=== PATIENT | female | born 1980 | race Caucasian/White ===

== ENCOUNTER 2024-09-23 18:13 | Inpatient (IN) | payer OTHER, SELFPAY ==
[2024-09-23 18:14] VITALS: BP 181/96; PULSE 90; RESP 15; TEMP 36.4; O2SAT 96; BMI 47.9
--- NOTE | 2024-09-23 18:53 | EDS_ITS ---
HPI History of Present Illness Chief Complaint: Abn Labs [facility] Medical History (Updated 09/23/24 @ 22:26 by Angeles Bhandari) Hypertension Medical History no medical history Home Medications ?Medication ?Instructions ?Recorded ?Last Taken ?Type losartan 25 mg tablet 25 mg PO DAILY 09/23/24 Unkn own History Allergy/AdvReac Type Severity Reaction Status Date / Time No Known Allergies Allergy Verified 09/23/24 18:14 Family History no significant family his Surgical History no surgical history Social History Smoking Status: Never smoker EXAM Physical Exam Const Vital Signs: 09/23/24 18:14 09/23/24 20:14 Temperature 97.5 F L Temperature Source Temporal Pulse Rate 90 79 Respiratory Rate 15 18 Blood Pressure 181/96 H Blood Pressure Mean 124 Pulse Ox 96 98 Oxygen Delivery Method Room Air Room Air [facility] MDM Narrative Medical decision making narrative: HISTORY OF PRESENT ILLNESS: 44-year-old female presents with concern for elevated liver enzymes. Notes history of gallbladder sludge. No severe abdominal pain earlier today. No pain with food. No falls or trauma. No urinary complaints. REVIEW OF SYSTEMS: Pertinent positives: Elevated liver enzymes Pertinent negatives: Vomiting PHYSICAL EXAM: Nursing triage notes reviewed, Vital signs reviewed Constitutional: please see mdm HENT: MMM Eyes: Pupils equal round and reactive to light, Extraocular muscles intact, no scleral icterus Neck: No stridor, no JVD, full neck ROM Lungs: Clear to auscultation, No wheezing or rales. No increased work of breathing, no conversational dyspnea, no accessory muscle use, no nasal flaring. No respiratory distress noted Heart: Regular rate and rhythm, No murmurs, No rubs and No gallops, 2+ distal pulses (radial, femoral, posterior tibial) in all extremities Abdomen: Soft, right a quadrant TTP, positive Isabel sign but no rigidity, rebound or guarding, no obvious peritoneal signs, no palpable pulsatile abdominal masses, no auscultated abdominal bruit : No CVAT Extremities: No edema Neuro: No new focal neurological deficits, cranial nerves II through XII intact, 5/5 strength in all present extremities. Intact sensation to light touch in all present extremities, 2+ reflexes bilateral patella tendons. Skin: No jaundice MEDICAL DECISION MAKING: Chief Complaint: Elevated liver enzymes External records reviewed: Reviewed prior imaging studies Factors affecting care: hypertension Social determinants of health: none History obtained from others: the patient's Consults: Gastroenterology (Dr. Cortez), Internal Medicine (Garcia) MDM Narrative: The patient was initially hemodynamically stable, afebrile and nontoxic- appearing. Exam with RUQ TTP. No jaundice. I considered the following differential diagnosis: Hepatitis ALL IMAGES (IF OBTAINED) HAVE BEEN PERSONALLY REVIEWED AND INTERPRETED BY MYSELF. CBC without leukocytosis, severe anemia, no thrombocytopenia. BMP without evidence of significant electrolyte abnormalities, no anion gap, no acute kidney injury. Liver enzymes elevated with elevated total and direct bilirubin as well as elevated AST ALT and alk phos concerning for obstructive hepatobiliary pathology Right upper quadrant ultrasound is concerning for an abnormally dilated common bile duct consistent with CBD obstruction. Spoke with Dr. Cortez is rigging and controls aircraft mechanic tomorrow and can evaluate the patient. Recom mended starting patient on antibiotics. I gave Zosyn. Discussed with hospitalist agreed to admit the patient to [facility] [place]. The patient and/or family, caregivers express understanding. The patient and/or family, caregivers agrees with the plan. Shared decision making: I will have a discussion with the patient and or visitors regarding risk/benefits of further testing or admission. They will be made aware of of the risk/benefits inherent in this decision they will be given the opportunity to voice understanding. Total critical care time today provided was at least 0 [minutes. This excludes separately billable procedures. Critical care time (if documented) is secondary to the patient having high probability of clinically significant/life threatening deterioration in the patient's condition which required my urgent intervention. Impression: 1. Dilated CBD 2. Elevated liver enzymes Dispo: Admit to [facility] [place] This note was generated with [employer] dictation software. It may contain incorrect words, spelling, and punctuation that were not noted in review of the chart prior to signing. Lab Data Labs: Laboratory Results - last 24 hr 09/23/24 09/23/24 18:47 19:00 WBC 7.1 RBC 4.33 Hgb 12.7 Hct 38.9 MCV 89.8 MCH 29.3 MCHC 32.6 RDW Std Deviation 44.0 H RDW Coeff of David 13.4 Plt Count 380 MPV 10.5 Immature Gran % (Auto) 0.700 Neut % (Auto) 59.4 Lymph % (Auto) 26.2 [place] % (Auto) 7.6 Eos % (Auto) 5.1 H Baso % (Auto) 1.0 Absolute Neuts (auto) 4.2 Absolute Lymphs (auto) 1.86 Nucleated RBC % 0 Sodium 142 Potassium 3.6 Chloride 107 Carbon Dioxide 21.2 Anion Gap 14 BUN 10 Creatinine 0.80 Estim Creat Clear Calc 116.98 Est GFR (MDRD) Non-Af 93 BUN/Creatinine Ratio 12.0 Glucose 93 Hemoglobin A1c 5.7 Calcium 9.2 Magnesium 2.1 Total Bilirubin 2.78 H Direct Bilirubin 2.05 H AST 281 H ALT 361 H Alkaline Phosphatase 355 H Total Protein 7.5 Albumin 4.0 Globulin 3.5 Lipase 34 TSH 2.100 Urine Test Negative Radiography Diagnostic Testing: Clinical Impression(s) from Imaging Studies Gallbladder Ultrasound 09/23/24 19:24 IMPRESSION: Cholelithiasis without CT evidence for acute cholecystitis. Abnormally dilated common bile duct. A stone within the CBD/distal CBD obstruction is likely. Recommend GI consultation and MRCP/ERCP. Reading Location: [id number] Discharge Plan Disposition Disposition: Acute Care Hospital [facility] Discharge Date/Time: 09/23/24 22:00
[2024-09-23 19:03] LABS: Absolute Lymphocyte Count 1.86 X10^3/uL (0.83-4.51); Absolute Neutrophil Count 4.2 X10^3/uL (2.0-7.7); Basophil# 0.07 X10^3/uL; Eosinophil# 0.36 X10^3/uL; Eosinophils% 5.1 % (0-5); Hematocrit 38.9 % (37-47); Hemoglobin 12.7 g/dL (12.0-15.0); Lymphocyte # 1.86 X10^3/ul (0.83-4.51); Lymphocyte % 26.2 % (19-41); Mean Corp Hgb Conc 32.6 g/dL (32-36); Mean Corpuscular Hgb 29.3 pg (27.0-32.0); Mean Corpuscular Volume 89.8 fL (81-99); Mean Platelet Vol. 10.5 fl (6.2-12.0); Monocyte# 0.54 X10^3/uL; Monocyte% 7.6 % (0-10); NRBC Flagged by Analyzer 0 % (0-5); Neutrophil # 4.21 X10^3/uL (2.7-7.7); Neutrophil % 59.4 % (47-70); Platelet Count 380 K/mm3 (150-450); RBC Distribution Width CV 13.4 % (11.6-14.6); Red Blood Count 4.33 M/mm3 (4.2-5.4); White Blood Count 7.1 K/mm3 (4.4-11.0)
[2024-09-23 19:18] LABS: Internal QC Validated? YES +Cl - CLEAR BKGD; Pregnancy, Urine Negative Negative
--- NOTE | 2024-09-23 19:24 | US_ITS ---
PROCEDURE: GALLBLADDER REASON FOR EXAM: RUQ TTP, ELEVATED LIVER ENZYMES COMPARISON: None FINDINGS: Liver: Diffusely echogenic. Gallbladder: 9 mm stone seen within the gallbladder. There is no gallbladder wall thickening or pericholecystic fluid. (Isabel sign was reportedly negative.). Common bile duct: Abnormally dilated measuring up to 1 cm. Pancreas: Echogenic. Visualized portions of the right kidney are unremarkable. No right upper quadrant ascites. US/Gallbladder IMPRESSION: Cholelithiasis without CT evidence for acute cholecystitis. Abnormally dilated common bile duct. A stone within the CBD/distal CBD obstruc tion is likely. Recommend GI consultation and MRCP/ERCP. Reading Location: [id number]
[2024-09-23 19:38] LABS: AST(SGOT) 281 U/L (<=31); Alanine Aminotransfer ALT/SGPT 361 U/L (<=34); Alkaline Phosphatase 355 U/L (35-104); Anion Gap 14 (5-15); BUN 10 mg/dL (4-19); Bilirubin, Direct 2.05 mg/dL (0.00-0.30); Calcium,Total 9.2 mg/dL (7.6-11.0); Carbon Dioxide 21.2 mmol/L (21.0-32.0); Chloride 107 mmol/L (98-108); EST Glomerular Filtration Rate 93 (>60); Estimated Creatinine Clearance 116.98 ml/min (50-250); Globulin 3.5 g/dL (2.2-4.2); Glucose 93 mg/dL (70-99); Potassium 3.6 mmol/L (3.3-5.1); Protein, Total 7.5 g/dL (5.9-8.4); Sodium Level 142 mmol/L (133-145); Total Bilirubin 2.78 mg/dL (0.00-1.30)
[2024-09-23 20:14] VITALS: PULSE 79; RESP 18; O2SAT 98
--- NOTE | 2024-09-23 21:18 | PCM.HP.STD ---
[facility] - General General Date of Admission: 09/23/24 Date of Service: 09/23/24 Chief Complaint: Nausea and Elevated LFT's. HPI Narrative REYNA NULL, is a 44 F with a past medical history of essential hypertension; on losartan, morbid obesity; with BMI of 47.9 this admission and known history of intermittent Gallbladder Colic for years with known microlithiasis/sludge who presents to [facility] ER complaining of nausea and elevated LFT's. Ms. Null reports her symptoms began a few hours prior to admission with the abrupt-onset of severe right upper quadrant abdominal pain earlier today similar to her previous gallbladder attacks but more severe. She admits to associated nausea but she denies vomiting. She denies recent trauma, recent illness or recent medication changes. There is no report of fever, chills, diarrhea, constipation, chest pain, shortness of breath or headache. In the ER she was noted to have gallbladder ultrasound positive for abnormally dilated common bile duct with a stone within the distal common bile duct with obstruction likely in addition to cholelithiasis without evidence of cholecystitis and GI consultation recommended along with MRCP/ERCP with corresponding laboratory evidence of Hyperbilirubinemia; with total bilirubin of 2.78 mg/dL, direct bilirubin of 2.05 mg/dL, AST of 281 units/L, ALT of 361 units/L and alkaline phosphatase of 355 units/L consistent with Transaminitis. She was then admitted to the general medical floor for ongoing care for a stay that is expected to extend beyond 2 midnights. [facility] Medical History (Updated 09/24/24 @ 02:[address] Benedicto Burks, DO) Hypertension Medical History no medical history Home Medications ?Medication ?Instructions ?Recorded ?Last Taken ?Type losartan 25 mg tablet 25 mg PO DAILY 09/23/24 Unknown History Allergy/AdvReac Type Severity Reaction Status Date / Time No Known Allergies Allergy Verified 09/23/24 18:14 Family History no significant family his Surgical History no surgical history Social History Smoking Status: Never smoker ROS ROS Narrative Review of Systems: Constitutional: Patient denies fever or chills. Eyes: Patient denies changes in vision, scleral icterus or discharge from eyes. ENT: Patient denies runny nose, sore throat or ear pain. Resp: Patient denies shortness of breath or cough. CV: Patient denies chest pain, palpitations, heart racing or lower extremity edema. GI: Patient admits to nausea and right upper quadrant abdominal pain with positive Isabel's sign in the setting of known gallbladder colic and microlithiasis/sludge as per HPI. : Patient denies dysuria, hematuria or urinary frequency. MSK: Patient denies arthralgias or myalgias. Skin: Patient denies rash, abscess, wounds or jaundice. Psych: Patient denies symptoms of uncontrolled depression or anxiety. Neuro: Patient denies headache, paresthesias or focal neurologic deficits. Allergy: Patient denies lip swelling, tongue swelling or urticaria. Hematology: Patient denies easy bleeding or easy bruisability. Endocrinology: Patient denies polyuria, polydipsia or polyphagia. 14 point ROS otherwise negative except for positives noted above in HPI. Vital Signs Vital Signs Vital Signs: 09/23/24 18:14 09/23/24 20:14 Temperature 97.5 F L Temperature Source Temporal Pulse Rate 90 79 Respiratory Rate 15 18 Blood Pressure 181/96 H Blood Pressure Mean 124 Pulse Ox 96 98 Oxygen Delivery Method Room Air Room Air Weight Weight: 279 lb Body Mass Index (BMI) 47.9 Physical Exam Const alert, oriented x3 and no apparent distress Constitutional Narrative: Patient is morbidly obese but in good spirits General Appearance: cooperative HEENT normocephalic, head/scalp atraumatic, hearing grossly normal bilaterally and moist oral mucous membranes Eyes PERRL, EOMs intact bilaterally and conjunctivae normal Neck no lymphadenopathy and supple Resp normal respiratory effort, no retractions, no use of accessory muscles and clear to auscultation bilaterally Cardio regular rate and regular rhythm GI normal to inspection, nondistended, normoactive bowel sounds, soft to palpation, non-tender and non-distended GI Narrative: Mild tenderness to palpation in right upper quadrant with positive Isabel sign but no rigidity, guarding or rebound. Extremity normal to inspection, full ROM and no clubbing, cyanosis or edema Skin Skin Narrative: Patient has no evidence of rash, abscess, wounds or jaundice. Neuro oriented x3, CN's II-XII intact bilaterally, moves all extremities and no focal motor deficits Sensorium / Orientation: awake, alert, oriented to person, oriented to place and oriented to time Speech: speech normal Psych affect normal Results Medical Records Data Attestation: I reviewed the patient's medical records Lab / Micro Data Attestation: I reviewed the patient's lab results. 09/23/24 18:47 09/23/24 18:47 Labs: Laboratory Results - last 24 hr 09/23/24 18:47: WBC 7.1, RBC 4.33, Hgb 12.7, Hct 38.9, MCV 89.8, MCH 29.3, MCHC 32.6, RDW Std Deviation 44.0 H, RDW Coeff of David 13.4, Plt Count 380, MPV 10.5, Immature Gran % (Auto) 0.700, Neut % (Auto) 59.4, Lymph % (Auto) 26.2, [place] % (Auto) 7.6, Eos % (Auto) 5.1 H, Baso % (Auto) 1.0, Absolute Neuts (auto) 4.2, Absolute Lymphs (auto) 1.86, Nucleated RBC % 0, Sodium 142, Potassium 3.6, Chloride 107, Carbon Dioxide 21.2, Anion Gap 14, BUN 10, Creatinine 0.80, Estim Creat Clear Calc 116.98, Est GFR (MDRD) Non-Af 93, BUN/Creatinine Ratio 12.0, Glucose 93, Calcium 9.2, Total Bilirubin 2.78 H, Direct Bilirubin 2.05 H, AST 281 H, ALT 361 H, Alkaline Phosphatase 355 H, Total Protein 7.5, Albumin 4.0, Globulin 3.5 09/23/24 19:00: Urine Test Negative Imaging Radiology Impression Gallbladder Ultrasound 09/23/24 19:24 IMPRESSION: Cholelithiasis without CT evidence for acute cholecystitis. Abnormally dilated common bile duct. A stone within the CBD/distal CBD obstruction is likely. Recommend GI consultation and MRCP/ERCP. Reading Location: [id number] Assessment & Plan Assessment/Plan (1) Common bile duct (CBD) obstruction: (2) Hyperbilirubinemia: (3) Transaminitis: (4) Abdominal pain: QUALIFIERS: Abdominal location: right upper quadrant Qualified Code(s): R10.11 - Right upper quadrant pain (5) Nausea: (6) Morbid obesity with BMI of 45.0-49.9, adult: (7) Essential hypertension: PLAN: Plan 1. Choledocholithiasis with gallbladder ultrasound evidence of abnormally dilated common bile duct with a stone within the distal common bile duct with obstruction likely in addition to cholelithiasis without evidence of cholecystitis and GI consultation recommended along with MRCP/ERCP - Admit to general medical floor. Keep strict n.p.o. and start empiric IV piperacillin-tazobactam as per gastroenterology recommendations. Start Protonix 40 mg IV daily for GI prophylaxis. Finally, MRCP has been ordered for the a.m. in addition to formal gastroenterology consultation also pending in a.m. for recommendations regarding ERCP this admission with help appreciated in advance. 2. Hyperbilirubinemia with Transaminitis attributable to #1 - Check CMP daily to follow trend. 3. RUQ abdominal pain with Nausea in the setting of previously known gallbladder colic and microlithiasis/sludge complicating #1 & #2 - Give ondansetron IV as needed nausea and vomiting. Give morphine IV as needed for severe (level 6-10/10) pain. 4. Morbid obesity; with BMI of 47.9 this admission adding to the burden of disease outlined from #1 - #3 - Weight loss will be recommended. Check TSH. This complicates her case and may hamper recovery. 5. Essential hypertension; on losartan - Hold losartan until patient is cleared for oral intake. Give hydralzine IV prn for systolic blood pressure > 160 mmHg. 6. DVT prophylaxis - SCD's only with impending ERCP. Total time: Approximately (but not less than) 55 minutes. Charges/Coding Visit Charges Inpatient E&M: 74221 Init Hosp L2
[2024-09-23 21:34] LABS: Lipase 34 U/L (13-75)
[2024-09-23] MEDS: Piperacil/Tazobactam 4.5 GM in 0.9% Normal Saline (100mL MB+) 100 ML IV (21:45)
[2024-09-23 21:47] VITALS: BP 159/88; PULSE 78; RESP 18; TEMP 36.8; O2SAT 98; O2SAT 99
[2024-09-23 21:48] VITALS: BP 159/88; PULSE 78; RESP 18; TEMP 36.8; O2SAT 98
[2024-09-23 21:59] LABS: Hemoglobin A1c 5.7 % (<=5.6)
[2024-09-23 22:08] LABS: Magnesium 2.1 mg/dL (1.5-2.2)
[2024-09-23 22:10] VITALS: BMI 47.8
[2024-09-23 22:29] VITALS: BP 159/93; PULSE 67; RESP 18; TEMP 36.7; O2SAT 97
[2024-09-23] MEDS: Pantoprazole Sodium 40 MG in 0.9% Normal Saline (100mL MB+) 100 ML 330 MG IV (23:22)
[2024-09-23] MEDS: 0.9% Normal Saline (1000mL) 1,000 ML 150 ML IV (23:22)
[2024-09-24] VITALS (14 sets, daily range): BP systolic 135–165; BP diastolic 62–103; PULSE 73–95; RESP 16–20; TEMP 36.4–37.3; O2SAT 94–99; BMI 47.6; BMI 47.9
[2024-09-24] MEDS: Piperacil/Tazobactam 3.375 GM in 0.9% Normal Saline (50mL MB+) 50 ML IV ×3 (05:11→21:37)
[2024-09-24] MEDS: 0.9% Normal Saline (1000mL) 1,000 ML 150 ML IV (05:11)
[2024-09-24 06:22] LABS: Absolute Lymphocyte Count 1.39 X10^3/uL (0.83-4.51); Absolute Neutrophil Count 2.7 X10^3/uL (2.0-7.7); Basophil# 0.06 X10^3/uL; Basophil% 1.2 % (0-1); Eosinophil# 0.39 X10^3/uL; Eosinophils% 7.9 % (0-5); Hematocrit 37.9 % (37-47); Lymphocyte # 1.39 X10^3/ul (0.83-4.51); Mean Corp Hgb Conc 31.7 g/dL (32-36); Mean Corpuscular Hgb 29.3 pg (27.0-32.0); Mean Corpuscular Volume 92.4 fL (81-99); Mean Platelet Vol. 10.9 fl (6.2-12.0); Monocyte# 0.38 X10^3/uL; Monocyte% 7.7 % (0-10); NRBC Flagged by Analyzer 0 % (0-5); Neutrophil # 2.71 X10^3/uL (2.7-7.7); Neutrophil % 54.6 % (47-70); Platelet Count 334 K/mm3 (150-450); RBC Distribution Width CV 13.3 % (11.6-14.6); RBC Distribution Width SD 45.5 fl (35.1-43.9)
--- NOTE | 2024-09-24 07:05 | PCM.PN.HOSP ---
Reason for Visit Reason for Visit: Diagnoses Morbid (severe) obesity due to excess calories (09/23/24) Other disorders of bilirubin metabolism (09/23/24) Essential (primary) hypertension (09/23/24) Obstruction of bile duct (09/23/24) Right upper quadrant pain (09/23/24) Nausea (09/23/24) Elevation of levels of liver transaminase levels (09/23/24) Body mass index [BMI] 45.0-49.9, adult (09/23/24) Subjective Subjective Patient denies any pain, she is status post MRCP and has yet to go down for ERCP, no nausea or other acute complaints Objective Data Objective Data Vital Signs: Vital Signs Temp Pulse Resp BP Pulse Ox O2 Del Method O2 Flow Rate 97.9 F 84 18 150/85 H 99 Nasal Cannula 2 09/24/24 05:06 09/24/24 05:06 09/24/24 05:06 09/24/24 05:06 09/24/24 05:06 09/24/24 05:06 09/24/24 05:06 Oxygen Flow Rate (L/min) 2 Oxygen Delivery Method Nasal Cannula Weight: 126.6 kg Body Mass Index (BMI) 47.6 Intake & Output: Intake and Output for Last 24 Hours 09/22/24 09/23/24 09/24/24 23:59 23:59 23:59 Intake Total 100 / 100 982.5 / 982.5 Balance 100 / 100 982.5 / 982.5 Lab / Micro Data 09/24/24 05:36 09/24/24 05:36 Labs: Laboratory Results - last 24 hr 09/23/24 18:47: WBC 7.1, RBC 4.33, Hgb 12.7, Hct 38.9, MCV 89.8, MCH 29.3, MCHC 32.6, RDW Std Deviation 44.0 H, RDW Coeff of David 13.4, Plt Count 380, MPV 10.5, Immature Gran % (Auto) 0.700, Neut % (Auto) 59.4, Lymph % (Auto) 26.2, [place] % (Auto) 7.6, Eos % (Auto) 5.1 H, Baso % (Auto) 1.0, Absolute Neuts (auto) 4.2, Absolute Lymphs (auto) 1.86, Nucleated RBC % 0, Sodium 142, Potassium 3.6, Chloride 107, Carbon Dioxide 21.2, Anion Gap 14, BUN 10, Creatinine 0.80, Estim Creat Clear Calc 116.98, Est GFR (MDRD) Non-Af 93, BUN/Creatinine Ratio 12.0, Glucose 93, Hemoglobin A1c 5.7, Calcium 9.2, Magnesium 2.1, Total Bilirubin 2.78 H, Direct Bilirubin 2.05 H, AST 281 H, ALT 361 H, Alkaline Phosphatase 355 H, Total Protein 7.5, Albumin 4.0, Globulin 3.5, Lipase 34, TSH 2.100 09/23/24 19:00: Urine Test Negative 09/24/24 05:36: WBC 5.0, RBC 4.10 L, Hgb 12.0, Hct 37.9, MCV 92.4, MCH 29.3, MCHC 31.7 L, RDW Std Deviation 45.5 H, RDW Coeff of David 13.3, Plt Count 334, MPV 10.9, Immature Gran % (Auto) 0.600, Neut % (Auto) 54.6, Lymph % (Auto) 28.0, [place] % (Auto) 7.7, Eos % (Auto) 7.9 H, Baso % (Auto) 1.2 H, Absolute Neuts (auto) 2.7, Absolute Lymphs (auto) 1.39, Nucleated RBC % 0 Radiography Diagnostic Testing: Radiology Impression Gallbladder Ultrasound 09/23/24 19:24 IMPRESSION: Cholelithiasis without CT evidence for acute cholecystitis. Abnormally dilated common bile duct. A stone within the CBD/distal CBD obstruction is likely. Recommend GI consultation and MRCP/ERCP. Reading Location: [facility] Physical Exam Narrative General: Alert, oriented, no apparent distress HEENT: Atraumatic, normocephalic Eyes: Anicteric, normal conjunctiva, extraocular movements grossly intact Neck: Supple Respiratory:normal respiratory effort Cardiovascular: Regular rate and rhythm GI: Soft, nontender, nondistended Extremities: No edema Musculoskeletal: Moving all extremities Neuro: No overt focal neurological deficits Skin: No rashes appreciated Psych: Cooperative Assessment & Plan Assessment/Plan (1) Hyperbilirubinemia: (2) Transaminitis: (3) Abdominal pain: QUALIFIERS: Abdominal location: right upper quadrant Qualified Code(s): R10.11 - Right upper quadrant pain (4) Morbid obesity with BMI of 45.0-49.9, adult: PLAN: Plan # Right upper quadrant pain with suspicion for choledocholithiasis -Patient with pain and nausea for several hours prior to arrival, pain-free at this time -Found to have elevation of bili and liver function test, still elevated but down trended -Gallbladder ultrasound showed abnormally dilated CBD with a stone in the distal common bile duct with obstruction without evidence of cholecystitis -GI consult -MRCP ordered and demonstrated distended gallbladder with cholelithiasis and small stone in gallbladder neck, patient for ERCP -Pain control and supportive care -On IV fluids -Patient on Zosyn #Hypertension -Chronically on losartan, this is held at this time, add back as tolerated #Morbid obesity -BMI documented as 47.9 kg/m? at time of admission -Complicates treatment, prognosis, outcomes -Recommend weight loss and lifestyle changes #DVT ppx: SCDs Loretta Meyer MD Time spent in the patient's overall evaluation, decision-making process, review of diagnostic data, adjustment of management, discussion with other providers, nursing and ancillary staff involved in patient's care documentation, 35 Minutes Charges/Coding Visit Charges Inpatient E&M: 52828 Subs Hosp L2
[2024-09-24 08:36] LABS: ALB/GLOB Ratio 1.1 RATIO (0.9-2.4); AST(SGOT) 188 U/L (<=31); Alanine Aminotransfer ALT/SGPT 273 U/L (<=34); Albumin, Serum 3.5 g/dL (3.5-5.0); Alkaline Phosphatase 305 U/L (35-104); Anion Gap 13 (5-15); BUN 8 mg/dL (4-19); BUN/Creat Ratio 9.8 RATIO (10-20); Calcium,Total 8.4 mg/dL (7.6-11.0); Carbon Dioxide 18.5 mmol/L (21.0-32.0); Chloride 110 mmol/L (98-108); Creatinine, Serum 0.79 mg/dL (0.70-1.20); EST Glomerular Filtration Rate 94 (>60); Estimated Creatinine Clearance 118.48 ml/min (50-250); Globulin 3.1 g/dL (2.2-4.2); Glucose 105 mg/dL (70-99); Phosphorus 2.7 mg/dL (2.7-4.5); Potassium 3.5 mmol/L (3.3-5.1); Protein, Total 6.6 g/dL (5.9-8.4); Sodium Level 141 mmol/L (133-145)
[2024-09-24 08:47] LABS: Mucous, Urine 0 SEEN /hpf (<or=2+)
[2024-09-24 09:10] LABS: Color, Urine Amber (Yellow); Glucose, Dipstick Normal (Normal); Ketone-Dipstick 5 mg/dl (Negative); Leukocyte Esterase-Dipstick 25 /ul (Negative); Nitrite-Dipstick Negative (Negative); Occult Blood-Urine 10 /ul (Negative); Protein-Dipstick 30 mg/dl (Negative); Specific Gravity, Urine 1.015 (1.002-1.030); Urine Clarity Turbid (Clear); Urine Urobilinogen 8 mg/dl (Normal)
[2024-09-24 09:11] LABS: Urine Bilirubin Dipstick 3 mg/dL (Negative)
[2024-09-24 09:23] LABS: Amorphous Sediment 4+ URATE
[2024-09-24 09:26] LABS: Bacteria 1+ /hpf (None Seen); Red Blood Cells-Urine 0-5 SEEN /hpf (0-5); Squamous Epithelial Cells - UA 5-10 SEEN /hpf (5-10); White Blood Cells 5-10 SEEN /hpf (0-5)
[2024-09-24] MEDS: Pantoprazole Sodium 40 MG in 0.9% Normal Saline (100mL MB+) 100 ML 330 MG IV (09:29)
--- NOTE | 2024-09-24 10:10 | CASEMGMT ---
MARAL LANDRY Assessment: Face to Face with pt for initial transition planning/care coordination assessment. RN GRIS introduced self and role at [facility], pt voices understanding and consents to assessment. Pt is A&O x4 and answers all questions appropriately at this time. Pt sitting up in bed, sitting at bedside. Pt agreeable to discussing DC planning with present. Care providers, pharmacy, and demographics verified/updated. Strata: 1 Admitting Dx: CBD Stones with transaminitis PCP: Gabby Anna: Denies Hx of. Preferred [facility]acy[facility] Insurance: MMO Prescription Benefit: yes LNOK: [place] Living Arrangements: Pt lives with and kids in a 2 story home with 2 steps to enter. ADLs: Pt I with ADLs and IADLs. Transportation: Pt drives self and denies concerns with transportation. DME:CPAP HHC/SNF: Denies Hx of. Pt states no concerns with going home at time of dc. Pt states no further concerns/needs. CM to follow. Advised pt to ask CM if any further question/concerns/needs arise, voices understanding. Pt Goal: Home Plan: Home with family support, follow for safe DC. Alice ALICIA CM
--- NOTE | 2024-09-24 12:00 | MRI_ITS ---
PROCEDURE: MRCP ABDOMEN WITHOUT CONTRAST REASON FOR EXAM: Nausea, Vomiting and LFT's. TECHNIQUE: MRI abdomen was performed without IV contrast. MRCP was performed including generation of 3D reformats. COMPARISON: 09/23/2024 FINDINGS: Note that the exam was optimized for evaluation of the gallbladder and biliary tree rather than the remaining abdominal viscera. Note also that sensitivity is limited in the absence of IV contrast. Liver: Grossly unremarkable within limits of nondedicated technique. Gallbladder: Distended, without convincing wall thickening or inflammation. Cholelithiasis with a small stone near the gallbladder neck. Biliary tree: CBD measures 9 mm proximally and 8 mm distally with abrupt transition at the ampulla. Common hepatic duct measures 7 mm. No definite filling defect identified. No significant intrahepatic biliary dilatation. Pancreas: Minute 3 mm likely T2 bright presumably cystic focus within the head/uncinate process. No ductal dilatation. Other: Mild splenomegaly, 14.0 cm coronal. MRI/MRCP Abdomen without Contrast IMPRESSION: 1. Distended gallbladder with cholelithiasis and a small stone in the gallbladd er neck which could be a source of biliary colic. No convincing MR evidence of acute cholecystitis. 2. Mild biliary dilatation without visualized definite choledocholithiasis or o ther obstructing process evident by noncontrast MRCP. Findings could reflect a previously passed gallstone, ampullary stenosis , or perhaps less likely an occult ampullary lesion. Correlate with serum bilirubin and recommend clinical follow-up as ind icated. 3. Mild splenomegaly with hepatic steatosis better depicted previously given no ndedicated MRCP. Correlate for clinical and laboratory evidence of chronic liver disease. 4. 3 mm presumably cystic focus within the pancreatic head/uncinate process, po ssible tiny cystic neoplasm such as an IPMN. Recommend follow-up MRI abdomen with and without contrast and with MRCP in 2 ye ars per ACR recommendations, to evaluate stability. 5. Additional description as above. Reading Location: [facility]
[2024-09-24] MEDS: 0.9% Saline Lock 10 ML Syringe IV ×2 (13:10→21:35)
--- NOTE | 2024-09-24 15:07 | EKG12_ITS ---
Test Reason : PRE OP Blood Pressure : */* mmHG Vent. Rate : 83 BPM Atrial Rate : 83 BPM P-R Int : 144 ms QRS Dur : 76 ms QT Int : 392 ms P-R-T Axes : 16 41 24 degrees QTcB Int : 460 ms Normal sinus rhythm Normal ECG No previous ECGs available Confirmed by NUBIA PAGE, MATTHEW ([id number]), web editor NAJMA SAAVEDRA ([id number]) on 09/27/2024 1:43:21 PM Referred By: Juan Jose Oseguera Confirmed By: MATTHEW DELACRUZ MD
--- NOTE | 2024-09-24 15:14 | PCM.PRE.AN2 ---
ASA Classification* ASA Classification ASA Classification: 3 Assessment & Plan Anesthesia* Anesthesia Assessment Anesthesia Assessment: Discussed sedation and/or anesthesia options, risks, benefits, and alternatives with patient/parents/legal guardian/POA. Questions invited. The patient/parents/legal guardian/POA seems to understand and agrees to proceed with anesthesia plan. Reviewed the physical assessment, medical history, allergy history and patient home medications list prior to surgery/procedure/anesthetic and documented any changes. Performed airway and anesthesia risk assessments. Anesthesia Type Anesthesia Type: General Anesthesia Focused Assessment* Temperature: 99.1 F Pulse Rate: 73 Blood Pressure: 158/103 Respiratory Rate: 16 Pulse Ox: 99 Oxygen Flow Rate (L/min): 2 Airway Assessment Mouth opens: >3 cm Mallampati Score: II Focused Labs Anesthesia Preop lab: CBC WBC 5.0 K/mm3 (4.4-11.0) 09/24/24 05:36 09/24/24 RBC 4.10 M/mm3 (4.2-5.4) L 09/24/24 05:36 09/24/24 Hgb 12.0 g/dL (12.0-15.0) 09/24/24 05:36 09/24/24 Hct 37.9 % (37-47) 09/24/24 05:36 09/24/24 Plt Count 334 K/mm3 (150-450) 09/24/24 05:36 09/24/24 CHEMISTRY Potassium 3.5 mmol/L (3.3-5.1) 09/24/24 05:36 09/24/24 Sodium 141 mmol/L (133-145) 09/24/24 05:36 09/24/24 Magnesium 2.1 mg/dL (1.5-2.2) 09/23/24 18:47 09/23/24 Phosphorus 2.7 mg/dL (2.7-4.5) 09/24/24 05:36 09/24/24 BUN 8 mg/dL (4-19) 09/24/24 05:36 09/24/24 Creatinine 0.79 mg/dL (0.70-1.20) 09/24/24 05:36 09/24/24 Glucose 105 mg/dL (70-99) H 09/24/24 05:36 09/24/24 TSH 2.100 uIU/mL (0.300-4.200) 09/23/24 18:47 09/23/24 COAG Urine Test Negative Negative 09/23/24 19:00 09/23/24 Pre-Assessment Diagnosis/Proposed Procedure Planned Operative Procedure(s): ERCP Anesthesia History Anesthesia History - home visit field care manager: Anesthesia History - home visit field care manager Hx Hospitalization Any Problems With Anesthesia No: 2- births- never had 09/24/24 09:40 anesthesia Cholinesterase deficiency No 09/24/24 09:40 You/Your Family Experience No 09/24/24 09:40 fever (hyperthermia) with Relationship Recent Exposure to Contagious No 09/24/24 09:40 Disease Does patient have nerve No 09/24/24 09:40 stimulator Patient instructed to have No 09/24/24 09:40 device shut off --Does patient have Pacemaker No 09/24/24 13:00 or ICD? When Was Last Pacemaker Check QUESTION #4 FULL TEXT: You/Your Family Experience fever (hyperthermia) with Anesthesia Last Oral Intake Last Oral intake: Last Oral Intake NPO since 00:00 09/24/24 13:00 Meds taken in AM with sips of water? Meds patient instructed to take am of surgery PONV PONV - home visit field care manager: PONV - home visit field care manager Female HX of Motion Sickness HX of N/V After Surgery Non-Smoker Duration of Surgery greater than 60 minutes Number of Risk Factors PONV Score Height & Weight Height & Weight: Anesthesia: Height & Weight Height 5 ft 4 in 09/24/24 13:18 Weight: 126.6 kg 09/24/24 13:18 Body Mass Index (BMI) 47.9 09/24/24 13:00 Respiratory Assessment Respiratory Assessment - home visit field care manager: Respiratory Tract Infection Hx - home visit field care manager Hx Respiratory Tract Infection Yes: beginning of this week 09/24/24 09:40 - cold STOP Sleep Apnea STOP Sleep Apnea - home visit field care manager: STOP Sleep Apnea - home visit field care manager Hx Hypertension Yes 09/23/24 22:10 Hx Sleep Apnea Yes 09/23/24 22:10 CPAP Yes 09/23/24 22:10 BIPAP No 09/23/24 22:10 Do you snore loudly (louder than talking or can be heard Do you often feel tired/ fatigued/ sleepy during daytime? Has anyone observed you stop breathing during sleep? STOP Results Positive 09/23/24 22:10 QUESTION #5 FULL TEXT : Do you snore loudly (louder than talking or can be heard through closed doors)? Tobacco Use History Tobacco Use History - home visit field care manager: Tobacco Use History - home visit field care manager Tobacco Use Smoking Status Never smoker 09/23/24 22:10 Hx Tobacco Use No 09/23/24 22:10 Years Smoking Packs Smoked per Day Smoking Cessation Date was within the last 15 years Hx Smoking Cessation Date Hx Smoking Cessation Counseling Hematologic Medial History Hematologic Hx - home visit field care manager: Hematologic Medical Hx - senior manager quality assurance Hx of Blood Transfusion No 09/23/24 22:10 Hx of Transfusion in last 3 No 09/23/24 22:10 Months Date of Last Transfusion (if within last 3 months) Ever experience any problems No 09/23/24 22:10 with transfusion(s)? Specify any problems Hx of Preganancy in last 3 No 09/23/24 22:10 Months Nurse Filling Out Transfusion EVIZZO 09/23/24 22:10 & Questions: Date: 09/23/24 09/23/24 22:10 Time: 22:14 09/23/24 22:10 Patient unable to answer at this time (ie. confused, unrespo /Reproduction History /Reproductive History - home visit field care manager: /Reproductive Hx- home visit field care manager Hx Now No 09/24/24 14:39 Gestational Age (in weeks): EDC: Hx Hx Para Hx Section SAB No 09/24/24 14:39 Active Medications Active Medications: Current Medications Generic Name Dose Route Start Last Admin Trade Name Freq PRN Reason Stop Dose Admin Piperacillin Sod/Tazobactam 50 mls @ 12.5 mls/hr 09/24/24 06:00 09/24/24 13:10 Sod 3.375 gm/ Sodium Chloride IV 12.5 mls/hr Q8 REAGAN Administration Pantoprazole Sodium 40 mg/ 110 mls @ 330 mls/hr 09/23/24 22:18 09/24/24 09:49 Sodium Chloride IV Infused DAILY REAGAN Infusion Morphine Sulfate 2 mg 09/23/24 22:18 Morphine 2 Mg/Ml Syringe IV Q4H PRN PRN Pain Score 6-10 Ondansetron HCl 4 mg 09/23/24 22:18 Ondansetron 4 Mg/2 Ml Vial IV Q6H PRN PRN NAUSEA/VOMITING Promethazine HCl 12.5 mg 09/23/24 22:18 Promethazine 25 Mg/Ml Syringe IM Q4H PRN PRN BREAKTHROUGH NAUSEA Sodium Chloride 10 - 40 ml 09/23/24 22:11 09/24/24 13:10 0.9% Saline Lock 10 Ml Syringe IV 10 ml UD PRN Administration SALINE FLUSH PFS Medical History Hypertension Medical History no medical history Home Medications ?Medication ?Instructions ?Recorded ?Last Taken ?Type losartan 25 mg tablet 25 mg PO DAILY 09/23/24 Unknown History Allergy/AdvReac Type Severity Reaction Status Date / Time No Known Allergies Allergy Verified 09/23/24 18:14 Family History no significant family his Surgical History no surgical history Social History Smoking Status: Never smoker Review of Systems (Anesthesia) ROS Narrative System reviewed and no additional complaints, except as documented.
--- NOTE | 2024-09-24 15:26 | PCM.PN.BLA ---
Progress Note Patient has been n.p.o. for ERCP today. She still having some right upper quadrant pain but the nausea is little better. She has been afebrile. She is on antibiotics. Physical Exam Narrative General: Alert, oriented, no apparent distress HEENT: Atraumatic, normocephalic Eyes: Anicteric, normal conjunctiva, extraocular movements grossly intact Neck: Supple Respiratory:normal respiratory effort Cardiovascular: Regular rate and rhythm GI: Soft, nontender, nondistended Extremities: No edema Musculoskeletal: Moving all extremities Neuro: No overt focal neurological deficits Skin: No rashes appreciated Psych: Cooperative Assessment & Plan Assessment/Plan (1) Hyperbilirubinemia: (2) Transaminitis: (3) Abdominal pain: QUALIFIERS: Abdominal location: right upper quadrant Qualified Code(s): R10.11 - Right upper quadrant pain (4) Morbid obesity with BMI of 45.0-49.9, adult: PLAN: Plan Very pleasant 44-year-old with past medical history of obesity and hypertension presents with right upper quadrant pain and discovered to have cholestatic hepatitis with jaundice right upper quadrant pain with suspicion for choledocholithiasis -Patient with pain and nausea for several hours prior to arrival, pain-free at this time -Found to have elevation of bili and liver function test, still elevated but down trended -Gallbladder ultrasound showed abnormally dilated CBD with a stone in the distal common bile duct with obstruction without evidence of cholecystitis -MRCP ordered and demonstrated distended gallbladder with cholelithiasis and small stone in gallbladder neck, patient for ERCP -Patient on Zosyn She was explained alternatives, risk and benefits including withstanding bleeding, infection, sepsis, perforation, need for charge and . She have an ASA of 3. Visit Charges Inpatient E&M: 11646 Subs Hosp L3
--- NOTE | 2024-09-24 16:06 | RAD_ITS ---
PROCEDURE: ERCP BILIARY/PANCREAS REASON FOR EXAM: ERCP TECHNIQUE: ERCP imaging using fluoroscopic technique COMPARISON: None FINDINGS: Eight images performed demonstrating cannulization of the bile duct with balloon sweeping. Eight images performed with 10.8 seconds of fluoroscopy time using 3.88 mGy of dose RAD/ERCP Biliary/Pancreas IMPRESSION: ERCP imaging. Please see procedure note Reading Location: [id number]
--- NOTE | 2024-09-24 16:31 | OP.ERCP_ITS ---
Patient Name: Pilar Null Procedure Date: 09/24/2024 3:28 PM Date of : 1980 Age: 44 Procedure: ERCP Indications: Bile duct stone(s), Common bile duct stone(s), Jaundice Providers: Khadar Cortez DO Referring MD: Juan Jose Oseguera Do Medicines: Monitored Anesthesia Care Patient Profile: This is a 44 year old female. Refer to note in patient chart for documentation of history and physical. Patient has symptoms of acute right upper quadrant abdominal pain, acute jaundice and acute nausea. Complications: No immediate complications. Procedure: Pre-Anesthesia Assessment: - Prior to the procedure, a History and Physical was performed, and patient medications and allergies were reviewed. The patient is competent. The risks and benefits of the procedure and the sedation options and risks were discussed with the patient. All questions were answered and informed consent was obtained. Patient identification and proposed procedure were verified by the physician in the pre-procedure area. Mental Status Examination: alert and oriented. Airway Examination: normal oropharyngeal airway and neck mobility. Respiratory Examination: clear to auscultation. CV Examination: normal. ASA Grade Assessment: II - A patient with mild systemic disease. After reviewing the risks and benefits, the patient was deemed in satisfactory condition to undergo the procedure. The anesthesia plan was to use moderate sedation / analgesia (conscious sedation). Immediately prior to administration of medications, the patient was re-assessed for adequacy to receive sedatives. The heart rate, respiratory rate, oxygen saturations, blood pressure, adequacy of pulmonary ventilation, and response to care were monitored throughout the procedure. The physical status of the patient was re-assessed after the procedure. After obtaining informed consent, the scope was passed under direct vision. Throughout the procedure, the patient's blood pressure, pulse, and oxygen saturations were monitored continuously. The Duodenoscope was introduced through the mouth, and advanced to the duodenum and used to inject contrast into the bile duct. The ERCP was accomplished without difficulty. The patient tolerated the procedure well. Scope In: 4:06:23 PM Scope Out: 4:24:19 PM Total Procedure Duration Time 0 hours 17 minutes 56 seconds Findings: The table games manager film was normal. The esophagus was successfully intubated under direct vision. The scope was advanced to a normal major papilla in the descending duodenum without detailed examination of the pharynx, larynx and associated structures, and upper GI tract. The upper GI tract was grossly normal. The bile duct was deeply cannulated with the short-nosed traction sphincterotome. Contrast was injected. I personally interpreted the bile duct images. There was brisk flow of contrast through the ducts. Image quality was adequate. Contrast extended to the main bile duct. Contrast extended to the cystic duct. Contrast extended to the gallbladder. Contrast extended to the bifurcation. Contrast extended to the hepatic ducts. Contrast extended to the entire biliary tree. Opacification of the entire opacified area, common bile duct, cystic duct, gallbladder, common hepatic duct, hepatic duct bifurcation, left and right hepatic ducts with secondary or tertiary branches of the intrahepatic ducts (Bismuth IV), left and right hepatic ducts and all intrahepatic branches and entire biliary tree was successful. The maximum diameter of the ducts was 9 mm. The lower third of the main bile duct and gallbladder contained two stones, the largest of which was 6 mm in diameter. The entire opacified area, main bile duct, common bile duct, gallbladder, common hepatic duct, hepatic duct bifurcation, left hepatic duct with secondary or tertiary branches of the left intrahepatic ducts (Bismuth III), right main hepatic duct and right intrahepatic branches were moderately dilated and diffusely dilated, with a stone causing an obstruction. The largest diameter was 10 mm. A long 0.025 inch Jagwire was passed into the biliary tree. A 5 mm biliary sphincterotomy was made with a traction (standard) sphincterotome using ERBE electrocautery. There was no post-sphincterotomy bleeding. The biliary tree was swept with a 12 mm balloon starting at the biliary pancreatic junction, middle third of the main bile duct, bifurcation, left intrahepatic duct(s), left main hepatic duct, right intrahepatic duct(s) and right main hepatic duct. Sludge was swept from the duct. All stones were removed. One 10 Fr by 5 cm temporary stent with no internal flaps was placed 5 cm into the common bile duct. Bile flowed through the stent. The stent was in good position. Impression: - The gallbladder, hepatic duct system (Bismuth III), entire main bile duct, right main hepatic duct, right intrahepatic branches, common bile duct and common hepatic duct were moderately dilated, with a stone causing an obstruction. - Choledocholithiasis was found. Complete removal was accomplished by biliary sphincterotomy and balloon extraction. - A biliary sphincterotomy was performed. - The biliary tree was swept. - One temporary stent was placed into the common bile duct. Procedure Code(s): --- Professional --- 62715, Endoscopic retrograde cholangiopancreatography (ERCP); with placement of endoscopic stent into biliary or pancreatic duct, including pre- and post-dilation and guide wire passage, when performed, including sphincterotomy, when performed, each stent [id number], Endoscopic retrograde cholangiopancreatography (ERCP); with removal of calculi/debris from biliary/pancreatic duct(s) 67035, 26, Endoscopic catheterization of the biliary ductal system, radiological supervision and interpretation CPT copyright 2021 [employer]. All rights reserved. The codes documented in this report are preliminary and upon director card review may be revised to meet current compliance requirements. Khadar Cortez DO 09/24/2024 4:31:15 PM This report has been signed electronically. Number of Addenda: 0 Note Initiated On: 09/24/2024 3:28 PM
--- NOTE | 2024-09-24 16:32 | OP.CCLET_ITS ---
09/24/2024 [facility] Re : ERCP procedure for Pilar Pierre This procedure was performed on Tuesday, September 24, 2024. My impressions and recommendations are as follows: Impressions : - The gallbladder, hepatic duct system (Bismuth III), entire main bile duct, right main hepatic duct, right intrahepatic branches, common bile duct and common hepatic duct were moderately dilated, with a stone causing an obstruction. - Choledocholithiasis was found. Complete removal was accomplished by biliary sphincterotomy and balloon extraction. - A biliary sphincterotomy was performed. - The biliary tree was swept. - One temporary stent was placed into the common bile duct. Recommendations : My findings are described in the full procedure note, which is enclosed. If I can be of further assistance, please feel free to contact me at . Sincerely, Khadar Cortez, 09/24/2024 4:31:15 PM This report has been signed electronically.
--- NOTE | 2024-09-24 16:42 | PCM.POST.ANE ---
Anesthesia: Postop Eval I Current Vital Signs Temperature: 97.5 F Pulse Rate: 87 Blood Pressure: 145/91 Respiratory Rate: 20 Pulse Ox: 94 Oxygen Delivery Method: Nasal Cannula Oxygen Flow Rate (L/min): 4 Assessment Airway patent: Yes Spontaneous unlabored respirations: Yes Mental status: Awake nausea: No Vomiting: No Anesthesia Complication: No Fluid Hydration Crystalloid volume administer (ml): 500 Total IV fluid infused: 500 Progress Note Anesthesia document: Postop Eval 1 completed: Yes
--- NOTE | 2024-09-24 17:03 | POSTOPAN2_ITS ---
Anesthesia Postop Eval I Sum Postop Eval Completion status Anesthesia document: Postop Eval 1 completed: Yes Anesthesia Postop Eval I Summary Anesthesia Postop Eval I Summary: Anesthesia Postop Eval I: Assessment Summary Airway patent Yes 09/24/24 16:43 INSULATION EXTRUDER [email or web address].[email or web address] Spontaneous unlabored Yes 09/24/24 16:43 INSULATION EXTRUDER OPERATOR.[email or web address] respirations Mental status Awake 09/24/24 16:43 INSULATION EXTRUDER OPERATOR.[email or web address] nausea No 09/24/24 16:43 INSULATION EXTRUDER OPERATOR.[email or web address] Vomiting No 09/24/24 16:43 INSULATION EXTRUDER OPERATOR.[email or web address] Anesthesia Postop Eval I: Fluid Summary Crystalloid volume administer 500 09/24/24 16:43 INSULATION EXTRUDER OPERATOR.[email or web address] (ml) Colloids volume administered ( ml) Blood Product volume administered (ml) Total IV fluid infused 500 09/24/24 16:43 INSULATION EXTRUDER OPERATOR.[email or web address] Anesthesia Postop Eval I: Summary Notes Anesthesia Complication No 09/24/24 16:43 INSULATION EXTRUDER OPERATOR.[email or web address] Anesthesia Complication Comment: Post-operative progress note Anesthesia: Postop Eval II Evaluation Mental status: Awake Pain Level: 0 nausea: No Vomiting: No
--- NOTE | 2024-09-24 17:03 | PCM.POSTANE2 ---
Anesthesia Postop Eval I Sum Postop Eval Completion status Anesthesia document: Postop Eval 1 completed: Yes Anesthesia Postop Eval I Summary Anesthesia Postop Eval I Summary: Anesthesia Postop Eval I: Assessment Summary Airway patent Yes 09/24/24 16:43 LOSS PREVENTION [email or web address].[email or web address] Spontaneous unlabored Yes 09/24/24 16:43 LOSS PREVENTION [email or web address].[email or web address] respirations Mental status Awake 09/24/24 16:43 LOSS PREVENTION [email or web address].[email or web address] nausea No 09/24/24 16:43 LOSS PREVENTION [email or web address].[email or web address] Vomiting No 09/24/24 16:43 LOSS PREVENTION [email or web address].[email or web address] Anesthesia Postop Eval I: Fluid Summary Crystalloid volume administer 500 09/24/24 16:43 LOSS PREVENTION [email or web address].[email or web address] (ml) Colloids volume administered ( ml) Blood Product volume administered (ml) Total IV fluid infused 500 09/24/24 16:43 LOSS PREVENTION [email or web address].[email or web address] Anesthesia Postop Eval I: Summary Notes Anesthesia Complication No 09/24/24 16:43 LOSS PREVENTION [email or web address].[email or web address] Anesthesia Complication Comment: Post-operative progress note Anesthesia: Postop Eval II Evaluation Mental status: Awake Pain Level: 0 nausea: No Vomiting: No
[2024-09-24] MEDS: Losartan Potassium 25 MG Tablet PO (20:10)
[2024-09-25 02:36] VITALS: BP 152/81; PULSE 93; RESP 16; TEMP 36.6; O2SAT 99
[2024-09-25 05:26] VITALS: BMI 47.9
[2024-09-25] MEDS: Piperacil/Tazobactam 3.375 GM in 0.9% Normal Saline (50mL MB+) 50 ML IV (05:49)
[2024-09-25 05:51] VITALS: BP 147/96; PULSE 93; RESP 18; TEMP 36.6; O2SAT 95
[2024-09-25 07:07] LABS: HEPATITIS B SURFACE AG Negative (Negative); Hep C Antibodies Non Reactive (Non Reactive); Hepatitis A IgM Antibody Negative (Negative); Hepatitis B Core AB IgM Negative (Negative)
[2024-09-25 07:17] LABS: Absolute Lymphocyte Count 1.44 X10^3/uL (0.83-4.51); Absolute Neutrophil Count 4.6 X10^3/uL (2.0-7.7); Basophil# 0.06 X10^3/uL; Basophil% 0.9 % (0-1); Eosinophil# 0.27 X10^3/uL; Eosinophils% 3.9 % (0-5); Hematocrit 39.1 % (37-47); Hemoglobin 12.3 g/dL (12.0-15.0); Lymphocyte # 1.44 X10^3/ul (0.83-4.51); Lymphocyte % 20.9 % (19-41); Mean Corp Hgb Conc 31.5 g/dL (32-36); Mean Corpuscular Hgb 29.1 pg (27.0-32.0); Mean Corpuscular Volume 92.7 fL (81-99); Mean Platelet Vol. 10.8 fl (6.2-12.0); Monocyte# 0.48 X10^3/uL; NRBC Flagged by Analyzer 0 % (0-5); Neutrophil # 4.57 X10^3/uL (2.7-7.7); Neutrophil % 66.3 % (47-70); Platelet Count 358 K/mm3 (150-450); RBC Distribution Width CV 13.5 % (11.6-14.6); RBC Distribution Width SD 45.5 fl (35.1-43.9); Red Blood Count 4.22 M/mm3 (4.2-5.4); White Blood Count 6.9 K/mm3 (4.4-11.0)
[2024-09-25 07:40] VITALS: BP 151/97; PULSE 83; RESP 14; TEMP 36.8; O2SAT 96
[2024-09-25] MEDS: Losartan Potassium 25 MG Tablet PO (07:43)
[2024-09-25 08:47] LABS: ALB/GLOB Ratio 1.2 RATIO (0.9-2.4); AST(SGOT) 91 U/L (<=31); Alanine Aminotransfer ALT/SGPT 195 U/L (<=34); Albumin, Serum 3.6 g/dL (3.5-5.0); Alkaline Phosphatase 274 U/L (35-104); Anion Gap 12 (5-15); BUN 8 mg/dL (4-19); Calcium,Total 8.5 mg/dL (7.6-11.0); Carbon Dioxide 21.4 mmol/L (21.0-32.0); Chloride 107 mmol/L (98-108); Creatinine, Serum 0.76 mg/dL (0.70-1.20); EST Glomerular Filtration Rate 99 (>60); Estimated Creatinine Clearance 123.63 ml/min (50-250); Globulin 3.1 g/dL (2.2-4.2); Glucose 115 mg/dL (70-99); Phosphorus 2.5 mg/dL (2.7-4.5); Potassium 3.5 mmol/L (3.3-5.1); Protein, Total 6.6 g/dL (5.9-8.4); Sodium Level 139 mmol/L (133-145); Total Bilirubin 1.22 mg/dL (0.00-1.30)
--- NOTE | 2024-09-25 10:35 | DCINST_ITS ---
Discharge Instructions Diet Discharge Diet: Light diet - advance as tolerated DC O2, CPAP, BIPAP needs Home O2 Discharge instructions: No Dressing / Incision Discharge Activity: - (Increase activity as tolerated) Follow Up Care Test Results: Test results from this visit will be discussed in further detail at your follow- up appointment, if applicable. Discharge Plan Admission Admit Date/Time: 09/23/24 21:20 Primary Reason for Your Visit: Abdominal pain Attending Provider: Loretta Meyer Primary Care Provider: Cheryl Pierre Consulting Providers: Benedicto Burks Instructions Patient Instructions: Biliary Stent Dc Additional Instructions / Restrictions: DISCHARGE INSTRUCTIONS PLEASE READ *Please take this with you to your next doctors appointment* -Start with a light diet and advance as tolerated -You will need to follow-up with Dr. Cortez with GI in his office upon discharge. Please call his office to schedule an appointment (ph. [phone]) -You will be discharged on additional 10 days of antibiotics, you will take ciprofloxacin 500 mg twice daily and metronidazole 500 mg 3 times a day -Strongly recommend against drinking alcohol while on metronidazole as the combination can cause nausea, vomiting, racing heart, and flushing of the face. Avoid alcohol for at least 3 days after last dose of metronidazole. -Please call your primary care provider's office upon discharge to schedule a hospital follow up within 1 week. -For any concerning signs or symptoms please call 911 or proceed to the nearest emergency department Discharge Orders/Prescriptions Prescriptions: New ciprofloxacin HCl 500 mg tablet 500 mg PO BID 10 Days Qty: 20 0RF metronidazole 500 mg tablet 500 mg PO TID 10 Days Qty: 30 0RF Continued losartan 25 mg tablet 25 mg PO DAILY Referrals / Follow Up: Khadar Cortez DO [Med Staff - Active Staff] - Within 2 Weeks ( -You will need to follow-up with Dr. Cortez with GI in his office upon discharge. Please call his office to schedule an appointment (ph. [phone])) Cheryl Pierre PA-C [Primary Care Provider] - In 1 Week Disposition Disposition (needs filled in before D/C Order can be placed): Home, Self Care
--- NOTE | 2024-09-25 10:38 | PCM.DC.SUM ---
Providers Date of Admission: 09/23/24 Date of Discharge: 09/25/24 Primary Care Physician: Cheryl Pierre PA-C Consultations 09/23/24 22:18 Consult: Gastroenterology Routine Consulting Provider: [facility] Reason for Consult: CBD obstruction with Transaminitis. EMERGENT Consult: No MD Notified: Yes Date Notified: 09/23/24 Time Notified: 21:23 Method of Notification: ED Physician Initiated Reason For Visit: CBD STONES WITH TRANSAMINITIS Diagnosis Discharge Diagnosis (1) Hyperbilirubinemia: Status: Acute Code(s): E80.6 - Other disorders of bilirubin metabolism (2) Transaminitis: Status: Acute Code(s): R74.01 - Elevation of levels of liver transaminase levels (3) Abdominal pain: Status: Acute Code(s): R10.9 - Unspecified abdominal pain Qualifiers: Abdominal location: right upper quadrant Qualified Code(s): R10.11 - Right upper quadrant pain (4) Morbid obesity with BMI of 45.0-49.9, adult: Status: Acute Code(s): E66.01 - Morbid (severe) obesity due to excess calories; Z68.42 - Body mass index [BMI] 45.0-49.9, adult (5) Choledocholithiasis with obstruction: Status: Acute Code(s): K80.51 - Calculus of bile duct without cholangitis or cholecystitis with obstruction Plan # Choledocholithiasis #Hypertension #Morbid obesity Medications at Discharge Home Medications losartan 25 mg tablet 25 mg PO DAILY 09/23/24 ciprofloxacin HCl 500 mg tablet 500 mg PO BID 10 days #20 tabs 09/25/24 metronidazole 500 mg tablet 500 mg PO TID 10 days #30 tabs 09/25/24 Hospital Course Procedures - (mrcp, ercp) Summary of Care Provided Minutes Spent on Discharge: 22 Hospital Course: 44-year-old female with history of hypertension presented [facility] ED 09/23/2024 after an episode of right upper quadrant pain and was found to have elevated liver function tests and elevated bili, gallbladder ultrasound in the ED showed dilated common bile duct with likely stone obstruction. Patient started on antibiotics, admitted, MRCP and GI consult ordered. MRCP with distended gallbladder with cholelithiasis and small stone in gallbladder neck and patient was taken for ERCP. ERCP showed dilated ducts with a stone causing obstruction, choledocholithiasis, with complete removal via biliary sphincterotomy and balloon extraction, biliary tree swept and temporary stent placed in common bile duct. Patient transferred back to floor. Patient tolerated this very well, labs improved, patient with no further symptoms. Discussed with GI, patient can be discharged in stable condition on 10 more days of antibiotics. Discussed with patient she reports she is feeling very well and would like to be discharged, discussed advancing diet as tolerated at home as she did not want to stay to advance diet prior to discharge, given her total clinical stability and that she never had symptoms or complaints after she was admitted feel this is reasonable. Patient completely asymptomatic and all questions answered. Discharge instructions as follows: -Start with a light diet and advance as tolerated -You will need to follow-up with Dr. Cortez with GI in his office upon discharge. Please call his office to schedule an appointment (ph. [phone]) -You will be discharged on additional 10 days of antibiotics, you will take ciprofloxacin 500 mg twice daily and metronidazole 500 mg 3 times a day -Strongly recommend against drinking alcohol while on metronidazole as the combination can cause nausea, vomiting, racing heart, and flushing of the face. Avoid alcohol for at least 3 days after last dose of metronidazole. -Please call your primary care provider's office upon discharge to schedule a hospital follow up within 1 week. -For any concerning signs or symptoms please call 911 or proceed to the nearest emergency department Physical Exam Narrative General: Alert, oriented, no apparent distress HEENT: Atraumatic, normocephalic Eyes: Anicteric, normal conjunctiva, extraocular movements grossly intact Neck: Supple Respiratory:normal respiratory effort Cardiovascular: Regular rate and rhythm GI: Soft, nontender, nondistended Extremities: No edema Musculoskeletal: Moving all extremities Neuro: No overt focal neurological deficits Skin: No rashes appreciated Psych: Cooperative Weight / BMI Weight Weight: 127.4 kg Body Mass Index (BMI) 47.9 ABG / Lab / Microbiology Data 09/25/24 06:33 09/25/24 06:33 Laboratory: Laboratory Results - last 24 hr 09/24/24 05:36: Hepatitis A IgM Ab Negative, Hep Bs Antigen Negative, Hep B Core IgM Ab Negative, Hepatitis C Ab (EIA) Non Reactive, Hep C Ab Comment Comment 09/25/24 06:33: WBC 6.9, RBC 4.22, Hgb 12.3, Hct 39.1, MCV 92.7, MCH 29.1, MCHC 31.5 L, RDW Std Deviation 45.5 H, RDW Coeff of David 13.5, Plt Count 358, MPV 10.8, Immature Gran % (Auto) 1.000 H, Neut % (Auto) 66.3, Lymph % (Auto) 20.9, [place] % (Auto) 7.0, Eos % (Auto) 3.9, Baso % (Auto) 0.9, Absolute Neuts (auto) 4.6, Absolute Lymphs (auto) 1.44, Nucleated RBC % 0, Sodium 139, Potassium 3.5, Chloride 107, Carbon Dioxide 21.4, Anion Gap 12, BUN 8, Creatinine 0.76, Estim Creat Clear Calc 123.63, Est GFR (MDRD) Non-Af 99, BUN/Creatinine Ratio 10.0, Glucose 115 H, Calcium 8.5, Phosphorus 2.5 L, Total Bilirubin 1.22, AST 91 H, ALT 195 H, Alkaline Phosphatase 274 H, Total Protein 6.6, Albumin 3.6, Globulin 3.1, Albumin/Globulin Ratio 1.2 Radiography Diagnostic Testing: Radiology Impression Endo Retro Cholangiopancreatogram 09/24/24 16:06 IMPRESSION: ERCP imaging. Please see procedure note Reading Location: [facility] D/C Instructions Discharge Diet: Light diet - advance as tolerated DC O2, CPAP, BIPAP Needs Home O2 Discharge instructions: No Meaningful Use Info Meaningful Use Meaningful Use Diagnoses (Choose all that apply): None applicable Ischemic Stroke Statin Dosing Therapy Reference: STATIN DOSE THERAPY REFERENCE: * Patients > 75 years receive moderate or high dose statin therapy. * Patients 75 years or YOUNGER should receive HIGH intensity statin dose unless contraindicated. You will be required to document reason for non-treatment if statin daily dose does not meet guidelines. HIGH DOSE STATIN THERAPY DAILY Atorvastatin > than or = to 40 mg Rosuvastatin > than or = to 20 mg Amlodipine + Atorvastatin > than or = to 2.5/40 mg Ezetimibe + Simvastatin 10/80 mg Simvastatin 80mg Discharge Plan Admission Admit Date/Time: 09/23/24 21:20 Primary Reason for Your Visit: Abdominal pain Attending Provider: Loretta Meyer Primary Care Provider: Cheryl Pierre Consulting Providers: Benedicto Burks Instructions Patient Instructions: Biliary Stent Dc Additional Instructions / Restrictions: DISCHARGE INSTRUCTIONS PLEASE READ *Please take this with you to your next doctors appointment* -Start with a light diet and advance as tolerated -You will need to follow-up with Dr. Cortez with GI in his office upon discharge. Please call his office to schedule an appointment (ph. [phone]) -You will be discharged on additional 10 days of antibiotics, you will take ciprofloxacin 500 mg twice daily and metronidazole 500 mg 3 times a day -Strongly recommend against drinking alcohol while on metronidazole as the combination can cause nausea, vomiting, racing heart, and flushing of the face. Avoid alcohol for at least 3 days after last dose of metronidazole. -Please call your primary care provider's office upon discharge to schedule a hospital follow up within 1 week. -For any concerning signs or symptoms please call 911 or proceed to the nearest emergency department Discharge Orders/Prescriptions Prescriptions: New ciprofloxacin HCl 500 mg tablet 500 mg PO BID 10 Days Qty: 20 0RF metronidazole 500 mg tablet 500 mg PO TID 10 Days Qty: 30 0RF Continued losartan 25 mg tablet 25 mg PO DAILY Referrals / Follow Up: Khaadr Cortez DO [Med Staff - Active Staff] - Within 2 Weeks ( -You will need to follow-up with Dr. Cortez with GI in his office upon discharge. Please call his office to schedule an appointment (ph. [phone])) Cheryl Pierre PA-C [Primary Care Provider] - In 1 Week Disposition Disposition (needs filled in before D/C Order can be placed): Home, Self Care Charges/Coding Visit Charges Inpatient E&M: 30365 Disch Hosp
[2024-09-27 14:08] LABS: Carbohydrate Ag 19-9 2261 < 2 U/mL (0-35)
== END 2024-09-25 11:22 | disposition home or self-care (01) | DRG 445 ==
LOC: ED 19:25 → MS3 21:46
PROVIDERS: Internal Medicine Gastroenterology; Admitting Provider Internal Medicine; Emergency Provider Emergency Medicine; PCP Family Medicine; Referring Provider Emergency Medicine; Visit Provider Internal Medicine
PROC: 0FC98ZZ Extirpation of Matter from Common Bile Duct, Via Natural or Artificial Opening Endoscopic (ICD-10-PCS; CPT 43260; principal; 2024-09-24 17:25)
DX: K80.51 Calculus of bile duct without cholangitis or cholecystitis with obstruction (principal); Z68.42 Body mass index [BMI] 45.0-49.9, adult; E66.01 Morbid (severe) obesity due to excess calories; I10 Essential (primary) hypertension; K83.8 Other specified diseases of biliary tract; E80.6 Other disorders of bilirubin metabolism; R74.01 Elevation of levels of liver transaminase levels
CPT/HCPCS: 36415; 74181; 74330; 76000; 76705; 80048; 80053; 80074; 80076; 81001; 81025; 83036; 83690; 83735; 84100; 84443; 85025; 86301; 93005; 94668; 99283; A4216; J2405

== ENCOUNTER → 2024-10-07 | Outpatient (CLI) | payer OTHER, SELFPAY ==
[2024-10-07 19:50] LABS: AST(SGOT) 58 U/L (<=31); Alanine Aminotransfer ALT/SGPT 50 U/L (<=34); Albumin, Serum 3.8 g/dL (3.5-5.0); Alkaline Phosphatase 128 U/L (35-104); Bilirubin, Direct 0.21 mg/dL (0.00-0.30); Globulin 3.2 g/dL (2.2-4.2); Protein, Total 6.9 g/dL (5.9-8.4); Total Bilirubin 0.51 mg/dL (0.00-1.30)
== END | disposition home or self-care (01) ==
LOC: LAB 14:41
PROVIDERS: PCP Family Medicine; Referring Provider Nurse Practitioner Acute Care; Visit Provider Nurse Practitioner Acute Care
DX: K80.51 Calculus of bile duct without cholangitis or cholecystitis with obstruction (principal); R74.01 Elevation of levels of liver transaminase levels
CPT/HCPCS: 36415; 80076

== ENCOUNTER 2024-10-21 09:59 | Day surgery (SDC) | payer OTHER, SELFPAY ==
[2024-10-21] VITALS (8 sets, daily range): BP systolic 123–150; BP diastolic 60–94; PULSE 77–88; RESP 16–18; TEMP 36.6–36.7; O2SAT 92–99; BMI 49.4
[2024-10-21 10:47] LABS: Internal QC Validated? YES +Cl - CLEAR BKGD; Pregnancy, Urine Negative Negative
--- NOTE | 2024-10-21 11:04 | PRE.ANES_ITS ---
ASA Classification* ASA Classification ASA Classification: 3 Assessment & Plan Anesthesia* Anesthesia Assessment Anesthesia Assessment: Discussed sedation and/or anesthesia options, risks, benefits, and alternatives with patient/parents/legal guardian/POA. Questions invited. The patient/parents/legal guardian/POA seems to understand and agrees to proceed with anesthesia plan. Reviewed the physical assessment, medical history, allergy history and patient home medications list prior to surgery/procedure/anesthetic and documented any changes. Performed airway and anesthesia risk assessments. Anesthesia Type Anesthesia Type: MAC History Source History Obtained from:: Patient and Chart Anesthesia Focused Assessment* Temperature: 98 F Pulse Rate: 88 Blood Pressure: 150/94 Respiratory Rate: 16 Pulse Ox: 99 Oxygen Delivery Method: Room Air Airway Assessment Mouth opens: 2 cm Mallampati Score: IV Teeth Condition: Intact Neck Range of motion (ROM): Limited ROM (Somewhat decreased extension) Focused Labs Anesthesia Preop lab: CBC WBC 6.9 K/mm3 (4.4-11.0) 09/25/24 06:09/25/24 RBC 4.22 M/mm3 (4.2-5.4) 09/25/24 06:09/25/24 Hgb 12.3 g/dL (12.0-15.0) 09/25/24 06:09/25/24 Hct 39.1 % (37-47) 09/25/24 06:09/25/24 Plt Count 358 K/mm3 (150-450) 09/25/24 06:33 09/25/24 CHEMISTRY Potassium 3.5 mmol/L (3.3-5.1) 09/25/24 06:33 09/25/24 Sodium 139 mmol/L (133-145) 09/25/24 06:09/25/24 Magnesium 2.1 mg/dL (1.5-2.2) 09/23/24 18:47 09/23/24 Phosphorus 2.5 mg/dL (2.7-4.5) L 09/25/24 06:33 09/25/24 BUN 8 mg/dL (4-19) 09/25/24 06:09/25/24 Creatinine 0.76 mg/dL (0.70-1.20) 09/25/24 06:09/25/24 Glucose 115 mg/dL (70-99) H 09/25/24 06:33 09/25/24 TSH 2.100 uIU/mL (0.300-4.200) 09/23/24 18:47 09/11 10/05 COAG Urine Test Negative Negative 10/21/24 10:25 10/21/24 Pre-Assessment Diagnosis/Proposed Procedure Planned Operative Procedure(s): ERCP Anesthesia History 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 When Was Last Pacemaker Check QUESTION #4 FULL TEXT: You/Your Family Experience fever (hyperthermia) with Anesthesia Last Oral Intake Last Oral intake: Last Oral Intake NPO since 00:00 10/21/24 10:36 Meds taken in AM with sips of No 10/21/24 10:36 water? Meds patient instructed to take am of surgery PONV PONV - assistant construction superintendent: PONV - assistant construction superintendent Female Yes 10/15/24 11:38 HX of Motion Sickness Yes 10/15/24 11:38 HX of N/V After Surgery No 10/15/24 11:38 Non-Smoker Yes 10/15/24 11:38 Duration of Surgery greater No 10/15/24 11:38 than 60 minutes Number of Risk Factors 3 10/15/24 11:38 PONV Score Moderate Risk 10/15/24 11:38 Height & Weight Height & Weight: Anesthesia: Height & Weight Height 5 ft 3 in 10/21/24 10:36 Weight: 126.5 kg 10/21/24 10:36 Body Mass Index (BMI) 49.4 10/21/24 10:36 Respiratory Assessment Respiratory Assessment - assistant construction superintendent: Respiratory Tract Infection Hx - assistant construction superintendent Hx Respiratory Tract Infection No 10/15/24 11:38 STOP Sleep Apnea STOP Sleep Apnea - assistant construction superintendent: STOP Sleep Apnea - assistant construction superintendent Hx Hypertension Yes: CONTROLLED ON MED 10/15/24 11:38 Hx Sleep Apnea Yes 10/15/24 11:38 CPAP Yes 10/15/24 11:38 BIPAP No 10/15/24 11:38 Do you snore loudly (louder than talking or can be heard Do you often feel tired/ fatigued/ sleepy during daytime? Has anyone observed you stop breathing during sleep? STOP Results Positive 10/15/24 11:38 QUESTION #5 FULL TEXT : Do you snore loudly (louder than talking or can be heard through closed doors)? Tobacco Use History Tobacco Use History - assistant construction superintendent: Tobacco Use History - assistant construction superintendent Tobacco Use Smoking Status Never smoker 10/15/24 11:38 Hx Tobacco Use No 10/15/24 11:38 Years Smoking Packs Smoked per Day Smoking Cessation Date was within the last 15 years Hx Smoking Cessation Date Hx Smoking Cessation Counseling Hematologic Medial History Hematologic Hx - assistant construction superintendent: Hematologic Medical Hx - manager respiratory care Hx of Blood Transfusion No 10/15/24 11:38 Hx of Transfusion in last 3 No 10/15/24 11:38 Months Date of Last Transfusion (if within last 3 months) Ever experience any problems No 10/15/24 11:38 with transfusion(s)? Specify any problems Hx of Preganancy in last 3 No 10/15/24 11:38 Months Nurse Filling Out Transfusion VCHRISTIN 10/15/24 11:38 & Questions: Date: 10/15/24 10/15/24 11:38 Time: 11:39 10/15/24 11:38 Patient unable to answer at this time (ie. confused, unrespo /Reproduction History /Reproductive History - assistant construction superintendent: /Reproductive Hx- assistant construction superintendent Hx Now No 10/15/24 11:38 Gestational Age (in weeks): EDC: Hx Hx Para Hx Section SAB No 10/15/24 11:38 [facility] Medical History Wears glasses Gastric reflux Non-smoker CPAP (continuous positive airway pressure) dependence Sleep apnea Hypertension Home Medications ?Medication ?Instructions ?Recorded ?Last Taken ?Type losartan 25 mg tablet 25 mg PO DAILY 09/23/24 Unkn own History pantoprazole 40 mg tablet,delayed 40 mg PO QDAY #90 ta bs 10/07/24 Unknown Rx release sodium sul 1.479 gram-potas ch See Rx Instructions PO PER PKG DIR 10/07/24 Unknown Rx 0.188 gram-magnes sul 0.225 gram #24 tabs tablet (Sutab) Allergy/AdvReac Type Severity Reaction Status Date / Time No Known Allergies Allergy Verified 10/21/24 10:36 Surgical History History of ERCP Social History Smoking Status: Never smoker Review of Systems (Anesthesia) ROS Narrative System reviewed and no additional complaints, except as documented.
--- NOTE | 2024-10-21 11:09 | EKG12_ITS ---
Test Reason : PREOP Blood Pressure : */* mmHG Vent. Rate : 85 BPM Atrial Rate : 85 BPM P-R Int : 140 ms QRS Dur : 74 ms QT Int : 378 ms P-R-T Axes : 30 48 32 degrees QTcB Int : 449 ms Normal sinus rhythm with sinus arrhythmia Normal ECG When compared with ECG of 24-Sep-2024 15:27, No significant change was found Confirmed by NUBIA PAGE, MATTHEW ([id number]), film or videotape editor NAJMA SAAVEDRA ([id number]) on 10/22/2024 2:00:07 PM Referred By: Cheryl Pierre Confirmed By: MATTHEW DELACRUZ MD
--- NOTE | 2024-10-21 11:24 | HP.PCM_ITS ---
HPI - General General Date of Admission: 10/21/24 Date of Service: 10/21/24 Chief Complaint: stent removal HPI Narrative REYNA LAW, is a 44 F who presents for spent removal Labs 09/25/2024 total bilirubin 1.22, AST 91, ALT 195, alkaline phosphatase 274 09/24/2024 total bili 2.10, AST 188, ALT 273, alkaline phosphatase 305 09/23/2024 total bilirubin 2.78, AST 281, ALT 361, alkaline phosphatase 355 ERCP 09/24/2024 One 10 Fr by 5 cm temporary stent with no internal flaps was placed 5 cm into the common bile duct. Bile flowed through the stent. The stent was in good position. MRCP 1. Distended gallbladder with cholelithiasis and a small stone in the gallbladder neck which could be a source of biliary colic. No convincing MR evidence of acute cholecystitis. 2. Mild biliary dilatation without visualized definite choledocholithiasis or other obstructing process evident by noncontrast MRCP. Findings could reflect a previously passed gallstone, ampullary stenosis, or perhaps less likely an occult ampullary lesion. Correlate with serum bilirubin and recommend clinical follow-up as indicated. 3. Mild splenomegaly with hepatic steatosis better depicted previously given nondedicated MRCP. Correlate for clinical and laboratory evidence of chronic liver disease. 4. 3 mm presumably cystic focus within the pancreatic head/uncinate process, possible tiny cystic neoplasm such as an IPMN. Recommend follow-up MRI abdomen with and without contrast and with MRCP in 2 years per ACR recommendations, to evaluate stability. 5. Additional description as above. - she does still get nauseated with PO intake at times - she reports a history of intermittent episodes of abdominal pain - mild nausea, denies any emesis -Occasional heartburn, takes OTC Pepcid - denies any ongoing pain -Denies any weight loss - was having diarrhea but stool are getting back to normal -Nausea in the morning but resolves [facility] Medical History Wears glasses Gastric reflux Non-smoker CPAP (continuous positive airway pressure) dependence Sleep apnea Hypertension Home Medications ?Medication ?Instructions ?Recorded ?Last Taken ?Type losartan 25 mg tablet 25 mg PO DAILY 09/23/24 Unkn own History pantoprazole 40 mg tablet,delayed 40 mg PO QDAY #90 ta bs 10/07/24 Unknown Rx release sodium sul 1.479 gram-potas ch See Rx Instructions PO PER PKG DIR 10/07/24 Unknown Rx 0.188 gram-magnes sul 0.225 gram #24 tabs tablet (Sutab) Allergy/AdvReac Type Severity Reaction Status Date / Time No Known Allergies Allergy Verified 10/21/24 10:36 Surgical History History of ERCP Social History Smoking Status: Never smoker ROS Constitutional Constitutional: Denies fatigue, fever(s), poor appetite, weight gain or weight loss Gastrointestinal Gastrointestinal: Denies belching, bloating, change in bowel habits, change in stool character, chewing difficulty, coffee ground emesis, constipation, cramping, diarrhea, dyspepsia, dysphagia, early satiety, excessive flatus, fecal incontinence, heartburn, hematemesis, hematochezia, hemorrhoids, loose stools, melena, nausea, odynophagia, rectal bleeding, tenesmus, vomiting or weight changes Vital Signs Vital Signs Vital Signs: 10/21/24 10:36 10/21/24 10:36 10/21/24 11:11 Temperature 98 F 98 F Temperature Source Temporal Pulse Rate 88 88 Respiratory Rate 16 16 Respiratory Pattern Normal Blood Pressure 150/94 H 150/94 H Blood Pressure Mean 112 Blood Pressure Source Monitor Blood Pressure Position Semi-Fowlers Blood Pressure Location Left Forearm Pulse Ox 99 99 Oxygen Delivery Method Room Air Room Air Weight Weight: 278 lb 14.156 oz Body Mass Index (BMI) 49.4 Physical Exam Const alert, oriented x3, no apparent distress and healthy appearing General Appearance: cooperative GI normal to inspection, nondistended, normoactive bowel sounds, soft to palpation, non-tender and non-distended Percussion: normal to percussion Rectal Exam: deferred Results Lab / Micro Data Labs: Laboratory Results - last 24 hr 10/21/24 10:25: Urine Test Negative Assessment & Plan Assessment/Plan (1) Elevated transaminase measurement: (2) Choledocholithiasis with obstruction: PLAN: Assessment and Plan Assessment and Plan (1) Choledocholithiasis with obstruction: Status: Acute (2) Elevated transaminase measurement: Status: Acute Orders: Orders Liver Profile Today K80.51 - Calculus of bile duct without cholangitis or cholecystitis with obstruction, R74.01 - Elevation of levels of liver t ransaminase levels Medications: New pantoprazole 40 mg PO QDAY 90 tabs 1RF sod sulf-pot chloride-mag sulf 1.479-0.188- 0.225 gram (Sutab) as directed for split dose bowel prep 24 tabs 0RF ondansetron HCl 4 mg orally; take two tablets PO two hours prior to start of bowel prep and one every 4 hours as needed for N/V 5 tabs 0RF Discontinued ciprofloxacin HCl Discontinued Reason: Pt no longer taking 500 mg PO BID 10 days 20 tabs 0RF metronidazole Discontinued Reason: Pt no longer taking 500 mg PO TID 10 days 30 tabs 0RF Plan 44-year-old female presents for consultation with complaints of abdominal pain. She was admitted 09/23/2024 to 09/25/2024 for hyperbilirubinemia, abdominal pain and transaminitis secondary to choledocholithiasis. ERCP confirmed choledocholithiasis. Sphincterotomy with balloon extraction was performed, temporary stent was placed. She presents today for follow-up post admission with resolution of abdominal pain. She will complete labs today and schedule ERCP with stent removal in 4 weeks. We have discussed cholecystectomy and she declines at this time. She is due for an age-related screening colonoscopy and we will schedule this in the near future. Patient Instructions: ERCP with stent removal in 4 weeks Colonoscopy-Sutab bowel prep
--- NOTE | 2024-10-21 11:30 | FLU_PTH ---
PATIENT: REYNA LAW LOC: EN U#:[id number] AGE/SX: 44/F ROOM: RE10/21/[address]: Dr. Khadar Cortez DO : 1980 BED: DIS: 10/21/2024 SPEC #: [id number] RECD: 10/21/24 13:23 STATUS: CHIQUITA LUIS #: [id number] MARIA LUZ: 10/21/24 11:[address]: Khadar Cortez DEPT: CYTOLOGY RECD BY: Norman Stanton ENTERED: 10/21/24 13:23 SP TYPE: Fluid OTHR DR: Cheryl Pierre PA-C Tissues: A - Biliary tract, NOS Procedures: Special Stain Group II Surgery Specimen Level IV Cytospin Fluid HEADER OPERATION: ERCP, stent removal, balloon choliangogram PRE-OP DIAGNOSIS: Elevated transaminase measurement, choledocholithiasis with obstruction TISSUE SUBMITTED: A- Biliary stent for cytology DIAGNOSIS CYTOLOGY A. Biliary stent fluid: * No malignant cells are identified CYTOLOGY STUDY Slides are reviewed. CYTOLOGY GROSS A. Received is 10 blue stent with 0.2 ml of yellow material labeled with the patient's name and and designated per the requisition as Biliary stent. Submitted for cytology and cell block preparation. Mr 10/21/2024 CPT: 84056
--- NOTE | 2024-10-21 12:15 | RAD_ITS ---
EXAM: ERCP imaging. CLINICAL HISTORY: ERCP imaging. COMPARISON: MRCP performed on 09/24/2024. TECHNIQUE: Limited intraoperative imaging from ERCP procedure were provided. FINDINGS: This demonstrates prompt filling of the intra and extrahepatic biliary ducts. The gallbladder is also filling. Please see dictated note by the GI service. Limited RAD/ERCP Biliary/Pancreas IMPRESSION: Limited examination. please see dictated note by the GI service. Reading Location: [id number]
--- NOTE | 2024-10-21 12:38 | OP.ERCP_ITS ---
Patient Name: Pilar Null Procedure Date: 10/21/2024 11:20 AM Date of : 1980 Age: 44 Procedure: ERCP Indications: Bile duct stone(s), Stent removal Providers: DO Kai Ag MD: Cheryl Pierre Medicines: Monitored Anesthesia Care Patient Profile: This is a 44 year old female. Refer to note in patient chart for documentation of history and physical. Patient has symptoms of acute right upper quadrant abdominal pain and acute jaundice. Complications: No immediate complications. Procedure: Pre-Anesthesia Assessment: - Prior to the procedure, a History and Physical was performed, and patient medications and allergies were reviewed. The patient is competent. The risks and benefits of the procedure and the sedation options and risks were discussed with the patient. All questions were answered and informed consent was obtained. Patient identification and proposed procedure were verified by the physician in the pre-procedure area. Mental Status Examination: alert and oriented. Airway Examination: normal oropharyngeal airway and neck mobility. Respiratory Examination: clear to auscultation. CV Examination: normal. Prophylactic Antibiotics: The patient does not require prophylactic antibiotics. Prior Anticoagulants: The patient has taken no anticoagulant or antiplatelet agents except for NSAID medication. ASA Grade Assessment: II - A patient with mild systemic disease. After reviewing the risks and benefits, the patient was deemed in satisfactory condition to undergo the procedure. The anesthesia plan was to use monitored anesthesia care (MAC). Immediately prior to administration of medications, the patient was re-assessed for adequacy to receive sedatives. The heart rate, respiratory rate, oxygen saturations, blood pressure, adequacy of pulmonary ventilation, and response to care were monitored throughout the procedure. The physical status of the patient was re-assessed after the procedure. After obtaining informed consent, the scope was passed under direct vision. Throughout the procedure, the patient's blood pressure, pulse, and oxygen saturations were monitored continuously. The Duodenoscope was introduced through the mouth, and advanced to the duodenum and used to inject contrast into the bile duct. The ERCP was accomplished without difficulty. The patient tolerated the procedure well. Scope In: 12:18:25 PM Scope Out: 12:27:47 PM Total Procedure Duration Time 0 hours 9 minutes 22 seconds Findings: The oil scout film was normal. The esophagus was successfully intubated under direct vision. The scope was advanced to a normal major papilla in the descending duodenum without detailed examination of the pharynx, larynx and associated structures, and upper GI tract. The upper GI tract was grossly normal. A long 0.025 inch Jagwire was passed into the biliary tree. The short-nosed traction sphincterotome was passed over the guidewire and the bile duct was then deeply cannulated. Contrast was injected. I personally interpreted the bile duct images. There was brisk flow of contrast through the ducts. Image quality was adequate. Contrast extended to the entire biliary tree. Opacification of the entire opacified area and entire biliary tree was successful. The maximum diameter of the ducts was 12 mm. The lower third of the main bile duct contained one stone, which was 6 mm in diameter. The entire opacified area and entire biliary tree were diffusely dilated, with a stone causing an obstruction. The largest diameter was 13 mm. A 5 mm biliary sphincterotomy was made with a traction (standard) sphincterotome using ERBE electrocautery. There was no post-sphincterotomy bleeding. The biliary tree was swept with an 11.5 mm balloon starting at the upper third of the main bile duct, middle third of the main bile duct, lower third of the main duct, bifurcation, left intrahepatic duct(s), left main hepatic duct, right intrahepatic duct(s) and right main hepatic duct. Sludge was swept from the duct. All stones were removed. One stent was removed from the biliary tree using a snare and sent for cytology. The stent was found to be partially occluded via the water column test. Impression: - The entire biliary tree was dilated, with a stone causing an obstruction. - Choledocholithiasis was found. Complete removal was accomplished by biliary sphincterotomy and balloon extraction. - A biliary sphincterotomy was performed. - The biliary tree was swept. - One stent was removed from the biliary tree. Procedure Code(s): --- Professional --- 96191, Endoscopic retrograde cholangiopancreatography (ERCP); with removal of foreign body(s) or stent(s) from biliary/pancreatic duct(s) 02985, Endoscopic retrograde cholangiopancreatography (ERCP); with removal of calculi/debris from biliary/pancreatic duct(s) 21526, Endoscopic retrograde cholangiopancreatography (ERCP); with sphincterotomy/papillotomy 68908, 26, Endoscopic catheterization of the biliary ductal system, radiological supervision and interpretation CPT copyright 2021 [employer]. All rights reserved. The codes documented in this report are preliminary and upon plaque maker review may be revised to meet current compliance requirements. Khadar Cortez DO 10/21/2024 12:38:39 PM This report has been signed electronically. Number of Addenda: 0 Note Initiated On: 10/21/2024 11:20 AM
--- NOTE | 2024-10-21 12:39 | OP.CCLET_ITS ---
10/21/2024 Cheryl [place] Re : ERCP procedure for Pilar Pierre This procedure was performed on October. My impressions and recommendations are as follows: Impressions : - The entire biliary tree was dilated, with a stone causing an obstruction. - Choledocholithiasis was found. Complete removal was accomplished by biliary sphincterotomy and balloon extraction. - A biliary sphincterotomy was performed. - The biliary tree was swept. - One stent was removed from the biliary tree. Recommendations : My findings are described in the full procedure note, which is enclosed. If I can be of further assistance, please feel free to contact me at . Sincerely, Khadar Cortez DO 10/21/2024 12:38:39 PM This report has been signed electronically.
--- NOTE | 2024-10-21 12:40 | PCM.POST.ANE ---
Anesthesia: Postop Eval I Current Vital Signs Temperature: 98 F Pulse Rate: 86 Blood Pressure: 134/75 Respiratory Rate: 18 Pulse Ox: 94 Oxygen Delivery Method: Room Air Assessment Airway patent: Yes Spontaneous unlabored respirations: Yes Mental status: Asleep nausea: No Vomiting: No Anesthesia Complication: No Fluid Hydration Crystalloid volume administer (ml): 60 Total IV fluid infused: 60 Progress Note Anesthesia document: Postop Eval 1 completed: Yes
--- NOTE | 2024-10-21 13:00 | PCM.POSTANE2 ---
Anesthesia Postop Eval I Sum Postop Eval Completion status Anesthesia document: Postop Eval 1 completed: Yes Anesthesia Postop Eval I Summary Anesthesia Postop Eval I Summary: Anesthesia Postop Eval I: Assessment Summary Airway patent Yes 10/21/24 12:41 [email or web address] Spontaneous unlabored Yes 10/21/24 12:41 [email or web address] respirations Mental status Asleep 10/21/24 12:41 [email or web address] nausea No 10/21/24 12:41 [email or web address] Vomiting No 10/21/24 12:41 [email or web address] Anesthesia Postop Eval I: Fluid Summary Crystalloid volume administer 60 10/21/24 12:41 [email or web address] (ml) Colloids volume administered ( ml) Blood Product volume administered (ml) Total IV fluid infused 60 10/21/24 12:41 [email or web address] Anesthesia Postop Eval I: Summary Notes Anesthesia Complication No 10/21/24 12:41 [email or web address] Anesthesia Complication Comment: Post-operative progress note Anesthesia: Postop Eval II Evaluation Mental status: Awake and Calm Pain Level: 0 nausea: No Vomiting: No Complications Anesthesia Complication: No
== END 2024-10-21 13:20 | disposition home or self-care (01) ==
LOC: EN 10:00 → AC 10:02
PROVIDERS: Anesthesiology; PCP Family Medicine; Referring Provider Family Medicine; Visit Provider Internal Medicine Gastroenterology
PROC: (CPT 43260; principal; 2024-10-21 11:10)
DX: K80.51 Calculus of bile duct without cholangitis or cholecystitis with obstruction (principal); I10 Essential (primary) hypertension; R74.01 Elevation of levels of liver transaminase levels; K21.9 Gastro-esophageal reflux disease without esophagitis; Z99.89 Dependence on other enabling machines and devices; G47.30 Sleep apnea, unspecified
CPT/HCPCS: 43264; 43275; 43262; 74330; 76000; 81025; 88108; 88305; 88313; 93005; A4216; J2405

== ENCOUNTER → 2024-10-27 | Outpatient (CLI) | payer OTHER, SELFPAY ==
[2024-10-27 17:52] LABS: AST(SGOT) 32 U/L (<=31); Alanine Aminotransfer ALT/SGPT 37 U/L (<=34); Albumin, Serum 4.1 g/dL (3.5-5.0); Alkaline Phosphatase 128 U/L (35-104); Bilirubin, Direct 0.22 mg/dL (0.00-0.30); Globulin 3.3 g/dL (2.2-4.2); Protein, Total 7.4 g/dL (5.9-8.4); Total Bilirubin 0.59 mg/dL (0.00-1.30)
== END | disposition home or self-care (01) ==
LOC: LAB 16:49
PROVIDERS: PCP Family Medicine; Referring Provider Nurse Practitioner Acute Care; Visit Provider Nurse Practitioner Acute Care
DX: R74.01 Elevation of levels of liver transaminase levels (principal); K80.51 Calculus of bile duct without cholangitis or cholecystitis with obstruction
CPT/HCPCS: 36415; 80076

== ENCOUNTER 2024-12-16 05:23 | Day surgery (SDC) | payer OTHER, SELFPAY ==
[2024-12-16] VITALS (7 sets, daily range): BP systolic 112–155; BP diastolic 52–87; PULSE 80–94; RESP 16–18; TEMP 36.6–36.7; O2SAT 98–100; BMI 48.2
--- OUTSIDE RECORDS SUMMARY | 2024-12-16 05:26 | XMS RPT_ITS | CCD ---
Author Organization [facility] Care Team Providers Care Senior Property Manager Name Role Phone Dr. Juan Jose Oseguera DO Referring Provider Dr. Juan Jose Oseguera DO Emergency Provider Gabby THOMAS-C, Cheryl Primary Care Provider Dr. Benedicto Burks DO Admit Provider Unavail able Dr. Benedicto Burks DO Attending Provider Unav ailable Dr. Benedicto Burks DO Other Provider Unavail able Mitch PAGE, Dr. Burgos Attending Provider [phone] Loretta Meyer MD Other Provider [phone] Khadar GRIJALVA Attending Provider Maria Esther PAGE, Dr. Mesa Attending Provider Dr. Loretta Meyer MD Referring Provider [phone] [place] MARTHA-C, Cheryl Referring Provider Owen HOLLYCHui Attending Provider Hui Youssef Referring Provider [place], CHERYL Attending Unavailable [place], CHERYL Admitting Unavailable [place], CHERYL Primary Care Unavailable [place], CHERYL Consulting Unavailable PROVIDER, UNKNOWN Consulting Unavailable HILLS, CHERYL Attending Unavailable HILLS, CHERYL Admitting Unavailable [place], CHERYL Primary Care Unavailable [place], CHERYL Consulting Unavailable PROVIDER, UNKNOWN Consulting Unavailable [place], CHERYL Attending Unavailable HILLS, CHERYL Admitting Unavailable [place]ILLS, CHERYL Primary Care Unavailable [place], CHERYL Consulting Unavailable PROVIDER, UNKNOWN Consulting Unavailable Friend Dr. Khadar GRIJALVA Other Provider [facility], [place] Primary Care Unavailable [facility], Cheryl Referring Unavailable Khadar Cortez Attending Unavailable Khadar Cortez Consulting Unavailable FriendKhadar Attending Unavailable [facility], [place] Primary Care Unavailable [facility], Cheryl Referring Unavailable Hui Weaver Referring Unavailable Hui Weaver Attending Unavailable [facility], [place] Primary Care Unavailable FriendKhadar Attending Unavailable [facility], [place] Primary Care Unavailable [facility], Cheryl Referring Unavailable Hui Weaver Referring Unavailable Hui Weaver Attending Unavailable [facility], [place] Primary Care Unavailable Loretta Meyer Attending Unavailable Benedicto Burks Consulting Unavailable Benedicto Burks Admitting Unavailable [facility] Primary Care Unavailable Juan Jose Oseguera Referring Unavailable Juan Jose Oseguera Referring Unavailable Benedicto Burks Admitting Unavailable Benedicto Burks Attending Unavailable Benedicto Bruks Consulting Unavailable [facility], [place] Primary Care Unavailable Loretta Meyer Consulting Unavailable Loretta Meyer Attending Unavailable FriendKhadar Attending Unavailable Hui Weaver Attending Unavailable [facility], [place] Primary Care Unavailable [facility], [place] Referring Unavailable Kancherhumberto Phillip Referring Unavailable [facility] Primary Care Unavailable Moshe Mayo Attending Unavailable Loretta Meyer Referring Unavailable Moshe Mayo Attending Unavailable [facility], [place] Primary Care Unavailable Medications Current Medications Medication Drug Class(es) Dates Sig (Normalized) Sig (Original) losartan potassium 25 mg oral tablet (4 sources) Angiotensin 2 Receptor Mervin Start: 09-23-2024 take 1 tablet by mouth once daily Losartan 25 mg tablet Active 25 mg PO DAILY September 23, 2024 12:00am pantoprazole 40 mg delayed release oral tablet (2 sources) Proton Pump Inhibitor Start: 10-07-2024 take 1 tablet by mouth once daily Pantoprazole 40 mg tablet,delayed release (/EC) Active 40 mg PO daily October 07, 2024 12:00am Sod Sulf-Pot Chloride-Mag Sulf (2 sources) Start: 10-07-2024 Sod Sulf-Pot Chloride-Mag Sulf (Sutab) 1.479-0.188- 0.225 gram tablet Active 0 PO per package directions October 07, 2024 12:00am as directed for split dose bowel prep Completed/Discontinued Medications Medication Drug Class(es) Dates Sig (Normalized) Sig (Original) ciprofloxacin 500 mg oral tablet (3 sources) Quinolone Antimicrobial Start: 09-25-2024 End: 10-07-2024 take 1 tablet by mouth twice daily Ciprofloxacin Hcl 500 mg tablet Discontinued 500 mg PO TWICE A DAY 20 September 25, 2024 12:00am October 07, 2024 1:54pm metroNIDAZOLE 500 mg oral tablet (3 sources) Nitroimidazole Antimicrobial Start: 09-25-2024 End: 10-07-2024 take 1 tablet by mouth three times daily Metronidazole 500 mg tablet Discontinued 500 mg PO THREE TIMES A DAY 30 September 25, 2024 12:00am October 07, 2024 1:54pm ondansetron 4 mg oral tablet (2 sources) Serotonin-3 Receptor Antagonist Start: 10-07-2024 End: 10-15-2024 take 2 tablets by mouth every two hours as needed, then take 1 tablet by mouth every four hours as needed Ondansetron Hcl 4 mg tablet Discontinued 4 mg PO .COMPLEX October 07, 2024 12:00am October 15, 2024 11:33am 4 mg orally; take two tablets PO two hours prior to start of bowel prep and one every 4 hours as needed for N/V Problems Problem Classification Problem Date Documented Date Episodic/Chronic Abdominal pain (11 sources) Abdominal pain; Translations: [Unspecified abdominal pain] Onset: 09-23-2024 09-24-2024 Episodic Biliary tract disease (9 sources) Obstruction of common bile duct; Translations: [Obstruction of bile duct] Onset: 09-29-2024 09-23-2024 Chronic Biliary tract disease (9 sources) Calculus of bile duct with obstruction; Translations: [Calculus of bile duct without cholangitis or cholecystitis with obstruction] Onset: 10-29-2024 09-25-2024 Episodic Essential hypertension (8 sources) Essential hypertension; Translations: [Essential (primary) hypertension] Onset: 11-19-2023 09-24-2024 Chronic Nausea and vomiting (12 sources) Nausea and vomiting; Translations: [Nausea with vomiting, unspecified] Onset: 09-29-2024 09-23-2024 Episodic Other aftercare (1 source) 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; Translations: [Other half-way (current) drug therapy] Onset: 10-12-2024 Episodic Other liver diseases (11 sources) Enzyme level - finding; Translations: [Elevated transaminase measurement] 09-24-2024 Episodic Other nutritional; endocrine; and metabolic disorders (8 sources) Body mass index 40+ - severely obese; Translations: [Morbid (severe) obesity due to excess calories] 09-23-2024 Chronic Other nutritional; endocrine; and metabolic disorders (6 sources) Hyperbilirubinemia; Translations: [Other disorders of bilirubin metabolism] 09-24-2024 Chronic Other nutritional; endocrine; and metabolic disorders (1 source) Other disorders of bilirubin metabolism; Translations: [Other disorders of bilirubin metabolism] Onset: 09-29-2024 Chronic Other nutritional; endocrine; and metabolic disorders (1 source) Morbid (severe) obesity due to excess calories; Translations: [Morbid (severe) obesity due to excess calories] Onset: 09-29-2024 Chronic Other nutritional; endocrine; and metabolic disorders (1 source) Body mass index (BMI) 45.0-49.9, adult; Translations: [Body mass index [BMI] 45.0-49.9, adult] Onset: 09-29-2024 Chronic Other screening for suspected conditions (not mental disorders or infectious disease) (1 source) Encounter for screening for cardiovascular disorders; Translations: [Encounter for screening for cardiovascular disorders] Onset: 10-12-2024 Episodic Unclassified (2 sources) Elevation of levels of liver transaminase levels; Translations: [Elevation of levels of liver transaminase levels] Onset: 10-29-2024 Results Test Name Value Interpretation Reference Range Facility Liver Profileon 10-27-2024 Albumin [Mass/Vol] 4.1 g/dL Normal 3.5-5.0 [facility] Comment on above: Performed By: #### L 500.3400 #### [facility] [address] [place], [place], [id number] ALK PHOS 128 U/L High 35-104 [facility] Comment on above: Performed By: #### L 500.3400 #### [facility] [address] [place], [address] ALT [Catalytic activity/Vol] 37 U/L High <=34 [facility] Comment on above: Performed By: #### L 500.3400 #### [facility] [address] [place], [address] AST [Catalytic activity/Vol] 32 U/L Normal <=31 [facility] Comment on above: Performed By: #### L 500.3400 #### [facility] [address] [place], [address] Bilirubin [Mass/Vol] 0.59 mg/dL Normal 0.00-1.30 [facility] Comment on above: Performed By: #### L 500.3400 #### [facility] [address] [place], [address] Bilirubin.direct [Mass/Vol] 0.22 mg/dL Normal 0.00-0.30 [facility] Comment on above: Performed By: #### L 500.3400 #### [facility] [address] [place], [address] Globulin (S) [Mass/Vol] 3.3 g/dL Normal 2.2-4.2 [facility] Comment on above: Performed By: #### L 500.3400 #### [facility] [address] [place], [address] T PROT 7.4 g/dL Normal 5.9-8.4 [facility] Comment on above: Performed By: #### L 500.3400 #### [facility] [address] [place], [address] 12 Lead EKGon 10-21-2024 12 Lead EKG [facility] Cardiovascular Services [address] [place] [address] 12 Lead EKG 10/21/24 1034 MR#: [id number] Acct: [id number] Name: REYNA NULL Rep #: [id number] : 1980 44 From: Moshe Mayo MD Attending Dr: Khadar Cortez DO Status: [facility] Ordering Dr: Phillip Gandara MD Date: 10/21/24 Location: EN Sex: F C Admitted: Test Reason : PREOP Blood Pressure : */* mmHG Vent. Rate : 85 BPM Atrial Rate : 85 BPM P-R Int : 140 ms QRS Dur : 74 ms QT Int : 378 ms P-R-T Axes : 30 48 32 degrees QTcB Int : 449 ms Normal sinus rhythm with sinus arrhythmia Normal ECG When compared with ECG of 24-Sep-2024 15:27, No significant change was found Confirmed by MOSHE MAYO MD ([id number]), sound editor NAJMA SAAVEDRA ([id number]) on 10/22/2024 2:00:07 PM Referred By: Cheryl Pierre Confirmed By: MOSHE MAYO MD 10/22/24 1400 Date Moshe Mayo MD CC: DONNIE Pierre; Dr. Phillip Gandara MD; Khadar Cortez DO Signed Normal [facility] ERCP Biliary/Pancreason 10-12 ERCP Biliary/Pancreas [facility] Imaging Services [address] [place] [id number] ERCP Biliary/Pancreas MR#: [id number] Acct: [id number] Name: REYNA NULL Rep #: [id number] : 1980 F 44 From: Quentin Olvera i, MD PCP: Cheryl Pierre PA-C Status: [facility] Study: ERCP Biliary/Pancreas Date of Exam: 10/21/24 Exam# [id number] Ordering Dr: Khadar Cortez DO EXAM: ERCP imaging. CLINICAL HISTORY: ERCP imaging. COMPARISON: MRCP performed on 09/24/2024. TECHNIQUE: Limited intraoperative imaging from ERCP procedure were provided. FINDINGS: This demonstrates prompt filling of the intra and extrahepatic biliary ducts. The gallbladder is also filling. Please see dictated note by the GI service. Limited RAD/ERCP Biliary/Pancreas IMPRESSION: Limited examination. please see dictated note by the GI service. Reading Location: [place] CC: DONNIE Pierre; Khadar Cortez DO Reporter Anchor: Signed Normal [facility] ERCP Reporton 10-21-2024 ERCP Report [facility] Medical Records Department [address] [place] [address] ERCP Report MR#: [id number] Acct: [id number] Name: REYNA NULL Rep #: [id number] : 1980 44 From: Khadar Cortez DO PCP: Cheryl Pierre PA-C Status:[facility] Patient Name: Reyna Null Procedure Date: 10/21/2024 11:20 AM Date of : 1980 Age: 44 Procedure: ERCP Indications: Bile duct stone(s), Stent removal Providers: Khadar Cortez DO Referring MD: Cheryl Pierre Medicines: Monitored Anesthesia Care Patient Profile: This is a 44 year old female. Refer to note in patient chart for documentation of history and physical. Patient has symptoms of acute right upper quadrant abdominal pain and acute jaundice. Complications: No immediate complications. Procedure: Pre-Anesthesia Assessment: - Prior to the procedure, a History and Physical was performed, and patient medications and allergies were reviewed. The patient is competent. The risks and benefits of the procedure and the sedation options and risks were discussed with the patient. All questions were answered and informed consent was obtained. Patient identification and proposed procedure were verified by the physician in the pre-procedure area. Mental Status Examination: alert and oriented. Airway Examination: normal oropharyngeal airway and neck mobility. Respiratory Examination: clear to auscultation. CV Examination: normal. Prophylactic Antibiotics: The patient does not require prophylactic antibiotics. Prior Anticoagulants: The patient has taken no anticoagulant or antiplatelet agents except for NSAID medication. ASA Grade Assessment: II - A patient with mild systemic disease. After reviewing the risks and benefits, the patient was deemed in satisfactory condition to undergo the procedure. The anesthesia plan was to use monitored anesthesia care (MAC). Immediately prior to administration of medications, the patient was re-assessed for adequacy to receive sedatives. The heart rate, respiratory rate, oxygen saturations, blood pressure, adequacy of pulmonary ventilation, and response to care were monitored throughout the procedure. The physical status of the patient was re-assessed after the procedure. After obtaining informed consent, the scope was passed under direct vision. Throughout the procedure, the patient's blood pressure, pulse, and oxygen saturations were monitored continuously. The Duodenoscope was introduced through the mouth, and advanced to the duodenum and used to inject contrast into the bile duct. The ERCP was accomplished without difficulty. The patient tolerated the procedure well. Scope In: 12:18:25 PM Scope Out: 12:27:47 PM Total Procedure Duration Time 0 hours 9 minutes 22 seconds Findings: The scout executive film was normal. The esophagus was successfully intubated under direct vision. The scope was advanced to a normal major papilla in the descending duodenum without detailed examination of the pharynx, larynx and associated structures, and upper GI tract. The upper GI tract was grossly normal. A long 0.025 inch Jagwire was passed into the biliary tree. The short-nosed traction sphincterotome was passed over the guidewire and the bile duct was then deeply cannulated. Contrast was injected. I personally interpreted the bile duct images. There was brisk flow of contrast through the ducts. Image quality was adequate. Contrast extended to the entire biliary tree. Opacification of the entire opacified area and entire biliary tree was successful. The maximum diameter of the ducts was 12 mm. The lower third of the main bile duct contained one stone, which was 6 mm in diameter. The entire opacified area and entire biliary tree were diffusely dilated, with a stone causing an obstruction. The largest diameter was 13 mm. A 5 mm biliary sphincterotomy was made with a traction (standard) sphincterotome using ERBE electrocautery. There was no post-sphincterotomy bleeding. The biliary tree was swept with an 11.5 mm balloon starting at the upper third of the main bile duct, middle third of the main bile duct, lower third of the main duct, bifurcation, left intrahepatic duct(s), left main hepatic duct, right intrahepatic duct(s) and right main hepatic duct. Sludge was swept from the duct. All stones were removed. One stent was removed from the biliary tree using a snare and sent for cytology. The stent was found to be partially occluded via the water column test. Impression: - The entire biliary tree was dilated, with a stone causing an obstruction. - Choledocholithiasis was found. Complete removal was accomplished by biliary sphincterotomy and balloon extraction. - A biliary sphincterotomy was performed. - The biliary tree was swept. - One stent was removed from the biliary tree. Procedure Code(s) (more content not included)... [facility] MR/POSTOP.ANEon 10-21-2024 MR/POSTOP.[facility] Medical Records Department [address] [place] [address] Anesthesia Postop Eval I 10/21/24 1240 MR#: [id number] Acct: [id number] Name: REYNA NULL Rep #: [id number] : 1980 44 From: Chandrakant Kasper PCP: Cheryl Pierre PA-C Status:REG [facility] Y Race: C Location: [place] [address] Anesthesia: Postop Eval I Current Vital Signs Temperature: 98 F Pulse Rate: 86 Blood Pressure: 134/75 Respiratory Rate: 18 Pulse Ox: 94 Oxygen Delivery Method: Room Air Assessment Airway patent: Yes Spontaneous unlabored respirations: Yes Mental status: Asleep nausea: No Vomiting: No Anesthesia Complication: No Fluid Hydration Crystalloid volume administer (ml): 60 Total IV fluid infused: 60 Progress Note Anesthesia document: Postop Eval 1 completed: Yes 10/21/24 124 Date Chandrakant Prabhakarignreny Signature: Date CC: Signed [facility] MR/NPRQVMLH1gm 10-21-2024 MR/POSTOPAN2 [facility] Medical Records Department [address] [place] [address] Anesthesia Postop Eval II 10/21/24 1300 MR#: [id number] Acct: [id number] Name: REYNA NULL Rep #: [id number] : 1980 44 From: Phillip Gandara MD PCP: Cheryl Pierre PA-C Status:REG [facility] Y Race: C Location: [address] Anesthesia Postop Eval I Sum Postop Eval Completion status Anesthesia document: Postop Eval 1 completed: Yes Anesthesia Postop Eval I Summary Anesthesia Postop Eval I Summary: Anesthesia Postop Eval I: Assessment Summary Airway patent Yes 10/21/24 12:41 [email or web address] Spontaneous unlabored Yes 10/21/24 12:41 [email or web address] respirations Mental status Asleep 10/21/24 12:41 [email or web address] nausea No 10/21/24 12:41 [email or web address] Vomiting No 10/21/24 12:41 [email or web address] Anesthesia Postop Eval I: Fluid Summary Crystalloid volume administer 60 10/21/24 12:41 [email or web address] (ml) Colloids volume administered ( ml) Blood Product volume administered (ml) Total IV fluid infused 60 10/21/24 12:41 [email or web address] Anesthesia Postop Eval I: Summary Notes Anesthesia Complication No 10/21/24 12:41 [email or web address] Anesthesia Complication Comment: Post-operative progress note Anesthesia: Postop Eval II Evaluation Mental status: Awake and Calm Pain Level: 0 nausea: No Vomiting: No Complications Anesthesia Complication: No 10/21/24 1302 Date Phillip Gandara MD Cosigner Signature: Date CC: Signed Normal [facility] ,Urineon 10-21-2024 Beta HCG ( test) Ql (U) Negative [facility] Comment on above: Result Comment: Very dilute urine specimens, as indicated by a low specific gravity, may not contain parts representative levels of hCG. If is still suspected, a first morning urine specimen should be collected 48 hours later and tested. Performed By: #### L 400.7600 #### [facility] [place], [address] Special Stain Group IIon Special Stain Group II --------- Patient Age/Sex Location Account Attending Physician REYNA NULL 44/F EN [id number] Khadar Cortez DO Specimen: [id number] Received: 10/21/24 Status: CHIQUITA Hernandez Num: [id number] Spec Type: Fluid Subm Dr: Khadar Cortez, HEADER OPERATION: ERCP, stent removal, balloon choliangogram PRE-OP DIAGNOSIS: Elevated transaminase measurement, choledocholithiasis with obstruction TISSUE SUBMITTED: A- Biliary stent for cytology DIAGNOSIS CYTOLOGY A. Biliary stent fluid: * No malignant cells are identified CYTOLOGY STUDY Slides are reviewed. CYTOLOGY GROSS A. Received is 10 blue stent with 0.2 ml of yellow material labeled with the patient's name and and designated per the requisition as Biliary stent. Submitted for cytology and cell block preparation. Mr 10/21/2024 CPT: 94569 Signed (signature on file) Dr. Joseline Varma, DO 10/22/24 1352 Normal [facility] Comment on above: Performed By: #### P SSII ####[facility] [id number] [place], [address] Urine testOrdered By: Phillip Gandara on 10-21-2024 HCG ( test) Ql (U) Negative [facility] Comment on above: Very dilute urine sp ecimens, as indicated by a low specificgravity, may not contain parts representative levels of hCG. If is still suspected, a first morning urinespecimen should be collected 48 hours later and tested. Bilirubin directOrdered By: Hui Weaver on 10-07-2024 Bilirubin.direct [Mass/Vol] 0.21 mg/dL 0.00-0.30 [facility] Comment on above: Hemolysis present, R esults could be affected. Bilirubin, totalOrdered By: Hui Weaver on 10-07-2024 Bilirubin [Mass/Vol] 0.51 mg/dL 0.00-1.30 [facility] Gastroenterology Visit Repor ton 10-07-2024 Gastroenterology Visit Report [facility] Gastroenterology [address] [place] [address] OFFICE VISIT Date of Service: 10/07/24 MR#: [id number] Acct: [id number] Name: REYNA NULL Rep #: [id number] : 1980 Provider: NEL gonzalez Age/Sex: 44/F Location: [facility] Status: Signed Intake Vital Signs 09/24/24 13:18 10/07/24 14:04 Height 5 ft 4 in 5 ft 4 in Weight: 281 lb 8 oz BMI 48.3 BP 137/90 H Respiration 18 Pulse 114 H Pulse Oximetry (%) 94 Oxygen Delivery Method room air Intake Visit Reasons: ED follow up Chief Complaint: follow-u ppost admission Jalousie Installer Required: No Accompanied by: Daughter Is patient in pain?: No Allergies No Known Allergies Allergy (Verified 10/07/24 13:53) Medications ???Medication ???Instructions ???Recorded ???Confirmed ???Type losartan 25 mg tablet 25 mg PO DAILY 09/23/24 10/07/24 H istory ondansetron HCl 4 mg tablet 4 mg PO .COMPLEX #5 tabs 10/07/24 10/07/24 Rx pantoprazole 40 mg tablet,delayed 40 mg PO QDAY #90 tabs 10/07/24 0 10/07/24 Rx release sodium sul 1.479 gram-potas ch See Rx Instructions PO PER PKG DIR 10/07/24 10/07/24 Rx 0.188 gram-magnes sul 0.225 gram #24 tabs tablet (Sutab) Nurse's Note: The diarrhea is starting to get better after the surgery. Nausea after eating. PFSH Medical History Hypertension Social History Smoking Status: Never smoker HPI HPI Chief Complaint: follow-u ppost admission Details: REYNA NULL, is a 44 F who presents to the office today for Labs 09/25/2024 total bilirubin 1.22, AST 91, ALT 195, alkaline phosphatase 274 09/24/2024 total bili 2.10, AST 188, ALT 273, alkaline phosphatase 305 09/23/2024 total bilirubin 2.78, AST 281, ALT 361, alkaline phosphatase 355 ERCP 09/24/2024 One 10 Fr by 5 cm temporary stent with no internal flaps was placed 5 cm into the common bile duct. Bile flowed through the stent. The stent was in good position. MRCP 1. Distended gallbladder with cholelithiasis and a small stone in the gallbladder neck which could be a source of biliary colic. No convincing MR evidence of acute cholecystitis. 2. Mild biliary dilatation without visualized definite choledocholithiasis or other obstructing process evident by noncontrast MRCP. Findings could reflect a previously passed gallstone, ampullary stenosis, or perhaps less likely an occult ampullary lesion. Correlate with serum bilirubin and recommend clinical follow-up as indicated. 3. Mild splenomegaly with hepatic steatosis better depicted previously given nondedicated MRCP. Correlate for clinical and laboratory evidence of chronic liver disease. 4. 3 mm presumably cystic focus within the pancreatic head/uncinate process, possible tiny cystic neoplasm such as an IPMN. Recommend follow-up MRI abdomen with and without contrast and with MRCP in 2 years per ACR recommendations, to evaluate stability. 5. Additional description as above. - she does still get nauseated with PO intake at times - she reports a history of intermittent episodes of abdominal pain - mild nausea, denies any emesis -Occasional heartburn, takes OTC Pepcid - denies any ongoing pain -Denies any weight loss - was having diarrhea but stool are getting back to normal -Nausea in the morning but resolves ROS Const Constitutional: No fatigue, fever(s) or weight change ENT ENT: No difficulty swallowing Gastro GI: Positive for bloating, diarrhea, heartburn and nausea/dyspepsia; No abdominal pain, belching, change in bowel habits, change in stool character, coffee ground emesis, constipation, cramping, difficulty swallowing, feeling full early, excessive flatus, incontinent of stools, Vomiting blood/hematemesis, Blood in stool, loose stools, Black,tarry stools, pain with swallowing, vomiting or other Musc Musculoskeletal: No joint pain Skin Skin: No yellowing of the eye or itchy eyes Psych Psychiatric: No anxiety and No depression Endo Endocrine: No fatigue or weight change Aller/Imm Allergy/Immunologic: No itchy eyes Jean-Claude/Lymp Hematologic/Lymphatic: No easy bleeding or easy bruising Exam Const General: cooperative, healthy appearing, no acute distress and well developed Nutritional Appearance: well nourished and overweight Orientation: alert and oriented x3 HENMT Head: normocephalic Ears: hearing grossly normal bilaterally Mouth: moist mucous membranes Teeth and gingiva: dentition normal Eyes Conjunctivae: conjunctivae normal Sclera: sclerae normal Neck Neck: normal visual inspection, full ROM and trachea midline Resp Effort Inspection: normal respiratory effort, able to speak in complete sentences and symmetric chest movement GI (more content not included)... Normal [facility] - Chemistry and C hemistry - challengeOrdered By: Hui Weaver on 10-07-2024 AST [Catalytic activity/Vol] 58 U/L High <32 [facility] Comment on above: Hemolysis present, R esults could be affected. Liver Profileon 10-07-2024 Albumin [Mass/Vol] 3.8 g/dL Normal 3.5-5.0 [facility] Comment on above: Performed By: #### L 500.4050, L100.0100 #### [facility] [address] [place], [address] ALK PHOS 128 U/L High 35-104 [facility] Comment on above: Performed By: #### L 500.4050, L100.0100 #### [facility] [address] [place], [address] ALT [Catalytic activity/Vol] 50 U/L High <=34 [facility] Comment on above: Performed By: #### L 500.4050, L100.0100 #### [facility] [address] [place], [address] AST [Catalytic activity/Vol] 58 U/L High <=31 [facility] Comment on above: Result Comment: Hemo lysis present, Results??could be affected. ?? Performed By: #### L 500.4050, L100.0100 #### [facility] [address] [place], [address] Bilirubin [Mass/Vol] 0.51 mg/dL Normal 0.00-1.30 [facility] Comment on above: Performed By: #### L 500.4050, L100.0100 #### [facility] [address] [place], [address] Bilirubin.direct [Mass/Vol] 0.21 mg/dL Normal 0.00-0.30 [facility] Comment on above: Result Comment: Hemo lysis present, Results??could be affected. ?? Performed By: #### L 500.4050, L100.0100 #### [facility] [address] [place], [address] Globulin (S) [Mass/Vol] 3.2 g/dL Normal 2.2-4.2 [facility] Comment on above: Performed By: #### L 500.4050, L100.0100 #### [facility] [address] [place], [address] T PROT 6.9 g/dL Normal 5.9-8.4 [facility] Comment on above: Performed By: #### L 500.4050, L100.0100 #### [facility] [address] [place], [address] Serum globulin measurementOr dered By: Hui Weaver on 10-07-2024 Globulin (S) [Mass/Vol] 3.2 g/dL 2.2-4.2 [facility] Serum or plasma alanine basurto otransferase (ALT) measurementOrdered By: Hui Weaver on 10-07-2024 ALT [Catalytic activity/Vol] 50 U/L High <35 [facility] Serum or plasma albumin edinson urement (mass/volume)Ordered By: Hui Weaver on 10-07-2024 Albumin [Mass/Vol] 3.8 g/dL 3.5-5.0 [facility] Serum or plasma alkaline tracy sphatase measurementOrdered By: Hui Weaver on 10-07-2024 ALP [Catalytic activity/Vol] 128 U/L High 35-104 [facility] Total proteinOrdered By: Joie Weaver on 10-07-2024 Protein [Mass/Vol] 6.9 g/dL 5.9-8.4 [facility] CBC W/Diff, Automatedon - Absolute Neut Normal 2.0-7.7 [facility] Comment on above: Result Comment: Canc elled via OM: Order cancelled - Patient discharged Performed By: #### L 500.4050, L100.0100 #### [facility] [address] [place], [address] HCT Normal 37-47 [facility] Comment on above: Result Comment: Canc elled via OM: Order cancelled - Patient discharged Performed By: #### L 500.4050, L100.0100 #### [facility] [address] [place], [address] HGB Normal 12.0-15.0 [facility] Comment on above: Result Comment: Canc elled via OM: Order cancelled - Patient discharged Performed By: #### L 500.4050, L100.0100 #### [facility] [address] [place], [address] MCH Normal 27.0-32.0 [facility] Comment on above: Result Comment: Canc elled via OM: Order cancelled - Patient discharged Performed By: #### L 500.4050, L100.0100 #### [facility] [address] [place], [address] MCHC Normal 32-36 [facility] Comment on above: Result Comment: Canc elled via OM: Order cancelled - Patient discharged Performed By: #### L 500.4050, L100.0100 #### [facility] [address] [place], [address] MCV Normal 81-99 [facility] Comment on above: Result Comment: Canc elled via OM: Order cancelled - Patient discharged Performed By: #### L 500.4050, L100.0100 #### [facility] [address] [place], [address] NEUT% Normal 47-70 [facility] Comment on above: Result Comment: Canc elled via OM: Order cancelled - Patient discharged Performed By: #### L 500.4050, L100.0100 #### [facility] [address] [place], [address] PLT Normal 150-450 [facility] Comment on above: Result Comment: Canc elled via OM: Order cancelled - Patient discharged Performed By: #### L 500.4050, L100.0100 #### [facility] [address] [place], [address] RBC Normal 4.2-5.4 [facility] Comment on above: Result Comment: Canc elled via OM: Order cancelled - Patient discharged Performed By: #### L 500.4050, L100.0100 #### [facility] [address] [place], [address] RDW CV Normal 11.6-14.6 [facility] Comment on above: Result Comment: Canc elled via OM: Order cancelled - Patient discharged Performed By: #### L 500.4050, L100.0100 #### [facility] [address] [place], [address] RDW SD Normal 35.1-43.9 [facility] Comment on above: Result Comment: Canc elled via OM: Order cancelled - Patient discharged Performed By: #### L 500.4050, L100.0100 #### [facility] [address] [place], [address] WBC Normal 4.4-11.0 [facility] Comment on above: Result Comment: Canc elled via OM: Order cancelled - Patient discharged Performed By: #### L 500.4050, L100.0100 #### [facility] [address] [place], [address] Comprehensive Metabolic Prof ilon 10-01-2024 ALB Normal 3.5-5.0 [facility] Comment on above: Result Comment: Canc elled via OM: Order cancelled - Patient discharged Performed By: #### L 500.4050, L100.0100 #### [facility] [address] [place], [address] ALK PHOS Normal 35-104 [facility] Comment on above: Result Comment: Canc elled via OM: Order cancelled - Patient discharged Performed By: #### L 500.4050, L100.0100 #### [facility] [address] [place], [address] ALT Normal <=34 [facility] Comment on above: Result Comment: Canc elled via OM: Order cancelled - Patient discharged Performed By: #### L 500.4050, L100.0100 #### [facility] [address] [place], [address] AST Normal <=31 [facility] Comment on above: Result Comment: Canc elled via OM: Order cancelled - Patient discharged Performed By: #### L 500.4050, L100.0100 #### [facility] [address] [place], [address] BUN Normal 4-19 [facility] Comment on above: Result Comment: Canc elled via OM: Order cancelled - Patient discharged Performed By: #### L 500.4050, L100.0100 #### [facility] [address] [place], [address] BUN/CRE Normal 10-20 [facility] Comment on above: Result Comment: Canc elled via OM: Order cancelled - Patient discharged Performed By: #### L 500.4050, L100.0100 #### [facility] [address] [place], [address] Calcium Normal 7.6-11.0 [facility] Comment on above: Result Comment: Canc elled via OM: Order cancelled - Patient discharged Performed By: #### L 500.4050, L100.0100 #### [facility] [address] [place], [address] CL Normal 98-108 [facility] Comment on above: Result Comment: Canc elled via OM: Order cancelled - Patient discharged Performed By: #### L 500.4050, L100.0100 #### [facility] [address] [place], [address] CO2 Normal 21.0-32.0 [facility] Comment on above: Result Comment: Canc elled via OM: Order cancelled - Patient discharged Performed By: #### L 500.4050, L100.0100 #### [facility] [address] [place], [address] CREAT,SERUM Normal 0.70-1.20 [facility] Comment on above: Result Comment: Canc elled via OM: Order cancelled - Patient discharged Performed By: #### L 500.4050, L100.0100 #### [facility] [address] [place], [address] eGFR Normal >60 [facility] Comment on above: Result Comment: Canc elled via OM: Order cancelled - Patient discharged Performed By: #### L 500.4050, L100.0100 #### [facility] [address] [place], [address] GAP Normal 5-15 [facility] Comment on above: Result Comment: Canc elled via OM: Order cancelled - Patient discharged Performed By: #### L 500.4050, L100.0100 #### [facility] [address] [place], [address] GLU Normal 70-99 [facility] Comment on above: Result Comment: Canc elled via OM: Order cancelled - Patient discharged Performed By: #### L 500.4050, L100.0100 #### [facility] [address] [place], [address] Potassium Normal 3.3-5.1 [facility] Comment on above: Result Comment: Canc elled via OM: Order cancelled - Patient discharged Performed By: #### L 500.4050, L100.0100 #### [facility] [address] [place], [address] T BILI Normal 0.00-1.30 [facility] Comment on above: Result Comment: Canc elled via OM: Order cancelled - Patient discharged Performed By: #### L 500.4050, L100.0100 #### [facility] [address] [place], [address] T PROT Normal 5.9-8.4 [facility] Comment on above: Result Comment: Canc elled via OM: Order cancelled - Patient discharged Performed By: #### L 500.4050, L100.0100 #### [facility] [address] [place], [address] Comprehensive Metabolic Profil Normal 133-145 [facility] Comment on above: Result Comment: Canc elled via OM: Order cancelled - Patient discharged Performed By: #### L 500.4050, L100.0100 #### [facility] [address] [place], [address] CBC W/Diff, Automatedon 03-2 0-2024 Absolute Neut Normal 2.0-7.7 [facility] Comment on above: Result Comment: Canc elled via OM: Order cancelled - Patient discharged Performed By: #### L 500.4050, L501.2300 #### [facility] [address] [place], [address] HCT Normal 37-47 [facility] Comment on above: Result Comment: Canc elled via OM: Order cancelled - Patient discharged Performed By: #### L 500.4050, L501.2300 #### [facility] [address] [place], [address] HGB Normal 12.0-15.0 [facility] Comment on above: Result Comment: Canc elled via OM: Order cancelled - Patient discharged Performed By: #### L 500.4050, L501.2300 #### [facility] [address] [place], [address] MCH Normal 27.0-32.0 [facility] Comment on above: Result Comment: Canc elled via OM: Order cancelled - Patient discharged Performed By: #### L 500.4050, L501.2300 #### [facility] [address] [place], [address] MCHC Normal 32-36 [facility] Comment on above: Result Comment: Canc elled via OM: Order cancelled - Patient discharged Performed By: #### L 500.4050, L501.2300 #### [facility] [address] [place], [address] MCV Normal 81-99 [facility] Comment on above: Result Comment: Canc elled via OM: Order cancelled - Patient discharged Performed By: #### L 500.4050, L501.2300 #### [facility] [address] [place], [address] NEUT% Normal 47-70 [facility] Comment on above: Result Comment: Canc elled via OM: Order cancelled - Patient discharged Performed By: #### L 500.4050, L501.2300 #### [facility] [address] [place], [address] PLT Normal 150-450 [facility] Comment on above: Result Comment: Canc elled via OM: Order cancelled - Patient discharged Performed By: #### L 500.4050, L501.2300 #### [facility] [address] [place], [address] RBC Normal 4.2-5.4 [facility] Comment on above: Result Comment: Canc elled via OM: Order cancelled - Patient discharged Performed By: #### L 500.4050, L501.2300 #### [facility] [address] [place], [address] RDW CV Normal 11.6-14.6 [facility] Comment on above: Result Comment: Canc elled via OM: Order cancelled - Patient discharged Performed By: #### L 500.4050, L501.2300 #### [facility] [address] [place], [address] RDW SD Normal 35.1-43.9 [facility] Comment on above: Result Comment: Canc elled via OM: Order cancelled - Patient discharged Performed By: #### L 500.4050, L501.2300 #### [facility] [address] [place], [address] WBC Normal 4.4-11.0 [facility] Comment on above: Result Comment: Canc elled via OM: Order cancelled - Patient discharged Performed By: #### L 500.4050, L501.2300 #### [facility] [address] [place], [address] Comprehensive Metabolic Prof ilon 09-30-2024 ALB Normal 3.5-5.0 [facility] Comment on above: Result Comment: Canc elled via OM: Order cancelled - Patient discharged Performed By: #### L 500.4050, L100.0100 #### [facility] [address] [place], [address] ALK PHOS Normal 35-104 [facility] Comment on above: Result Comment: Canc elled via OM: Order cancelled - Patient discharged Performed By: #### L 500.4050, L100.0100 #### [facility] [address] [place], [address] ALT Normal <=34 [facility] Comment on above: Result Comment: Canc elled via OM: Order cancelled - Patient discharged Performed By: #### L 500.4050, L100.0100 #### [facility] [address] [place], [address] AST Normal <=31 [facility] Comment on above: Result Comment: Canc elled via OM: Order cancelled - Patient discharged Performed By: #### L 500.4050, L100.0100 #### [facility] [address] [place], [address] BUN Normal 4-19 [facility] Comment on above: Result Comment: Canc elled via OM: Order cancelled - Patient discharged Performed By: #### L 500.4050, L100.0100 #### [facility] [address] [place], [address] BUN/CRE Normal 10-20 [facility] Comment on above: Result Comment: Canc elled via OM: Order cancelled - Patient discharged Performed By: #### L 500.4050, L100.0100 #### [facility] [address] [place], [address] Calcium Normal 7.6-11.0 [facility] Comment on above: Result Comment: Canc elled via OM: Order cancelled - Patient discharged Performed By: #### L 500.4050, L100.0100 #### [facility] [address] [place], [address] CL Normal 98-108 [facility] Comment on above: Result Comment: Canc elled via OM: Order cancelled - Patient discharged Performed By: #### L 500.4050, L100.0100 #### [facility] [address] [place], [address] CO2 Normal 21.0-32.0 [facility] Comment on above: Result Comment: Canc elled via OM: Order cancelled - Patient discharged Performed By: #### L 500.4050, L100.0100 #### [facility] [address] [place], [address] CREAT,SERUM Normal 0.70-1.20 [facility] Comment on above: Result Comment: Canc elled via OM: Order cancelled - Patient discharged Performed By: #### L 500.4050, L100.0100 #### [facility] [address] [place], [address] eGFR Normal >60 [facility] Comment on above: Result Comment: Canc elled via OM: Order cancelled - Patient discharged Performed By: #### L 500.4050, L100.0100 #### [facility] [address] [place], [address] GAP Normal 5-15 [facility] Comment on above: Result Comment: Canc elled via OM: Order cancelled - Patient discharged Performed By: #### L 500.4050, L100.0100 #### [facility] [address] [place], [address] GLU Normal 70-99 [facility] Comment on above: Result Comment: Canc elled via OM: Order cancelled - Patient discharged Performed By: #### L 500.4050, L100.0100 #### [facility] [address] [place], [address] Potassium Normal 3.3-5.1 [facility] Comment on above: Result Comment: Canc elled via OM: Order cancelled - Patient discharged Performed By: #### L 500.4050, L100.0100 #### [facility] [address] [place], [address] T BILI Normal 0.00-1.30 [facility] Comment on above: Result Comment: Canc elled via OM: Order cancelled - Patient discharged Performed By: #### L 500.4050, L100.0100 #### [facility] [address] [place], [address] T PROT Normal 5.9-8.4 [facility] Comment on above: Result Comment: Canc elled via OM: Order cancelled - Patient discharged Performed By: #### L 500.4050, L100.0100 #### [facility] [address] [place], [address] Comprehensive Metabolic Profil Normal 133-145 [facility] Comment on above: Result Comment: Canc elled via OM: Order cancelled - Patient discharged Performed By: #### L 500.4050, L100.0100 #### [facility] [address] [place], [address] CBC W/Diff, Automatedon 03- Absolute Neut Normal 2.0-7.7 [facility] Comment on above: Result Comment: Canc elled via OM: Order cancelled - Patient discharged Performed By: #### L 500.4050, L100.0100 #### [facility] [address] [place], [address] HCT Normal 37-47 [facility] Comment on above: Result Comment: Canc elled via OM: Order cancelled - Patient discharged Performed By: #### L 500.4050, L100.0100 #### [facility] [address] [place], [address] HGB Normal 12.0-15.0 [facility] Comment on above: Result Comment: Canc elled via OM: Order cancelled - Patient discharged Performed By: #### L 500.4050, L100.0100 #### [facility] [address] [place], [address] MCH Normal 27.0-32.0 [facility] Comment on above: Result Comment: Canc elled via OM: Order cancelled - Patient discharged Performed By: #### L 500.4050, L100.0100 #### [facility] [address] [place], [address] MCHC Normal 32-36 [facility] Comment on above: Result Comment: Canc elled via OM: Order cancelled - Patient discharged Performed By: #### L 500.4050, L100.0100 #### [facility] [address] [place], [address] MCV Normal 81-99 [facility] Comment on above: Result Comment: Canc elled via OM: Order cancelled - Patient discharged Performed By: #### L 500.4050, L100.0100 #### [facility] [address] [place], [address] NEUT% Normal 47-70 [facility] Comment on above: Result Comment: Canc elled via OM: Order cancelled - Patient discharged Performed By: #### L 500.4050, L100.0100 #### [facility] [address] [place], [address] PLT Normal 150-450 [facility] Comment on above: Result Comment: Canc elled via OM: Order cancelled - Patient discharged Performed By: #### L 500.4050, L100.0100 #### [facility] [address] [place], [address] RBC Normal 4.2-5.4 [facility] Comment on above: Result Comment: Canc elled via OM: Order cancelled - Patient discharged Performed By: #### L 500.4050, L100.0100 #### [facility] [address] [place], [address] RDW CV Normal 11.6-14.6 [facility] Comment on above: Result Comment: Canc elled via OM: Order cancelled - Patient discharged Performed By: #### L 500.4050, L100.0100 #### [facility] [address] [place], [address] RDW SD Normal 35.1-43.9 [facility] Comment on above: Result Comment: Canc elled via OM: Order cancelled - Patient discharged Performed By: #### L 500.4050, L100.0100 #### [facility] [address] [place], [address] WBC Normal 4.4-11.0 [facility] Comment on above: Result Comment: Canc elled via OM: Order cancelled - Patient discharged Performed By: #### L 500.4050, L100.0100 #### [facility] [address] [place], [address] Comprehensive Metabolic Prof ilon 09-29-2024 ALB Normal 3.5-5.0 [facility] Comment on above: Result Comment: Canc elled via OM: Order cancelled - Patient discharged Performed By: #### L 500.4050, L100.0100 #### [facility] [address] [place], [address] ALK PHOS Normal 35-104 [facility] Comment on above: Result Comment: Canc elled via OM: Order cancelled - Patient discharged Performed By: #### L 500.4050, L100.0100 #### [facility] [address] [place], [address] ALT Normal <=34 [facility] Comment on above: Result Comment: Canc elled via OM: Order cancelled - Patient discharged Performed By: #### L 500.4050, L100.0100 #### [facility] [address] [place], [address] AST Normal <=31 [facility] Comment on above: Result Comment: Canc elled via OM: Order cancelled - Patient discharged Performed By: #### L 500.4050, L100.0100 #### [facility] [address] [place], [address] BUN Normal 4-19 [facility] Comment on above: Result Comment: Canc elled via OM: Order cancelled - Patient discharged Performed By: #### L 500.4050, L100.0100 #### [facility] [address] [place], [address] BUN/CRE Normal 10-20 [facility] Comment on above: Result Comment: Canc elled via OM: Order cancelled - Patient discharged Performed By: #### L 500.4050, L100.0100 #### [facility] [address] [place], [address] Calcium Normal 7.6-11.0 [facility] Comment on above: Result Comment: Canc elled via OM: Order cancelled - Patient discharged Performed By: #### L 500.4050, L100.0100 #### [facility] [address] [place], [address] CL Normal 98-108 [facility] Comment on above: Result Comment: Canc elled via OM: Order cancelled - Patient discharged Performed By: #### L 500.4050, L100.0100 #### [facility] [address] [place], [address] CO2 Normal 21.0-32.0 [facility] Comment on above: Result Comment: Canc elled via OM: Order cancelled - Patient discharged Performed By: #### L 500.4050, L100.0100 #### [facility] [address] [place], [address] CREAT,SERUM Normal 0.70-1.20 [facility] Comment on above: Result Comment: Canc elled via OM: Order cancelled - Patient discharged Performed By: #### L 500.4050, L100.0100 #### [facility] [address] [place], [address] eGFR Normal >60 [facility] Comment on above: Result Comment: Canc elled via OM: Order cancelled - Patient discharged Performed By: #### L 500.4050, L100.0100 #### [facility] [address] [place], [address] GAP Normal 5-15 [facility] Comment on above: Result Comment: Canc elled via OM: Order cancelled - Patient discharged Performed By: #### L 500.4050, L100.0100 #### [facility] [address] [place], [address] GLU Normal 70-99 [facility] Comment on above: Result Comment: Canc elled via OM: Order cancelled - Patient discharged Performed By: #### L 500.4050, L100.0100 #### [facility] [address] [place], [address] Potassium Normal 3.3-5.1 [facility] Comment on above: Result Comment: Canc elled via OM: Order cancelled - Patient discharged Performed By: #### L 500.4050, L100.0100 #### [facility] [address] [place], [address] T BILI Normal 0.00-1.30 [facility] Comment on above: Result Comment: Canc elled via OM: Order cancelled - Patient discharged Performed By: #### L 500.4050, L100.0100 #### [facility] [address] [place], [address] T PROT Normal 5.9-8.4 [facility] Comment on above: Result Comment: Canc elled via OM: Order cancelled - Patient discharged Performed By: #### L 500.4050, L100.0100 #### [facility] [address] [place], [address] Comprehensive Metabolic Profil Normal 133-145 [facility] Comment on above: Result Comment: Canc elled via OM: Order cancelled - Patient discharged Performed By: #### L 500.4050, L100.0100 #### [facility] [address] [place], [address] CBC W/Diff, Automatedon 03- Absolute Neut Normal 2.0-7.7 [facility] Comment on above: Result Comment: Canc elled via OM: Order cancelled - Patient discharged Performed By: #### L 500.4050, L100.0100 #### [facility] [address] [place], [address] HCT Normal 37-47 [facility] Comment on above: Result Comment: Canc elled via OM: Order cancelled - Patient discharged Performed By: #### L 500.4050, L100.0100 #### [facility] [address] [place], [address] HGB Normal 12.0-15.0 [facility] Comment on above: Result Comment: Canc elled via OM: Order cancelled - Patient discharged Performed By: #### L 500.4050, L100.0100 #### [facility] [address] [place], [address] MCH Normal 27.0-32.0 [facility] Comment on above: Result Comment: Canc elled via OM: Order cancelled - Patient discharged Performed By: #### L 500.4050, L100.0100 #### [facility] [address] [place], [address] MCHC Normal 32-36 [facility] Comment on above: Result Comment: Canc elled via OM: Order cancelled - Patient discharged Performed By: #### L 500.4050, L100.0100 #### [facility] [address] [place], [address] MCV Normal 81-99 [facility] Comment on above: Result Comment: Canc elled via OM: Order cancelled - Patient discharged Performed By: #### L 500.4050, L100.0100 #### [facility] [address] [place], [address] NEUT% Normal 47-70 [facility] Comment on above: Result Comment: Canc elled via OM: Order cancelled - Patient discharged Performed By: #### L 500.4050, L100.0100 #### [facility] [address] [place], [address] PLT Normal 150-450 [facility] Comment on above: Result Comment: Canc elled via OM: Order cancelled - Patient discharged Performed By: #### L 500.4050, L100.0100 #### [facility] [address] [place], [address] RBC Normal 4.2-5.4 [facility] Comment on above: Result Comment: Canc elled via OM: Order cancelled - Patient discharged Performed By: #### L 500.4050, L100.0100 #### [facility] [address] [place], [address] RDW CV Normal 11.6-14.6 [facility] Comment on above: Result Comment: Canc elled via OM: Order cancelled - Patient discharged Performed By: #### L 500.4050, L100.0100 #### [facility] [address] [place], [address] RDW SD Normal 35.1-43.9 [facility] Comment on above: Result Comment: Canc elled via OM: Order cancelled - Patient discharged Performed By: #### L 500.4050, L100.0100 #### [facility] [address] [place], [address] WBC Normal 4.4-11.0 [facility] Comment on above: Result Comment: Canc elled via OM: Order cancelled - Patient discharged Performed By: #### L 500.4050, L100.0100 #### [facility] [address] [place], [address] Comprehensive Metabolic Prof ilon 09-28-2024 ALB Normal 3.5-5.0 [facility] Comment on above: Result Comment: Canc elled via OM: Order cancelled - Patient discharged Performed By: #### L 500.4050, L100.0100 #### [facility] [address] [place], [address] ALK PHOS Normal 35-104 [facility] Comment on above: Result Comment: Canc elled via OM: Order cancelled - Patient discharged Performed By: #### L 500.4050, L100.0100 #### [facility] [address] [place], [address] ALT Normal <=34 [facility] Comment on above: Result Comment: Canc elled via OM: Order cancelled - Patient discharged Performed By: #### L 500.4050, L100.0100 #### [facility] [address] [place], [address] AST Normal <=31 [facility] Comment on above: Result Comment: Canc elled via OM: Order cancelled - Patient discharged Performed By: #### L 500.4050, L100.0100 #### [facility] [address] [place], [address] BUN Normal 4-19 [facility] Comment on above: Result Comment: Canc elled via OM: Order cancelled - Patient discharged Performed By: #### L 500.4050, L100.0100 #### [facility] [address] [place], [address] BUN/CRE Normal 10-20 [facility] Comment on above: Result Comment: Canc elled via OM: Order cancelled - Patient discharged Performed By: #### L 500.4050, L100.0100 #### [facility] [address] [place], [address] Calcium Normal 7.6-11.0 [facility] Comment on above: Result Comment: Canc elled via OM: Order cancelled - Patient discharged Performed By: #### L 500.4050, L100.0100 #### [facility] [address] [place], [address] CL Normal 98-108 [facility] Comment on above: Result Comment: Canc elled via OM: Order cancelled - Patient discharged Performed By: #### L 500.4050, L100.0100 #### [facility] [address] [place], [address] CO2 Normal 21.0-32.0 [facility] Comment on above: Result Comment: Canc elled via OM: Order cancelled - Patient discharged Performed By: #### L 500.4050, L100.0100 #### [facility] [address] [place], [address] CREAT,SERUM Normal 0.70-1.20 [facility] Comment on above: Result Comment: Canc elled via OM: Order cancelled - Patient discharged Performed By: #### L 500.4050, L100.0100 #### [facility] [address] [place], [address] eGFR Normal >60 [facility] Comment on above: Result Comment: Canc elled via OM: Order cancelled - Patient discharged Performed By: #### L 500.4050, L100.0100 #### [facility] [address] [place], [address] GAP Normal 5-15 [facility] Comment on above: Result Comment: Canc elled via OM: Order cancelled - Patient discharged Performed By: #### L 500.4050, L100.0100 #### [facility] [address] [place], [address] GLU Normal 70-99 [facility] Comment on above: Result Comment: Canc elled via OM: Order cancelled - Patient discharged Performed By: #### L 500.4050, L100.0100 #### [facility] [address] [place], [address] Potassium Normal 3.3-5.1 [facility] Comment on above: Result Comment: Canc elled via OM: Order cancelled - Patient discharged Performed By: #### L 500.4050, L100.0100 #### [facility] [address] [place], [address] T BILI Normal 0.00-1.30 [facility] Comment on above: Result Comment: Canc elled via OM: Order cancelled - Patient discharged Performed By: #### L 500.4050, L100.0100 #### [facility] [address] [place], [address] T PROT Normal 5.9-8.4 [facility] Comment on above: Result Comment: Canc elled via OM: Order cancelled - Patient discharged Performed By: #### L 500.4050, L100.0100 #### [facility] [address] [place], [address] Comprehensive Metabolic Profil Normal 133-145 [facility] Comment on above: Result Comment: Canc elled via OM: Order cancelled - Patient discharged Performed By: #### L 500.4050, L100.0100 #### [facility] [address] [place], [address] CA 19-9 Serial Monitoron CA 19-9 < 2 Normal 0-35 [facility] Comment on above: Result Comment: Ve rified by repeat analysis [facility] Electrochemiluminescence Immunoassay (ECLIA) Values obtained with different assay methods or kits cannot be used interchangeably. Results cannot be interpreted as absolute evidence of the presence or absence of malignant disease. Performed at: [address] [id number] [employer]: Ashvin Dumont PhD, Phone: [phone] Performed By: #### L 500.4050, L100.0100 #### [facility] [address] [place], [address] CBC W/Diff, Automatedon 09-11 Absolute Neut Normal 2.0-7.7 [facility] Comment on above: Result Comment: Canc elled via OM: Order cancelled - Patient discharged Performed By: #### L 100.0100, L500.4050 ####[facility] [address] [place], [address] HCT Normal 37-47 [facility] Comment on above: Result Comment: Canc elled via OM: Order cancelled - Patient discharged Performed By: #### L 100.0100, L500.4050 ####[facility] [address] [place], [address] HGB Normal 12.0-15.0 [facility] Comment on above: Result Comment: Canc elled via OM: Order cancelled - Patient discharged Performed By: #### L 100.0100, L500.4050 ####[facility] [address] [place], [address] MCH Normal 27.0-32.0 [facility] Comment on above: Result Comment: Canc elled via OM: Order cancelled - Patient discharged Performed By: #### L 100.0100, L500.4050 ####[facility] [address] [place], [address] MCHC Normal 32-36 [facility] Comment on above: Result Comment: Canc elled via OM: Order cancelled - Patient discharged Performed By: #### L 100.0100, L500.4050 ####[facility] [address] [place], [address] MCV Normal 81-99 [facility] Comment on above: Result Comment: Canc elled via OM: Order cancelled - Patient discharged Performed By: #### L 100.0100, L500.4050 ####[facility] [address] [place], [address] NEUT% Normal 47-70 [facility] Comment on above: Result Comment: Canc elled via OM: Order cancelled - Patient discharged Performed By: #### L 100.0100, L500.4050 ####[facility] [address] [place], [address] PLT Normal 150-450 [facility] Comment on above: Result Comment: Canc elled via OM: Order cancelled - Patient discharged Performed By: #### L 100.0100, L500.4050 ####[facility] [address] [place], [address] RBC Normal 4.2-5.4 [facility] Comment on above: Result Comment: Canc elled via OM: Order cancelled - Patient discharged Performed By: #### L 100.0100, L500.4050 ####[facility] [address] [place], [address] RDW CV Normal 11.6-14.6 [facility] Comment on above: Result Comment: Canc elled via OM: Order cancelled - Patient discharged Performed By: #### L 100.0100, L500.4050 ####[facility] [address] [place], [address] RDW SD Normal 35.1-43.9 [facility] Comment on above: Result Comment: Canc elled via OM: Order cancelled - Patient discharged Performed By: #### L 100.0100, L500.4050 ####[facility] [address] [place], [address] WBC Normal 4.4-11.0 [facility] Comment on above: Result Comment: Canc elled via OM: Order cancelled - Patient discharged Performed By: #### L 100.0100, L500.4050 ####[facility] [address] [place], [address] Comprehensive Metabolic Prof ilon 09-27-2024 ALB Normal 3.5-5.0 [facility] Comment on above: Result Comment: Canc elled via OM: Order cancelled - Patient discharged Performed By: #### L 100.0100, L500.4050 ####[facility] [address] [place], [address] ALK PHOS Normal 35-104 [facility] Comment on above: Result Comment: Canc elled via OM: Order cancelled - Patient discharged Performed By: #### L 100.0100, L500.4050 ####[facility] [address] [place], [address] ALT Normal <=34 [facility] Comment on above: Result Comment: Canc elled via OM: Order cancelled - Patient discharged Performed By: #### L 100.0100, L500.4050 ####[facility] [address] [place], [address] AST Normal <=31 [facility] Comment on above: Result Comment: Canc elled via OM: Order cancelled - Patient discharged Performed By: #### L 100.0100, L500.4050 ####[facility] [address] [place], [address] BUN Normal 4-19 [facility] Comment on above: Result Comment: Canc elled via OM: Order cancelled - Patient discharged Performed By: #### L 100.0100, L500.4050 ####[facility] [address] [place], [address] BUN/CRE Normal 10-20 [facility] Comment on above: Result Comment: Canc elled via OM: Order cancelled - Patient discharged Performed By: #### L 100.0100, L500.4050 ####[facility] [address] [place], [address] Calcium Normal 7.6-11.0 [facility] Comment on above: Result Comment: Canc elled via OM: Order cancelled - Patient discharged Performed By: #### L 100.0100, L500.4050 ####[facility] [address] [place], [address] CL Normal 98-108 [facility] Comment on above: Result Comment: Canc elled via OM: Order cancelled - Patient discharged Performed By: #### L 100.0100, L500.4050 ####[facility] [address] [place], [address] CO2 Normal 21.0-32.0 [facility] Comment on above: Result Comment: Canc elled via OM: Order cancelled - Patient discharged Performed By: #### L 100.0100, L500.4050 ####[facility] [address] [place], [address] CREAT,SERUM Normal 0.70-1.20 [facility] Comment on above: Result Comment: Canc elled via OM: Order cancelled - Patient discharged Performed By: #### L 100.0100, L500.4050 ####[facility] [address] [place], [address] eGFR Normal >60 [facility] Comment on above: Result Comment: Canc elled via OM: Order cancelled - Patient discharged Performed By: #### L 100.0100, L500.4050 ####[facility] [address] [place], [address] GAP Normal 5-15 [facility] Comment on above: Result Comment: Canc elled via OM: Order cancelled - Patient discharged Performed By: #### L 100.0100, L500.4050 ####[facility] [address] [place], [address] GLU Normal 70-99 [facility] Comment on above: Result Comment: Canc elled via OM: Order cancelled - Patient discharged Performed By: #### L 100.0100, L500.4050 ####[facility] [address] [place], [address] Potassium Normal 3.3-5.1 [facility] Comment on above: Result Comment: Canc elled via OM: Order cancelled - Patient discharged Performed By: #### L 100.0100, L500.4050 ####[facility] [address] [place], [address] T BILI Normal 0.00-1.30 [facility] Comment on above: Result Comment: Canc elled via OM: Order cancelled - Patient discharged Performed By: #### L 100.0100, L500.4050 ####[facility] [address] [place], [address] T PROT Normal 5.9-8.4 [facility] Comment on above: Result Comment: Canc elled via OM: Order cancelled - Patient discharged Performed By: #### L 100.0100, L500.4050 ####[facility] [address] [place], [address] Comprehensive Metabolic Profil Normal 133-145 [facility] Comment on above: Result Comment: Canc elled via OM: Order cancelled - Patient discharged Performed By: #### L 100.0100, L500.4050 ####[facility] [address] [place], [address] CBC W/Diff, Automatedon 03-1 Absolute Neut Normal 2.0-7.7 [facility] Comment on above: Result Comment: Canc elled via OM: Order cancelled - Patient discharged Performed By: #### L 500.4050, L100.0100 ####[facility] [address] [place], [address] HCT Normal 37-47 [facility] Comment on above: Result Comment: Canc elled via OM: Order cancelled - Patient discharged Performed By: #### L 500.4050, L100.0100 ####[facility] [address] [place], [address] HGB Normal 12.0-15.0 [facility] Comment on above: Result Comment: Canc elled via OM: Order cancelled - Patient discharged Performed By: #### L 500.4050, L100.0100 ####[facility] [address] [place], [address] MCH Normal 27.0-32.0 [facility] Comment on above: Result Comment: Canc elled via OM: Order cancelled - Patient discharged Performed By: #### L 500.4050, L100.0100 ####[facility] [address] [place], [address] MCHC Normal 32-36 [facility] Comment on above: Result Comment: Canc elled via OM: Order cancelled - Patient discharged Performed By: #### L 500.4050, L100.0100 ####[facility] [address] [place], [address] MCV Normal 81-99 [facility] Comment on above: Result Comment: Canc elled via OM: Order cancelled - Patient discharged Performed By: #### L 500.4050, L100.0100 ####[facility] [address] [place], [address] NEUT% Normal 47-70 [facility] Comment on above: Result Comment: Canc elled via OM: Order cancelled - Patient discharged Performed By: #### L 500.4050, L100.0100 ####[facility] [address] [place], [address] PLT Normal 150-450 [facility] Comment on above: Result Comment: Canc elled via OM: Order cancelled - Patient discharged Performed By: #### L 500.4050, L100.0100 ####[facility] [address] [place], [address] RBC Normal 4.2-5.4 [facility] Comment on above: Result Comment: Canc elled via OM: Order cancelled - Patient discharged Performed By: #### L 500.4050, L100.0100 ####[facility] [address] [place], [address] RDW CV Normal 11.6-14.6 [facility] Comment on above: Result Comment: Canc elled via OM: Order cancelled - Patient discharged Performed By: #### L 500.4050, L100.0100 ####[facility] [address] [place], [address] RDW SD Normal 35.1-43.9 [facility] Comment on above: Result Comment: Canc elled via OM: Order cancelled - Patient discharged Performed By: #### L 500.4050, L100.0100 ####[facility] [address] [place], [address] WBC Normal 4.4-11.0 [facility] Comment on above: Result Comment: Canc elled via OM: Order cancelled - Patient discharged Performed By: #### L 500.4050, L100.0100 ####[facility] [address] [place], [address] Comprehensive Metabolic Prof ilon 09-26-2024 ALB Normal 3.5-5.0 [facility] Comment on above: Result Comment: Canc elled via OM: Order cancelled - Patient discharged Performed By: #### L 500.4050, L100.0100 ####[facility] [address] [place], [address] ALK PHOS Normal 35-104 [facility] Comment on above: Result Comment: Canc elled via OM: Order cancelled - Patient discharged Performed By: #### L 500.4050, L100.0100 ####[facility] [address] [place], [address] ALT Normal <=34 [facility] Comment on above: Result Comment: Canc elled via OM: Order cancelled - Patient discharged Performed By: #### L 500.4050, L100.0100 ####[facility] [address] [place], [address] AST Normal <=31 [facility] Comment on above: Result Comment: Canc elled via OM: Order cancelled - Patient discharged Performed By: #### L 500.4050, L100.0100 ####[facility] [address] [place], [address] BUN Normal 4-19 [facility] Comment on above: Result Comment: Canc elled via OM: Order cancelled - Patient discharged Performed By: #### L 500.4050, L100.0100 ####[facility] [address] [place], [address] BUN/CRE Normal 10-20 [facility] Comment on above: Result Comment: Canc elled via OM: Order cancelled - Patient discharged Performed By: #### L 500.4050, L100.0100 ####[facility] [address] [place], [address] Calcium Normal 7.6-11.0 [facility] Comment on above: Result Comment: Canc elled via OM: Order cancelled - Patient discharged Performed By: #### L 500.4050, L100.0100 ####[facility] [address] [place], [address] CL Normal 98-108 [facility] Comment on above: Result Comment: Canc elled via OM: Order cancelled - Patient discharged Performed By: #### L 500.4050, L100.0100 ####[facility] [address] [place], [address] CO2 Normal 21.0-32.0 [facility] Comment on above: Result Comment: Canc elled via OM: Order cancelled - Patient discharged Performed By: #### L 500.4050, L100.0100 ####[facility] [address] [place], [address] CREAT,SERUM Normal 0.70-1.20 [facility] Comment on above: Result Comment: Canc elled via OM: Order cancelled - Patient discharged Performed By: #### L 500.4050, L100.0100 ####[facility] [address] [place], [address] eGFR Normal >60 [facility] Comment on above: Result Comment: Canc elled via OM: Order cancelled - Patient discharged Performed By: #### L 500.4050, L100.0100 ####[facility] [address] [place], [address] GAP Normal 5-15 [facility] Comment on above: Result Comment: Canc elled via OM: Order cancelled - Patient discharged Performed By: #### L 500.4050, L100.0100 ####[facility] [address] [place], [address] GLU Normal 70-99 [facility] Comment on above: Result Comment: Canc elled via OM: Order cancelled - Patient discharged Performed By: #### L 500.4050, L100.0100 ####[facility] [address] [place], [address] Potassium Normal 3.3-5.1 [facility] [facility] Comment on above: Result Comment: Canc elled via OM: Order cancelled - Patient discharged Performed By: #### L 500.4050, L100.0100 ####[facility] [address] [place], [address] T BILI Normal 0.00-1.30 [facility] Comment on above: Result Comment: Canc elled via OM: Order cancelled - Patient discharged Performed By: #### L 500.4050, L100.0100 ####[facility] [address] [place], [address] T PROT Normal 5.9-8.4 [facility] Comment on above: Result Comment: Canc elled via OM: Order cancelled - Patient discharged Performed By: #### L 500.4050, L100.0100 ####[facility] [address] [place], [address] Comprehensive Metabolic Profil Normal 133-145 [facility] Comment on above: Result Comment: Canc elled via OM: Order cancelled - Patient discharged Performed By: #### L 500.4050, L100.0100 ####[facility] [address] [place], [address] Absolute neutrophil countOrd ered By: Loretta Meyer on 09-25-2024 Neutrophils (Bld) [#/Vol] 4.6 10*3/uL 2.0-7.7 [facility] Anion gap in Serum or Plasma Ordered By: Loretta Meyer on 09-25-2024 Anion gap [Moles/Vol] 12 mmol/L - [facility] BUN/creatinine ratioOrdered By: Loretta Meyer on 09-25-2024 Urea nitrogen/Creatinine [Mass ratio] 10.0 mg/mg 10-20 [facility] Basophil percentageOrdered B y: Loretta Meyer on 09-25-2024 Basophils/100 WBC (Bld) 0.9 % 0-1 [facility] Bilirubin, totalOrdered By: Loretta Meyer on 09-25-2024 Bilirubin [Mass/Vol] 1.22 mg/dL 0.00-1.30 [facility] CBC W/Diff, Automatedon 09-11 Absolute Lymph 1.44 X10 3/uL Normal 0.83-4.51 [facility] Comment on above: Performed By: #### L 100.0100 ####[facility] [address] [place], [address] Absolute Neut 4.6 X10 3/uL Normal 2.0-7.7 [facility] Comment on above: Performed By: #### L 100.0100 ####[facility] [address] [place], [address] Basophils/100 WBC (Bld) 0.9 % Normal 0-1 [facility] Comment on above: Performed By: #### L 100.0100 ####[facility] [address] [place], [address] Eosinophils/100 WBC (Bld) 3.9 % Normal 0-5 [facility] Comment on above: Performed By: #### L 100.0100 ####[facility] [address] [place], [address] Erythrocyte distribution width (RBC) [Ratio] 13.5 % Normal 11.6-14.6 [facility] Comment on above: Performed By: #### L 100.0100 ####[facility] [address] [place], [address] Hematocrit (Bld) [Volume fraction] 39.1 % Normal 37-47 [facility] Comment on above: Performed By: #### L 100.0100 ####[facility] [address] [place], [address] Hemoglobin (Bld) [Mass/Vol] 12.3 g/dL Normal 12.0-15.0 [facility] Comment on above: Performed By: #### L 100.0100 ####[facility] [address] [place], [address] IG% 1.000 High 0.0-0.9 [facility] Comment on above: Result Comment: IG% - Immature Granulocytes (promyelocytes, myelocytes and metamyelocytes) > 1% indicates that a LEFT SHIFT is Present. Performed By: #### L 100.0100 ####[facility] [address] [place], [address] Lymphocytes/100 WBC (Bld) 20.9 % Normal 19-41 [facility] Comment on above: Performed By: #### L 100.0100 ####[facility] [address] [place], [address] MCH (RBC) [Entitic mass] 29.1 pg Normal 27.0-32.0 [facility] Comment on above: Performed By: #### L 100.0100 ####[facility] [address] [place], [address] MCHC (RBC) [Mass/Vol] 31.5 g/dL Low 32-36 [facility] Comment on above: Performed By: #### L 100.0100 ####[facility] [address] [place], [address] MCV (RBC) [Entitic vol] 92.7 fL Normal 81-99 [facility] Comment on above: Performed By: #### L 100.0100 ####[facility] [address] [place], [address] Monocytes/100 WBC (Bld) 7.0 % Normal 0-10 [facility] Comment on above: Performed By: #### L 100.0100 ####[facility] [address] [place], [address] Neutrophils/100 WBC (Bld) 66.3 % Normal 47-70 [facility] Comment on above: Performed By: #### L 100.0100 ####[facility] [address] [place], [address] Nucleated RBC (Bld) [#/Vol] 0 10*3/uL Normal 0-5 [facility] Comment on above: Performed By: #### L 100.0100 ####[facility] [address] [place], [address] Platelet mean volume (Bld) [Entitic vol] 10.8 fL Normal 6.2-12.0 [facility] Comment on above: Performed By: #### L 100.0100 ####[facility] [address] [place], [address] Platelets (Bld) [#/Vol] 358 10*3/uL Normal 150-450 [facility] Comment on above: Performed By: #### L 100.0100 ####[facility] [address] [place], [address] RBC (Bld) [#/Vol] 4.22 10*6/uL Normal 4.2-5.4 [facility] Comment on above: Performed By: #### L 100.0100 ####[facility] [address] [place], [address] RDW SD 45.5 fl High 35.1-43.9 [facility] Comment on above: Performed By: #### L 100.0100 ####[facility] [address] [place], [address] WBC (Bld) [#/Vol] 6.9 10*3/uL Normal 4.4-11.0 [facility] Comment on above: Performed By: #### L 100.0100 ####[facility] [address] [place], [address] Carbon dioxide, total [Moles /volume] in Central venous bloodOrdered By: Loretta Meyer on 09-25-2024 CO2 [Moles/Vol] 21.4 mmol/L 21.0-32.0 [facility] Chloride assayOrdered By: Martha Meyer on 09-25-2024 Chloride [Moles/Vol] 107 mmol/L 98-108 [facility] Comprehensive Metabolic Prof ilon 09-25-2024 Albumin [Mass/Vol] 3.6 g/dL Normal 3.5-5.0 [facility] Comment on above: Performed By: #### L 500.4050, L501.2300 #### [facility] [address] [place], [address] Albumin/Globulin [Mass ratio] 1.2 {ratio} Normal 0.9-2.4 [facility] Comment on above: Performed By: #### L 500.4050, L501.2300 #### [facility] [address] [place], [address] ALK PHOS 274 U/L High 35-104 [facility] Comment on above: Performed By: #### L 500.4050, L501.2300 #### [facility] [address] [place], [address] ALT [Catalytic activity/Vol] 195 U/L High <=34 [facility] Comment on above: Performed By: #### L 500.4050, L501.2300 #### [facility] [address] [place], [address] AST [Catalytic activity/Vol] 91 U/L High <=31 [facility] Comment on above: Performed By: #### L 500.4050, L501.2300 #### [facility] [address] [place], [address] Bilirubin [Mass/Vol] 1.22 mg/dL Normal 0.00-1.30 [facility] Comment on above: Performed By: #### L 500.4050, L501.2300 #### [facility] [address] [place], [address] BUN/CRE 10.0 RATIO Normal 10-20 [facility] Comment on above: Performed By: #### L 500.4050, L501.2300 #### [facility] [address] [place], [address] Calcium [Mass/Vol] 8.5 mg/dL Normal 7.6-11.0 [facility] Comment on above: Performed By: #### L 500.4050, L501.2300 #### [facility] [address] [place], [address] Chloride [Moles/Vol] 107 mmol/L Normal 98-108 [facility] Comment on above: Performed By: #### L 500.4050, L501.2300 #### [facility] [address] [place], [address] CO2 [Moles/Vol] 21.4 mmol/L Normal 21.0-32.0 [facility] Comment on above: Performed By: #### L 500.4050, L501.2300 #### [facility] [address] [place], [address] Creatinine [Mass/Vol] 0.76 mg/dL Normal 0.70-1.20 [facility] Comment on above: Performed By: #### L 500.4050, L501.2300 #### [facility] [address] [place], [address] ECRCL 123.63 ml/min Normal 50-250 [facility] Comment on above: Performed By: #### L 500.4050, L501.2300 #### [facility] [address] [place], [address] GAP 12 Normal 5-15 [facility] Comment on above: Performed By: #### L 500.4050, L501.2300 #### [facility] [address] [place], [address] GFR/1.73 sq M.predicted among non-blacks MDRD (S/P/Bld) [Vol rate/Area] 99 mL/min/{1.73_m2} Normal >60 [facility] Comment on above: Result Comment: mL/m in/1.73m2 CKD-EPI Creatinine Equation (2020) Performed By: #### L 500.4050, L501.2300 #### [facility] [address] [place], [address] Globulin (S) [Mass/Vol] 3.1 g/dL Normal 2.2-4.2 [facility] Comment on above: Performed By: #### L 500.4050, L501.2300 #### [facility] [address] [place], [address] Glucose [Mass/Vol] 115 mg/dL High 70-99 [facility] Comment on above: Performed By: #### L 500.4050, L501.2300 #### [facility] [address] [place], [address] Potassium [Moles/Vol] 3.5 mmol/L Normal 3.3-5.1 [facility] Comment on above: Performed By: #### L 500.4050, L501.2300 #### [facility] [address] [place], [address] Sodium [Moles/Vol] 139 mmol/L Normal 133-145 [facility] Comment on above: Performed By: #### L 500.4050, L501.2300 #### [facility] [address] [place], [address] T PROT 6.6 g/dL Normal 5.9-8.4 [facility] Comment on above: Performed By: #### L 500.4050, L501.2300 #### [facility] [address] [place], [address] Urea nitrogen [Mass/Vol] 8 mg/dL Normal 4-19 [facility] Comment on above: Performed By: #### L 500.4050, L501.2300 #### [facility] [address] [place], [address] Discharge Instructionon 09-11 Discharge Instruction [facility] Medical Records Department [address] [place] [address] Instructions for Home/Discharge Instructions 09/25/24 1035 MR#: [id number] Acct: [id number] Name: REYNA NULL Bernie Rep #: [id number] : 1980 44 From: Loretta Meyer MD PCP: Cheryl Pierre PA-C Status:ADM IN Discharge Instructions Diet Discharge Diet: Light diet - advance as tolerated DC O2, CPAP, BIPAP needs Home O2 Discharge instructions: No Dressing / Incision Discharge Activity: - (Increase activity as tolerated) Follow Up Care Test Results: Test results from this visit will be discussed in further detail at your follow-up appointment, if applicable. Discharge Plan Admission Admit Date/Time: 09/23/24 21:20 Primary Reason for Your Visit: Abdominal pain Attending Provider: Loretta Meyer Primary Care Provider: Cheryl Pierre Consulting Providers: Benedicto Burks Instructions Patient Instructions: Biliary Stent Dc Additional Instructions / Restrictions: DISCHARGE INSTRUCTIONS PLEASE READ *Please take this with you to your next doctors appointment* -Start with a light diet and advance as tolerated -You will need to follow-up with Dr. Cortez with GI in his office upon discharge. Please call his office to schedule an appointment (ph. [phone]) -You will be discharged on additional 10 days of antibiotics, you will take ciprofloxacin 500 mg twice daily and metronidazole 500 mg 3 times a day -Strongly recommend against drinking alcohol while on metronidazole as the combination can cause nausea, vomiting, racing heart, and flushing of the face. Avoid alcohol for at least 3 days after last dose of metronidazole. -Please call your primary care provider's office upon discharge to schedule a hospital follow up within 1 week. -For any concerning signs or symptoms please call 911 or proceed to the nearest emergency department Discharge Orders/Prescriptions Prescriptions: New ciprofloxacin HCl 500 mg tablet 500 mg PO BID 10 Days Qty: 20 0RF metronidazole 500 mg tablet 500 mg PO TID 10 Days Qty: 30 0RF Continued losartan 25 mg tablet 25 mg PO DAILY Referrals / Follow Up: Khadar Cortez DO [Med Staff - Active Staff] - Within 2 Weeks ( -You will need to follow-up with Dr. Cortez with GI in his office upon discharge. Please call his office to schedule an appointment (ph. [phone])) Cheryl Pierre PA-C [Primary Care Provider] - In 1 Week Disposition Disposition (needs filled in before D/C Order can be placed): Home, Self Care 09/25/24 1038 Loretta Meyer MD CC: DONNIE Pierre; Dr. Benedicto Burks DO Signed Normal [facility] Eosinophil percentageOrdered By: Loretta Meyer on 09-25-2024 Eosinophils/100 WBC (Bld) 3.9 % 0-5 [facility] Erythrocyte distribution wid th ratioOrdered By: Loretta Meyer on 09-25-2024 Erythrocyte distribution width (RBC) [Ratio] 13.5 % 11.6-14.6 [facility] Erythrocyte distribution wid th standard deviationOrdered By: Loretta Meyer on 09-25-2024 Erythrocyte distribution width (RBC) [Entitic vol] 45.5 fL High 35.1-43.9 [facility] Estimation of creatinine fransisco aranceOrdered By: Loretta Meyer on 09-25-2024 Estimated Creatinine Clearance Calc 123.63 ml/min 50-250 [facility] GFR/1.73 sq M.predicted donnie g non-blacks MDRD (S/P/Bld) [Vol rate/Area]Ordered By: Loretta Meyer on 09-25-2024 Estimated GFR (MDRD) Non-Af Amer 99 >60 [facility] Comment on above: mL/min/1.73m2 CKD-EP I Creatinine Equation (2020) Hematocrit Auto (Bld) [Volum e fraction]Ordered By: Loretta Meyer on 09-25-2024 Hematocrit (Bld) [Volume fraction] 39.1 % 37-47 [facility] Hemoglobin measurementOrdere d By: Loretta Meyer on 09-25-2024 Hemoglobin (Bld) [Mass/Vol] 12.3 g/dL 12.0-15.0 [facility] Hepatitis Panel Acuteon 09-11 COMMENT Comment Normal . [facility] Comment on above: Result Comment: Not infected with HCV unless early or acute infection is suspected (which may be delayed in an immunocompromised individual), or other evidence exists to indicate HCV infection. Performed at: [address] [id number] [employer]: Ashvin Dumont PhD, Phone: [phone] Performed By: #### L 500.4050, L100.0100 #### [facility] [address] [place], [place], [address] HEP B CORE,IgM Negative Normal Negative [facility] Comment on above: Performed By: #### L 500.4050, L100.0100 #### [facility] [address] [facility] [place], [place], [address] HEP B SURF AG Negative Normal Negative [facility] Comment on above: Performed By: #### L 500.4050, L100.0100 #### [facility] [address] [facility] [place], [place], [address] HEP C VIRUS AB Non-Reactive Normal Non Reactive [facility] Comment on above: Performed By: #### L 500.4050, L100.0100 #### [facility] [address] [facility] [place], [place], [address] HEPATITIS A-IgM Negative Normal Negative [facility] Comment on above: Result Comment: A ne gative anti-HAV IgM result suggests no recent or current HAV infection. Performed By: #### L 500.4050, L100.0100 #### [facility] [address] [place], [address] Immature granulocytes/100 WB C Auto (Bld)Ordered By: Loretta Meyer on 09-25-2024 Immature granulocytes/100 WBC (Bld) 1.000 % High 0.0-0.9 [facility] Comment on above: IG% - Immature Granu locytes (promyelocytes, myelocytes and metamyelocytes) > 1% indicates that a LEFT SHIFT is Present. Laboratory - Chemistry and C hemistry - challengeOrdered By: Loretta Meyer on 09-25-2024 AST [Catalytic activity/Vol] 91 U/L High <32 [facility] Lymphocytes Auto (Unsp spec) [#/Vol]Ordered By: Loretta Meyer on 09-25-2024 Lymphocytes (Bld) [#/Vol] 1.44 10*3/uL 0.83-4.51 [facility] Lymphocytes/100 WBC Auto (Un sp spec)Ordered By: Loretta Meyer on 09-25-2024 Lymphocytes/100 WBC (Bld) 20.9 % 19-41 [facility] MCV (mean corpuscular volume ) determinationOrdered By: Loretta Meyer on 09-25-2024 MCV (RBC) [Entitic vol] 92.7 fL 81-99 [facility] Mean corpuscular hemoglobin (MCH) determinationOrdered By: Loretta Meyer on 09-25-2024 MCH (RBC) [Entitic mass] 29.1 pg 27.0-32.0 [facility] Mean corpuscular hemoglobin concentration (MCHC) determinationOrdered By: Loretta Meyer on 09-25-2024 MCHC (RBC) [Mass/Vol] 31.5 g/dL Low 32-36 [facility] Mean platelet volume determi nationOrdered By: Loretta Meyer on 09-25-2024 Platelet mean volume (Bld) [Entitic vol] 10.8 fL 6.2-12.0 [facility] Monocyte percentageOrdered B y: Loretta Meyer on 09-25-2024 Monocytes/100 WBC (Bld) 7.0 % 0-10 [facility] Neutrophil percentageOrdered By: Loretta Meyer on 09-25-2024 Neutrophils/100 WBC (Bld) 66.3 % 47-70 [facility] Nucleated red blood cell per centageOrdered By: Loretta Meyer on 09-25-2024 Nucleated RBC/100 WBC (Bld) [Ratio] 0 % 0-5 [facility] Phosphoruson 09-25-2024 Phosphate [Mass/Vol] 2.5 mg/dL Low 2.7-4.5 [facility] Comment on above: Performed By: #### L 500.4050, L501.2300 #### [facility] [address] [place], [address] Platelet countOrdered By: Martha Meyer on 09-25-2024 Platelets (Bld) [#/Vol] 358 10*3/uL 150-450 [facility] Potassium (Unsp spec) [Mass/ Vol]Ordered By: Loretta Meyer on 09-25-2024 Potassium [Moles/Vol] 3.5 mmol/L 3.3-5.1 [facility] RBC Auto (Bld) [#/Vol]Ordere d By: Loretta Meyer on 09-25-2024 RBC (Bld) [#/Vol] 4.22 10*6/uL 4.2-5.4 [facility] Serum creatinine measurement (mass/volume)Ordered By: Loretta Meyer on 09-25-2024 Creatinine [Mass/Vol] 0.76 mg/dL 0.70-1.20 [facility] Serum globulin measurementOr dered By: Loretta Meyer on 09-25-2024 Globulin (S) [Mass/Vol] 3.1 g/dL 2.2-4.2 [facility] Serum glucose measurement (m ass/volume)Ordered By: Loretta Meyer on 09-25-2024 Glucose [Mass/Vol] 115 mg/dL High 70-99 [facility] Serum or plasma alanine basurto otransferase (ALT) measurementOrdered By: Loretta Meyer on 09-25-2024 ALT [Catalytic activity/Vol] 195 U/L High <35 [facility] Serum or plasma albumin edinson urement (mass/volume)Ordered By: Loretta Meyer on 09-25-2024 Albumin [Mass/Vol] 3.6 g/dL 3.5-5.0 [facility] Serum or plasma albumin/glob ulin mass ratioOrdered By: Loretta eMyer on 09-25-2024 Albumin/Globulin [Mass ratio] 1.2 {ratio} 0.9-2.4 [facility] Serum or plasma alkaline tracy sphatase measurementOrdered By: Loretta Meyer on 09-25-2024 ALP [Catalytic activity/Vol] 274 U/L High 35-104 [facility] Serum or plasma calcium edinson urement (mass/volume)Ordered By: Loretta Myeer on 09-25-2024 Calcium [Mass/Vol] 8.5 mg/dL 7.6-11.0 [facility] Serum or plasma urea nitroge n measurement (mass/volume)Ordered By: Loretta Meyer on 09-25-2024 Urea nitrogen [Mass/Vol] 8 mg/dL 4-19 [facility] Serum phosphorus measurement Ordered By: Benedicto Vasquez on 09-25-2024 Phosphorus Level 2.5 mg/dL Low 2.7-4.5 [facility] Sodium levelOrdered By: Estela Meyer on 09-25-2024 Sodium [Moles/Vol] 139 mmol/L 133-145 [facility] Total proteinOrdered By: Chris Meyer on 09-25-2024 Protein [Mass/Vol] 6.6 g/dL 5.9-8.4 [facility] White blood cell (WBC) count Ordered By: Loretta Meyer on 09-25-2024 WBC (Bld) [#/Vol] 6.9 10*3/uL 4.4-11.0 [facility] 12 Lead EKGon 09-24-2024 12 Lead EKG [facility] [address] [place] [address] 12 Lead EKG 09/24/24 1527 MR#: [id number] Acct: [id number] Name: REYNA NULL Rep #: [id number] : 1980 44 From: Moshe Mayo MD Attending Dr: Dr. Loretta Meyer MD Status: DIS IN Ordering Dr: Dallin Rizzo MD Date: 09/24/24 Location: [facility] Sex: F C Admitted: 09/23/24 Test Reason : PRE OP Blood Pressure : */* mmHG Vent. Rate : 83 BPM Atrial Rate : 83 BPM P-R Int : 144 ms QRS Dur : 76 ms QT Int : 392 ms P-R-T Axes : 16 41 24 degrees QTcB Int : 460 ms Normal sinus rhythm Normal ECG No previous ECGs available Confirmed by MARIA ESTHER PAGE, MOSHE ([id number]), sound editor NAJMA SAAVEDRA ([id number]) on 09/27/2024 1:43:21 PM Referred By: Juan Jose Oseguera Confirmed By: MOSHE MAYO MD 09/27/24 1343 Date Moshe Mayo MD CC: DONNIE Pierre; Dr. Dallin Rizzo MD; Dr. Loretta Meyer MD; Dr. Juan Jose Oseguera, DO Signed Normal [facility] CBC W/Diff, Automatedon 09-11 Absolute Lymph 1.39 X10 3/uL Normal 0.83-4.51 [facility] Comment on above: Performed By: #### L 500.4050, L100.0100 #### [facility] [address] [facility] [place], [address] Absolute Neut 2.7 X10 3/uL Normal 2.0-7.7 [facility] Comment on above: Performed By: #### L 500.4050, L100.0100 #### [facility] [address] [place], [address] Basophils/100 WBC (Bld) 1.2 % High 0-1 [facility] Comment on above: Performed By: #### L 500.4050, L100.0100 #### [facility] [address] [facility] [place], [address] Eosinophils/100 WBC (Bld) 7.9 % High 0-5 [facility] Comment on above: Performed By: #### L 500.4050, L100.0100 #### [facility] [address] [place], [address] Erythrocyte distribution width (RBC) [Ratio] 13.3 % Normal 11.6-14.6 [facility] Comment on above: Performed By: #### L 500.4050, L100.0100 #### [facility] [address] [place], [address] Hematocrit (Bld) [Volume fraction] 37.9 % Normal 37-47 [facility] Comment on above: Performed By: #### L 500.4050, L100.0100 #### [facility] [address] [place], [address] Hemoglobin (Bld) [Mass/Vol] 12.0 g/dL Normal 12.0-15.0 [facility] Comment on above: Performed By: #### L 500.4050, L100.0100 #### [facility] [address] [place], [address] IG% 0.600 Normal 0.0-0.9 [facility] Comment on above: Result Comment: IG% - Immature Granulocytes (promyelocytes, myelocytes and metamyelocytes) > 1% indicates that a LEFT SHIFT is Present. Performed By: #### L 500.4050, L100.0100 #### [facility] [address] [place], [address] Lymphocytes/100 WBC (Bld) 28.0 % Normal 19-41 [facility] Comment on above: Performed By: #### L 500.4050, L100.0100 #### [facility] [address] [place], [address] MCH (RBC) [Entitic mass] 29.3 pg Normal 27.0-32.0 [facility] Comment on above: Performed By: #### L 500.4050, L100.0100 #### [facility] [address] [place], [address] MCHC (RBC) [Mass/Vol] 31.7 g/dL Low 32-36 [facility] Comment on above: Performed By: #### L 500.4050, L100.0100 #### [facility] [address] [place], [address] MCV (RBC) [Entitic vol] 92.4 fL Normal 81-99 [facility] Comment on above: Performed By: #### L 500.4050, L100.0100 #### [facility] [address] [place], [address] Monocytes/100 WBC (Bld) 7.7 % Normal 0-10 [facility] Comment on above: Performed By: #### L 500.4050, L100.0100 #### [facility] [address] [place], [address] Neutrophils/100 WBC (Bld) 54.6 % Normal 47-70 [facility] Comment on above: Performed By: #### L 500.4050, L100.0100 #### [facility] [address] [place], [address] Nucleated RBC (Bld) [#/Vol] 0 10*3/uL Normal 0-5 [facility] Comment on above: Performed By: #### L 500.4050, L100.0100 #### [facility] [address] [place], [address] Platelet mean volume (Bld) [Entitic vol] 10.9 fL Normal 6.2-12.0 [facility] Comment on above: Performed By: #### L 500.4050, L100.0100 #### [facility] [address] [place], [address] Platelets (Bld) [#/Vol] 334 10*3/uL Normal 150-450 [facility] Comment on above: Performed By: #### L 500.4050, L100.0100 #### [facility] [address] [place], [address] RBC (Bld) [#/Vol] 4.10 10*6/uL Low 4.2-5.4 [facility] Comment on above: Performed By: #### L 500.4050, L100.0100 #### [facility] [address] [place], [address] RDW SD 45.5 fl High 35.1-43.9 [facility] Comment on above: Performed By: #### L 500.4050, L100.0100 #### [facility] [address] [place], [address] WBC (Bld) [#/Vol] 5.0 10*3/uL Normal 4.4-11.0 [facility] Comment on above: Performed By: #### L 500.4050, L100.0100 #### [facility] [address] [place], [address] Comprehensive Metabolic Prof [facility] 09-24-2024 Albumin [Mass/Vol] 3.5 g/dL Normal 3.5-5.0 [facility] Comment on above: Performed By: #### L 500.4050, L100.0100 #### [facility] [address] [place], [address] Albumin/Globulin [Mass ratio] 1.1 {ratio} Normal 0.9-2.4 [facility] Comment on above: Performed By: #### L 500.4050, L100.0100 #### [facility] [address] [place], [address] ALK PHOS 305 U/L High 35-104 [facility] Comment on above: Performed By: #### L 500.4050, L100.0100 #### [facility] [address] [place], [address] ALT [Catalytic activity/Vol] 273 U/L High <=34 [facility] Comment on above: Performed By: #### L 500.4050, L100.0100 #### [facility] [address] [place], [address] AST [Catalytic activity/Vol] 188 U/L High <=31 [facility] Comment on above: Performed By: #### L 500.4050, L100.0100 #### [facility] [address] [place], [address] Bilirubin [Mass/Vol] 2.10 mg/dL High 0.00-1.30 [facility] Comment on above: Performed By: #### L 500.4050, L100.0100 #### [facility] [address] [place], [address] BUN/CRE 9.8 RATIO Low 10-20 [facility] Comment on above: Performed By: #### L 500.4050, L100.0100 #### [facility] [address] [place], [address] Calcium [Mass/Vol] 8.4 mg/dL Normal 7.6-11.0 [facility] Comment on above: Performed By: #### L 500.4050, L100.0100 #### [facility] [address] [place], [address] Chloride [Moles/Vol] 110 mmol/L High 98-108 [facility] Comment on above: Performed By: #### L 500.4050, L100.0100 #### [facility] [address] [place], [address] CO2 [Moles/Vol] 18.5 mmol/L Low 21.0-32.0 [facility] Comment on above: Performed By: #### L 500.4050, L100.0100 #### [facility] [address] [place], [address] Creatinine [Mass/Vol] 0.79 mg/dL Normal 0.70-1.20 [facility] Comment on above: Performed By: #### L 500.4050, L100.0100 #### [facility] [address] [place], [address] ECRCL 118.48 ml/min Normal 50-250 [facility] Comment on above: Performed By: #### L 500.4050, L100.0100 #### [facility] [address] [place], [address] GAP 13 Normal 5-15 [facility] Comment on above: Performed By: #### L 500.4050, L100.0100 #### [facility] [address] [place], [address] GFR/1.73 sq M.predicted among non-blacks MDRD (S/P/Bld) [Vol rate/Area] 94 mL/min/{1.73_m2} Normal >60 [facility] Comment on above: Result Comment: mL/m in/1.73m2 CKD-EPI Creatinine Equation (2020) Performed By: #### L 500.4050, L100.0100 #### [facility] [address] [place], [address] Globulin (S) [Mass/Vol] 3.1 g/dL Normal 2.2-4.2 [facility] Comment on above: Performed By: #### L 500.4050, L100.0100 #### [facility] [address] [place], [address] Glucose [Mass/Vol] 105 mg/dL High 70-99 [facility] Comment on above: Performed By: #### L 500.4050, L100.0100 #### [facility] [address] [place], [address] Potassium [Moles/Vol] 3.5 mmol/L Normal 3.3-5.1 [facility] Comment on above: Performed By: #### L 500.4050, L100.0100 #### [facility] [address] [place], [address] Sodium [Moles/Vol] 141 mmol/L Normal 133-145 [facility] Comment on above: Performed By: #### L 500.4050, L100.0100 #### [facility] [address] [place], [address] T PROT 6.6 g/dL Normal 5.9-8.4 [facility] Comment on above: Performed By: #### L 500.4050, L100.0100 #### [facility] [address] [place], [address] Urea nitrogen [Mass/Vol] 8 mg/dL Normal 4-19 [facility] Comment on above: Performed By: #### L 500.4050, L100.0100 #### [facility] [address] [place], [address] ERCP Biliary/Pancreason - ERCP Biliary/Pancreas [facility] [address] [place] [address] ERCP Biliary/Pancreas MR#: [id number] Acct: [id number] Name: REYNA NULL Rep #: [id number] : 1980 F 44 From: Norris Fernandez PCP: Cheryl Pierre PA-C Status: ADM IN Study: ERCP Biliary/Pancreas Date of Exam: 09/24/24 Exam# [id number] Ordering Dr: Khadar Cortez DO PROCEDURE: ERCP BILIARY/PANCREAS REASON FOR EXAM: ERCP TECHNIQUE: ERCP imaging using fluoroscopic technique COMPARISON: None FINDINGS: Eight images performed demonstrating cannulization of the bile duct with balloon sweeping. Eight images performed with 10.8 seconds of fluoroscopy time using 3.88 mGy of dose RAD/ERCP Biliary/Pancreas IMPRESSION: ERCP imaging. Please see procedure note Reading Location: [id number] CC: DONNIE Pierre; Khadar Cortez DO Reporter Anchor: Signed Normal [facility] ERCP Reporton 09-24-2024 ERCP Report [facility] Medical Records Department [address] [place] [address] ERCP Report MR#: [id number] Acct: [id number] Name: REYNA NULL Rep #: [id number] : 1980 44 From: Khadar Cortez DO PCP: Cheryl Pierre PA-C Status:ADM IN Patient Name: Reyna Null Procedure Date: 09/24/2024 3:28 PM Date of : 1980 Age: 44 Procedure: ERCP Indications: Bile duct stone(s), Common bile duct stone(s), Jaundice Providers: Khadar Cortez DO Referring MD: Juan Jose Oseguera Do Medicines: Monitored Anesthesia Care Patient Profile: This is a 44 year old female. Refer to note in patient chart for documentation of history and physical. Patient has symptoms of acute right upper quadrant abdominal pain, acute jaundice and acute nausea. Complications: No immediate complications. Procedure: Pre-Anesthesia Assessment: - Prior to the procedure, a History and Physical was performed, and patient medications and allergies were reviewed. The patient is competent. The risks and benefits of the procedure and the sedation options and risks were discussed with the patient. All questions were answered and informed consent was obtained. Patient identification and proposed procedure were verified by the physician in the pre-procedure area. Mental Status Examination: alert and oriented. Airway Examination: normal oropharyngeal airway and neck mobility. Respiratory Examination: clear to auscultation. CV Examination: normal. ASA Grade Assessment: II - A patient with mild systemic disease. After reviewing the risks and benefits, the patient was deemed in satisfactory condition to undergo the procedure. The anesthesia plan was to use moderate sedation / analgesia (conscious sedation). Immediately prior to administration of medications, the patient was re-assessed for adequacy to receive sedatives. The heart rate, respiratory rate, oxygen saturations, blood pressure, adequacy of pulmonary ventilation, and response to care were monitored throughout the procedure. The physical status of the patient was re-assessed after the procedure. After obtaining informed consent, the scope was passed under direct vision. Throughout the procedure, the patient's blood pressure, pulse, and oxygen saturations were monitored continuously. The Duodenoscope was introduced through the mouth, and advanced to the duodenum and used to inject contrast into the bile duct. The ERCP was accomplished without difficulty. The patient tolerated the procedure well. Scope In: 4:06:23 PM Scope Out: 4:24:19 PM Total Procedure Duration Time 0 hours 17 minutes 56 seconds Findings: The scout executive film was normal. The esophagus was successfully intubated under direct vision. The scope was advanced to a normal major papilla in the descending duodenum without detailed examination of the pharynx, larynx and associated structures, and upper GI tract. The upper GI tract was grossly normal. The bile duct was deeply cannulated with the short-nosed traction sphincterotome. Contrast was injected. I personally interpreted the bile duct images. There was brisk flow of contrast through the ducts. Image quality was adequate. Contrast extended to the main bile duct. Contrast extended to the cystic duct. Contrast extended to the gallbladder. Contrast extended to the bifurcation. Contrast extended to the hepatic ducts. Contrast extended to the entire biliary tree. Opacification of the entire opacified area, common bile duct, cystic duct, gallbladder, common hepatic duct, hepatic duct bifurcation, left and right hepatic ducts with secondary or tertiary branches of the intrahepatic ducts (Bismuth IV), left and right hepatic ducts and all intrahepatic branches and entire biliary tree was successful. The maximum diameter of the ducts was 9 mm. The lower third of the main bile duct and gallbladder contained two stones, the largest of which was 6 mm in diameter. The entire opacified area, main bile duct, common bile duct, gallbladder, common hepatic duct, hepatic duct bifurcation, left hepatic duct with secondary or tertiary branches of the left intrahepatic ducts (Bismuth III), right main hepatic duct and right intrahepatic branches were moderately dilated and diffusely dilated, with a stone causing an obstruction. The largest diameter was 10 mm. A long 0.025 inch Jagwire was passed into the biliary tree. A 5 mm biliary sphincterotomy was made with a traction (standard) sphincterotome using ERBE electrocautery. There was no post-sphincterotomy bleeding. The biliary tree was swept with a 12 mm balloon starting at the biliary pancreatic junction, middle third of the main bile duct, bifurcation, left intrahepatic duct(s), left main hepatic duct, right intrahepatic duct(s) and right main hepatic duct. Sludge was swept from the duct. All stone (more content not included)... Normal [facility] HBV surface Ag IA QlOrdered By: Benedicto Vasquez on 09-24-2024 Hepatitis B Surface Antigen Negative Negative [facility] Hepatitis A virus IgM antibo dy assayOrdered By: Benedicto Vasquez on 09-24-2024 Hepatitis A IgM Antibody Negative Negative [facility] Comment on above: A negative anti-HAV IgM result suggests no recent orcurrent HAV infection. Hepatitis B virus core IgM a ntibody assayOrdered By: Benedicto Vasquez on 09-24-2024 Hepatitis B Core IgM Antibody Negative Negative [facility] Hepatitis C virus antibody a ssayOrdered By: Benedicto Vasquez on 09-24-2024 Hepatitis C Antibody (EIA) Non-Reactive Non Reactive [facility] MR/POSTOP.ANEon 09-24-2024 MR/POSTOP.ANE [facility] Medical Records Department [address] [place] [address] Anesthesia Postop Eval I 09/24/241641 MR#: [id number] Acct: [id number] Name: REYNA NULL Rep #: [id number] : 1980 44 From: Eliseo Patino CRNA PCP: Cheryl Pierre PA-C Status:ADM IN Y Race: C Location: [place] [address]1 Anesthesia: Postop Eval I Current Vital Signs Temperature: 97.5 F Pulse Rate: 87 Blood Pressure: 145/91 Respiratory Rate: 20 Pulse Ox: 94 Oxygen Delivery Method: Nasal Cannula Oxygen Flow Rate (L/min): 4 Assessment Airway patent: Yes Spontaneous unlabored respirations: Yes Mental status: Awake nausea: No Vomiting: No Anesthesia Complication: No Fluid Hydration Crystalloid volume administer (ml): 500 Total IV fluid infused: 500 Progress Note Anesthesia document: Postop Eval 1 completed: Yes 09/24/241642 Date Eliseo Reid Signature: Date CC: Signed Normal [facility] MR/[id number] 09-24-2024 MR/POSTOPAN2 [facility] Medical Records Department [address] [place] [address] Anesthesia Postop Eval II 09/24/24 170 MR#: [id number] Acct: [id number] Name: REYNA NULL Rep #: [id number] : 1980 44 From: Dallin Rizzo MD PCP: Cheryl Pierre PA-C Status:ADM IN Y Race: C [place] [id number] Anesthesia Postop Eval I Sum Postop Eval Completion status Anesthesia document: Postop Eval 1 completed: Yes Anesthesia Postop Eval I Summary Anesthesia Postop Eval I Summary: Anesthesia Postop Eval I: Assessment Summary Airway patent Yes 09/24/24 16:43 [email or web address] Spontaneous unlabored Yes 09/24/24 16:43 [email or web address] respirations Mental status Awake 09/24/24 16:43 [email or web address] nausea No 09/24/24 16:43 [email or web address] Vomiting No 09/24/24 16:43 [email or web address] Anesthesia Postop Eval I: Fluid Summary Crystalloid volume administer 500 09/24/24 16:43 [email or web address] (ml) Colloids volume administered ( ml) Blood Product volume administered (ml) Total IV fluid infused 500 09/24/24 16:43 [email or web address] Anesthesia Postop Eval I: Summary Notes Anesthesia Complication No 09/24/24 16:43 [email or web address] Anesthesia Complication Comment: Post-operative progress note Anesthesia: Postop Eval II Evaluation Mental status: Awake Pain Level: 0 nausea: No Vomiting: No 09/24/241702 Date Dallin Reid Signature: Date CC: Signed Normal [facility] MRCP Abdomen without Contras ton 09-24-2024 MRCP Abdomen without Contrast [facility] Services [address] [place] [address] MRCP Abdomen without Contrast MR#: [id number] Acct: [id number] Name: REYNA NULL Rep #: [id number] : 1980 F 44 From: Sandeep Champion MD PCP: Cheryl Pierre PA-C Status: ADM IN Study: MRCP Abdomen without Contrast Date of Exam: Exam# [id number] Ordering Dr: Benedicto Burks DO PROCEDURE: MRCP ABDOMEN WITHOUT CONTRAST REASON FOR EXAM: Nausea, Vomiting and LFT's. TECHNIQUE: MRI abdomen was performed without IV contrast. MRCP was performed including generation of 3D reformats. COMPARISON: 09/23/2024 FINDINGS: Note that the exam was optimized for evaluation of the gallbladder and biliary tree rather than the remaining abdominal viscera. Note also that sensitivity is limited in the absence of IV contrast. Liver: Grossly unremarkable within limits of nondedicated technique. Gallbladder: Distended, without convincing wall thickening or inflammation. Cholelithiasis with a small stone near the gallbladder neck. Biliary tree: CBD measures 9 mm proximally and 8 mm distally with abrupt transition at the ampulla. Common hepatic duct measures 7 mm. No definite filling defect identified. No significant intrahepatic biliary dilatation. Pancreas: Minute 3 mm likely T2 bright presumably cystic focus within the head/uncinate process. No ductal dilatation. Other: Mild splenomegaly, 14.0 cm coronal. MRI/MRCP Abdomen without Contrast IMPRESSION: 1. Distended gallbladder with cholelithiasis and a small stone in the gallbladder neck which could be a source of biliary colic. No convincing MR evidence of acute cholecystitis. 2. Mild biliary dilatation without visualized definite choledocholithiasis or other obstructing process evident by noncontrast MRCP. Findings could reflect a previously passed gallstone, ampullary stenosis, or perhaps less likely an occult ampullary lesion. Correlate with serum bilirubin and recommend clinical follow-up as indicated. 3. Mild splenomegaly with hepatic steatosis better depicted previously given nondedicated MRCP. Correlate for clinical and laboratory evidence of chronic liver disease. 4. 3 mm presumably cystic focus within the pancreatic head/uncinate process, possible tiny cystic neoplasm such as an IPMN. Recommend follow-up MRI abdomen with and without contrast and with MRCP in 2 years per ACR recommendations, to evaluate stability. 5. Additional description as above. Reading Location: [id number] CC: DONNIE Pierre; Dr. Benedicto Burks DO Reporter Anchor: Signed Normal [facility] Magnetic resonance imaging r eportOrdered By: Sandeep Champion on 09-24-2024 Study report [facility] Services [address] [place], [place] [address] MRCP Abdomen without Contrast MR#: [id number] Acct: [id number] Name: REYNA NULL Rep #: [id number] : 1980 F 44 From: Mandy Champion MD PCP: Cheryl Pierre PA-C Status: ADM I N Study:MRCP Abdomen without Contrast Date of E xam: 09/24/24 Exam# [id number] Ordering Dr: Benedicto Ron DO PROCEDURE: MRCP ABDOMEN WITHOUT CONTRAST REASON FOR EXAM: Nausea, Vomiting and LFT's. TECHNIQUE: MRI abdomen was performed without IV contrast. MRCP was performed including generation of 3D reformats. COMPARISON: 09/23/2024 FINDINGS: Note that the exam was optimized for evaluation of the gallbladder and biliary tree rather than the remaining abdominal viscera. Note also that sensitivity is limited in the absence of IV contrast. Liver: Grossly unremarkable within limits of nondedicated technique. Gallbladder: Distended, without convincing wall thickening or inflammation. Cholelithiasis with a small stone near the gallbladder neck. Biliary tree: CBD measures 9 mm proximally and 8 mm distally with abrupt transition at the ampulla. Common hepatic duct measures 7 mm. No definite filling defect identified. No significant intrahepatic biliary dilatation. Pancreas: Minute 3 mm likely T2 bright presumably cystic focus within the head/uncinate process. No ductal dilatation. Other: Mild splenomegaly, 14.0 cm coronal. MRI/MRCP Abdomen without Contrast IMPRESSION: 1. Distended gallbladder with cholelithiasis and a small stone in the gallbladder neck which could be a source of biliary colic. No convincing MR evidence of acute cholecystitis. 2. Mild biliary dilatation without visualized definite choledocholithiasis or other obstructing process evident by noncontrast MRCP. Findings could reflect a previously passed gallstone, ampullary stenosis,or perhaps less likely an occult ampullary lesion. Correlate with serum bilirubin and recommend clinical follow-up as indicated. 3. Mild splenomegaly with hepatic steatosis better depicted previously given nondedicated MRCP. Correlate for clinical and laboratory evidence of chronic liver disease. 4. 3 mm presumably cystic focus within the pancreatic head/uncinate process, possible tiny cystic neoplasm such as an IPMN. Recommend follow-up MRI abdomen with and without contrast and with MRCP in 2 years per ACR recommendations, to evaluate stability. 5. Additional description as above. Reading Location: [id number] CC: DONNIE Pierre; Dr. Benedicto Burks, DO ~ Reporter Anchor: Signed [facility] No Panel InformationOrdered By: Benedicto Vasquez on 09-24-2024 Hepatitis C Antibody Comment Comment . [facility] Comment on above: Not infected with HC V unless early or acute infection issuspected (which may be delayed in an immunocompromisedindividual), or other evidence exists to indicate HCVinfection.Performed at: [employer] [facility] [id number] [place], [place] [id number] Director: Ashvin Dumont PhD, Phone: [phone] Phosphoruson 09-24-2024 Phosphate [Mass/Vol] 2.7 mg/dL Normal 2.7-4.5 [facility] Comment on above: Performed By: #### L 500.4050, L100.0100 #### [facility] [place], [address] Urinalysis, Completeon 09-24 BACTERIA 1+ /hpf Normal None Seen [facility] Comment on above: Order Comment: COLOR OF URINE MAY AFFECT DIPSTICK RESULTS.PLANER HAND TO SPECIFY Performed By: #### L 500.4050, L100.0100 #### [facility] [address] [place], [address] EPI,SQUAMOUS 5-10 SEEN Normal 5-10 [facility] Comment on above: Order Comment: COLOR OF URINE MAY AFFECT DIPSTICK RESULTS.PLANER HAND TO SPECIFY Performed By: #### L 500.4050, L100.0100 #### [facility] [address] [place], [address] RBC 0-5 SEEN Normal 0-5 [facility] Comment on above: Order Comment: COLOR OF URINE MAY AFFECT DIPSTICK RESULTS.PLANER HAND TO SPECIFY Performed By: #### L 500.4050, L100.0100 #### [facility] [address] [place], [address] WBC 5-10 SEEN Normal 0-5 [facility] Comment on above: Order Comment: COLOR OF URINE MAY AFFECT DIPSTICK RESULTS.PLANER HAND TO SPECIFY Performed By: #### L 500.4050, L100.0100 #### [facility] [address] [place], [address] AMORPHOUS 4+ URATE Normal [facility] Comment on above: Order Comment: COLOR OF URINE MAY AFFECT DIPSTICK RESULTS.PLANER HAND TO SPECIFY Performed By: #### L 500.4050, L100.0100 #### [facility] [address] [place], [address] Mucus Ql (Urine sed) 0 SEEN Normal [facility] Comment on above: Order Comment: COLOR OF URINE MAY AFFECT DIPSTICK RESULTS.PLANER HAND TO SPECIFY Performed By: #### L 500.4050, L100.0100 #### [facility] [address] [place], [address] AMYLASEon 09-23-2024 Amylase [Catalytic activity/Vol] 59 U/L Normal 25 - 115 [facility] Comment on above: Performed By: #### 2 [id number] #### [facility],[address] [facility] [address] Absolute neutrophil countOrd ered By: Juan Jose Oseguera on 09-23-2024 Neutrophils (Bld) [#/Vol] 4.2 10*3/uL 2.0-7.7 [facility] Amorphous sediment detection in urine sediment by light microscopyOrdered By: Benedicto Vasquez on 09-23-2024 Amorphous sediment LM Ql (Urine sed) 4+ URATE [facility] Anion gap in Serum or Plasma Ordered By: Juan Jose Oseguera on 09-23-2024 Anion gap [Moles/Vol] 14 mmol/L 5-15 [facility] BUN/creatinine ratioOrdered By: Juan Jose Oseguera on 09-23-2024 Urea nitrogen/Creatinine [Mass ratio] 12.0 mg/mg 10-20 [facility] Basic Metabolic Profile (BMP )on 09-23-2024 BUN/CRE 12.0 RATIO Normal -20 [facility] Comment on above: Performed By: #### L 500.4050, L100.0100 #### [facility] [address] [place], [address] Calcium [Mass/Vol] 9.2 mg/dL Normal 7.6-11.0 [facility] Comment on above: Performed By: #### L 500.4050, L100.0100 #### [facility] [address] [place], [address] Chloride [Moles/Vol] 107 mmol/L Normal 98-108 [facility] Comment on above: Performed By: #### L 500.4050, L100.0100 #### [facility] [address] [place], [address] CO2 [Moles/Vol] 21.2 mmol/L Normal 21.0-32.0 [facility] Comment on above: Performed By: #### L 500.4050, L100.0100 #### [facility] [address] [place], [address] Creatinine [Mass/Vol] 0.80 mg/dL Normal 0.70-1.20 [facility] Comment on above: Performed By: #### L 500.4050, L100.0100 #### [facility] [address] [place], [address] ECRCL 116.98 ml/min Normal 50-250 [facility] Comment on above: Performed By: #### L 500.4050, L100.0100 #### [facility] [address] [place], [address] GAP 14 Normal 5-15 [facility] [place] Comment on above: Performed By: #### L 500.4050, L100.0100 #### [facility] [place] [facility] [address] [place], [address] GFR/1.73 sq M.predicted among non-blacks MDRD (S/P/Bld) [Vol rate/Area] 93 mL/min/{1.73_m2} Normal >60 [facility] [place] Comment on above: Result Comment: mL/m in/1.73m2 CKD-EPI Creatinine Equation (2020) Performed By: #### L 500.4050, L100.0100 #### [facility] [place] [facility] [address] [place], [address] Glucose [Mass/Vol] 93 mg/dL Normal 70-99 [facility] Comment on above: Performed By: #### L 500.4050, L100.0100 #### [facility] [place] [facility] [address] [place], [address] Potassium [Moles/Vol] 3.6 mmol/L Normal 3.3-5.1 [facility] Comment on above: Performed By: #### L 500.4050, L100.0100 #### [facility] [place] [facility] [address] [place], [address] Sodium [Moles/Vol] 142 mmol/L Normal 133-145 [facility] Comment on above: Performed By: #### L 500.4050, L100.0100 #### [facility] [place] [facility] [address] [place], [address] Urea nitrogen [Mass/Vol] 10 mg/dL Normal 4-19 [facility] [place] Comment on above: Performed By: #### L 500.4050, L100.0100 #### [facility] [place] [facility] [address] [place], [address] Basophil percentageOrdered B y: Juan Jose Oseguera on 09-23-2024 Basophils/100 WBC (Bld) 1.0 % 0-1 [facility] [place] Bilirubin Test strip Ql (U)O rdered By: Benedicto Vasquez on 09-23-2024 Bilirubin Ql (U) 3 mg/dL High Negative [facility] [place] Comment on above: COLOR OF URINE MAY A FFECT DIPSTICK RESULTS. Bilirubin directOrdered By: Juan Jose Oseguera on 09-23-2024 Bilirubin.direct [Mass/Vol] 2.05 mg/dL High 0.00-0.30 [facility] [place] Bilirubin, totalOrdered By: Juan Jose Oseguera on 09-23-2024 Bilirubin [Mass/Vol] 2.78 mg/dL High 0.00-1.30 [facility] CBC + DIFFon 09-23-2024 Baso # 0.01 x10EE3/UL Normal 0.00 - 0.10 [facility] Comment on above: Performed By: #### 2 21381 #### [facility],[address] [place] [address] Basophils/100 WBC (Bld) 0.2 % Normal 0.0 - 2.0 [facility] Comment on above: Performed By: #### 2 41389 #### [facility],[address] [place] [address]85 CBC + DIFF Normal [facility] Comment on above: Result Comment: CBC- COMPLETE BLOOD COUNT Performed By: #### 2 68540 #### [facility],[address] [place] [address]1086 EO # 0.40 x10EE3/UL Normal 0.00 - 0.50 [facility] Comment on above: Performed By: #### 2 04735 #### [facility],[address] [place] [address]761 Eosinophils/100 WBC (Bld) 6.3 % Normal 0.0 - 7.0 [facility] Comment on above: Performed By: #### 2 74515 #### [facility],[address] [place] [address] Erythrocyte distribution width (RBC) [Ratio] 13.5 % Normal 12.0 - 15.6 [facility] Comment on above: Performed By: #### 2 78628 #### [facility],[address] [place] [address]85 Hematocrit (Bld) [Volume fraction] 38.4 % Normal 34.0 - 46.0 [facility] Comment on above: Performed By: #### 2 78676 #### [facility],[address] [place] [address] Hemoglobin (Bld) [Mass/Vol] 13.3 g/dL Normal 12.0 - 16.0 [facility] Comment on above: Performed By: #### 2 43825 #### [facility],[address] [place] [address]4892 Lymph # 1.64 x10EE3/UL Normal 0.80 - 2.80 [facility] Comment on above: Performed By: #### 2 37856 #### [facility],[address] [place] [address]13 Lymphocytes/100 WBC (Bld) 25.9 % Normal 20.0 - 45.0 [facility] Comment on above: Performed By: #### 2 49993 #### [facility],[address] [place] [address] MANUAL DIFF N/A Normal [facility] Comment on above: Performed By: #### 2 73117 #### [facility],[address] [place] [address] MCH (RBC) [Entitic mass] 31 pg Normal 27 - 33 [facility] Comment on above: Performed By: #### 2 32295 #### [facility],[address] [place] [address] MCHC 35 X10 3 Normal 32 - 36 [facility] Comment on above: Performed By: #### 2 01894 #### [facility],[address] [place] [address] MCV (RBC) [Entitic vol] 89 fL Normal 80 - 99 [facility] Comment on above: Performed By: #### 2 02303 #### [facility],[address] [place] [address] Angelina # 0.54 x10EE3/UL Normal 0.20 - 1.00 [facility] Comment on above: Performed By: #### 2 61354 #### [facility],[address] [place] [address] MONOS % 8.5 % Normal 0.0 - 10.0 [facility] Comment on above: Performed By: #### 2 92634 #### [facility],[address] [place] [address] Morphology Riley (Bld) [Interp] N/A Normal [facility] Comment on above: Performed By: #### 2 40198 #### [facility],[address] [place] [address] Neut # 3.75 x10EE3/UL Normal 1.50 - 7.10 [facility] Comment on above: Performed By: #### 2 44105 #### [facility],[address] [place] [address]249 Neutrophils/100 WBC (Bld) 59.1 % Normal 46.0 - 76.0 [facility] Comment on above: Performed By: #### 2 47625 #### [facility],[address] [place] [address]2533 PLATELET 398 x10EE3/UL Normal 150 - 450 [facility] Comment on above: Performed By: #### 2 53293 #### [facility],[address] [place] [address] 99852 Platelet mean volume (Bld) [Entitic vol] 8.5 fL Normal 6.6 - 10.5 [facility] Comment on above: Result Comment: AUTO MATED DIFFERENTIAL Performed By: #### 2 06931 #### [facility],[address] [place] [address] 98803 RBC 4.30 x 10EE6/UL Normal 4.10 - 5.30 [facility] Comment on above: Performed By: #### 2 18669 #### [facility],[address] [place] [address] 12196 WBC 6.3 x 10EE3/UL Normal 4.5 - 10.8 [facility] Comment on above: Performed By: #### 2 86534 #### [facility],[address] [place] [address] 18298 CBC W/Diff, Automatedon 09-11 Absolute Lymph 1.86 X10 3/uL Normal 0.83-4.51 [facility] [place] Comment on above: Performed By: #### L 500.4050, L100.0100 #### [facility] [place] [facility] [address] [place], [address] Absolute Neut 4.2 X10 3/uL Normal 2.0-7.7 [facility] [place] Comment on above: Performed By: #### L 500.4050, L100.0100 #### [facility] [place] [facility] [address] [place], [address] Basophils/100 WBC (Bld) 1.0 % Normal 0-1 [facility] [place] Comment on above: Performed By: #### L 500.4050, L100.0100 #### [facility] [place] [facility] [address] [place], [address] Eosinophils/100 WBC (Bld) 5.1 % High 0-5 [facility] [place] Comment on above: Performed By: #### L 500.4050, L100.0100 #### [facility] [place] [facility] [address] [place], [address] Erythrocyte distribution width (RBC) [Ratio] 13.4 % Normal 11.6-14.6 [facility] [place] Comment on above: Performed By: #### L 500.4050, L100.0100 #### [facility] [place] [facility] [address] [place], [address] Hematocrit (Bld) [Volume fraction] 38.9 % Normal 37-47 [facility] [place] Comment on above: Performed By: #### L 500.4050, L100.0100 #### [facility] [place] [facility] [address] [place], [address] Hemoglobin (Bld) [Mass/Vol] 12.7 g/dL Normal 12.0-15.0 [facility] [place] Comment on above: Performed By: #### L 500.4050, L100.0100 #### [facility] [place] [facility] [address] [place], [address] IG% 0.700 Normal 0.0-0.9 [facility] [place] Comment on above: Result Comment: IG% - Immature Granulocytes (promyelocytes, myelocytes and metamyelocytes) > 1% indicates that a LEFT SHIFT is Present. Performed By: #### L 500.4050, L100.0100 #### [facility] [place] [facility] [address] [place], [address] Lymphocytes/100 WBC (Bld) 26.2 % Normal 19-41 [facility] [place] Comment on above: Performed By: #### L 500.4050, L100.0100 #### [facility] [place] [facility] [address] [place], [address] MCH (RBC) [Entitic mass] 29.3 pg Normal 27.0-32.0 [facility] [place] Comment on above: Performed By: #### L 500.4050, L100.0100 #### [facility] [place] [facility] [address] [place], [address] MCHC (RBC) [Mass/Vol] 32.6 g/dL Normal 32-36 [facility] Comment on above: Performed By: #### L 500.4050, L100.0100 #### [facility] [place] [facility] [address] [place], [address] MCV (RBC) [Entitic vol] 89.8 fL Normal 81-99 [facility] [place] Comment on above: Performed By: #### L 500.4050, L100.0100 #### [facility] [place] [facility] [address] [place], [address] Monocytes/100 WBC (Bld) 7.6 % Normal 0-10 [facility] [place] Comment on above: Performed By: #### L 500.4050, L100.0100 #### [facility] [place] [facility] [address] [place], [address] Neutrophils/100 WBC (Bld) 59.4 % Normal 47-70 [facility] [place] Comment on above: Performed By: #### L 500.4050, L100.0100 #### [facility] [place] [facility] [address] [place], [address] Nucleated RBC (Bld) [#/Vol] 0 10*3/uL Normal 0-5 [facility] [place] Comment on above: Performed By: #### L 500.4050, L100.0100 #### [facility] [place] [facility] [address] [place], [address] Platelet mean volume (Bld) [Entitic vol] 10.5 fL Normal 6.2-12.0 [facility] [place] Comment on above: Performed By: #### L 500.4050, L100.0100 #### [facility] [place] [facility] [address] [place], [address] Platelets (Bld) [#/Vol] 380 10*3/uL Normal 150-450 [facility] [place] Comment on above: Performed By: #### L 500.4050, L100.0100 #### [facility] [place] [facility] [address] [place], [address] RBC (Bld) [#/Vol] 4.33 10*6/uL Normal 4.2-5.4 [facility] Comment on above: Performed By: #### L 500.4050, L100.0100 #### [facility] [place] [facility] [address] [place], [address] RDW SD 44.0 fl High 35.1-43.9 [facility] [place] Comment on above: Performed By: #### L 500.4050, L100.0100 #### [facility] [place] [facility] [address] [place], [address] WBC (Bld) [#/Vol] 7.1 10*3/uL Normal 4.4-11.0 [facility] Comment on above: Performed By: #### L 500.4050, L100.0100 #### [facility] [place] [facility] [address] [place], [address] CMP with eGFRon 09-23-2024 AGE 44 years Normal [facility] Comment on above: Performed By: #### 2 67638 #### [facility],[address] [facility] [address] Albumin [Mass/Vol] 3.4 g/dL Normal 3.4 - 5.0 [facility] Comment on above: Performed By: #### 2 58151 #### [facility],[address] [place] [address]366 Albumin/Globulin [Mass ratio] 0.8 {ratio} Low 0.9 - 1.6 [facility] Comment on above: Performed By: #### 2 63645 #### [facility],[address] [place] [address]59[address] ALK PHOS 359 U/L High 46 - 116 [facility] Comment on above: Performed By: #### 2 82936 #### [facility],[address] [place] [address] 91060 ALT [Catalytic activity/Vol] 392 U/L High 16 - 63 [facility] Comment on above: Performed By: #### 2 00214 #### [facility],[address] [place] [address] 80804 Anion gap [Moles/Vol] 7 mmol/L Low 10 - 20 [facility] Comment on above: Performed By: #### 2 10156 #### [facility],[address] [place] [address] 56028 AST [Catalytic activity/Vol] 310 U/L High 13 - 39 [facility] Comment on above: Performed By: #### 2 10246 #### [facility],[address] [place] [address] 12502 B/C RATIO 7 ratio Normal 0 - 30 [facility] Comment on above: Performed By: #### 2 58675 #### [facility],[address] [place] [address] 61010 Bilirubin [Mass/Vol] 2.3 mg/dL High 0.2 - 1.0 [facility] Comment on above: Performed By: #### 2 68662 #### [facility],[address] [place] [address] 90640 Calcium [Mass/Vol] 8.8 mg/dL Normal 8.5 - 10.1 [facility] Comment on above: Performed By: #### 2 47850 #### [facility],[address] [place] [address] 38408 Chloride [Moles/Vol] 107 mmol/L Normal 98 - 107 [facility] Comment on above: Performed By: #### 2 12909 #### [facility],[address] [place] [address] 41394 CMP with eGFR Normal [facility] Comment on above: Result Comment: COMP REHENSIVE METABOLIC PANEL Performed By: #### 2 87192 #### [facility],[address] [place] [address] 34044 CO2 [Moles/Vol] 28.2 mmol/L Normal 21.0 - 32.0 [facility] Comment on above: Performed By: #### 2 64539 #### [facility],[address] [place], [place] [address] Creatinine [Mass/Vol] 0.83 mg/dL Normal 0.55 - 1.02 [facility] Comment on above: Performed By: #### 2 20438 #### [facility],[address] [place] [address] 65101 GFR/1.73 sq M.predicted among non-blacks MDRD (S/P/Bld) [Vol rate/Area] mL/min/{1.73_m2} Normal 60 - 999 [facility] Comment on above: Performed By: #### 2 76813 #### [facility],[address] [place], [place] [address] Result Comment: ACCO RDING TO THE NATIONAL KIDNEY DISEASE EDUCATION PROGRAM(NKDE), A NORMAL eGFR IS A VALUE GREATER THAN OR EQUAL TO 60 ML/MIN/1.73 SQ METERS. CHRONIC KIDNEY DISEASE: <60mL/MIN/1.73 SQ METERS KIDNEY FAILURE: <15mL/MIN/1.73 SQ METERS THIS TEST SHOULD ONLY BE USED FOR PATIENTS 18 YEARS OF AGE AND OLDER. Globulin (S) [Mass/Vol] 4.2 g/dL High 1.5 - 3.8 [facility] Comment on above: Performed By: #### 2 87278 #### [facility],[address] [place] [address] 33280 Glucose [Mass/Vol] 108 mg/dL High 74 - 106 [facility] Comment on above: Performed By: #### 2 31527 #### [facility],[address] [place] [address]37 Potassium [Moles/Vol] 3.8 mmol/L Normal 3.5 - 5.1 [facility] Comment on above: Performed By: #### 2 73640 #### [address] [address] Protein [Mass/Vol] 7.6 g/dL Normal 6.4 - 8.2 [facility] Comment on above: Performed By: #### 2 30316 #### [facility],[address] [place] [address] 53784 Sodium [Moles/Vol] 138 mmol/L Normal 136 - 145 [facility] Comment on above: Performed By: #### 2 44586 #### [facility],[address] [place] [address] 62568 Urea nitrogen [Mass/Vol] 6 mg/dL Low 7 - 18 [facility] Comment on above: Performed By: #### 2 66795 #### [address] [address] Cancer antigen 19-9 measurem entOrdered By: Benedicto Vasquez on 09-23-2024 CA 19-9 Antigen < 2 U/mL 0-35 [facility] Comment on above: Verified by repeat analysisBrendon Diagnostics Electrochemiluminescence Immunoassay(ECLIA)Values obtained with different assay methods or kits cannotbe used interchangeably. Results cannot be interpreted asabsolute evidence of the presence or absence of malignantdisease.Performed at: [address] [id number] Director: Ashvin Dumont PhD, Phone: [phone] Carbon dioxide, total [Moles /volume] in Central venous bloodOrdered By: Juan Jose Oseguera on 09-23-2024 CO2 [Moles/Vol] 21.2 mmol/L 21.0-32.0 [facility] [place] Chloride assayOrdered By: Janki Oseguera on 09-23-2024 Chloride [Moles/Vol] 107 mmol/L 98-108 [facility] Emergency Department Summary on 09-23-2024 Emergency Department Summary [facility] Medical Records Department [address] [place] [address] Emergency Department Summary 09/23/24 MR#: [id number] Acct: [id number] Name: REYNA NULL Rep #: [id number] : 1980 44 From: Juan Jose Oseguera DO PCP: Cheryl Pierre PA-C Status:ADM IN Location: [place] [address] HPI History of Present Illness Chief Complaint: Abn Labs PFSH [facility] Medical History (Updated 09/23/24 @ 22:26 by Angeles Bhandari) Hypertension Medical History no medical history Home Medications ???Medication ???Instructions ???Recorded ???Last Taken ???Type losartan 25 mg tablet 25 mg PO DAILY 09/23/24 Unknown Hi story Allergy/AdvReac Type Severity Reaction Status Date / Time No Known Allergies Allergy Verified 09/23/24 18:14 Family History no significant family his Surgical History no surgical history Social History Smoking Status: Never smoker EXAM Physical Exam Const Vital Signs: 09/23/24 18:14 09/23/24 20:14 Temperature 97.5 F L Temperature Source Temporal Pulse Rate 90 79 Respiratory Rate 15 18 Blood Pressure 181/96 H Blood Pressure Mean 124 Pulse Ox 96 98 Oxygen Delivery Method Room Air Room Air MDM MDM MDM Narrative Medical decision making narrative: HISTORY OF PRESENT ILLNESS: 44-year-old female presents with concern for elevated liver enzymes. Notes history of gallbladder sludge. No severe abdominal pain earlier today. No pain with food. No falls or trauma. No urinary complaints. REVIEW OF SYSTEMS: Pertinent positives: Elevated liver enzymes Pertinent negatives: Vomiting PHYSICAL EXAM: Nursing triage notes reviewed, Vital signs reviewed Constitutional: please see mdm HENT: MMM Eyes: Pupils equal round and reactive to light, Extraocular muscles intact, no scleral icterus Neck: No stridor, no JVD, full neck ROM Lungs: Clear to auscultation, No wheezing or rales. No increased work of breathing, no conversational dyspnea, no accessory muscle use, no nasal flaring. No respiratory distress noted Heart: Regular rate and rhythm, No murmurs, No rubs and No gallops, 2+ distal pulses (radial, femoral, posterior tibial) in all extremities Abdomen: Soft, right a quadrant TTP, positive Isabel sign but no rigidity, rebound or guarding, no obvious peritoneal signs, no palpable pulsatile abdominal masses, no auscultated abdominal bruit : No CVAT Extremities: No edema Neuro: No new focal neurological deficits, cranial nerves II through XII intact, 5/5 strength in all present extremities. Intact sensation to light touch in all present extremities, 2+ reflexes bilateral patella tendons. Skin: No jaundice MEDICAL DECISION MAKING: Chief Complaint: Elevated liver enzymes External records reviewed: Reviewed prior imaging studies Factors affecting care: hypertension Social determinants of health: none History obtained from others: the patient's Consults: Gastroenterology (Dr. Cortez), Internal Medicine (Burks) [facility] Narrative: The patient was initially hemodynamically stable, afebrile and nontoxic-appearing. Exam with RUQ TTP. No jaundice. I considered the following differential diagnosis: Hepatitis ALL IMAGES (IF OBTAINED) HAVE BEEN PERSONALLY REVIEWED AND INTERPRETED BY MYSELF. CBC without leukocytosis, severe anemia, no thrombocytopenia. BMP without evidence of significant electrolyte abnormalities, no anion gap, no acute kidney injury. Liver enzymes elevated with elevated total and direct bilirubin as well as elevated AST ALT and alk phos concerning for obstructive hepatobiliary pathology Right upper quadrant ultrasound is concerning for an abnormally dilated common bile duct consistent with CBD obstruction. Spoke with Dr. Cortez is correction officer tomorrow and can evaluate the patient. Recommended starting patient on antibiotics. I gave Zosyn. Discussed with hospitalist agreed to admit the patient to [facility]. The patient and/or family, caregivers express understanding. The patient and/or family, caregivers agrees with the plan. Shared decision making: I will have a discussion with the patient and or visitors regarding risk/benefits of further testing or admission. They will be made aware of of the risk/benefits inherent in this decision they will be given the opportunity to voice understanding. Total critical care time today provided was at least 0 [minutes. This excludes separately billable procedures. Critical care time (if documented) is secondary to the patient having high probability of clinically significant/life threatening deterioration in the patient's condition which required my urgent intervention. Impression: 1. Dilated CBD 2. Elevated liver enzymes Dispo: Admit to [facility] (more content not included)... Normal [facility] Eosinophil percentageOrdered By: Juan Jose Oseguera on 09-23-2024 Eosinophils/100 WBC (Bld) 5.1 % High 0-5 [facility] Epithelial cells.squamous LM Ql (Urine sed)Ordered By: Benedicto Vasquez on 09-23-2024 Epithelial cells.squamous LM.HPF (Urine sed) [#/Area] 5 /[HPF] 5-10 [facility] Erythrocyte distribution wid th ratioOrdered By: Juan Jose Oseguera on 09-23-2024 Erythrocyte distribution width (RBC) [Ratio] 13.4 % 11.6-14.6 [facility] Erythrocyte distribution wid th standard deviationOrdered By: Juan Jose Oseguera on 09-23-2024 Erythrocyte distribution width (RBC) [Entitic vol] 44.0 fL High 35.1-43.9 [facility] [place] Estimation of creatinine fransisco aranceOrdered By: Juan Jose Oseguera on 09-23-2024 Estimated Creatinine Clearance Calc 116.98 ml/min 50-250 [facility] GFR/1.73 sq M.predicted donnie g non-blacks MDRD (S/P/Bld) [Vol rate/Area]Ordered By: Juan Jose Oseguera on 09-23-2024 Estimated GFR (MDRD) Non-Af Amer 93 >60 [facility] Comment on above: mL/min/1.73m2 CKD-EP I Creatinine Equation (2020) Gallbladderon 09-23-2024 Gallbladder [facility] [address] [place] [address] Gallbladder MR#: [id number] Acct: [id number] Name: REYNA NULL Rep #: [id number] : 1980 F 44 From: Quentin Olvera i, MD PCP: Cheryl Pierre PA-C Status: REG ER Study: Gallbladder Date of Exam: 09/23/24 Exam# [id number] Ordering Dr: Juan Jose Oseguera DO PROCEDURE: GALLBLADDER REASON FOR EXAM: RUQ TTP, ELEVATED LIVER ENZYMES COMPARISON: None FINDINGS: Liver: Diffusely echogenic. Gallbladder: 9 mm stone seen within the gallbladder. There is no gallbladder wall thickening or pericholecystic fluid. (Isabel sign was reportedly negative.). Common bile duct: Abnormally dilated measuring up to 1 cm. Pancreas: Echogenic. Visualized portions of the right kidney are unremarkable. No right upper quadrant ascites. US/Gallbladder IMPRESSION: Cholelithiasis without CT evidence for acute cholecystitis. Abnormally dilated common bile duct. A stone within the CBD/distal CBD obstruction is likely. Recommend GI consultation and MRCP/ERCP. Reading Location: [id number] CC: DONNIE Pierre; Dr. Juan Jose Oseguera DO Reporter Anchor: Signed Normal [facility] Glucose Ql (U)Ordered By: Tanner Vasquez on 09-23-2024 Urine Glucose (UA) Normal mg/dl Normal [facility] H AND P Exam - [facility] 09-23-2024 H&P Exam - Hospitalist [facility] Medical Records Department [address] [place] [address] H P Exam - Hospitalist 09/23/248 MR#: [id number] Acct: [id number] Name: REYNA NULL Rep #: [id number] : 1980 44 From: Benedicto Burks DO PCP: Cheryl Pierre PA-C Status:ADM IN Location: [id number] HPI - General General Date of Admission: 09/23/24 Date of Service: 09/23/24 Chief Complaint: Nausea and Elevated LFT's. HPI Narrative REYNA NULL, is a 44 F with a past medical history of essential hypertension; on losartan, morbid obesity; with BMI of 47.9 this admission and known history of intermittent Gallbladder Colic for years with known microlithiasis/sludge who presents to [facility] ER complaining of nausea and elevated LFT's. Ms. Null reports her symptoms began a few hours prior to admission with the abrupt-onset of severe right upper quadrant abdominal pain earlier today similar to her previous gallbladder attacks but more severe. She admits to associated nausea but she denies vomiting. She denies recent trauma, recent illness or recent medication changes. There is no report of fever, chills, diarrhea, constipation, chest pain, shortness of breath or headache. In the ER she was noted to have gallbladder ultrasound positive for abnormally dilated common bile duct with a stone within the distal common bile duct with obstruction likely in addition to cholelithiasis without evidence of cholecystitis and GI consultation recommended along with MRCP/ERCP with corresponding laboratory evidence of Hyperbilirubinemia; with total bilirubin of 2.78 mg/dL, direct bilirubin of 2.05 mg/dL, AST of 281 units/L, ALT of 361 units/L and alkaline phosphatase of 355 units/L consistent with Transaminitis. She was then admitted to the general medical floor for ongoing care for a stay that is expected to extend beyond 2 midnights. [facility] Medical History (Updated 09/24/24 @ 02:[address] Benedicto Burks, DO) Hypertension Medical History no medical history Home Medications ???Medication ???Instructions ???Recorded ???Last Taken ???Type losartan 25 mg tablet 25 mg PO DAILY 09/23/24 Unknown Hi story Allergy/AdvReac Type Severity Reaction Status Date / Time No Known Allergies Allergy Verified 09/23/24 18:14 Family History no significant family his Surgical History no surgical history Social History Smoking Status: Never smoker ROS ROS Narrative Review of Systems: Constitutional: Patient denies fever or chills. Eyes: Patient denies changes in vision, scleral icterus or discharge from eyes. ENT: Patient denies runny nose, sore throat or ear pain. Resp: Patient denies shortness of breath or cough. CV: Patient denies chest pain, palpitations, heart racing or lower extremity edema. GI: Patient admits to nausea and right upper quadrant abdominal pain with positive Isabel's sign in the setting of known gallbladder colic and microlithiasis/sludge as per HPI. : Patient denies dysuria, hematuria or urinary frequency. MSK: Patient denies arthralgias or myalgias. Skin: Patient denies rash, abscess, wounds or jaundice. Psych: Patient denies symptoms of uncontrolled depression or anxiety. Neuro: Patient denies headache, paresthesias or focal neurologic deficits. Allergy: Patient denies lip swelling, tongue swelling or urticaria. Hematology: Patient denies easy bleeding or easy bruisability. Endocrinology: Patient denies polyuria, polydipsia or polyphagia. 14 point ROS otherwise negative except for positives noted above in HPI. Vital Signs Vital Signs Vital Signs: 09/23/24 18:14 09/23/24 20:14 Temperature 97.5 F L Temperature Source Temporal Pulse Rate 90 79 Respiratory Rate 15 18 Blood Pressure 181/96 H Blood Pressure Mean 124 Pulse Ox 96 98 Oxygen Delivery Method Room Air Room Air Weight Weight: 279 lb Body Mass Index (BMI) 47.9 Physical Exam Const alert, oriented x3 and no apparent distress Constitutional Narrative: Patient is morbidly obese but in good spirits General Appearance: cooperative HEENT normocephalic, head/scalp atraumatic, hearing grossly normal bilaterally and moist oral mucous membranes Eyes PERRL, EOMs intact bilaterally and conjunctivae normal Neck no lymphadenopathy and supple Resp normal respiratory effort, no retractions, no use of accessory muscles and clear to auscultation bilaterally Cardio regular rate and regular rhythm GI normal to inspection, nondistended, normoactive bowel sounds, soft to palpation, non-tender and non- distended GI Narrative: Mild tenderness to palpation in right upper quadrant with positive Isabel sign but no rigidity, guarding or rebound. Extremity normal to inspection, full ROM an (more content not included)... Normal [facility] Hematocrit Auto (Bld) [Volum e fraction]Ordered By: Juan Jose Oseguera on 09-23-2024 Hematocrit (Bld) [Volume fraction] 38.9 % 37-47 [facility] Hemoglobin A1con 09-23-2024 HbA1c (Bld) [Mass fraction] 5.7 % Normal <=5.6 [facility] Comment on above: Performed By: #### L 500.4050, L100.0100 #### [facility] [address] [place], [address] Hemoglobin A1c percentageOrd ered By: Benedicto Vasquez on 09-23-2024 HbA1c (Bld) [Mass fraction] 5.7 % >5.7 [facility] Hemoglobin measurementOrdere d By: Juan Jose Oseguera on 09-23-2024 Hemoglobin (Bld) [Mass/Vol] 12.7 g/dL 12.0-15.0 [facility] Immature granulocytes/100 WB C Auto (Bld)Ordered By: Juan Jose Oseguera on 09-23-2024 Immature granulocytes/100 WBC (Bld) 0.700 % 0.0-0.9 [facility] Comment on above: IG% - Immature Granu locytes (promyelocytes, myelocytes and metamyelocytes) > 1% indicates that a LEFT SHIFT is Present. Ketones Test strip Ql (U)Ord ered By: Benedicto Vasquez on 09-23-2024 Ketones Ql (U) 5 mg/dl High Negative [facility] LIPASEon 09-23-2024 Lipase [Catalytic activity/Vol] 30.0 U/L Normal 15.0 - 78.0 [facility] Comment on above: Result Comment: *PLE ASE NOTE THAT RANGES FOR LIPASE HAVE CHANGED OF 07/11/23 DUE TO AN ASSAY UPDATE BY THE [employer]PERATOR.THE NEW ASSAY RANGE IS 6-250 U/L, WITH A REFERENCE RANGE OF 16-77 U/L. Performed By: #### 2 [id number] #### [facility],[address] [place] [address] Laboratory - Chemistry and C hemistry - challengeOrdered By: Juan Jose Oseguera on 09-23-2024 AST [Catalytic activity/Vol] 281 U/L High <32 [facility] Lipaseon 09-23-2024 Lipase [Catalytic activity/Vol] 34 U/L Normal 13-75 [facility] Comment on above: Result Comment: Plea se note: LIPASE revised reference range effective 22. New Lipase methodology. Expected to produce lower values than the previous assay method. NEW Reference Range: 13 - 75 U/L Performed By: #### L 501.2450 #### [facility] [address] [place] [address], [address] Lipase measurementOrdered By : Juan Jose Oseguera on 09-23-2024 Lipase [Catalytic activity/Vol] 34 U/L 13-75 [facility] Comment on above: Please note:LIPASE r evised reference range effective 22. New Lipase methodology. Expected to produce lower values than the previous assay method. NEW Reference Range: 13 - 75 U/L Liver Profileon 09-23-2024 Albumin [Mass/Vol] 4.0 g/dL Normal 3.5-5.0 [facility] Comment on above: Performed By: #### L 500.4050, L100.0100 #### [facility] [address] [place], [address] ALK PHOS 355 U/L High 35-104 [facility] Comment on above: Performed By: #### L 500.4050, L100.0100 #### [facility] [address] [place], [address] ALT [Catalytic activity/Vol] 361 U/L High <=34 [facility] Comment on above: Performed By: #### L 500.4050, L100.0100 #### [facility] [address] [place], [address] AST [Catalytic activity/Vol] 281 U/L High <=31 [facility] Comment on above: Performed By: #### L 500.4050, L100.0100 #### [facility] [address] [place], [address] Bilirubin [Mass/Vol] 2.78 mg/dL High 0.00-1.30 [facility] Comment on above: Performed By: #### L [id number], L100.0100 #### [facility] [address] [place], [address] Bilirubin.direct [Mass/Vol] 2.05 mg/dL High 0.00-0.30 [facility] Comment on above: Performed By: #### L 500.4050, L100.0100 #### [facility] [address] [place], [address] Globulin (S) [Mass/Vol] 3.5 g/dL Normal 2.2-4.2 [facility] Comment on above: Performed By: #### L [id number], L100.0100 #### [facility] [address] [place], [address] T PROT 7.5 g/dL Normal 5.9-8.4 [facility] Comment on above: Performed By: #### L [id number], L100.0100 #### [facility] [address] [place], [address] Lymphocytes Auto (Unsp spec) [#/Vol]Ordered By: Juan Jose Oseguera on 09-23-2024 Lymphocytes (Bld) [#/Vol] 1.86 10*3/uL 0.83-4.51 [facility] Lymphocytes/100 WBC Auto (Un sp spec)Ordered By: Juan Jose Oseguera on 09-23-2024 Lymphocytes/100 WBC (Bld) 26.2 % 19-41 [facility] MCV (mean corpuscular volume ) determinationOrdered By: Juan Jose Oseguera on 09-23-2024 MCV (RBC) [Entitic vol] 89.8 fL 81-99 [facility] Magnesiumon 09-23-2024 Magnesium [Mass/Vol] 2.1 mg/dL Normal 1.5-2.2 [facility] Comment on above: Order Comment: *ADD ON, THG6/5/O THY2/4/G* Performed By: #### L 500.4050, L100.0100 #### [facility] [address] [place], [address] Magnesium (Unsp spec) [Mass/ Vol]Ordered By: Benedicto Vasquez on 09-23-2024 Magnesium [Mass/Vol] 2.1 mg/dL 1.5-2.2 [facility] Mean corpuscular hemoglobin (MCH) determinationOrdered By: Juan Jose Oseguera on 09-23-2024 MCH (RBC) [Entitic mass] 29.3 pg 27.0-32.0 [facility] Mean corpuscular hemoglobin concentration (MCHC) determinationOrdered By: Juan Jose Oseguera on 09-23-2024 MCHC (RBC) [Mass/Vol] 32.6 g/dL 32-36 [facility] Mean platelet volume determi nationOrdered By: Juan Jose Oseguera on 09-23-2024 Platelet mean volume (Bld) [Entitic vol] 10.5 fL 6.2-12.0 [facility] Microscopic analysis of urin e for red blood cells (RBC)Ordered By: Benedicto Vasquez on 09-23-2024 Urine RBC 0-5 SEEN /hpf 0-5 [facility] Monocyte percentageOrdered B y: Juan Jose Oseguera on 09-23-2024 Monocytes/100 WBC (Bld) 7.6 % 0-10 [facility] Mucus LM Ql (Urine sed)Order ed By: Benedicto Vasquez on 09-23-2024 Mucus Ql (Urine sed) 0 SEEN /hpf [facility] Neutrophil percentageOrdered By: Juan Jose Oseguera on 09-23-2024 Neutrophils/100 WBC (Bld) 59.4 % 47-70 [facility] Nitrite Test strip Ql (U)Ord ered By: Benedicto Vasquez on 09-23-2024 Nitrite Ql (U) Negative Negative [facility] No Panel InformationOrdered By: Benedicto Vasquez on 09-23-2024 CA 19-9 Antigen Serial Monitoring Not Reportable [facility] Nucleated red blood cell per centageOrdered By: Juan Jose Oseguera on 09-23-2024 Nucleated RBC/100 WBC (Bld) [Ratio] 0 % 0-5 [facility] Platelet countOrdered By: Janki Oseguera on 09-23-2024 Platelets (Bld) [#/Vol] 380 10*3/uL 150-450 [facility] Potassium (Unsp spec) [Mass/ Vol]Ordered By: Juan Jose Oseguera on 09-23-2024 Potassium [Moles/Vol] 3.6 mmol/L 3.3-5.1 [facility] ,Urineon 09-23-2024 Beta HCG ( test) Ql (U) Negative Normal [facility] Comment on above: Order Comment: Result Comment: Very dilute urine specimens, as indicated by a low specific gravity, may not contain parts representative levels of hCG. If is still suspected, a first morning urine specimen should be collected 48 hours later and tested. Performed By: #### L 400.7600 #### [facility] [place], [address] Protein Test strip Ql (U)Ord ered By: Benedicto Vasquez on 09-23-2024 Protein Ql (U) 30 mg/dl High Negative [facility] RBC Auto (Bld) [#/Vol]Ordere d By: Juan Jose Oseguera on 09-23-2024 RBC (Bld) [#/Vol] 4.33 10*6/uL 4.2-5.4 [facility] Serum creatinine measurement (mass/volume)Ordered By: Juan Jose Oseguera on 09-23-2024 Creatinine [Mass/Vol] 0.80 mg/dL 0.70-1.20 [facility] Serum globulin measurementOr dered By: Juan Jose Oseguera on 09-23-2024 Globulin (S) [Mass/Vol] 3.5 g/dL 2.2-4.2 [facility] Serum glucose measurement (m ass/volume)Ordered By: Juan Jose Oseguera on 09-23-2024 Glucose [Mass/Vol] 93 mg/dL 70-99 [facility] Serum or plasma alanine basurto otransferase (ALT) measurementOrdered By: Juan Jose Oseguera on 09-23-2024 ALT [Catalytic activity/Vol] 361 U/L High <35 [facility] Serum or plasma albumin edinson urement (mass/volume)Ordered By: Juan Jose Oseguera on 09-23-2024 Albumin [Mass/Vol] 4.0 g/dL 3.5-5.0 [facility] Serum or plasma alkaline tracy sphatase measurementOrdered By: Juan Jose Oseguera on 09-23-2024 ALP [Catalytic activity/Vol] 355 U/L High 35-104 [facility] Serum or plasma calcium edinson urement (mass/volume)Ordered By: Juan Jose Oseguera on 09-23-2024 Calcium [Mass/Vol] 9.2 mg/dL 7.6-11.0 [facility] Serum or plasma urea nitroge n measurement (mass/volume)Ordered By: Juan Jose Oseguera on 09-23-2024 Urea nitrogen [Mass/Vol] 10 mg/dL 4-19 [facility] Sodium levelOrdered By: Marko Oseguera on 09-23-2024 Sodium [Moles/Vol] 142 mmol/L 133-145 [facility] TSH DL <= 0.005 mIU/L QnOrde red By: Benedicto Vasquez on 09-23-2024 Thyroid Stimulating Hormone (TSH) 2.100 uIU/mL 0.300-4.20 0 [facility] Thyroid Stim Hormone (TSH)on 09-23-2024 TSH 2.100 uIU/mL Normal 0.300-4.20 0 [facility] Comment on above: Order Comment: *ADD ON, THG6/5/O THY2/4/G* Performed By: #### L 500.4050, L100.0100 #### [facility] [place], [address] Total proteinOrdered By: Cameron Oseguera on 09-23-2024 Protein [Mass/Vol] 7.5 g/dL 5.9-8.4 [facility] Urine blood detectionOrdered By: Benedicto Vasquez on 09-23-2024 Urine Occult Blood 10 /ul High Negative [facility] Urine clarityOrdered By: Omega Vasquez on 09-23-2024 Clarity (U) Turbid Clear [facility] Urine color determinationOrd ered By: Benedicto Vasquez on 09-23-2024 Color (U) Rica Yellow [facility] Urine leukocyte esterase det ection by dipstickOrdered By: Benedicto Vasquez on 09-23-2024 Leukocyte esterase Test strip Ql (U) 25 /ul High Negative [facility] Urine pHOrdered By: Benedicto su on 09-23-2024 pH (U) 6.0 [pH] 5.0 - 8.0 [facility] Urine testOrdered By: Juan Jose Oseguera on 09-23-2024 HCG ( test) Ql (U) Negative [facility] Comment on above: Very dilute urine sp ecimens, as indicated by a low specificgravity, may not contain parts representative levels of hCG. If is still suspected, a first morning urinespecimen should be collected 48 hours later and tested. Urine sediment bacteria coun t by microscopy (number/high power field)Ordered By: Benedicto Vasquez on 09-23-2024 Bacteria LM.HPF (Urine sed) [#/Area] 1 /[HPF] None Seen [facility] Urine specific gravity measu rementOrdered By: Benedicto Vasquez on 09-23-2024 Specific gravity (U) [Rel density] 1.015 1.002-1.03 0 [facility] Urobilinogen Ql (U)Ordered B y: Benedicto Vasquez on 09-23-2024 Urobilinogen (U) [Mass/Vol] 8 mg/dL High Normal [facility] White blood cell (WBC) count Ordered By: Juan Jose Oseguera on 09-23-2024 WBC (Bld) [#/Vol] 7.1 10*3/uL 4.4-11.0 [facility] White blood cell countOrdere d By: Benedicto Vasquez on 09-23-2024 Urine WBC 5-10 SEEN /hpf 0-5 [facility] CMP with eGFRon 11-19-2023 AGE 43 years Normal [facility] Comment on above: Performed By: #### 2 94578 #### [facility],[address] [place] [address] Albumin [Mass/Vol] 3.2 g/dL Low 3.4 - 5.0 [facility] Comment on above: Performed By: #### 2 31759 #### [facility],[address] [place] [address] Albumin/Globulin [Mass ratio] 0.8 {ratio} Low 0.9 - 1.6 [facility] Comment on above: Performed By: #### 2 59210 #### [facility],[address] [place] [address] ALK PHOS 104 U/L Normal 46 - 116 [facility] Comment on above: Performed By: #### 2 65204 #### [facility],[address] [place] [address]3050 ALT [Catalytic activity/Vol] 39 U/L Normal 16 - 63 [facility] Comment on above: Performed By: #### 2 52354 #### [facility],[address] [place] [address]48 Anion gap [Moles/Vol] 15 mmol/L Normal 10 - 20 [facility] Comment on above: Performed By: #### 2 26399 #### [facility],[address] [place] [address] AST [Catalytic activity/Vol] 30 U/L Normal 13 - 39 [facility] Comment on above: Performed By: #### 2 00684 #### [facility],[address] [place] [address]3333 B/C RATIO 17 ratio Normal 0 - 30 [facility] Comment on above: Performed By: #### 2 85365 #### [facility],[address] [place] [address]70 Bilirubin [Mass/Vol] 0.6 mg/dL Normal 0.2 - 1.0 [facility] Comment on above: Performed By: #### 2 08892 #### [facility],[address] [place] [address] Calcium [Mass/Vol] 8.7 mg/dL Normal 8.5 - 10.1 [facility] Comment on above: Performed By: #### 2 17054 #### [facility],[address] [place] [address]803 Chloride [Moles/Vol] 105 mmol/L Normal 98 - 107 [facility] Comment on above: Performed By: #### 2 09304 #### [facility],[address] [place] [address]39 CMP with eGFR Normal [facility] Comment on above: Result Comment: COMP REHENSIVE METABOLIC PANEL Performed By: #### 2 86720 #### [facility],[address] [place] [address]250 CO2 [Moles/Vol] 22.6 mmol/L Normal 21.0 - 32.0 [facility] Comment on above: Performed By: #### 2 03088 #### [facility],[address] [place] [address]46 Creatinine [Mass/Vol] 0.76 mg/dL Normal 0.55 - 1.02 [facility] Comment on above: Performed By: #### 2 34827 #### [facility],[address] [place], [place] [address] GFR/1.73 sq M.predicted among non-blacks MDRD (S/P/Bld) [Vol rate/Area] mL/min/{1.73_m2} Normal 60 - 999 [facility] Comment on above: Performed By: #### 2 16621 #### [facility],[address] [place] [address] Result Comment: ACCO RDING TO THE NATIONAL KIDNEY DISEASE EDUCATION PROGRAM(NKDE), A NORMAL eGFR IS A VALUE GREATER THAN OR EQUAL TO 60 ML/MIN/1.73 SQ METERS. CHRONIC KIDNEY DISEASE: <60mL/MIN/1.73 SQ METERS KIDNEY FAILURE: <15mL/MIN/1.73 SQ METERS THIS TEST SHOULD ONLY BE USED FOR PATIENTS 18 YEARS OF AGE AND OLDER. Globulin (S) [Mass/Vol] 4.1 g/dL High 1.5 - 3.8 [facility] Comment on above: Performed By: #### 2 36827 #### [facility],[address] [place] [address] 38357 Glucose [Mass/Vol] 94 mg/dL Normal 74 - 106 [facility] Comment on above: Performed By: #### 2 21981 #### [facility],[address] [place] [address]6766 Potassium [Moles/Vol] 4.0 mmol/L Normal 3.5 - 5.1 [facility] Comment on above: Performed By: #### 2 75841 #### [facility],[address] [place] [address] 31186 Protein [Mass/Vol] 7.3 g/dL Normal 6.4 - 8.2 [facility] Comment on above: Performed By: #### 2 26527 #### [facility],[address] [place] [address] 03417 Sodium [Moles/Vol] 139 mmol/L Normal 136 - 145 [facility] Comment on above: Performed By: #### 2 20411 #### [facility],[address] [place] [address] 71642 Urea nitrogen [Mass/Vol] 13 mg/dL Normal 7 - 18 [facility] Comment on above: Performed By: #### 2 44100 #### [facility],[address] [place] [address] 93533 LIPID PROFILEon 11-19-2023 Cholesterol [Mass/Vol] 178 mg/dL Normal 0 - 240 [facility] Comment on above: Performed By: #### 2 04657 #### [facility],[address] [place] [address] 72383 Cholesterol in HDL [Mass/Vol] 49 mg/dL Normal 40 - 60 [facility] Comment on above: Performed By: #### 2 02203 #### [facility],[address] [place] [address] 72690 Cholesterol in LDL [Mass/Vol] 117 mg/dL Normal 0 - 129 [facility] Comment on above: Performed By: #### 2 64477 #### [facility],[address] [place] [address] 18231 Cholesterol.total/Chol esterol in HDL [Mass ratio] 3.6 {ratio} Normal 0.0 - 5.0 [facility] Comment on above: Performed By: #### 2 68981 #### [facility],[address] [place] [address] 11376 Lipid 1996 panel Normal [facility] Comment on above: Result Comment: LIPI D PROFILE Performed By: #### 2 20267 #### [facility],[address] [place] [address] 53980 Triglyceride [Mass/Vol] 61 mg/dL Normal 0 - 150 [facility] Comment on above: Performed By: #### 2 32698 #### [facility],[address] [place] [address] [facility] Cytology Reporton 2022 [facility] Cytology Report . Pathology Reports Accession: Collected Date/Time: Received Date/Time: Pathologist: [id number] 07/25/2022 08:50 EST 07/25/2022 18:00 EST [facility] Cytology Report SPECIMEN: Specimen Description: Liquid Prep w/ HPV Specimen: Cervical Screening or Diagnostic: Screening RELEVANT HISTORY: LMP: 07/10/22 [id number] SPECIMEN ADEQUACY: SATISFACTORY FOR EVALUATION Endocervical/Transformatio nal zone component present INTERPRETATION/RESULTS: NEGATIVE FOR INTRAEPITHELIAL LESION OR MALIGNANCY HIGH RISK HPV TESTING: Event Code Result HPV Interp See Interp HPVN HPV Interp Text: High Risk HPV Typing: NEGATIVE HPV types 16, 18, 31, 33, 35, 39, 45, 51, 52, 56, 58, 59, 66 and 68 DNA were undetectable or below the pre-set threshold. The sheryl High-Risk HPV DNA Test is not intended for use as a screening device for Pap normal women under age 30 and is not intended to substitute for regular Pap screening. The sheryl High-Risk HPV DNA Test is designed to augment existing methods for the detection of cervical disease and should be used in conjunction with clinical information derived from other diagnostic and screening tests, physical examinations and full medical history in accordance with appropriate patient management procedures. NOTE: A negative result does not preclude the presence of HPV infection because results depend on adequate specimen collection, absence of inhibitors and sufficient DNA to be detected. As of: 08/07/22 15:53 EST COMMENT: This Pap Test was successfully processed and evaluated with the assistance of the [employer] Test Imaging System. Pathology Reports Accession: Collected Date/Time: Received Date/Time: Pathologist: [id number] 07/25/2022 08:50 EST 07/25/2022 18:00 EST Electronically Signed by Pathology report verified by [facility] Screened by: KK Electronically signed by Stefania PEGUERO (ASC) Sign-Out Date: 08/07/2022 15:53 Performing Lab: [facility], [address] [place] [address] Pathology Dept Disclaimer The Pap test is a screening test for cervical cancer. As evidenced by published data, it is subject to both inherent false negative and false positive results. Your patient's results should be interpreted in context with pertinent clinical history including gynecological examination. Normal [facility] [place] HPVon 08-07-2022 HPV Interp Normal See Interp HPVN [facility] [place] Comment on above: Order Comment: Order placed by AP_HPV_ORDER rule from [id number] Result Comment: High Risk HPV Typing: NEGATIVE HPV types 16, 18, 31, 33, 35, 39, 45, 51, 52, 56, 58, 59, 66 and 68 DNA were undetectable or below the pre-set threshold. The sheryl High-Risk HPV DNA Test is not intended for use as a screening device for Pap normal women under age 30 and is not intended to substitute for regular Pap screening. The sheryl High-Risk HPV DNA Test is designed to augment existing methods for the detection of cervical disease and should be used in conjunction with clinical information derived from other diagnostic and screening tests, physical examinations and full medical history in accordance with appropriate patient management procedures. NOTE: A negative result does not preclude the presence of HPV infection because results depend on adequate specimen collection, absence of inhibitors and sufficient DNA to be detected. See Interp HPVN Performed By: #### H PV #### [place] [address] HPV Source Cervix Normal [facility] [place] Comment on above: Order Comment: Order placed by AP_HPV_ORDER rule from [id number] Performed By: #### H PV #### [place] [address] Free T3on 03-10-2021 Free T3 [Mass/Vol] 3.7 pg/mL Normal 2.3-4.1 [facility] Comment on above: Performed By: #### F REET3 #### [facility] Routine Lab [address] [place], [place] [address] [facility] Natanael 03-02-2020 Albumin [Mass/Vol] 4.2 g/dL Normal 3.6-5.1 [facility] Comment on above: Performed By: #### 7 600, 38263 #### [facility], [address] [place] [address] [employer] Attendant: Tamir Lane MD Albumin/Globulin [Mass ratio] 1.4 (calc) Normal 1.0-2.5 [facility] Comment on above: Performed By: #### 7 600, 16335 #### [facility], [address] [place] [address] [employer] Attendant: Tamir Lane MD ALP [Catalytic activity/Vol] 106 U/L Normal 31-125 [facility] Comment on above: Performed By: #### 7 600, 49869 #### [facility], [address] [place] [address] [employer] Attendant: Tamir Lane MD ALT [Catalytic activity/Vol] 17 U/L Normal 6-29 [facility] Comment on above: Performed By: #### 7 600, 58101 #### [facility], [address] [place] [address] [employer] Attendant: Tamir Lane MD AST [Catalytic activity/Vol] 17 U/L Normal 10-30 [facility] Comment on above: Performed By: #### 7 600, 91738 #### [facility], [address] [place] [address] [employer] Attendant: Tamir Lane MD Bilirubin [Mass/Vol] 0.4 mg/dL Normal 0.2-1.2 [facility] Comment on above: Performed By: #### 7 600, 13184 #### [facility], [address] [place] [address] [employer] Attendant: Tamir Lane MD Calcium [Mass/Vol] 9.7 mg/dL Normal 8.6-10.2 [facility] Comment on above: Performed By: #### 7 600, 19683 #### [facility], [address] [place] [address] [employer] Attendant: Tamir Lane MD Chloride [Moles/Vol] 105 mmol/L Normal 98-110 [facility] Comment on above: Performed By: #### 7 600, 09982 #### [facility], [address] [place] [address] [employer] Attendant: Tamir Lane MD CO2 [Moles/Vol] 28 mmol/L Normal 20-32 [facility] Comment on above: Performed By: #### 7 600, 63767 #### [facility], [address] [place] [address] [employer] Attendant: Tamir Lane MD Creatinine [Mass/Vol] 0.81 mg/dL Normal 0.50-1.[address] [facility] [address] [facility] Comment on above: Performed By: #### 7 600, 37424 #### [facility], [address] [place] [address] [employer] Attendant: Tamir Lane MD eGFR NON-AFR. WALLISIAN 90 mL/min/1.73m2 Normal > OR = 60 [facility] Comment on above: Performed By: #### 7 600, 43751 #### [facility], [address] [place] [address] [employer] Attendant: Tamir Lane MD GFR/1.73 sq M predicted among blacks MDRD (S/P/Bld) [Vol rate/Area] 105 mL/min/{1.73_m2} Normal > OR = 60 [facility] Comment on above: Performed By: #### 7 600, 33569 #### [facility], [address] [place] [address] [employer] Attendant: Tamir Lane MD Globulin (S) [Mass/Vol] 3.1 g/dL (calc) Normal 1.9-3.7 [facility] Comment on above: Performed By: #### 7 600, 12735 #### [facility], [address] [place] [address] [employer] Attendant: Tamir Lane MD Glucose [Mass/Vol] 93 mg/dL Normal 65-99 [facility] Comment on above: Result Comment: Fasting reference interval Performed By: #### 7 600, 35523 #### [facility], [address] [place] [address] [employer] Attendant: Tamir Lane MD Potassium [Moles/Vol] 4.5 mmol/L Normal 3.5-5.[address] [facility] [address] [facility] Comment on above: Performed By: #### 7 600, 28623 #### [facility], [address] [place] [address] [employer] Attendant: Tamir Lane MD Protein [Mass/Vol] 7.3 g/dL Normal 6.1-8.1 [facility] Comment on above: Performed By: #### 7 600, 10413 #### [facility], [address] [place] [address] [employer] Attendant: Tamir Lane MD Sodium [Moles/Vol] 139 mmol/L Normal 135-146 [facility] Comment on above: Performed By: #### 7 600, 76481 #### [facility], [address] [place] [address] [employer] Attendant: Tamir Lane MD Urea nitrogen [Mass/Vol] 20 mg/dL Normal 7-25 [facility] Comment on above: Performed By: #### 7 600, 34990 #### [facility], [address] [place] [address] [employer] Attendant: Tamir Lane MD Urea nitrogen/Creatinine [Mass ratio] NOT APPLICABLE Normal 6-22 [facility] Comment on above: Performed By: #### 7 600, 49639 #### [facility], [address] [place] [address] [employer] Attendant: Tamir Lane MD LIPID PANEL, [facility] [place] 02-12 Cholesterol [Mass/Vol] 195 mg/dL Normal <200 [facility] Comment on above: Performed By: #### 7 600, 13825 #### [facility], [address] [place] [address] [employer] Attendant: Tamir Lane MD Cholesterol in HDL [Mass/Vol] 58 mg/dL Normal > OR = 50 [facility] Comment on above: Performed By: #### 7 600, 04071 #### [facility], [address] [place] [address] [employer] Attendant: Tamir Lane MD Cholesterol in LDL [Mass/Vol] 120 mg/dL (calc) High [facility] Comment on above: Result Comment: Refe rence range: <100 Desirable range <100 mg/dL for primary prevention; <70 mg/dL for patients with CHD or diabetic patients with > or = 2 CHD risk factors. LDL-C is now calculated using the Brad calculation, which is a validated novel method providing better accuracy than the Friedewald equation in the estimation of LDL-C. Aly HUIZAR et al. JACKIE. 2013;310(19): 4537-5636 (http://education.[employer]/faq/QXU243) Performed By: #### 7 600, 31699 #### [facility] [address] [facility] [employer] Attendant: Tamir Lane MD Cholesterol.total/Chol esterol in HDL [Mass ratio] 3.4 (calc) Normal <5.0 [facility] Comment on above: Performed By: #### 7 600, 29897 #### [facility], [address] [place] [address] [employer] Attendant: Tamir Lane MD NON HDL CHOLESTEROL 137 mg/dL (calc) High <130 [facility] Comment on above: Result Comment: For patients with diabetes plus 1 major ASCVD risk factor, treating to a non-HDL-C goal of <100 mg/dL (LDL-C of <70 mg/dL) is considered a therapeutic option. Performed By: #### 7 600, 99101 #### [facility], [address] [place] [address] [employer] Attendant: Tamir Lane MD Triglyceride [Mass/Vol] 76 mg/dL Normal <150 [facility] Comment on above: Performed By: #### 6 691, 40957 #### [facility], [address] [place] [phone] [employer] Attendant: Tamir Lane MD Vital Signs Date Time Vital Sign Value Performing Clinician Jamee che 10-21-2024 12:50-0400 Body temperature 98.1 [degF] Dr. Juan Jose Oseguera DO Work Phone: 7(558)525-577154 [place] [address] 10-21-2024 12:50-0400 Diastolic blood pressure 81 mm[Hg] Dr. Juan Jose Oseguera DO Work Phone: 8(623)648-933237 [place] [address] 10-21-2024 12:50-0400 Heart rate 77 /min Dr. Juan Jose Oseguera DO Work Phone: 0(022)805-588954 [place] [address] 10-21-2024 12:50-0400 Respiratory rate 16 /min Dr. Juan Jose Oseguera DO Work Phone: 8(779)916-128137 [place] [address] 10-21-2024 12:50-0400 SaO2% (BldA) [Mass fraction] 94 % Dr. Juan Jose Oseguera DO Work Phone: 0(512)276-061037 [place] [address] 10-21-2024 12:50-0400 Systolic blood pressure 128 mm[Hg] Dr. Juan Jose Oseguera DO Work Phone: 7(563)529-295537 [place] [address] 10-21-2024 10:36-0400 Body height 160.[address] Juan Jose Oseguera DO Work Phone: 2(327)101-396637 [place] [address] 10-21-2024 10:36-0400 Body mass index (BMI) [Ratio] 49.4 kg/m2 Dr. Juan Jose Oseguera DO Work Phone: 1(619)653-002637 [place] [address] 10-21-2024 10:36-0400 Body weight 126.[address] Juan Jose Oseguera DO Work Phone: 7(359)143-641454 [place] [address] 10-07-2024 14:04-0400 Body height 162.[address] Juan Jose Oseguera DO Work Phone: 0(722)209-713937 [place] [address] 10-07-2024 14:04-0400 Body mass index (BMI) [Ratio] 48.3 kg/m2 Dr. Juan Jose Oseguera DO Work Phone: 6(812)072-451137 [place] [address] 10-07-2024 14:04-0400 Body weight 127.[address] Juan Jose Oseguera DO Work Phone: 5(965)543-583437 [place] [address] 10-07-2024 14:04-0400 Diastolic blood pressure 90 mm[Hg] Dr. Juan Jose Oseguera DO Work Phone: 7(763)521-583737 [place] [address] 10-07-2024 14:04-0400 Heart rate 114 /min Dr. Juan Jose Oseguera DO Work Phone: 9(512)225-468337 [place] [address] 10-07-2024 14:04-0400 Respiratory rate 18 /min Dr. Juan Jose Oseguera DO Work Phone: 3(490)708-357237 [place] [address] 10-07-2024 14:04-0400 SaO2% (BldA) [Mass fraction] 94 % Dr. Juan Jose Oseguera DO Work Phone: 6(943)045-082937 [place] [address] 10-07-2024 14:04-0400 Systolic blood pressure 137 mm[Hg] Dr. Juan Jose Oseguera DO Work Phone: 1(810)303-364437 [place] [address] 09-25-2024 07:40-0400 Body temperature 98.3 [degF] Dr. Juan Jose Oseguera DO Work Phone: 6(105)881-357637 [place] [address] 09-25-2024 07:40-0400 Diastolic blood pressure 97 mm[Hg] Dr. Juan Jose Oseguera DO Work Phone: 8(469)136-380637 [place] [address] 09-25-2024 07:40-0400 Heart rate 83 /min Dr. Juan Jose Oseguera DO Work Phone: 6(257)030-334837 [place] [address] 09-25-2024 07:40-0400 Respiratory rate 14 /min Dr. Juan Jose Oseguera DO Work Phone: 2(926)527-765837 [place] [address] 09-25-2024 07:40-0400 SaO2% (BldA) [Mass fraction] 96 % Dr. Juan Jose Oseguera DO Work Phone: 0(628)613-491154 [place] [address] 09-25-2024 07:40-0400 Systolic blood pressure 151 mm[Hg] Dr. Juan Jose Oseguera DO Work Phone: 7(566)440-267654 [place] [address] 09-25-2024 05:26-0400 Body mass index (BMI) [Ratio] 47.9 kg/m2 Dr. Juan Jose Oseguera DO Work Phone: 8(466)562-606437 [place] [address] 09-25-2024 05:26-0400 Body weight 127.[address] Juan Jose Oseguera DO Work Phone: 1(154)284-742554 [place] [address] 09-25-2024 02:36-0400 Inhaled oxygen flow rate 2 L/min Dr. Juan Jose Oseguera DO Work Phone: 1(837)116-396254 [place] [address] 09-24-2024 13:18-0400 Body height 162.[address] Juan Jose Oseguera DO Work Phone: 5(816)613-597754 [place] [address] 09-23-2024 21:48-0400 Body temperature 98.2 [degF] Dr. Juan Jose Oseguera DO Work Phone: 6(114)771-830537 [place] [address] 09-23-2024 21:48-0400 Diastolic blood pressure 88 mm[Hg] Dr. Juan Jose Oseguera DO Work Phone: 7(534)178-770937 [place] [address] 09-23-2024 21:48-0400 Heart rate 78 /min Dr. Juan Jose Oseguera DO Work Phone: 7(660)534-272537 [place] [address] 09-23-2024 21:48-0400 Respiratory rate 18 /min Dr. Juan Jose Oseguera DO Work Phone: 3(742)159-780937 [place] [address] 09-23-2024 21:48-0400 SaO2% (BldA) [Mass fraction] 98 % Dr. Juan Jose Oseguera DO Work Phone: 2(628)206-320137 [place] [address] 09-23-2024 21:48-0400 Systolic blood pressure 159 mm[Hg] Dr. Juan Jose Oseguera DO Work Phone: [facility] 09-23-2024 18:14-0400 Body height 162.[address] Juan Jose Oseguera DO Work Phone: [facility] 09-23-2024 18:14-0400 Body mass index (BMI) [Ratio] 47.9 kg/m2 Dr. Juan Jose Oseguera DO Work Phone: [facility] 09-23-2024 18:14-0400 Body weight 126.[address] Juan Jose Oseguera DO Work Phone: [facility] Encounters Encounter Date Encounter Type Care Provider Facility Start: 12-16-2024 ambulatory Khadar [place] Facility :[facility] Start: 12-15-2024 Encounter for other preprocedural examination [facility] Start: 10-27-2024 End: 10-27-2024 ambulatory Hui Weaver Facility:[facility] Start: 10-21-2024 ambulatory [facility]il [facility] Start: 10-21-2024 Non-patient / Non-visit Khadar Samuel nd DO -[facility] Start: 10-21-2024 End: 10-21-2024 Admission to same day surgery center Khadar Cortez DO -Endoscopy Work Phone: Start: 10-21-2024 End: 10-21-[address] Juan Jose Oseguera DO Work Phone: [facility] Work Phone: Start: 10-12-2024 ambulatory [facility] Start: 10-07-2024 End: 10-07-[address] 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 Martha Meyer MD -[facility] Work Phone: Start: 09-24-2024 End: 09-24-2024 ambulatory Loretta Meyer Facility:[facility] Start: 09-24-2024 End: 09-24-2024 Non-patient / Non-visit Khadar Cortez DO [facility] Start: 09-24-2024 Non-patient / Non-visit Dr. Martha Meyer MD -[facility] Work Phone: Start: 09-23-2024 ambulatory Juan Jose Oseguera Facility: [facility] Start: 09-23-2024 End: 09-25-2024 Evaluation and management of inpatient Dr. Benedicto Burks DO -[facility] 3 Work Phone: Start: 09-23-2024 End: 09-23-2024 ambulatory [facility] Start: 11-19-2023 End: 11-19-2023 ambulatory [facility] Procedures Date Procedure Procedure Detail Performing Clinician Start: 10-21-[address] Juan Jose Oseguera DO Work Phone: Start: 10-21-[address] Juan Jose Oseguera DO Work Phone: Start: 09-24-[address] Juan Jose Oseguera DO Work Phone: Start: 09-24-[address] Juan Jose Oseguera DO Work Phone: Start: 09-24-[address] Juan Jose Oseguera DO Work Phone: Start: 09-24-[address] Juan Jose Oseguera DO Work Phone: Start: 09-23-2024 US scan of gallbladder Dr. Juan Jose Oseguera DO Work Phone: Plan of Treatment Date Care Activity Detail Author Start: 10-21-2024 Endoscopic retrograde cholangiopancreatography ERCP Biliary/Pancreas [facility] Start: 10-21-2024 RF Guidance for endoscopy of Biliary ducts and Pancreatic duct-- W contrast retrograde [facility] Start: 10-21-2024 Patient discharge [facility] Start: 09-25-2024 Patient discharge [facility] Start: 09-23-2024 Aspiration precautions [facility] Start: 09-23-2024 Assessment of risk of venous thromboembolism [facility] Start: 09-23-2024 Documentation procedure [facility] Start: 09-23-2024 Incentive spirometry [facility] Start: 09-23-2024 Insertion of catheter into peripheral vein [facility] Start: 09-23-2024 Measuring intake and output [facility] Start: 09-23-2024 Oxygen therapy [facility] Start: 09-23-2024 Providing care according to standard [facility] Start: 09-23-2024 Provision of activity privileges [facility] Start: 09-23-2024 Referral to gastroenterology service [facility] Start: 09-23-2024 Referral to service [facility] Start: 09-23-2024 [facility] Start: 09-23-2024 Following clinical pathway protocol [facility] Start: 09-23-2024 Hospital admission, emergency, from emergency room, medical nature [facility] Start: 09-23-2024 Magnetic resonance cholangiopancreatography MRCP Abdomen without Contrast [facility] Start: 09-23-2024 Verification routine [facility] Start: 09-23-2024 Admission procedure [facility] Start: 09-23-2024 Cancer antigen 19-9 measurement [facility] Start: 09-23-2024 Thyroid stimulating hormone measurement [facility] Bilirubin measurement, urine [facility] Hemoglobin [Presence] in Urine [facility] Hepatitis A virus Ig M Ab [Presence] in Serum [facility] Hepatitis B core ant ibody measurement, IgM type [facility] Hepatitis B surface antigen measurement [facility] Hepatitis C antibody measurement [facility] Magnesium measurement [facility] Measurement of keton es in urine using dipstick [facility] Microscopic urinalysis [facility] Patient Education Biliary Stent Dc [facility] Work Phone: Patient referral [facility] Work Phone: pH of Urine [facility] Specific gravity of Urine [facility] Urine blood test [facility] Urine dipstick for glucose [facility] Urine dipstick for l eukocyte esterase [facility] Urine dipstick for nitrite [facility] Urine dipstick for protein [facility] Urine examination [facility] Urine microscopy: epithelial cells [facility] Urine Microscopy: white cells [facility] Urobilinogen [Presence] in Urine [facility] Payers Date Payer Category Payer Self-pay 2022 Unknown [id number] 1980 Unknown [id number] 2.16.8 [id number] 1980 Unknown [id number] 2.16.8 [id number] 1979 Unknown [id number] 2.16.8 40.1.779897.3.579.2.651 Unknown [id number] 2.16.8 [id number] Unknown [id number] 2.16.8 40.1.201680.3.579.2.462 Unknown [id number] 2.16.8 40.1.976536.3.579.2.462 Unknown [id number] 2.16.8 40.1.184487.3.579.2.462 Unknown [id number] 2.16.8 40.1.667565.3.579.2.462 Unknown [id number] 2.16.8 40.1.701956.3.579.2.462 Unknown [id number] 2.16.8 40.1.363014.3.579.2.462 Unknown [id number] 2.16.8 40.1.433515.3.579.2.462 Unknown [id number] 2.16.8 40.1.913247.3.579.2.462 Unknown [id number] 2.16.8 40.1.891647.3.579.2.462 Unknown [id number] 2.16.8 40.1.252222.3.579.2.462 Unknown [id number] 2.16.8 [id number] Unknown [id number] 2.16.8 [id number] Social History Date Type Detail Facility Start: 09-23-2024 End: 10-15-2024 Tobacco smoking status NHIS Never smoked tobacco (finding) [facility] Start: 09-23-2024 End: 10-21-2024 Sex Female (finding) [facility] Start: 1980 Sex Assigned At Female [facility] NEGATED: Highlighted row Not [facility] Medical Equipment Procedure Code Equipment Code Equipment Origin al Text Equipment Identifier Dates ERCP (endoscopic retrograde cholangiopancreatog phan) ([id number]) Polymeric biliary stent, non-bioabsorbable ([id number] FDA Start: 09-24-2024 Goals Date Patient Goal Desired Activity /State Functional Status Date Assessment Result Facility 09-25-2024 Functional status Ambulates [facility] Work Phone: Mental Status Date Assessment Result Facility 10-21-2024 Cognitive function Voice/Name [facility] Work Phone: 09-25-2024 Cognitive function Level Of Cons ciousness Awake;Alert;Appropriate;Follow s Commands [facility] Work Phone: 09-24-2024 Cognitive function Touch/Shaking [facility] Work Phone: 09-23-2024 Cognitive function Level Of Cons ciousness Awake;Alert;Appropriate;Follow s Commands [facility] Work Phone: Clinical Notes 09-23-2024 to 10-21-2024 Note Date & Type Note Facility 10-21-2024 Consult note Note Date/Time October 21, 2024 11:11am [facility] Medical Records Department [address] [place] [address] Pre-Anesthesia Evaluation 10/21/24 1104 MR#: [id number] Acct: [id number] Name: REYNA NULL Rep #:[id number] : 1980 44 From: Phillip Gandara MD PCP: Cheryl Pierre PA-C Status:REG S DC Y Race: C Location: [place] [address] ASA Classification* ASA Classification ASA Classification: 3 Assessment & Plan Anesthesia* Anesthesia Assessment Anesthesia Assessment: Discussed sedation and/or anesthesia options, risks, benefits, and alternatives with patient/parents/legal guardian/POA. Questions invited. The patient/parents/legal guardian/POA seems to understand and agrees to proceedwith anesthesia plan. Reviewed the physical assessment, medical history, allergy history and patient home medications list prior to surgery/procedure/anesthetic and documented any changes. Performed airway and anesthesia risk assessments. Anesthesia Type Anesthesia Type: MAC History Source History Obtained from:: Patient and Chart Anesthesia Focused Assessment* Temperature: 98 F Pulse Rate: 88 Blood Pressure: 150/94 Respiratory Rate: 16 Pulse Ox: 99 Oxygen Delivery Method: Room Air Airway Assessment Mouth opens: 2 cm Mallampati Score: IV Teeth Condition: Intact Neck Range of motion (ROM): Limited ROM (Somewhat decreased extension) Focused Labs Anesthesia Preop lab: CBC WBC 6.9 K/mm3 (4.4-11.0) 09/25/24 06:33 09/25/24 RBC 4.22 M/mm3 (4.2-5.4) 09/25/24 06:33 09/25/24 Hgb 12.3 g/dL (12.0-15.0) 09/25/24 06:33 09/25/24 Hct 39.1 % (37-47) 09/25/24 06:09/25/24 Plt Count 358 K/mm3 (150-450) 09/25/24 06:09/25/24 CHEMISTRY Potassium 3.5 mmol/L (3.3-5.1) 09/25/24 06:33 09/25/24 Sodium 139 mmol/L (133-145) 09/25/24 06:09/25/24 Magnesium 2.1 mg/dL (1.5-2.2) 09/23/24 18:47 09/23/24 Phosphorus 2.5 mg/dL (2.7-4.5) L 09/25/24 06:09/25/24 BUN 8 mg/dL (4-19) 09/25/24 06:09/25/24 Creatinine 0.76 mg/dL (0.70-1.20) 09/25/24 06:09/25/24 Glucose 115 mg/dL (70-99) H 09/25/24 06:09/25/24 TSH 2.100 uIU/mL (0.300-4.200) 09/23/24 18:47 09/11 10/05 COAG Urine Test Negative Negative 10/21/24 10:25 10/21/24 Pre-Assessment Diagnosis/Proposed Procedure Planned Operative Procedure(s): ERCP Anesthesia History 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 When Was Last Pacemaker Check QUESTION #4 FULL TEXT: You/Your Family Experience fever (hyperthermia) with Anesthesia Last Oral Intake Last Oral intake: Last Oral Intake NPO since 00:00 10/21/24 10:36 Meds taken in AM with sips of No 10/21/24 10:36 water? Meds patient instructed to take am of surgery PONV PONV - senior commercial loan officer: PONV - senior commercial loan officer Female Yes 10/15/24 11:38 HX of Motion Sickness Yes 10/15/24 11:38 HX of N/V After Surgery No 10/15/24 11:38 Non-Smoker Yes 10/15/24 11:38 Duration of Surgery greater No 10/15/24 11:38 than 60 minutes Number of Risk Factors 3 10/15/24 11:38 PONV Score Moderate Risk 10/15/24 11:38 Height & Weight Height & Weight: Anesthesia: Height & Weight Height 5 ft 3 in 10/21/24 10:36 Weight: 126.5 kg 10/21/24 10:36 Body Mass Index (BMI) 49.4 10/21/24 10:36 Respiratory Assessment 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 Has anyone observed you stop breathing during sleep? STOP Results Positive 10/15/24 11:38 QUESTION #5 FULL TEXT : Do you snore loudly (louder than talking or can be heard through closed doors)? 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 Specify any problems Hx of Preganancy in last 3 No 10/15/24 11:38 Months Nurse Filling Out Transfusion VCHRISTIN 10/15/24 11:38 & Questions: Date: 10/15/24 10/15/24 11:38 Time: 11:39 10/15/24 11:38 Patient unable to answer at this time (ie. confused, unrespo /Reproduction History /Reproductive History - senior commercial loan officer: /Reproductive Hx- senior commercial loan officer Hx Now No 10/15/24 11:38 Gestational Age (in weeks): EDC: Hx Hx Para Hx Section SAB No 10/15/24 11:38 [facility] Medical History Wears glasses Gastric reflux Non-smoker CPAP (continuous positive airway pressure) dependence Sleep apnea Hypertension Home Medications ?Medication ?Instructions ?Recorded ?Last Taken ?Type losartan 25 mg tablet 25 mg PO DAILY 09/23/24 Unkn own History pantoprazole 40 mg tablet,delayed 40 mg PO QDAY #90 ta bs 10/07/24 Unknown Rx release sodium sul 1.479 gram-potas ch See Rx Instructions PO PER PKG DIR 10/07/24 Unknown Rx 0.188 gram-magnes sul 0.225 gram #24 tabs tablet (Sutab) Allergy/AdvReac Type Severity Reaction Status Date / Time No Known Allergies Allergy Verified 10/21/24 10:36 Surgical History History of ERCP Social History Smoking Status: Never smoker Review of Systems (Anesthesia) ROS Narrative System reviewed and no additional complaints, except as documented. 10/21/24 1111 <Electronically signed by Phillip paul MD> Date _ Phillip Gandara MD Cosigner Signature: Date CC: ~ Signed [facility] Work Phone: [phone]) 923-950704-10-2025 Consult note [facility] Medical Records Department [address] [place] [address] Anesthesia Postop Eval II 10/21/24 1300 MR#: [id number] Acct: [id number] Name: REYNA NULL Rep #:[id number] : 1980 44 From: Phillip Gandara MD PCP: Cheryl Pierre PA-C Status:REG S DC Y Race: C Location: [place] [address] Anesthesia Postop Eval I Sum Postop Eval Completion status Anesthesia document: Postop Eval 1 completed: Yes Anesthesia Postop Eval I Summary Anesthesia Postop Eval I Summary: Anesthesia Postop Eval I: Assessment Summary Airway patent Yes 10/21/24 12:41 [email or web address] Spontaneous unlabored Yes 10/21/24 12:41 [email or web address] respirations Mental status Asleep 10/21/24 12:41 [email or web address] nausea No 10/21/24 12:41 [email or web address] Vomiting No 10/21/24 12:41 [email or web address] Anesthesia Postop Eval I: Fluid Summary Crystalloid volume administer 60 10/21/24 12:41 [email or web address] (ml) Colloids volume administered ( ml) Blood Product volume administered (ml) Total IV fluid infused 60 10/21/24 12:41 [email or web address] Anesthesia Postop Eval I: Summary Notes Anesthesia Complication No 10/21/24 12:41 [email or web address] Anesthesia Complication Comment: Post-operative progress note Anesthesia: Postop Eval II Evaluation Mental status: Awake and Calm Pain Level: 0 nausea: No Vomiting: No Complications Anesthesia Complication: No 10/21/24 1302 humberto PAGE> Date _ Phillip Gandara MD Cosigner Signature: Date CC: ~ Signed [facility]04-10-2025 Consult note [facility] Medical Records Department [address] [place] [address] Anesthesia Postop Eval I 10/21/24 1240 MR#: [id number] Acct: [id number] Name: REYNA NULL Rep #:[id number] : 1980 44 From: Chandrakant Kasper PCP: Cheryl Pierre PA-C Status:REG S DC Y Race: C Location: [place] [address] Anesthesia: Postop Eval I Current Vital Signs Temperature: 98 F Pulse Rate: 86 Blood Pressure: 134/75 Respiratory Rate: 18 Pulse Ox: 94 Oxygen Delivery Method: Room Air Assessment Airway patent: Yes Spontaneous unlabored respirations: Yes Mental status: Asleep nausea: No Vomiting: No Anesthesia Complication: No Fluid Hydration Crystalloid volume administer (ml): 60 Total IV fluid infused: 60 Progress Note Anesthesia document: Postop Eval 1 completed: Yes 10/21/24 1241 > Date _ Chandrakant Reid Signature: Date CC: ~ Signed [facility]04-10-2025 Procedure note [facility] Medical Records Department [address] [place] [address] Operative Report - CC Letter MR#: [id number] Acct: [id number] Name: REYNA NULL Rep #:[id number] : 1980 44 From: Khadar Cortez DO PCP: Cheryl Pierre PA-C Status:REG S DC 10/21/2024 Cheryl Pierre Re : ERCP procedure for Reyna Pierre This procedure was performed on October. My impressions and recommendations are as follows: Impressions : - The entire biliary tree was dilated, with a stone causing an obstruction. - Choledocholithiasis was found. Complete removal was accomplished by biliary sphincterotomy and balloon extraction. - A biliary sphincterotomy was performed. - The biliary tree was swept. - One stent was removed from the biliary tree. Recommendations : My findings are described in the full procedure note, which is enclosed. If I can be of further assistance, please feel free to contact me at . Sincerely, Khadar Cortez DO 10/21/2024 12:38:39 PM This report has been signed electronically. 10/21/24 1238 Date _ Khadar Cortez DO Cosigner Signature: Date (if indicated) CC: DONNIE Pierre; Khadar Cortez DO ~ Date Dictated: 10/21/24 1120 Date Transcribed: Reporter Anchor: RF Signed [facility]04-10-2025 Procedure note [facility] Medical Records Department [address] [place] [id number] ERCP Report MR#: [id number] Acct: [id number] Name: REYNA NULL Rep #:[id number] : 1980 44 From: Khadar Cortez DO PCP: Cheryl Pierre PA-C Status:REG S DC Patient Name: Reyna Null Procedure Date: 10/21/2024 11:20 AM Date of : 1980 Age: 44 Procedure: ERCP Indications: Bile duct stone(s), Stent removal Providers: Khadar Cortez DO Referring MD: Cheryl Pierre Medicines: Monitored Anesthesia Care Patient Profile: This is a 44 year old female. Refer to note in patient chart for documentation of history and physical. Patient has symptoms of acute right upper quadrant abdominal pain and acute jaundice. Complications: No immediate complications. Procedure: Pre-Anesthesia Assessment: - Prior to the procedure, a History and Physical was performed, and patient medications and allergies were reviewed. The patient is competent. The risks and benefits of the procedure and the sedation options and risks were discussed with the patient. All questions were answered and informed consent was obtained. Patient identification and proposed procedure were verified by the physician in the pre-procedure area. Mental Status Examination: alert and oriented. Airway Examination: normal oropharyngeal airway and neck mobility. Respiratory Examination: clear to auscultation. CV Examination: normal. Prophylactic Antibiotics: The patient does not require prophylactic antibiotics. Prior Anticoagulants: The patient has taken no anticoagulant or antiplatelet agents except for NSAID medication. ASA Grade Assessment: II - A patient with mild systemic disease. After reviewing the risks and benefits, the patient was deemed in satisfactory condition to undergo the procedure. The anesthesia plan was to use monitored anesthesia care (MAC). Immediately prior to administration of medications, the patient was re-assessed for adequacy to receive sedatives. The heart rate, respiratory rate, oxygen saturations, blood pressure, adequacy of pulmonary ventilation, and response to care were monitored throughout the procedure. The physical status of the patient was re-assessed after the procedure. After obtaining informed consent, the scope was passed under direct vision. Throughout the procedure, the patient's blood pressure, pulse, and oxygen saturations were monitored continuously. The Duodenoscope was introduced through the mouth, and advanced to the duodenum and used to inject contrast into the bile duct. The ERCP was accomplished without difficulty. The patient tolerated the procedure well. Scope In: 12:18:25 PM Scope Out: 12:27:47 PM Total Procedure Duration Time 0 hours 9 minutes 22 seconds Findings: The scout executive film was normal. The esophagus was successfully intubated under direct vision. The scope was advanced to a normal major papilla in the descending duodenum without detailed examination of the pharynx, larynx and associated structures, and upper GI tract. The upper GI tract was grossly normal. A long 0.025 inch Jagwire was passed into the biliary tree. The short-nosed traction sphincterotome was passed over the guidewire and the bile duct was then deeply cannulated. Contrast was injected. I personally interpreted the bile duct images. There was brisk flow of contrast through the ducts. Image quality was adequate. Contrast extended to the entire biliary tree. Opacification of the entire opacified area and entire biliary tree was successful. The maximum diameter of the ducts was 12 mm. The lower third of the main bile duct contained one stone, which was 6 mm in diameter. The entire opacified area and entire biliary tree were diffusely dilated, with a stone causing an obstruction. The largest diameter was 13 mm. A 5 mm biliary sphincterotomy was made with a traction (standard) sphincterotome using ERBE electrocautery. There was no post-sphincterotomy bleeding. The biliary tree was swept with an 11.5 mm balloon starting at the upper third of the main bile duct, middle third of the main bile duct, lower third of the main duct, bifurcation, left intrahepatic duct(s), left main hepatic duct, right intrahepatic duct(s) and right main hepatic duct. Sludge was swept from the duct. All stones were removed. One stent was removed from the biliary tree using a snare and sent for cytology. The stent was found to be partially occluded via the water column test. Impression: - The entire biliary tree was dilated, with a stone causing an obstruction. - Choledocholithiasis was found. Complete removal was accomplished by biliary sphincterotomy and balloon extraction. - A biliary sphincterotomy was performed. - The biliary tree was swept. - One stent was removed from the biliary tree. Procedure Code(s): --- Professional --- 55140, Endoscopic retrograde cholangiopancreatography (ERCP); with removal of foreign body(s) or stent(s) from biliary/pancreatic duct(s) 37916, Endoscopic retrograde cholangiopancreatography (ERCP); with removal of calculi/debris from biliary/pancreatic duct(s) 25092, Endoscopic retrograde cholangiopancreatography (ERCP); with sphincterotomy/papillotomy 33377, 26, Endoscopic catheterization of the biliary ductal system, radiological supervision and interpretation CPT copyright 2021 [employer]. All rights reserved. The codes documented in this report are preliminary and upon assessment consultant review may be revised to meet current compliance requirements. Khadar Cortez DO 10/21/2024 12:38:39 PM This report has been signed electronically. Number of Addenda: 0 Note Initiated On: 10/21/2024 11:20 AM 10/21/24 1238 Date _ Khadar Cortez DO Cosigner Signature: Date (if indicated) CC: DONNIE Pierre; Khadar Cortez DO ~ Date Dictated: 10/21/24 1120 Date Transcribed: Reporter Anchor: RF Signed [facility]04-10-2025 History and physical note [facility] Medical Records Department [address] [place] [address] History & Physical Exam 10/21/24 1124 MR#: [id number] Acct: [id number] Name: REYNA NULL Rep #:[id number] : 1980 44 From: Khadar Cortez DO PCP: Cheryl Pierre PA-C Status:REG S DC Location: [place] [address] HPI - General General Date of Admission: 10/21/24 Date of Service: 10/21/24 Chief Complaint: stent removal HPI Narrative REYNA NULL, is a 44 F who presents for spent removal Labs 09/25/2024 total bilirubin 1.22, AST 91, ALT 195, alkaline phosphatase 274 09/24/2024 total bili 2.10, AST 188, ALT 273, alkaline phosphatase 305 09/23/2024 total bilirubin 2.78, AST 281, ALT 361, alkaline phosphatase 355 ERCP 09/24/2024 One 10 Fr by 5 cm temporary stent with no internal flaps was placed 5 cm into the common bile duct. Bile flowed through the stent. The stent was in good position. MRCP 1. Distended gallbladder with cholelithiasis and a small stone in the gallbladder neck which could be a source of biliary colic. No convincing MR evidence of acute cholecystitis. 2. Mild biliary dilatation without visualized definite choledocholithiasis or other obstructing process evident by noncontrast MRCP. Findings could reflect a previously passed gallstone, ampullary stenosis,or perhaps less likely an occult ampullary lesion. Correlate with serum bilirubin and recommend clinical follow-up as indicated. 3. Mild splenomegaly with hepatic steatosis better depicted previously given nondedicated MRCP. Correlate for clinical and laboratory evidence of chronic liver disease. 4. 3 mm presumably cystic focus within the pancreatic head/uncinate process, possible tiny cystic neoplasm such as an IPMN. Recommend follow-up MRI abdomen with and without contrast and with MRCP in 2 years per ACR recommendations, to evaluate stability. 5. Additional description as above. - she does still get nauseated with PO intake at times - she reports a history of intermittent episodes of abdominal pain - mild nausea, denies any emesis -Occasional heartburn, takes OTC Pepcid - denies any ongoing pain -Denies any weight loss - was having diarrhea but stool are getting back to normal -Nausea in the morning but resolves PFSH Medical History Wears glasses Gastric reflux Non-smoker CPAP (continuous positive airway pressure) dependence Sleep apnea Hypertension Home Medications ?Medication ?Instructions ?Recorded ?Last Taken ?Type losartan 25 mg tablet 25 mg PO DAILY 09/23/24 Unkn own History pantoprazole 40 mg tablet,delayed 40 mg PO QDAY #90 ta bs 10/07/24 Unknown Rx release sodium sul 1.479 gram-potas ch See Rx Instructions PO PER PKG DIR 10/07/24 Unknown Rx 0.188 gram-magnes sul 0.225 gram #24 tabs tablet (Sutab) Allergy/AdvReac Type Severity Reaction Status Date / Time No Known Allergies Allergy Verified 10/21/24 10:36 Surgical History History of ERCP Social History Smoking Status: Never smoker ROS Constitutional Constitutional: Denies fatigue, fever(s), poor appetite, weight gain or weight loss Gastrointestinal Gastrointestinal: Denies belching, bloating, change in bowel habits, change in stool character, chewing difficulty, coffee ground emesis, constipation, cramping, diarrhea, dyspepsia, dysphagia, earlysatiety, excessive flatus, fecalincontinence, heartburn, hematemesis, hematochezia, hemorrhoids, loose stools, melena, nausea, odynophagia, rectal bleeding, tenesmus, vomiting or weight changes Vital Signs Vital Signs Vital Signs: 10/21/24 10:36 10/21/24 10:36 10/21/24 11:11 Temperature 98 F 98 F Temperature Source Temporal Pulse Rate 88 88 Respiratory Rate 16 16 Respiratory Pattern Normal Blood Pressure 150/94 H 150/94 H Blood Pressure Mean 112 Blood Pressure Source Monitor Blood Pressure Position Semi-Fowlers Blood Pressure Location Left Forearm Pulse Ox 99 99 Oxygen Delivery Method Room Air Room Air Weight Weight: 278 lb 14.156 oz Body Mass Index (BMI) 49.4 Physical Exam Const alert, oriented x3, no apparent distress and healthy appearing General Appearance: cooperative GI normal to inspection, nondistended, normoactive bowel sounds, soft to palpation,non-tender and non-distended Percussion: normal to percussion Rectal Exam: deferred Results Lab / Micro Data Labs: Laboratory Results - last 24 hr 10/21/24 10:25: Urine Test Negative Assessment & Plan Assessment/Plan (1) Elevated transaminase measurement: (2) Choledocholithiasis with obstruction: PLAN: Assessment and Plan Assessment and Plan (1) Choledocholithiasis with obstruction: Status: Acute (2) Elevated transaminase measurement: Status: Acute Orders: Orders Liver Profile Today K80.51 - Calculus of bile duct without cholangitis or cholecystitis with obstruction, R74.01 - Elevation of levels of liver transaminase levels Medications: New pantoprazole 40 mg PO QDAY 90 tabs 1RF sod sulf-pot chloride-mag sulf 1.479-0.188- 0.225 gram (Sutab) as directed for split dose bowel prep 24 tabs 0RF ondansetron HCl 4 mg orally; take two tablets PO two hours prior to start ofbowel prep and one every 4 hours as needed for N/V 5 tabs 0RF Discontinued ciprofloxacin HCl Discontinued Reason: Pt no longer taking 500 mg PO BID 10 days 20 tabs 0RF metronidazole Discontinued Reason: Pt no longer taking 500 mg PO TID 10 days 30 tabs 0RF Plan 44-year-old female presents for consultation with complaints of abdominal pain. She was admitted 09/23/2024 to 09/25/2024 for hyperbilirubinemia, abdominal pain and transaminitis secondary to choledocholithiasis. ERCP confirmed choledocholithiasis. Sphincterotomy with balloon extraction was performed, temporary stent was placed. She presents today for follow-up post admission with resolution of abdominal pain. She will complete labs today and schedule ERCP with stent removal in 4 weeks. We have discussed cholecystectomy and she declines at this time. She is due for an age-related screening colonoscopy and we will schedule this in the near future. Patient Instructions: ERCP with stent removal in 4 weeks Colonoscopy-Sutab bowel prep 10/21/24 1126 Cosigner Signature (if applicable): CC: DONNIE Pierre; Khadar Cortez DO~ Signed [facility]04-10-2025 [facility] Medical Records Department [address] [place] [address] History Physical Exam 10/21/24 1124 MR#: [id number] Acct: [id number] Name: REYNA NULL Rep #: [id number] : 1980 44 From: Khadar Cortez DO PCP: Cheryl Pierre PA-C Status:REG [facility] Location: [place] [address] HPI - General General Date of Admission: 10/21/24 Date of Service: 10/21/24 Chief Complaint: stent removal HPI Narrative REYNA NULL, is a 44 F who presents for spent removal Labs 09/25/2024 total bilirubin 1.22, AST 91, ALT 195, alkaline phosphatase 274 09/24/2024 total bili 2.10, AST 188, ALT 273, alkaline phosphatase 305 09/23/2024 total bilirubin 2.78, AST 281, ALT 361, alkaline phosphatase 355 ERCP 09/24/2024 One 10 Fr by 5 cm temporary stent with no internal flaps was placed 5 cm into the common bile duct. Bile flowed through the stent. The stent was in good position. MRCP 1. Distended gallbladder with cholelithiasis and a small stone in the gallbladder neck which could be a source of biliary colic. No convincing MR evidence of acute cholecystitis. 2. Mild biliary dilatation without visualized definite choledocholithiasis or other obstructing process evident by noncontrast MRCP. Findings could reflect a previously passed gallstone, ampullary stenosis, or perhaps less likely an occult ampullary lesion. Correlate with serum bilirubin and recommend clinical follow-up as indicated. 3. Mild splenomegaly with hepatic steatosis better depicted previously given nondedicated MRCP. Correlate for clinical and laboratory evidence of chronic liver disease. 4. 3 mm presumably cystic focus within the pancreatic head/uncinate process, possible tiny cystic neoplasm such as an IPMN. Recommend follow-up MRI abdomen with and without contrast and with MRCP in 2 years per ACR recommendations, to evaluate stability. 5. Additional description as above. - she does still get nauseated with PO intake at times - she reports a history of intermittent episodes of abdominal pain - mild nausea, denies any emesis -Occasional heartburn, takes OTC Pepcid - denies any ongoing pain -Denies any weight loss - was having diarrhea but stool are getting back to normal -Nausea in the morning but resolves PFSH Medical History Wears glasses Gastric reflux Non-smoker CPAP (continuous positive airway pressure) dependence Sleep apnea Hypertension Home Medications ???Medication ???Instructions ???Recorded ???Last Taken ???Type losartan 25 mg tablet 25 mg PO DAILY 09/23/24 Unknown Hi story pantoprazole 40 mg tablet,delayed 40 mg PO QDAY #90 tabs 10/07/24 U nknown Rx release sodium sul 1.479 gram-potas ch See Rx Instructions PO PER PKG DIR 10/07/24 Unknown Rx 0.188 gram-magnes sul 0.225 gram #24 tabs tablet (Sutab) Allergy/AdvReac Type Severity Reaction Status Date / Time No Known Allergies Allergy Verified 10/21/24 10:36 Surgical History History of ERCP Social History Smoking Status: Never smoker ROS Constitutional Constitutional: Denies fatigue, fever(s), poor appetite, weight gain or weight loss Gastrointestinal Gastrointestinal: Denies belching, bloating, change in bowel habits, change in stool character, chewing difficulty, coffee ground emesis, constipation, cramping, diarrhea, dyspepsia, dysphagia, early satiety, excessive flatus, fecal incontinence, heartburn, hematemesis, hematochezia, hemorrhoids, loose stools, melena, nausea, odynophagia, rectal bleeding, tenesmus, vomiting or weight changes Vital Signs Vital Signs Vital Signs: 10/21/24 10:36 10/21/24 10:36 10/21/24 11:11 Temperature 98 F 98 F Temperature Source Temporal Pulse Rate 88 88 Respiratory Rate 16 16 Respiratory Pattern Normal Blood Pressure 150/94 H 150/94 H Blood Pressure Mean 112 Blood Pressure Source Monitor Blood Pressure Position Semi-Fowlers Blood Pressure Location Left Forearm Pulse Ox 99 99 Oxygen Delivery Method Room Air Room Air Weight Weight: 278 lb 14.156 oz Body Mass Index (BMI) 49.4 Physical Exam Const alert, oriented x3, no apparent distress and healthy appearing General Appearance: cooperative GI normal to inspection, nondistended, normoactive bowel sounds, soft to palpation, non-tender and non- distended Percussion: normal to percussion Rectal Exam: deferred Results Lab / Micro Data Labs: Laboratory Results - last 24 hr 10/21/24 10:25: Urine Test Negative Assessment Plan Assessment/Plan (1) Elevated transaminase measurement: (2) Choledocholithiasis with obstruction: PLAN: Assessment and Plan As (more content not included)...[facility]04-10-2025 Consult note [facility] Medical Records Department [address] [place] [address] Pre-Anesthesia Evaluation 10/21/24 1104 MR#: [id number] Acct: [id number] Name: REYNA NULL Rep #:[id number] : 1980 44 From: Phillip Gandara MD PCP: Cheryl Pierre PA-C Status:REG S DC Y Race: C Location: [place] [address] ASA Classification* ASA Classification ASA Classification: 3 Assessment & Plan Anesthesia* Anesthesia Assessment Anesthesia Assessment: Discussed sedation and/or anesthesia options, risks, benefits, and alternatives with patient/parents/legal guardian/POA. Questions invited. The patient/parents/legal guardian/POA seems to understand and agrees to proceedwith anesthesia plan. Reviewed the physical assessment, medical history, allergy history and patient home medications list prior to surgery/procedure/anesthetic and documented any changes. Performed airway and anesthesia risk assessments. Anesthesia Type Anesthesia Type: MAC History Source History Obtained from:: Patient and Chart Anesthesia Focused Assessment* Temperature: 98 F Pulse Rate: 88 Blood Pressure: 150/94 Respiratory Rate: 16 Pulse Ox: 99 Oxygen Delivery Method: Room Air Airway Assessment Mouth opens: 2 cm Mallampati Score: IV Teeth Condition: Intact Neck Range of motion (ROM): Limited ROM (Somewhat decreased extension) Focused Labs Anesthesia Preop lab: CBC WBC 6.9 K/mm3 (4.4-11.0) 09/25/24 06:09/25/24 RBC 4.22 M/mm3 (4.2-5.4) 09/25/24 06:33 09/25/24 Hgb 12.3 g/dL (12.0-15.0) 09/25/24 06:09/25/24 Hct 39.1 % (37-47) 09/25/24 06:09/25/24 Plt Count 358 K/mm3 (150-450) 09/25/24 06:09/25/24 CHEMISTRY Potassium 3.5 mmol/L (3.3-5.1) 09/25/24 06:09/25/24 Sodium 139 mmol/L (133-145) 09/25/24 06:09/25/24 Magnesium 2.1 mg/dL (1.5-2.2) 09/23/24 18:47 09/23/24 Phosphorus 2.5 mg/dL (2.7-4.5) L 09/25/24 06:09/25/24 BUN 8 mg/dL (4-19) 09/25/24 06:09/25/24 Creatinine 0.76 mg/dL (0.70-1.20) 09/25/24 06:33 09/25/24 Glucose 115 mg/dL (70-99) H 09/25/24 06:33 09/25/24 TSH 2.100 uIU/mL (0.300-4.200) 09/23/24 18:47 09/11 10/05 COAG Urine Test Negative Negative 10/21/24 10:25 10/21/24 Pre-Assessment Diagnosis/Proposed Procedure Planned Operative Procedure(s): ERCP Anesthesia History 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 When Was Last Pacemaker Check QUESTION #4 FULL TEXT: You/Your Family Experience fever (hyperthermia) with Anesthesia Last Oral Intake Last Oral intake: Last Oral Intake NPO since 00:00 10/21/24 10:36 Meds taken in AM with sips of No 10/21/24 10:36 water? Meds patient instructed to take am of surgery PONV PONV - senior commercial loan officer: PONV - senior commercial loan officer Female Yes 10/15/24 11:38 HX of Motion Sickness Yes 10/15/24 11:38 HX of N/V After Surgery No 10/15/24 11:38 Non-Smoker Yes 10/15/24 11:38 Duration of Surgery greater No 10/15/24 11:38 than 60 minutes Number of Risk Factors 3 10/15/24 11:38 PONV Score Moderate Risk 10/15/24 11:38 Height & Weight Height & Weight: Anesthesia: Height & Weight Height 5 ft 3 in 10/21/24 10:36 Weight: 126.5 kg 10/21/24 10:36 Body Mass Index (BMI) 49.4 10/21/24 10:36 Respiratory Assessment 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 Has anyone observed you stop breathing during sleep? STOP Results Positive 10/15/24 11:38 QUESTION #5 FULL TEXT : Do you snore loudly (louder than talking or can be heard through closeddoors)? 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 Specify any problems Hx of Preganancy in last 3 No 10/15/24 11:38 Months Nurse Filling Out Transfusion VCHRISTIN 10/15/24 11:38 & Questions: Date: 10/15/24 10/15/24 11:38 Time: 11:39 10/15/24 11:38 Patient unable to answer at this time (ie. confused, unrespo /Reproduction History /Reproductive History - senior commercial loan officer: /Reproductive Hx- senior commercial loan officer Hx Now No 10/15/24 11:38 Gestational Age (in weeks): EDC: Hx Hx Para Hx Section SAB No 10/15/24 11:38 [facility] Medical History Wears glasses Gastric reflux Non-smoker CPAP (continuous positive airway pressure) dependence Sleep apnea Hypertension Home Medications ?Medication ?Instructions ?Recorded ?Last Taken ?Type losartan 25 mg tablet 25 mg PO DAILY 09/23/24 Unkn own History pantoprazole 40 mg tablet,delayed 40 mg PO QDAY #90 ta bs 10/07/24 Unknown Rx release sodium sul 1.479 gram-potas ch See Rx Instructions PO PER PKG DIR 10/07/24 Unknown Rx 0.188 gram-magnes sul 0.225 gram #24 tabs tablet (Sutab) Allergy/AdvReac Type Severity Reaction Status Date / Time No Known Allergies Allergy Verified 10/21/24 10:36 Surgical History History of ERCP Social History Smoking Status: Never smoker Review of Systems (Anesthesia) ROS Narrative System reviewed and no additional complaints, except as documented. 10/21/24 1111 la MD> Date _ Phillip Reid Signature: Date CC: ~ Signed [facility]03-15-2025 Discharge summary [facility] Medical Records Department [address] [place] [address] Instructions for Home/Discharge Instructions 09/25/24 1035 MR#: [id number] Acct: [id number] Name: REYNA NULL Rep #:[id number] : 1980 44 From: Loretta Meyer MD PCP: Cheryl Pierre PA-C Status:ADM I N Discharge Instructions Diet Discharge Diet: Light diet - advance as tolerated DC O2, CPAP, BIPAP needs Home O2 Discharge instructions: No Dressing / Incision Discharge Activity: - (Increase activity as tolerated) Follow Up Care Test Results: Test results from this visit will be discussed in further detail at your follow- up appointment, if applicable. Discharge Plan Admission Admit Date/Time: 09/23/24 21:20 Primary Reason for Your Visit: Abdominal pain Attending Provider: Loretta Meyer Primary Care Provider: Cheryl Pierre Consulting Providers: Benedicto Burks Instructions Patient Instructions: Biliary Stent Dc Additional Instructions / Restrictions: DISCHARGE INSTRUCTIONS PLEASE READ *Please take this with you to your next doctors appointment* -Start with a light diet and advance as tolerated -You will need to follow-up with Dr. Cortez with GI in his office upon discharge. Please call his office to schedule an appointment (ph. [phone]) -You will be discharged on additional 10 days of antibiotics, you will take ciprofloxacin 500 mg twice daily and metronidazole 500 mg 3 times a day -Strongly recommend against drinking alcohol while on metronidazole as the combination can cause nausea, vomiting, racing heart, and flushing of the face. Avoid alcohol for at least 3 days after lastdose of metronidazole. -Please call your primary care provider's office upon discharge to schedule a hospital follow up within 1 week. -For any concerning signs or symptoms please call 911 or proceed to the nearest emergency department Discharge Orders/Prescriptions Prescriptions: New ciprofloxacin HCl 500 mg tablet 500 mg PO BID 10 Days Qty: 20 0RF metronidazole 500 mg tablet 500 mg PO TID 10 Days Qty: 30 0RF Continued losartan 25 mg tablet 25 mg PO DAILY Referrals / Follow Up: Khadar Cortez DO [Med Staff - Active Staff] - Within 2 Weeks ( -You will need to follow-up with Dr. Cortez with GI in his office upon discharge. Please call his office to schedule an appointment (ph. [phone])) Cheryl Pierre PA-C [Primary Care Provider] - In 1 Week Disposition Disposition (needs filled in before D/C Order can be placed): Home, Self Care 09/25/24 1038Loretta Meyer MD CC: DONNIE Pierre; Dr. Benedicto Burks DO ~ Signed [facility]03-15-2025 [facility] Medical Records Department [address] [place] [address] Discharge Summary 09/25/24 1038 MR#: [id number] Acct: [id number] Name: REYNA NULL Rep #: [id number] : 1980 44 From: Loretta Meyer MD PCP: Cheryl Pierre PA-C Status:DIS IN Location: [place] [address] Providers Date of Admission: 09/23/24 Date of Discharge: 09/25/24 Primary Care Physician: Cheryl Pierre PA-C Consultations 09/23/24 22:18 Consult: Gastroenterology Routine Consulting Provider: [facility] Reason for Consult: CBD obstruction with Transaminitis. EMERGENT Consult: No MD Notified: Yes Date Notified: 09/23/24 Time Notified: 21:23 Method of Notification: ED Physician Initiated Reason For Visit: CBD STONES WITH TRANSAMINITIS Diagnosis Discharge Diagnosis (1) Hyperbilirubinemia: Status: Acute Code(s): E80.6 - Other disorders of bilirubin metabolism (2) Transaminitis: Status: Acute Code(s): R74.01 - Elevation of levels of liver transaminase levels (3) Abdominal pain: Status: Acute Code(s): R10.9 - Unspecified abdominal pain Qualifiers: Abdominal location: right upper quadrant Qualified Code(s): R10.11 - Right upper quadrant pain (4) Morbid obesity with BMI of 45.0-49.9, adult: Status: Acute Code(s): E66.01 - Morbid (severe) obesity due to excess calories; Z68.42 - Body mass index [BMI] 45.0-49.9, adult (5) Choledocholithiasis with obstruction: Status: Acute Code(s): K80.51 - Calculus of bile duct without cholangitis or cholecystitis with obstruction Plan # Choledocholithiasis #Hypertension #Morbid obesity Medications at Discharge Home Medications losartan 25 mg tablet 25 mg PO DAILY 09/23/24 ciprofloxacin HCl 500 mg tablet 500 mg PO BID 10 days #20 tabs 09/25/24 metronidazole 500 mg tablet 500 mg PO TID 10 days #30 tabs 09/25/24 Hospital Course Procedures - (mrcp, ercp) Summary of Care Provided Minutes Spent on Discharge: 22 Hospital Course: 44-year-old female with history of hypertension presented [facility] ED 09/23/2024 after an episode of right upper quadrant pain and was found to have elevated liver function tests and elevated bili, gallbladder ultrasound in the ED showed dilated common bile duct with likely stone obstruction. Patient started on antibiotics, admitted, MRCP and GI consult ordered. MRCP with distended gallbladder with cholelithiasis and small stone in gallbladder neck and patient was taken for ERCP. ERCP showed dilated ducts with a stone causing obstruction, choledocholithiasis, with complete removal via biliary sphincterotomy and balloon extraction, biliary tree swept and temporary stent placed in common bile duct. Patient transferred back to floor. Patient tolerated this very well, labs improved, patient with no further symptoms. Discussed with GI, patient can be discharged in stable condition on 10 more days of antibiotics. Discussed with patient she reports she is feeling very well and would like to be discharged, discussed advancing diet as tolerated at home as she did not want to stay to advance diet prior to discharge, given her total clinical stability and that she never had symptoms or complaints after she was admitted feel this is reasonable. Patient completely asymptomatic and all questions answered. Discharge instructions as follows: -Start with a light diet and advance as tolerated -You will need to follow-up with Dr. Cortez with GI in his office upon discharge. Please call his office to schedule an appointment (ph. [phone]) -You will be discharged on additional 10 days of antibiotics, you will take ciprofloxacin 500 mg twice daily and metronidazole 500 mg 3 times a day -Strongly recommend against drinking alcohol while on metronidazole as the combination can cause nausea, vomiting, racing heart, and flushing of the face. Avoid alcohol for at least 3 days after last dose of metronidazole. -Please call your primary care provider's office upon discharge to schedule a hospital follow up within 1 week. -For any concerning signs or symptoms please call 911 or proceed to the nearest emergency department Physical Exam Narrative General: Alert, oriented, no apparent distress HEENT: Atraumatic, normocephalic Eyes: Anicteric, normal conjunctiva, extraocular movements grossly intact Neck: Supple Respiratory:normal respiratory effort Cardiovascular: Regular rate and rhythm GI: Soft, nontender, nondistended Extremities: No edema Musculoskeletal: Moving all extremities Neuro: No overt focal neurological deficits Skin: No rashes appreciated Psych: Cooperative Weight / BMI Weight Weight: 127.4 kg Body Mass Index (BMI) 47.9 ABG / Lab / Microbiology Data 09/25/24 06:33 09/25/24 06:33 Laboratory: Laboratory Results - last 24 hr (more content not included)...[facility]03-14-2025 Consult note Author Dallin hernan [facility] Note Date/Time September 24, 2024 5:0 3pm [facility] Medical Records Department [address] [place] [address] Anesthesia Postop Eval II 09/24/24 1703 MR#: [id number] Acct: [id number] Name: REYNA NULL Rep #:[id number] : 1980 44 From: Dallin Rizzo MD PCP: Cheryl Pierre PA-C Status:ADM I N Y Race: C Location: MS3 MS304 -1 Anesthesia Postop Eval I Sum Postop Eval Completion status Anesthesia document: Postop Eval 1 completed: Yes Anesthesia Postop Eval I Summary Anesthesia Postop Eval I Summary: Anesthesia Postop Eval I: Assessment Summary Airway patent Yes 09/24/24 16:43 [email or web address] Spontaneous unlabored Yes 09/24/24 16:43 [email or web address] [email or web address] respirations Mental status Awake 09/24/24 16:43 [email or web address] nausea No 09/24/24 16:43 [email or web address] Vomiting No 09/24/24 16:43 [email or web address] Anesthesia Postop Eval I: Fluid Summary Crystalloid volume administer 500 09/24/24 16:43 [email or web address] (ml) Colloids volume administered ( ml) Blood Product volume administered (ml) Total IV fluid infused 500 09/24/24 16:43 [email or web address] Anesthesia Postop Eval I: Summary Notes Anesthesia Complication No 09/24/24 16:43 [email or web address] Anesthesia Complication Comment: Post-operative progress note Anesthesia: Postop Eval II Evaluation Mental status: Awake Pain Level: 0 nausea: No Vomiting: No 09/24/24 1703 <Electronically signed by Dallin Rizzo MD > Date _ Dallin Rizzo MD Cosigner Signature: Date CC: ~ Signed [facility] Work Phone: 1(149) 100-986403-14-2025 Consult note Author Eliseo Patino [facility] Note Date/Time September 24, 2024 4:4 3pm [facility] Medical Records Department [address] [place] [address] Anesthesia Postop Eval I 09/24/24 1642 MR#: [id number] Acct: [id number] Name: REYNA NULL Rep #:[id number] : 1980 44 From: Eliseo Patino CRNA PCP: Cheryl Pierre PA-C Status:ADM I N Y Race: C Location: [place]3 MS304 -1 Anesthesia: Postop Eval I Current Vital Signs Temperature: 97.5 F Pulse Rate: 87 Blood Pressure: 145/91 Respiratory Rate: 20 Pulse Ox: 94 Oxygen Delivery Method: Nasal Cannula Oxygen Flow Rate (L/min): 4 Assessment Airway patent: Yes Spontaneous unlabored respirations: Yes Mental status: Awake nausea: No Vomiting: No Anesthesia Complication: No Fluid Hydration Crystalloid volume administer (ml): 500 Total IV fluid infused: 500 Progress Note Anesthesia document: Postop Eval 1 completed: Yes 09/24/24 1643 <Electronically signed by Eliseo talavera CRNA> Date _ Eliseo Patino NAVIGATION TEACHER Cosigner Signature: Date CC: ~ Signed [facility] Work Phone: 1(868) 129-984303-14-2025 Progress note Author Khadar Cortez [facility] Note Date/Time September 24, 2024 3:2 8pm [facility] Medical Records Department [address] [place] [address] Progress Note 09/24/24 1526 MR#: [id number] Acct: [id number] Name: REYNA NULL Rep #:[id number] : 1980 44 From: Khadar Cortez DO PCP: Cheryl Pierre PA-C Status:ADM I N Location: [place] [address] Progress Note Patient has been n.p.o. for ERCP today. She still having some right upper quadrant pain but the nausea is little better. She has been afebrile. She is on antibiotics. Physical Exam Narrative General: Alert, oriented, no apparent distress HEENT: Atraumatic, normocephalic Eyes: Anicteric, normal conjunctiva, extraocular movements grossly intact Neck: Supple Respiratory:normal respiratory effort Cardiovascular: Regular rate and rhythm GI: Soft, nontender, nondistended Extremities: No edema Musculoskeletal: Moving all extremities Neuro: No overt focal neurological deficits Skin: No rashes appreciated Psych: Cooperative Assessment & Plan Assessment/Plan (1) Hyperbilirubinemia: (2) Transaminitis: (3) Abdominal pain: QUALIFIERS: Abdominal location: right upper quadrant Qualified Code(s): R10.11 - Right upper quadrant pain (4) Morbid obesity with BMI of 45.0-49.9, adult: PLAN: Plan Very pleasant 44-year-old with past medical history of obesity and hypertension presents with right upper quadrant pain and discovered to have cholestatic hepatitis with jaundice right upper quadrant pain with suspicion for choledocholithiasis -Patient with pain and nausea for several hours prior to arrival, pain-free at this time -Found to have elevation of bili and liver function test, still elevated but down trended -Gallbladder ultrasound showed abnormally dilated CBD with a stone in the distalcommon bile duct with obstruction without evidence of cholecystitis -MRCP ordered and demonstrated distended gallbladder with cholelithiasis and small stone in gallbladder neck, patient for ERCP -Patient on Zosyn She was explained alternatives, risk and benefits including withstanding bleeding, infection, sepsis, perforation, need for charge and . She have an ASA of 3. Visit Charges Inpatient E&M: 49555 Subs Hosp L3 09/24/24 7198 <Electronically signed by Khadar Cortez DO> Khadar Cortez DO Cosigner Signature (if applicable): CC: ~ Signed [facility] Work Phone: 1(769) 721-732103-14-2025 Consult note Author Dallin Rizzo [facility] Note Date/Time September 24, 2024 3:1 5pm [facility] Medical Records Department [address] [place] [address] Pre-Anesthesia Evaluation 09/24/24 1514 MR#: [id number] Acct: [id number] Name: REYNA NULL Rep #:[id number] : 1980 44 From: Dallin Rizzo MD PCP: Cheryl Pierre PA-C Status:ADM I N Y Race: C Location: [place] [address] ASA Classification* ASA Classification ASA Classification: 3 Assessment & Plan Anesthesia* Anesthesia Assessment Anesthesia Assessment: Discussed sedation and/or anesthesia options, risks, benefits, and alternatives with patient/parents/legal guardian/POA. Questions invited. The patient/parents/legal guardian/POA seems to understand and agrees to proceedwith anesthesia plan. Reviewed the physical assessment, medical history, allergy history and patient home medications list prior to surgery/procedure/anesthetic and documented any changes. Performed airway and anesthesia risk assessments. Anesthesia Type Anesthesia Type: General Anesthesia Focused Assessment* Temperature: 99.1 F Pulse Rate: 73 Blood Pressure: 158/103 Respiratory Rate: 16 Pulse Ox: 99 Oxygen Flow Rate (L/min): 2 Airway Assessment Mouth opens: >3 cm Mallampati Score: II Focused Labs Anesthesia Preop lab: CBC WBC 5.0 K/mm3 (4.4-11.0) 09/24/24 05:36 09/24/24 RBC 4.10 M/mm3 (4.2-5.4) L 09/24/24 05:36 09/24/24 Hgb 12.0 g/dL (12.0-15.0) 09/24/24 05:36 09/24/24 Hct 37.9 % (37-47) 09/24/24 05:36 09/24/24 Plt Count 334 K/mm3 (150-450) 09/24/24 05:36 09/24/24 CHEMISTRY Potassium 3.5 mmol/L (3.3-5.1) 09/24/24 05:36 09/24/24 Sodium 141 mmol/L (133-145) 09/24/24 05:36 09/24/24 Magnesium 2.1 mg/dL (1.5-2.2) 09/23/24 18:47 09/23/24 Phosphorus 2.7 mg/dL (2.7-4.5) 09/24/24 05:36 09/24/24 BUN 8 mg/dL (4-19) 09/24/24 05:36 09/24/24 Creatinine 0.79 mg/dL (0.70-1.20) 09/24/24 05:36 09/24/24 Glucose 105 mg/dL (70-99) H 09/24/24 05:36 09/24/24 TSH 2.100 uIU/mL (0.300-4.200) 09/23/24 18:47 09/11 10/05 COAG Urine Test Negative Negative 09/23/24 19:00 09/23/24 Pre-Assessment Diagnosis/Proposed Procedure Planned Operative Procedure(s): ERCP Anesthesia History Anesthesia History - senior commercial loan officer: Anesthesia History - senior commercial loan officer Hx Hospitalization Any Problems With Anesthesia No: 2- births- never had 09/24/24 09:40 anesthesia Cholinesterase deficiency No 09/24/24 09:40 You/Your Family Experience No 09/24/24 09:40 fever (hyperthermia) with Relationship Recent Exposure to Contagious No 09/24/24 09:40 Disease Does patient have nerve No 09/24/24 09:40 stimulator Patient instructed to have No 09/24/24 09:40 device shut off --Does patient have Pacemaker No 09/24/24 13:00 or ICD? When Was Last Pacemaker Check QUESTION #4 FULL TEXT: You/Your Family Experience fever (hyperthermia) with Anesthesia Last Oral Intake Last Oral intake: Last Oral Intake NPO since 00:00 09/24/24 13:00 Meds taken in AM with sips of water? Meds patient instructed to take am of surgery PONV PONV - senior commercial loan officer: PONV - senior commercial loan officer Female HX of Motion Sickness HX of N/V After Surgery Non-Smoker Duration of Surgery greater than 60 minutes Number of Risk Factors PONV Score Height & Weight Height & Weight: Anesthesia: Height & Weight Height 5 ft 4 in 09/24/24 13:18 Weight: 126.6 kg 09/24/24 13:18 Body Mass Index (BMI) 47.9 09/24/24 13:00 Respiratory Assessment Respiratory Assessment - senior commercial loan officer: Respiratory Tract Infection Hx - senior commercial loan officer Hx Respiratory Tract Infection Yes: beginning of this week 09/24/24 09:40 - cold STOP Sleep Apnea STOP Sleep Apnea - senior commercial loan officer: STOP Sleep Apnea - senior commercial loan officer Hx Hypertension Yes 09/23/24 22:10 Hx Sleep Apnea Yes 09/23/24 22:10 CPAP Yes 09/23/24 22:10 BIPAP No 09/23/24 22:10 Do you snore loudly (louder than talking or can be heard Do you often feel tired/ fatigued/ sleepy during daytime? Has anyone observed you stop breathing during sleep? STOP Results Positive 09/23/24 22:10 QUESTION #5 FULL TEXT : Do you snore loudly (louder than talking or can be heard through closed doors)? Tobacco Use History Tobacco Use History - senior commercial loan officer: Tobacco Use History - senior commercial loan officer Tobacco Use Smoking Status Never smoker 09/23/24 22:10 Hx Tobacco Use No 09/23/24 22:10 Years Smoking Packs Smoked per Day Smoking Cessation Date was within the last 15 years Hx Smoking Cessation Date Hx Smoking Cessation Counseling Hematologic Medial History Hematologic Hx - senior commercial loan officer: Hematologic Medical Hx - systems coordinator Hx of Blood Transfusion No 09/23/24 22:10 Hx of Transfusion in last 3 No 09/23/24 22:10 Months Date of Last Transfusion (if within last 3 months) Ever experience any problems No 09/23/24 22:10 with transfusion(s)? Specify any problems Hx of Preganancy in last 3 No 09/23/24 22:10 Months Nurse Filling Out Transfusion EVIZZO 09/23/24 22:10 & Questions: Date: 09/23/24 09/23/24 22:10 Time: 22:14 09/23/24 22:10 Patient unable to answer at this time (ie. confused, unrespo /Reproduction History /Reproductive History - senior commercial loan officer: /Reproductive Hx- senior commercial loan officer Hx Now No 09/24/24 14:39 Gestational Age (in weeks): EDC: Hx Hx Para Hx Section SAB No 09/24/24 14:39 Active Medications Active Medications: Current Medications Generic Name Dose Route Start Last Admin Trade Name Freq PRN Reason Stop Dose Admin Piperacillin Sod/Tazobactam 50 mls @ 12.5 mls/hr 09/24/24 06:00 09/24/24 13:10 Sod 3.375 gm/ Sodium Chloride IV 12.5 mls/hr Q8 REAGAN Administration Pantoprazole Sodium 40 mg/ 110 mls @ 330 mls/hr 09/23/24 22:18 09/24/24 09:49 Sodium Chloride IV Infused DAILY REAGAN Infusion Morphine Sulfate 2 mg 09/23/24 22:18 Morphine 2 Mg/Ml Syringe IV Q4H PRN PRN Pain Score 6-10 Ondansetron HCl 4 mg 09/23/24 22:18 Ondansetron 4 Mg/2 Ml Vial IV Q6H PRN PRN NAUSEA/VOMITING Promethazine HCl 12.5 mg 09/23/24 22:18 Promethazine 25 Mg/Ml Syringe IM Q4H PRN PRN BREAKTHROUGH NAUSEA Sodium Chloride 10 - 40 ml 09/23/24 22:11 09/24/24 13:10 0.9% Saline Lock 10 Ml Syringe IV 10 ml UD PRN Administration SALINE FLUSH PFSH Medical History Hypertension Medical History no medical history Home Medications ?Medication ?Instructions ?Recorded ?Last Taken ?Type losartan 25 mg tablet 25 mg PO DAILY 09/23/24 Unkn own History Allergy/AdvReac Type Severity Reaction Status Date / Time No Known Allergies Allergy Verified 09/23/24 18:14 Family History no significant family his Surgical History no surgical history Social History Smoking Status: Never smoker Review of Systems (Anesthesia) ROS Narrative System reviewed and no additional complaints, except as documented. 09/24/24 1515 <Electronically signed by Dallin Rizzo MD > Date _ Dallin Rizzo MD Cosigner Signature: Date CC: ~ Signed [facility] Work Phone: [phone] 682-893703-14-2025 Consult note [facility] Medical Records Department [address] [place] [address] Anesthesia Postop Eval II 09/24/24 1703 MR#: [id number] Acct: [id number] Name: REYNA NULL Rep #:[id number] : 1980 44 From: Dallin Rizzo MD PCP: Cheryl Pierre PA-C Status:ADM I N Y Race: C Location: [place] [address] Anesthesia Postop Eval I Sum Postop Eval Completion status Anesthesia document: Postop Eval 1 completed: Yes Anesthesia Postop Eval I Summary Anesthesia Postop Eval I Summary: Anesthesia Postop Eval I: Assessment Summary Airway patent Yes 09/24/24 16:43 [email or web address] Spontaneous unlabored Yes 09/24/24 16:43 NAVIGATION [email or web address] respirations Mental status Awake 09/24/24 16:43 NAVIGATION [email or web address] nausea No 09/24/24 16:43 NAVIGATION [email or web address] Vomiting No 09/24/24 16:43 [email or web address] Anesthesia Postop Eval I: Fluid Summary Crystalloid volume administer 500 09/24/24 16:43 NAVIGATION [email or web address] (ml) Colloids volume administered ( ml) Blood Product volume administered (ml) Total IV fluid infused 500 09/24/24 16:43 [email or web address] Anesthesia Postop Eval I: Summary Notes Anesthesia Complication No 09/24/24 16:43 [email or web address] Anesthesia Complication Comment: Post-operative progress note Anesthesia: Postop Eval II Evaluation Mental status: Awake Pain Level: 0 nausea: No Vomiting: No 09/24/24 1703 > Date _ Dallin So Reid Signature: Date CC: ~ Signed [facility]03-14-2025 Radiology Diagnostic study note [facility] Imaging Services [address] [place] [address] ERCP Biliary/Pancreas MR#: [id number] Acct: [id number] Name: REYNA NULL Rep #: [id number] : 1980 F 44 From: Crow Rocha MD PCP: Cheryl Pierre PA-C Status: ADM I N Study:ERCP Biliary/Pancreas Date of Exam: 09/24/24 Exam# [id number] Ordering Dr: Jamel Cortez DO PROCEDURE: ERCP BILIARY/PANCREAS REASON FOR EXAM: ERCP TECHNIQUE: ERCP imaging using fluoroscopic technique COMPARISON: None FINDINGS: Eight images performed demonstrating cannulization of the bile duct with balloonsweeping. Eight images performed with 10.8 seconds of fluoroscopy time using 3.88 mGy of dose RAD/ERCP Biliary/Pancreas IMPRESSION: ERCP imaging. Please see procedure note Reading Location: [facility] CC: DONNIE Haro Rahsaan Friend, ~ Reporter Anchor: Signed [facility]03-14-2025 Consult note [facility] Medical Records Department [address] [place] [address] Anesthesia Postop Eval I 09/24/24 1642 MR#: [id number] Acct: [id number] Name: REYNA NULL Rep #:[id number] : 1980 44 From: Eliseo Patino CRNA PCP: Cheryl Pierre PA-C Status:ADM I N Y Race: C Location: [place] [address] Anesthesia: Postop Eval I Current Vital Signs Temperature: 97.5 F Pulse Rate: 87 Blood Pressure: 145/91 Respiratory Rate: 20 Pulse Ox: 94 Oxygen Delivery Method: Nasal Cannula Oxygen Flow Rate (L/min): 4 Assessment Airway patent: Yes Spontaneous unlabored respirations: Yes Mental status: Awake nausea: No Vomiting: No Anesthesia Complication: No Fluid Hydration Crystalloid volume administer (ml): 500 Total IV fluid infused: 500 Progress Note Anesthesia document: Postop Eval 1 completed: Yes 09/24/24 1643 y NAVIGATION TEACHER> Date _ Eliseo Patino NAVIGATION TEACHER Cosigner Signature: Date CC: ~ Signed [facility]03-14-2025 Procedure note [facility] Medical Records Department [address] [place] [address] Operative Report - CC Letter MR#: [id number] Acct: [id number] Name: REYNA NULL Rep #:[id number] : 1980 44 From: Khadar Cortez DO PCP: Cheryl Pierre PA-C Status:ADM I N 09/24/2024 Cheryl Pierre Re : ERCP procedure for Reyna Null Evangelista Pierre This procedure was performed on Tuesday, September 24, 2024. My impressions and recommendations are as follows: Impressions : - The gallbladder, hepatic duct system (Bismuth III), entire main bile duct, right main hepatic duct, right intrahepatic branches, common bile duct and common hepatic duct were moderately dilated, with a stone causing an obstruction. - Choledocholithiasis was found. Complete removal was accomplished by biliary sphincterotomy and balloon extraction. - A biliary sphincterotomy was performed. - The biliary tree was swept. - One temporary stent was placed into the common bile duct. Recommendations : My findings are described in the full procedure note, which is enclosed. If I can be of further assistance, please feel free to contact me at . Sincerely, Khadar Cortez DO 09/24/2024 4:31:15 PM This report has been signed electronically. 09/24/24 1631 Date _ Khadar Cortez DO Cosigner Signature: Date (if indicated) CC: DONNIE Pierre; Dr. Benedicto Burks DO; Dr. Loretta Meyer MD; Dr. Juan Jose Oseguera DO ~ Date Dictated: 09/24/24 1528 Date Transcribed: Reporter Anchor: RF Signed [facility]03-14-2025 Procedure note [facility] Medical Records Department [address] [place] [address] ERCP Report MR#: [id number] Acct: [id number] Name: REYNA NULL Rep #:[id number] : 1980 44 From: Khadar Cortez DO PCP: Cheryl Pierre PA-C Status:ADM I N Patient Name: Reyna Null Procedure Date: 09/24/2024 3:28 PM Date of : 1980 Age: 44 Procedure: ERCP Indications: Bile duct stone(s), Common bile duct stone(s), Jaundice Providers: Khadar Cortez DO Referring MD: Juan Jose Oseguera Do Medicines: Monitored Anesthesia Care Patient Profile: This is a 44 year old female. Refer to note in patient chart for documentation of history and physical. Patient has symptoms of acute right upper quadrant abdominal pain, acute jaundice and acute nausea. Complications: No immediate complications. Procedure: Pre-Anesthesia Assessment: - Prior to the procedure, a History and Physical was performed, and patient medications and allergies were reviewed. The patient is competent. The risks and benefits of the procedure and the sedation options and risks were discussed with the patient. All questions were answered and informed consent was obtained. Patient identification and proposed procedure were verified by the physician in the pre-procedure area. Mental Status Examination: alert and oriented. Airway Examination: normal oropharyngeal airway and neck mobility. Respiratory Examination: clear to auscultation. CV Examination: normal. ASA Grade Assessment: II - A patient with mild systemic disease. After reviewing the risks and benefits, the patient was deemed in satisfactory condition to undergo the procedure. The anesthesia plan was to use moderate sedation / analgesia (conscious sedation). Immediately prior to administration of medications, the patient was re-assessed for adequacy to receive sedatives. The heart rate, respiratory rate, oxygen saturations, blood pressure, adequacy of pulmonary ventilation, and response to care were monitored throughout the procedure. The physical status of the patient was re-assessed after the procedure. After obtaining informed consent, the scope was passed under direct vision. Throughout the procedure, the patient's blood pressure, pulse, and oxygen saturations were monitored continuously. The Duodenoscope was introduced through the mouth, and advanced to the duodenum and used to inject contrast into the bile duct. The ERCP was accomplished without difficulty. The patient tolerated the procedure well. Scope In: 4:06:23 PM Scope Out: 4:24:19 PM Total Procedure Duration Time 0 hours 17 minutes 56 seconds Findings: The scout executive film was normal. The esophagus was successfully intubated under direct vision. The scope was advanced to a normal major papilla in the descending duodenum without detailed examination of the pharynx, larynx and associated structures, and upper GI tract. The upper GI tract was grossly normal. The bile duct was deeply cannulated with the short-nosed traction sphincterotome. Contrast was injected. I personally interpreted the bile duct images. There was brisk flow of contrast through the ducts. Image quality was adequate. Contrast extended to the main bile duct. Contrast extended to the cystic duct. Contrast extended to the gallbladder. Contrast extended to the bifurcation. Contrast extended to the hepatic ducts. Contrast extended to the entire biliary tree. Opacification of the entire opacified area, common bile duct, cystic duct, gallbladder, common hepatic duct, hepatic duct bifurcation, left and right hepatic ducts with secondary or tertiary branches of the intrahepatic ducts (Bismuth IV), left and right hepatic ducts and all intrahepatic branches and entire biliary tree was successful. The maximum diameter of the ducts was 9 mm. The lower third of the main bile duct and gallbladder contained two stones, the largest of which was 6 mm in diameter. The entire opacified area, main bile duct, common bile duct, gallbladder, common hepatic duct, hepatic duct bifurcation, left hepatic duct with secondary or tertiary branches of the left intrahepatic ducts (Bismuth III), right main hepatic duct and right intrahepatic branches were moderately dilated and diffusely dilated, with a stone causing an obstruction. The largest diameter was 10 mm. A long 0.025 inch Jagwire was passed into the biliary tree. A 5 mm biliary sphincterotomy was made with a traction (standard) sphincterotome using ERBE electrocautery. There was no post-sphincterotomy bleeding. The biliary tree was swept with a 12 mm balloon starting at the biliary pancreatic junction, middle third of the main bile duct, bifurcation, left intrahepatic duct(s), left main hepatic duct, right intrahepatic duct(s) and right main hepatic duct. Sludge was swept from the duct. All stones were removed. One 10 Fr by 5 cm temporary stent with no internal flaps was placed 5 cm into the common bile duct. Bile flowed through the stent. The stent was in good position. Impression: - The gallbladder, hepatic duct system (Bismuth III), entire main bile duct, right main hepatic duct, right intrahepatic branches, common bile duct and common hepatic duct were moderately dilated, with a stone causing an obstruction. - Choledocholithiasis was found. Complete removal was accomplished by biliary sphincterotomy and balloon extraction. - A biliary sphincterotomy was performed. - The biliary tree was swept. - One temporary stent was placed into the common bile duct. Procedure Code(s): --- Professional --- 06365, Endoscopic retrograde cholangiopancreatography (ERCP); with placement of endoscopic stent into biliary or pancreatic duct, including pre- and post-dilation and guide wire passage, when performed, including sphincterotomy, when performed, each stent 57640, Endoscopic retrograde cholangiopancreatography (ERCP); with removal of calculi/debris from biliary/pancreatic duct(s) 07517, 26, Endoscopic catheterization of the biliary ductal system, radiological supervision and interpretation CPT copyright 2021 [employer]. All rights reserved. The codes documented in this report are preliminary and upon assessment consultant review may be revised to meet current compliance requirements. Khadar Cortez DO 09/24/2024 4:31:15 PM This report has been signed electronically. Number of Addenda: 0 Note Initiated On: 09/24/2024 3:28 PM 09/24/24 1631 Date _ Khadar Cortez DO Cosigner Signature: Date (if indicated) CC: DONNIE Pierre; Khadar Cortez DO ~ Date Dictated: 09/24/24 1528 Date Transcribed: Reporter Anchor: RF Signed [facility]03-14-2025 Progress note [facility] Medical Records Department [address] [place] [address] Progress Note 09/24/24 1526 MR#: [id number] Acct: [id number] Name: REYNA NULL Rep #:[id number] : 1980 44 From: Khadar Cortez DO PCP: Cheryl Pierre PA-C Status:ADM I N Location: [place] [address] Progress Note Patient has been n.p.o. for ERCP today. She still having some right upper quadrant pain but the nausea is little better. She has been afebrile. She is on antibiotics. Physical Exam Narrative General: Alert, oriented, no apparent distress HEENT: Atraumatic, normocephalic Eyes: Anicteric, normal conjunctiva, extraocular movements grossly intact Neck: Supple Respiratory:normal respiratory effort Cardiovascular: Regular rate and rhythm GI: Soft, nontender, nondistended Extremities: No edema Musculoskeletal: Moving all extremities Neuro: No overt focal neurological deficits Skin: No rashes appreciated Psych: Cooperative Assessment & Plan Assessment/Plan (1) Hyperbilirubinemia: (2) Transaminitis: (3) Abdominal pain: QUALIFIERS: Abdominal location: right upper quadrant Qualified Code(s): R10.11 - Right upper quadrant pain (4) Morbid obesity with BMI of 45.0-49.9, adult: PLAN: Plan Very pleasant 44-year-old with past medical history of obesity and hypertension presents with rightupper quadrant pain and discovered to have cholestatic hepatitis with jaundice right upper quadrantpain with suspicion for choledocholithiasis -Patient with pain and nausea for several hours prior to arrival, pain-free at this time -Found to have elevation of bili and liver function test, still elevated but down trended -Gallbladder ultrasound showed abnormally dilated CBD with a stone in the distalcommon bile duct with obstruction without evidence of cholecystitis -MRCP ordered and demonstrated distended gallbladder with cholelithiasis and small stone in gallbladder neck, patient for ERCP -Patient on Zosyn She was explained alternatives, risk and benefits including withstanding bleeding, infection, sepsis, perforation, need for charge and . She have an ASA of 3. Visit Charges Inpatient E&M: 88757 [facility] L3 09/24/24 1528 Khadar Friend DO Cosigner Signature (if applicable): CC: ~ Signed [facility]03-14-2025 Consult note [facility] Medical Records Department [address] [place] [address] Pre-Anesthesia Evaluation 09/24/24 1514 MR#: [id number] Acct: [id number] Name: REYNA NULL Rep #:[id number] : 1980 44 From: Dallin Rizzo MD PCP: Cheryl Pierre PA-C Status:ADM I N Y Race: C Location: [facility]304 -1 ASA Classification* ASA Classification ASA Classification: 3 Assessment & Plan Anesthesia* Anesthesia Assessment Anesthesia Assessment: Discussed sedation and/or anesthesia options, risks, benefits, and alternatives with patient/parents/legal guardian/POA. Questions invited. The patient/parents/legal guardian/POA seems to understand and agrees to proceedwith anesthesia plan. Reviewed the physical assessment, medical history, allergy history and patient home medications list prior to surgery/procedure/anesthetic and documented any changes. Performed airway and anesthesia risk assessments. Anesthesia Type Anesthesia Type: General Anesthesia Focused Assessment* Temperature: 99.1 F Pulse Rate: 73 Blood Pressure: 158/103 Respiratory Rate: 16 Pulse Ox: 99 Oxygen Flow Rate (L/min): 2 Airway Assessment Mouth opens: >3 cm Mallampati Score: II Focused Labs Anesthesia Preop lab: CBC WBC 5.0 K/mm3 (4.4-11.0) 09/24/24 05:36 09/24/24 RBC 4.10 M/mm3 (4.2-5.4) L 09/24/24 05:36 09/24/24 Hgb 12.0 g/dL (12.0-15.0) 09/24/24 05:36 09/24/24 Hct 37.9 % (37-47) 09/24/24 05:36 09/24/24 Plt Count 334 K/mm3 (150-450) 09/24/24 05:36 09/24/24 CHEMISTRY Potassium 3.5 mmol/L (3.3-5.1) 09/24/24 05:36 09/24/24 Sodium 141 mmol/L (133-145) 09/24/24 05:36 09/24/24 Magnesium 2.1 mg/dL (1.5-2.2) 09/23/24 18:47 09/23/24 Phosphorus 2.7 mg/dL (2.7-4.5) 09/24/24 05:36 09/24/24 BUN 8 mg/dL (4-19) 09/24/24 05:36 09/24/24 Creatinine 0.79 mg/dL (0.70-1.20) 09/24/24 05:36 09/24/24 Glucose 105 mg/dL (70-99) H 09/24/24 05:36 09/24/24 TSH 2.100 uIU/mL (0.300-4.200) 09/23/24 18:47 09/11 10/05 COAG Urine Test Negative Negative 09/23/24 19:00 09/23/24 Pre-Assessment Diagnosis/Proposed Procedure Planned Operative Procedure(s): ERCP Anesthesia History Anesthesia History - senior commercial loan officer: Anesthesia History - senior commercial loan officer Hx Hospitalization Any Problems With Anesthesia No: 2- births- never had 09/24/24 09:40 anesthesia Cholinesterase deficiency No 09/24/24 09:40 You/Your Family Experience No 09/24/24 09:40 fever (hyperthermia) with Relationship Recent Exposure to Contagious No 09/24/24 09:40 Disease Does patient have nerve No 09/24/24 09:40 stimulator Patient instructed to have No 09/24/24 09:40 device shut off --Does patient have Pacemaker No 09/24/24 13:00 or ICD? When Was Last Pacemaker Check QUESTION #4 FULL TEXT: You/Your Family Experience fever (hyperthermia) with Anesthesia Last Oral Intake Last Oral intake: Last Oral Intake NPO since 00:00 09/24/24 13:00 Meds taken in AM with sips of water? Meds patient instructed to take am of surgery PONV PONV - senior commercial loan officer: PONV - senior commercial loan officer Female HX of Motion Sickness HX of N/V After Surgery Non-Smoker Duration of Surgery greater than 60 minutes Number of Risk Factors PONV Score Height & Weight Height & Weight: Anesthesia: Height & Weight Height 5 ft 4 in 09/24/24 13:18 Weight: 126.6 kg 09/24/24 13:18 Body Mass Index (BMI) 47.9 09/24/24 13:00 Respiratory Assessment Respiratory Assessment - senior commercial loan officer: Respiratory Tract Infection Hx - senior commercial loan officer Hx Respiratory Tract Infection Yes: beginning of this week 09/24/24 09:40 - cold STOP Sleep Apnea STOP Sleep Apnea - senior commercial loan officer: STOP Sleep Apnea - senior commercial loan officer Hx Hypertension Yes 09/23/24 22:10 Hx Sleep Apnea Yes 09/23/24 22:10 CPAP Yes 09/23/24 22:10 BIPAP No 09/23/24 22:10 Do you snore loudly (louder than talking or can be heard Do you often feel tired/ fatigued/ sleepy during daytime? Has anyone observed you stop breathing during sleep? STOP Results Positive 09/23/24 22:10 QUESTION #5 FULL TEXT : Do you snore loudly (louder than talking or can be heard through closeddoors)? Tobacco Use History Tobacco Use History - senior commercial loan officer: Tobacco Use History - senior commercial loan officer Tobacco Use Smoking Status Never smoker 09/23/24 22:10 Hx Tobacco Use No 09/23/24 22:10 Years Smoking Packs Smoked per Day Smoking Cessation Date was within the last 15 years Hx Smoking Cessation Date Hx Smoking Cessation Counseling Hematologic Medial History Hematologic Hx - senior commercial loan officer: Hematologic Medical Hx - systems coordinator Hx of Blood Transfusion No 09/23/24 22:10 Hx of Transfusion in last 3 No 09/23/24 22:10 Months Date of Last Transfusion (if within last 3 months) Ever experience any problems No 09/23/24 22:10 with transfusion(s)? Specify any problems Hx of Preganancy in last 3 No 09/23/24 22:10 Months Nurse Filling Out Transfusion EVIZZO 09/23/24 22:10 & Questions: Date: 09/23/24 09/23/24 22:10 Time: 22:14 09/23/24 22:10 Patient unable to answer at this time (ie. confused, unrespo /Reproduction History /Reproductive History - senior commercial loan officer: /Reproductive Hx- senior commercial loan officer Hx Now No 09/24/24 14:39 Gestational Age (in weeks): EDC: Hx Hx Para Hx Section SAB No 09/24/24 14:39 Active Medications Active Medications: Current Medications Generic Name Dose Route Start Last Admin Trade Name Freq PRN Reason Stop Dose Admin Piperacillin Sod/Tazobactam 50 mls @ 12.5 mls/hr 09/24/24 06:00 09/24/24 13:10 Sod 3.375 gm/ Sodium Chloride IV 12.5 mls/hr Q8 REAGAN Administration Pantoprazole Sodium 40 mg/ 110 mls @ 330 mls/hr 09/23/24 22:18 09/24/24 09:49 Sodium Chloride IV Infused DAILY REAGAN Infusion Morphine Sulfate 2 mg 09/23/24 22:18 Morphine 2 Mg/Ml Syringe IV Q4H PRN PRN Pain Score 6-10 Ondansetron HCl 4 mg 09/23/24 22:18 Ondansetron 4 Mg/2 Ml Vial IV Q6H PRN PRN NAUSEA/VOMITING Promethazine HCl 12.5 mg 09/23/24 22:18 Promethazine 25 Mg/Ml Syringe IM Q4H PRN PRN BREAKTHROUGH NAUSEA Sodium Chloride 10 - 40 ml 09/23/24 22:11 09/24/24 13:10 0.9% Saline Lock 10 Ml Syringe IV 10 ml UD PRN Administration SALINE FLUSH PFSH Medical History Hypertension Medical History no medical history Home Medications ?Medication ?Instructions ?Recorded ?Last Taken ?Type losartan 25 mg tablet 25 mg PO DAILY 09/23/24 Unkn own History Allergy/AdvReac Type Severity Reaction Status Date / Time No Known Allergies Allergy Verified 09/23/24 18:14 Family History no significant family his Surgical History no surgical history Social History Smoking Status: Never smoker Review of Systems (Anesthesia) ROS Narrative System reviewed and no additional complaints, except as documented. 09/24/24 1515 > Date _ Dallin Patel Signature: Date CC: ~ Signed [facility]03-14-2025 Progress note Author Loretta Meyer [facility] Note Date/Time September 24, 2024 12: 38pm [facility] Medical Records Department [address] [place] [address] Progress Note - Hospitalist 09/24/24 0705 MR#: [id number] Acct: [id number] Name: REYNA NULL Rep #:[id number] : 1980 44 From: Loretta Meyer MD PCP: Cheryl Pierre PA-C Status:ADM I N Location: [place] [address] Reason for Visit Reason for Visit: Diagnoses Morbid (severe) obesity due to excess calories (09/23/24) Other disorders of bilirubin metabolism (09/23/24) Essential (primary) hypertension (09/23/24) Obstruction of bile duct (09/23/24) Right upper quadrant pain (09/23/24) Nausea (09/23/24) Elevation of levels of liver transaminase levels (09/23/24) Body mass index [BMI] 45.0-49.9, adult (09/23/24) Subjective Subjective Patient denies any pain, she is status post MRCP and has yet to go down for ERCP, no nausea or other acute complaints Objective Data Objective Data Vital Signs: Vital Signs Temp Pulse Resp BP Pulse Ox O2 Del Method O2 Flow Rate 97.9 F 84 18 150/85 H 99 Nasal Cannula 2 09/24/24 05:06 09/24/24 05:06 09/24/24 05:06 09/24/24 05:06 09/24/24 05:06 09/24/24 05:06 09/24/24 05:06 Oxygen Flow Rate (L/min) 2 Oxygen Delivery Method Nasal Cannula Weight: 126.6 kg Body Mass Index (BMI) 47.6 Intake & Output: Intake and Output for Last 24 Hours 09/22/24 09/23/24 09/24/24 23:59 23:59 23:59 Intake Total 100 / 100 982.5 / 982.5 Balance 100 / 100 982.5 / 982.5 Lab / Micro Data 09/24/24 05:36 09/24/24 05:36 Labs: Laboratory Results - last 24 hr 09/23/24 18:47: WBC 7.1, RBC 4.33, Hgb 12.7, Hct 38.9, MCV 89.8, MCH 29.3, MCHC 32.6, RDW Std Deviation 44.0 H, RDW Coeff of David 13.4, Plt Count 380, MPV 10.5, Immature Gran % (Auto) 0.700, Neut % (Auto) 59.4, Lymph % (Auto) 26.2, Angelina % (Auto) 7.6, Eos % (Auto) 5.1 H, Baso % (Auto) 1.0, Absolute Neuts (auto) 4.2, Absolute Lymphs (auto) 1.86, Nucleated RBC % 0, Sodium 142, Potassium 3.6, Chloride 107, Carbon Dioxide 21.2, Anion Gap 14, BUN 10, Creatinine 0.80, Estim Creat Clear Calc 116.98, Est GFR (MDRD) Non-Af 93, BUN/Creatinine Ratio 12.0, Glucose 93, Hemoglobin A1c 5.7, Calcium 9.2, Magnesium 2.1, Total Bilirubin 2.78 H, Direct Bilirubin 2.05 H, AST 281 H, ALT 361 H, Alkaline Phosphatase 355 H, Total Protein 7.5, Albumin 4.0, Globulin 3.5, Lipase 34, TSH 2.100 09/23/24 19:00: Urine Test Negative 09/24/24 05:36: WBC 5.0, RBC 4.10 L, Hgb 12.0, Hct 37.9, MCV 92.4, MCH 29.3, MCHC 31.7 L, RDW Std Deviation 45.5 H, RDW Coeff of David 13.3, Plt Count 334, MPV 10.9, Immature Gran % (Auto) 0.600, Neut % (Auto) 54.6, Lymph % (Auto) 28.0, Angelina % (Auto) 7.7, Eos % (Auto) 7.9 H, Baso % (Auto) 1.2 H, Absolute Neuts (auto) 2.7, Absolute Lymphs (auto) 1.39, Nucleated RBC % 0 Radiography Diagnostic Testing: Radiology Impression Gallbladder Ultrasound 09/23/24 19:24 IMPRESSION: Cholelithiasis without CT evidence for acute cholecystitis. Abnormally dilated common bile duct. A stone within the CBD/distal CBD obstruction is likely. Recommend GI consultation and MRCP/ERCP. Reading Location: [facility] Physical Exam Narrative General: Alert, oriented, no apparent distress HEENT: Atraumatic, normocephalic Eyes: Anicteric, normal conjunctiva, extraocular movements grossly intact Neck: Supple Respiratory:normal respiratory effort Cardiovascular: Regular rate and rhythm GI: Soft, nontender, nondistended Extremities: No edema Musculoskeletal: Moving all extremities Neuro: No overt focal neurological deficits Skin: No rashes appreciated Psych: Cooperative Assessment & Plan Assessment/Plan (1) Hyperbilirubinemia: (2) Transaminitis: (3) Abdominal pain: QUALIFIERS: Abdominal location: right upper quadrant Qualified Code(s): R10.11 - Right upper quadrant pain (4) Morbid obesity with BMI of 45.0-49.9, adult: PLAN: Plan # Right upper quadrant pain with suspicion for choledocholithiasis -Patient with pain and nausea for several hours prior to arrival, pain-free at this time -Found to have elevation of bili and liver function test, still elevated but down trended -Gallbladder ultrasound showed abnormally dilated CBD with a stone in the distal common bile duct with obstruction without evidence of cholecystitis -GI consult -MRCP ordered and demonstrated distended gallbladder with cholelithiasis and small stone in gallbladder neck, patient for ERCP -Pain control and supportive care -On IV fluids -Patient on Zosyn #Hypertension -Chronically on losartan, this is held at this time, add back as tolerated #Morbid obesity -BMI documented as 47.9 kg/m? at time of admission -Complicates treatment, prognosis, outcomes -Recommend weight loss and lifestyle changes #DVT ppx: SCDs Loretta Meyer MD Time spent in the patient's overall evaluation, decision-making process, review of diagnostic data, adjustment of management, discussion with other providers, nursing and ancillary staff involved in patient's care documentation, 35 Minutes Charges/Coding Visit Charges Inpatient E&M: 95410 Subs Hosp L2 09/24/24 1238 <Electronically signed by Loretta Meyer MD> Cosigner Signature (if applicable): CC: ~ Signed [facility] Work Phone: [phone] Progress note [facility] Medical Records Department [address] [place] [address] Progress Note - Hospitalist 09/24/24 0705 MR#: [id number] Acct: [id number] Name: REYNA NULL Bernie Rep #:[id number] : 1980 44 From: Loretta Meyer MD PCP: Cheryl Pierre PA-C Status:ADM I N Location: [place] [address] Reason for Visit Reason for Visit: Diagnoses Morbid (severe) obesity due to excess calories (09/23/24) Other disorders of bilirubin metabolism (09/23/24) Essential (primary) hypertension (09/23/24) Obstruction of bile duct (09/23/24) Right upper quadrant pain (09/23/24) Nausea (09/23/24) Elevation of levels of liver transaminase levels (09/23/24) Body mass index [BMI] 45.0-49.9, adult (09/23/24) Subjective Subjective Patient denies any pain, she is status post MRCP and has yet to go down for ERCP, no nausea or other acute complaints Objective Data Objective Data Vital Signs: Vital Signs Temp Pulse Resp BP Pulse Ox O2 Del Method O2 Flow Rate 97.9 F 84 18 150/85 H 99 Nasal Cannula 2 09/24/24 05:06 09/24/24 05:06 09/24/24 05:06 09/24/24 05:06 09/24/24 05:06 09/24/24 05:06 09/24/24 05:06 Oxygen Flow Rate (L/min) 2 Oxygen Delivery Method Nasal Cannula Weight: 126.6 kg Body Mass Index (BMI) 47.6 Intake & Output: Intake and Output for Last 24 Hours 09/22/24 09/23/24 09/24/24 23:59 23:59 23:59 Intake Total 100 / 100 982.5 / 982.5 Balance 100 / 100 982.5 / 982.5 Lab / Micro Data 09/24/24 05:36 09/24/24 05:36 Labs: Laboratory Results - last 24 hr 09/23/24 18:47: WBC 7.1, RBC 4.33, Hgb 12.7, Hct 38.9, MCV 89.8, MCH 29.3, MCHC 32.6, RDW Std Deviation 44.0 H, RDW Coeff of David 13.4, Plt Count 380, MPV 10.5, Immature Gran % (Auto) 0.700, Neut % (Auto) 59.4, Lymph % (Auto) 26.2, Angelina % (Auto) 7.6, Eos % (Auto) 5.1 H, Baso % (Auto) 1.0, Absolute Neuts (auto) 4.2, Absolute Lymphs (auto) 1.86, Nucleated RBC % 0, Sodium 142, Potassium 3.6, [id number], Carbon Dioxide 21.2, Anion Gap 14, BUN 10, Creatinine 0.80, Estim Creat Clear Calc 116.98, EstGFR (MDRD) Non-Af 93, BUN/Creatinine Ratio 12.0, Glucose 93, Hemoglobin A1c 5.7, Calcium 9.2, Magnesium 2.1, Total Bilirubin 2.78 H, Direct Bilirubin 2.05 H, AST 281 H, ALT 361 H, Alkaline Phosphatase 355 H, Total Protein 7.5, Albumin 4.0, Globulin 3.5, Lipase 34, TSH 2.100 09/23/24 19:00: Urine Test Negative 09/24/24 05:36: WBC 5.0, RBC 4.10 L, Hgb 12.0, Hct 37.9, MCV 92.4, MCH 29.3, MCHC 31.7 L, RDW Std Deviation 45.5 H, RDW Coeff of David 13.3, Plt Count 334, MPV 10.9, Immature Gran % (Auto) 0.600, Neut % (Auto) 54.6, Lymph % (Auto) 28.0, Angelina % (Auto) 7.7, Eos % (Auto) 7.9 H, Baso % (Auto) 1.2 H, Absolute Neuts (auto) 2.7, Absolute Lymphs (auto) 1.39, Nucleated RBC % 0 Radiography Diagnostic Testing: Radiology Impression Gallbladder Ultrasound 09/23/24 19:24 IMPRESSION: Cholelithiasis without CT evidence for acute cholecystitis. Abnormally dilated common bile duct. A stone within the CBD/distal CBD obstruction is likely. Recommend GI consultation and MRCP/ERCP. Reading Location: [facility] Physical Exam Narrative General: Alert, oriented, no apparent distress HEENT: Atraumatic, normocephalic Eyes: Anicteric, normal conjunctiva, extraocular movements grossly intact Neck: Supple Respiratory:normal respiratory effort Cardiovascular: Regular rate and rhythm GI: Soft, nontender, nondistended Extremities: No edema Musculoskeletal: Moving all extremities Neuro: No overt focal neurological deficits Skin: No rashes appreciated Psych: Cooperative Assessment & Plan Assessment/Plan (1) Hyperbilirubinemia: (2) Transaminitis: (3) Abdominal pain: QUALIFIERS: Abdominal location: right upper quadrant Qualified Code(s): R10.11 - Right upper quadrant pain (4) Morbid obesity with BMI of 45.0-49.9, adult: PLAN: Plan # Right upper quadrant pain with suspicion for choledocholithiasis -Patient with pain and nausea for several hours prior to arrival, pain-free at this time -Found to have elevation of bili and liver function test, still elevated but down trended -Gallbladder ultrasound showed abnormally dilated CBD with a stone in the distal common bile duct with obstruction without evidence of cholecystitis -GI consult -MRCP ordered and demonstrated distended gallbladder with cholelithiasis and small stone in gallbladder neck, patient for ERCP -Pain control and supportive care -On IV fluids -Patient on Zosyn #Hypertension -Chronically on losartan, this is held at this time, add back as tolerated #Morbid obesity -BMI documented as 47.9 kg/m? at time of admission -Complicates treatment, prognosis, outcomes -Recommend weight loss and lifestyle changes #DVT ppx: SCDs Loretta Meyer MD Time spent in the patient's overall evaluation, decision-making process, review of diagnostic data,adjustment of management, discussion with other providers, nursing and ancillary staff involved in patient's care documentation, 35 Minutes Charges/Coding Visit Charges Inpatient E&M: 36758 Subs Hosp L2 09/24/24 1238 Cosigner Signature (if applicable): CC: ~ Signed [facility]03-14-2025 History and physical note Author Benedicto Vasquez [facility] Note Date/Time September 24, 2024 6:5 7am [facility] Medical Records Department [address] [place] [address] H&P Exam - Hospitalist 09/23/242117 MR#: [id number] Acct: [id number] Name: REYNA NULL Rep #:[id number] : 1980 44 From: Benedicto Camops DO PCP: Cheryl Pierer PA-C Status:ADM I N Location: [address] HPI - General General Date of Admission: 09/23/24 Date of Service: 09/23/24 Chief Complaint: Nausea and Elevated LFT's. HPI Narrative REYNA NULL, is a 44 F with a past medical history of essential hypertension; onlosartan, morbid obesity; with BMI of 47.9 this admission and known history of intermittent Gallbladder Colic for years with known microlithiasis/sludge who presents to [facility] ER complaining of nausea and elevated LFT's. Ms. Null reports her symptoms began a few hours prior to admission withthe abrupt-onset of severe right upper quadrant abdominal pain earlier today similar to her previous gallbladder attacks but more severe. She admits to associated nausea but she denies vomiting. She denies recent trauma, recent illness or recent medication changes. There is no report of fever, chills, diarrhea, constipation, chest pain, shortness of breath or headache. In the ER she was noted to have gallbladder ultrasound positive for abnormally dilated common bile duct with a stone within the distal common bile duct with obstruction likely in addition to cholelithiasis without evidence of cholecystitis and GI consultation recommended along with MRCP/ERCP with corresponding laboratory evidence of Hyperbilirubinemia; with total bilirubin of2.78 mg/dL, direct bilirubin of 2.05 mg/dL, AST of 281 units/L, ALT of 361 units/L and alkaline phosphatase of 355 units/L consistent with Transaminitis. She was then admitted to the general medical floor for ongoing care for a stay that is expected to extend beyond 2 midnights. [facility] Medical History (Updated 09/24/24 @ 02:[address] Benedicto Burks, DO) Hypertension Medical History no medical history Home Medications ?Medication ?Instructions ?Recorded ?Last Taken ?Type losartan 25 mg tablet 25 mg PO DAILY 09/23/24 Unkn own History Allergy/AdvReac Type Severity Reaction Status Date / Time No Known Allergies Allergy Verified 09/23/24 18:14 Family History no significant family his Surgical History no surgical history Social History Smoking Status: Never smoker ROS ROS Narrative Review of Systems: Constitutional: Patient denies fever or chills. Eyes: Patient denies changes in vision, scleral icterus or discharge from eyes. ENT: Patient denies runny nose, sore throat or ear pain. Resp: Patient denies shortness of breath or cough. CV: Patient denies chest pain, palpitations, heart racing or lower extremity edema. GI: Patient admits to nausea and right upper quadrant abdominal pain with positive Isabel's sign in the setting of known gallbladder colic and microlithiasis/sludge as per HPI. : Patient denies dysuria, hematuria or urinary frequency. MSK: Patient denies arthralgias or myalgias. Skin: Patient denies rash, abscess, wounds or jaundice. Psych: Patient denies symptoms of uncontrolled depression or anxiety. Neuro: Patient denies headache, paresthesias or focal neurologic deficits. Allergy: Patient denies lip swelling, tongue swelling or urticaria. Hematology: Patient denies easy bleeding or easy bruisability. Endocrinology: Patient denies polyuria, polydipsia or polyphagia. 14 point ROS otherwise negative except for positives noted above in HPI. Vital Signs Vital Signs Vital Signs: 09/23/24 18:14 09/23/24 20:14 Temperature 97.5 F L Temperature Source Temporal Pulse Rate 90 79 Respiratory Rate 15 18 Blood Pressure 181/96 H Blood Pressure Mean 124 Pulse Ox 96 98 Oxygen Delivery Method Room Air Room Air Weight Weight: 279 lb Body Mass Index (BMI) 47.9 Physical Exam Const alert, oriented x3 and no apparent distress Constitutional Narrative: Patient is morbidly obese but in good spirits General Appearance: cooperative HEENT normocephalic, head/scalp atraumatic, hearing grossly normal bilaterally and moist oral mucous membranes Eyes PERRL, EOMs intact bilaterally and conjunctivae normal Neck no lymphadenopathy and supple Resp normal respiratory effort, no retractions, no use of accessory muscles and clearto auscultation bilaterally Cardio regular rate and regular rhythm GI normal to inspection, nondistended, normoactive bowel sounds, soft to palpation,non-tender and non-distended GI Narrative: Mild tenderness to palpation in right upper quadrant with positive Isabel sign but no rigidity, guarding or rebound. Extremity normal to inspection, full ROM and no clubbing, cyanosis or edema Skin Skin Narrative: Patient has no evidence of rash, abscess, wounds or jaundice. Neuro oriented x3, CN's II-XII intact bilaterally, moves all extremities and no focal motor deficits Sensorium / Orientation: awake, alert, oriented to person, oriented to place andoriented to time Speech: speech normal Psych affect normal Results Medical Records Data Attestation: I reviewed the patient's medical records Lab / Micro Data Attestation: I reviewed the patient's lab results. 09/23/24 18:47 09/23/24 18:47 Labs: Laboratory Results - last 24 hr 09/23/24 18:47: WBC 7.1, RBC 4.33, Hgb 12.7, Hct 38.9, MCV 89.8, MCH 29.3, MCHC 32.6, RDW Std Deviation 44.0 H, RDW Coeff of David 13.4, Plt Count 380, MPV 10.5, Immature Gran % (Auto) 0.700, Neut % (Auto) 59.4, Lymph % (Auto) 26.2, Angelina % (Auto) 7.6, Eos % (Auto) 5.1 H, Baso % (Auto) 1.0, Absolute Neuts (auto) 4.2, Absolute Lymphs (auto) 1.86, Nucleated RBC % 0, Sodium 142, Potassium 3.6, Chloride 107, Carbon Dioxide 21.2, Anion Gap 14, BUN 10, Creatinine 0.80, Estim Creat Clear Calc 116.98, Est GFR (MDRD) Non-Af 93, BUN/Creatinine Ratio 12.0, Glucose 93, Calcium 9.2, Total Bilirubin 2.78 H, Direct Bilirubin 2.05 H, AST 281 H, ALT 361 H, Alkaline Phosphatase 355 H, Total Protein 7.5, Albumin 4.0, Globulin 3.5 09/23/24 19:00: Urine Test Negative Imaging Radiology Impression Gallbladder Ultrasound 09/23/24 19:24 IMPRESSION: Cholelithiasis without CT evidence for acute cholecystitis. Abnormally dilated common bile duct. A stone within the CBD/distal CBD obstruction is likely. Recommend GI consultation and MRCP/ERCP. Reading Location: [facility] Assessment & Plan Assessment/Plan (1) Common bile duct (CBD) obstruction: (2) Hyperbilirubinemia: (3) Transaminitis: (4) Abdominal pain: QUALIFIERS: Abdominal location: right upper quadrant Qualified Code(s): R10.11 - Right upper quadrant pain (5) Nausea: (6) Morbid obesity with BMI of 45.0-49.9, adult: (7) Essential hypertension: PLAN: Plan 1. Choledocholithiasis with gallbladder ultrasound evidence of abnormally dilated common bile duct with a stone within the distal common bile duct with obstruction likely in addition to cholelithiasis without evidence of cholecystitis and GI consultation recommended along with MRCP/ERCP - Admit to general medical floor. Keep strict n.p.o. and start empiric IV piperacillin-tazobactam as per gastroenterology recommendations. Start Protonix 40 mg IV daily for GI prophylaxis. Finally, MRCP has been ordered for the a.m. in addition to formal gastroenterology consultation also pending in a.m. for recommendations regarding ERCP this admission with help appreciated in advance. 2. Hyperbilirubinemia with Transaminitis attributable to #1 - Check CMP daily to follow trend. 3. RUQ abdominal pain with Nausea in the setting of previously known gallbladder colic and microlithiasis/sludge complicating #1 & #2 - Give ondansetron IV as needed nausea and vomiting. Give morphine IV as needed for severe (level 6-10/10) pain. 4. Morbid obesity; with BMI of 47.9 this admission adding to the burden of disease outlined from #1 - #3 - Weight loss will be recommended. Check TSH. This complicates her case and may hamper recovery. 5. Essential hypertension; on losartan - Hold losartan until patient is clearedfor oral intake. Give hydralzine IV prn for systolic blood pressure > 160 mmHg. 6. DVT prophylaxis - SCD's only with impending ERCP. Total time: Approximately (but not less than) 55 minutes. Charges/Coding Visit Charges Inpatient E&M: 80922 Init Hosp L2 09/24/24 0657 <Electronically signed by Benedicto Burks DO> Cosigner Signature (if applicable): CC: DONNIE Pierre; Dr. Benedicto Burks DO~ Signed [facility] Work Phone: [phone] History and physical note [facility] Medical Records Department [address] [place] [address] H&P Exam - Hospitalist 09/23/242117 MR#: [id number] Acct: [id number] Name: REYNA NULL Rep #:[id number] : 1980 44 From: Benedicto Campos DO PCP: Cheryl Pierre PA-C Status:ADM I N [place] [facility] [id number] HPI - General General Date of Admission: 09/23/24 Date of Service: 09/23/24 Chief Complaint: Nausea and Elevated LFT's. HPI Narrative REYNA NULL, is a 44 F with a past medical history of essential hypertension; onlosartan, morbid obesity; with BMI of 47.9 this admission and known history of intermittent Gallbladder Colic for yearswith known microlithiasis/sludge who presents to [facility] ER complaining of nausea and elevated LFT's. Ms. Null reports her symptoms began a few hours prior to admission withthe abrupt-onset of severe right upper quadrant abdominal pain earlier today similar to her previous gallbladder attacks but more severe. She admits to associated nausea but she denies vomiting. She denies recent trauma, recent illness or recent medication changes. There is no report of fever, chills, diar soumya, constipation, chest pain, shortness of breath or headache. In the ER she was noted to have gallbladder ultrasound positive for abnormally dilated common bile duct with a stone within the distalcommon bile duct with obstruction likely in addition to cholelithiasis without evidence of cholecystitis and GI consultation recommended along with MRCP/ERCP with corresponding laboratory evidence ofHyperbilirubinemia; with total bilirubin of2.78 mg/dL, direct bilirubin of 2.05 mg/dL, AST of 281 units/L, ALT of 361 units/L and alkaline phosphatase of 355 units/L consistent with Transaminitis. She was then admitted to the general medical floor for ongoing care for a stay that is expected to extend beyond 2 midnights. [facility] Medical History (Updated 09/24/24 @ 02:[address] Benedicto Burks, ) Hypertension Medical History no medical history Home Medications ?Medication ?Instructions ?Recorded ?Last Taken ?Type losartan 25 mg tablet 25 mg PO DAILY 09/23/24 Unkn own History Allergy/AdvReac Type Severity Reaction Status Date / Time No Known Allergies Allergy Verified 09/23/24 18:14 Family History no significant family his Surgical History no surgical history Social History Smoking Status: Never smoker ROS ROS Narrative Review of Systems: Constitutional: Patient denies fever or chills. Eyes: Patient denies changes in vision, scleral icterus or discharge from eyes. ENT: Patient denies runny nose, sore throat or ear pain. Resp: Patient denies shortness of breath or cough. CV: Patient denies chest pain, palpitations, heart racing or lower extremity edema. GI: Patient admits to nausea and right upper quadrant abdominal pain with positive Isabel's sign inthe setting of known gallbladder colic and microlithiasis/sludge as per HPI. : Patient denies dysuria, hematuria or urinary frequency. MSK: Patient denies arthralgias or myalgias. Skin: Patient denies rash, abscess, wounds or jaundice. Psych: Patient denies symptoms of uncontrolled depression or anxiety. Neuro: Patient denies headache, paresthesias or focal neurologic deficits. Allergy: Patient denies lip swelling, tongue swelling or urticaria. Hematology: Patient denies easy bleeding or easy bruisability. Endocrinology: Patient denies polyuria, polydipsia or polyphagia. 14 point ROS otherwise negative except for positives noted above in HPI. Vital Signs Vital Signs Vital Signs: 09/23/24 18:14 09/23/24 20:14 Temperature 97.5 F L Temperature Source Temporal Pulse Rate 90 79 Respiratory Rate 15 18 Blood Pressure 181/96 H Blood Pressure Mean 124 Pulse Ox 96 98 Oxygen Delivery Method Room Air Room Air Weight Weight: 279 lb Body Mass Index (BMI) 47.9 Physical Exam Const alert, oriented x3 and no apparent distress Constitutional Narrative: Patient is morbidly obese but in good spirits General Appearance: cooperative HEENT normocephalic, head/scalp atraumatic, hearing grossly normal bilaterally and moist oral mucous membranes Eyes PERRL, EOMs intact bilaterally and conjunctivae normal Neck no lymphadenopathy and supple Resp normal respiratory effort, no retractions, no use of accessory muscles and clearto auscultation bilaterally Cardio regular rate and regular rhythm GI normal to inspection, nondistended, normoactive bowel sounds, soft to palpation,non-tender and non-distended GI Narrative: Mild tenderness to palpation in right upper quadrant with positive Isabel sign but no rigidity, guarding or rebound. Extremity normal to inspection, full ROM and no clubbing, cyanosis or edema Skin Skin Narrative: Patient has no evidence of rash, abscess, wounds or jaundice. Neuro oriented x3, CN's II-XII intact bilaterally, moves all extremities and no focal motor deficits Sensorium / Orientation: awake, alert, oriented to person, oriented to place andoriented to time Speech: speech normal Psych affect normal Results Medical Records Data Attestation: I reviewed the patient's medical records Lab / Micro Data Attestation: I reviewed the patient's lab results. 09/23/24 18:47 09/23/24 18:47 Labs: Laboratory Results - last 24 hr 09/23/24 18:47: WBC 7.1, RBC 4.33, Hgb 12.7, Hct 38.9, MCV 89.8, MCH 29.3, MCHC 32.6, RDW Std Deviation 44.0 H, RDW Coeff of David 13.4, Plt Count 380, MPV 10.5, Immature Gran % (Auto) 0.700, Neut % (Auto) 59.4, Lymph % (Auto) 26.2, Angelina % (Auto) 7.6, Eos % (Auto) 5.1 H, Baso % (Auto) 1.0, Absolute Neuts (auto) 4.2, Absolute Lymphs (auto) 1.86, Nucleated RBC % 0, Sodium 142, Potassium 3.6, [id number], Carbon Dioxide 21.2, Anion Gap 14, BUN 10, Creatinine 0.80, Estim Creat Clear Calc 116.98, EstGFR (MDRD) Non-Af 93, BUN/Creatinine Ratio 12.0, Glucose 93, Calcium 9.2, Total Bilirubin 2.78 H, Direct Bilirubin 2.05 H, AST 281 H, ALT 361 H, Alkaline Phosphatase 355 H, Total Protein 7.5, Albumin4.0, Globulin 3.5 09/23/24 19:00: Urine Test Negative Imaging Radiology Impression Gallbladder Ultrasound 09/23/24 19:24 IMPRESSION: Cholelithiasis without CT evidence for acute cholecystitis. Abnormally dilated common bile duct. A stone within the CBD/distal CBD obstruction is likely. Recommend GI consultation and MRCP/ERCP. Reading Location: [id number] Assessment & Plan Assessment/Plan (1) Common bile duct (CBD) obstruction: (2) Hyperbilirubinemia: (3) Transaminitis: (4) Abdominal pain: QUALIFIERS: Abdominal location: right upper quadrant Qualified Code(s): R10.11 - Right upper quadrant pain (5) Nausea: (6) Morbid obesity with BMI of 45.0-49.9, adult: (7) Essential hypertension: PLAN: Plan 1. Choledocholithiasis with gallbladder ultrasound evidence of abnormally dilated common bile duct with a stone within the distal common bile duct with obstruction likely in addition to cholelithiasis without evidence of cholecystitis and GI consultation recommended along with MRCP/ERCP - Admit to eneral medical floor. Keep strict n.p.o. and start empiric IV piperacillin- tazobactam as per gastroenterology recommendations. Start Protonix 40 mg IV daily for GI prophylaxis. Finally, MRCP has beenordered for the a.m. in addition to formal gastroenterology consultation also pending in a.m. for re commendations regarding ERCP this admission with help appreciated in advance. 2. Hyperbilirubinemia with Transaminitis attributable to #1 - Check CMP daily to follow trend. 3. RUQ abdominal pain with Nausea in the setting of previously known gallbladder colic and microlithiasis/sludge complicating #1 & #2 - Give ondansetron IV as needed nausea and vomiting. Give morphine IV as needed for severe (level 6- 10/10) pain. 4. Morbid obesity; with BMI of 47.9 this admission adding to the burden of disease outlined from #1- #3 - Weight loss will be recommended. Check TSH. This complicates her case and may hamper recovery. 5. Essential hypertension; on losartan - Hold losartan until patient is clearedfor oral intake. Give hydralzine IV prn for systolic blood pressure > 160 mmHg. 6. DVT prophylaxis - SCD's only with impending ERCP. Total time: Approximately (but not less than) 55 minutes. Charges/Coding Visit Charges Inpatient E&M: 26049 Init Hosp L2 09/24/24 0657 Cosigner Signature (if applicable): CC: DONNIE Pierre; Dr. Benedicto Burks, DO~ Signed [facility]03-14-2025 Discharge summary Author Juan Jose Oseguera [facility] Note Date/Time September 23, 2024 11: 55pm [facility] Medical Records Department [address] [place] [address] Emergency Department Summary 09/23/24 MR#: [id number] Acct: [id number] Name: REYNA NULL Rep #:[id number] : 1980 44 From: Juan Jose Gandhi PCP: Cheryl Pierre PA-C Status:ADM I N Location: [place] [address] HPI History of Present Illness Chief Complaint: [facility]n [facility] Medical History (Updated 09/23/24 @ 22:26 by Angeles Bhandari) Hypertension Medical History no medical history Home Medications ?Medication ?Instructions ?Recorded ?Last Taken ?Type losartan 25 mg tablet 25 mg PO DAILY 09/23/24 Unkn own History Allergy/AdvReac Type Severity Reaction Status Date / Time No Known Allergies Allergy Verified 09/23/24 18:14 Family History no significant family his Surgical History no surgical history Social History Smoking Status: Never smoker EXAM Physical Exam Const Vital Signs: 09/23/24 18:14 09/23/24 20:14 Temperature 97.5 F L Temperature Source Temporal Pulse Rate 90 79 Respiratory Rate 15 18 Blood Pressure 181/96 H Blood Pressure Mean 124 Pulse Ox 96 98 Oxygen Delivery Method Room Air Room Air [facility] Narrative Medical decision making narrative: HISTORY OF PRESENT ILLNESS: 44-year-old female presents with concern for elevated liver enzymes. Notes history of gallbladder sludge. No severe abdominal pain earlier today. No painwith food. No falls or trauma. No urinary complaints. REVIEW OF SYSTEMS: Pertinent positives: Elevated liver enzymes Pertinent negatives: Vomiting PHYSICAL EXAM: Nursing triage notes reviewed, Vital signs reviewed Constitutional: please see mdm HENT: MMM Eyes: Pupils equal round and reactive to light, Extraocular muscles intact, no scleral icterus Neck: No stridor, no JVD, full neck ROM Lungs: Clear to auscultation, No wheezing or rales. No increased work of breathing, no conversational dyspnea, no accessory muscle use, no nasal flaring. No respiratory distress noted Heart: Regular rate and rhythm, No murmurs, No rubs and No gallops, 2+ distal pulses (radial, femoral, posterior tibial) in all extremities Abdomen: Soft, right a quadrant TTP, positive Isabel sign but no rigidity, rebound or guarding, no obvious peritoneal signs, no palpable pulsatile abdominal masses, no auscultated abdominal bruit : No CVAT Extremities: No edema Neuro: No new focal neurological deficits, cranial nerves II through XII intact,5/5 strength in all present extremities. Intact sensation to light touch in all present extremities, 2+ reflexes bilateral patella tendons. Skin: No jaundice MEDICAL DECISION MAKING: Chief Complaint: Elevated liver enzymes External records reviewed: Reviewed prior imaging studies Factors affecting care: hypertension Social determinants of health: none History obtained from others: the patient's Consults: Gastroenterology (Dr. Cortez), Internal Medicine (Burks) [facility] Narrative: The patient was initially hemodynamically stable, afebrile and nontoxic- appearing. Exam with RUQ TTP. No jaundice. I considered the following differential diagnosis: Hepatitis ALL IMAGES (IF OBTAINED) HAVE BEEN PERSONALLY REVIEWED AND INTERPRETED BY MYSELF. CBC without leukocytosis, severe anemia, no thrombocytopenia. BMP without evidence of significant electrolyte abnormalities, no anion gap, no acute kidney injury. Liver enzymes elevated with elevated total and direct bilirubin as well as elevated AST ALT and alk phos concerning for obstructive hepatobiliary pathology Right upper quadrant ultrasound is concerning for an abnormally dilated common bile duct consistent with CBD obstruction. Spoke with Dr. Friend is correction officer tomorrow and can evaluate the patient. Recommended starting patient on antibiotics. I gave Zosyn. Discussed with hospitalist agreed to admit the patient to [facility]. The patient and/or family, caregivers express understanding. The patient and/orfamily, caregivers agrees with the plan. Shared decision making: I will have a discussion with the patient and or visitors regarding risk/benefits of further testing or admission. They will be made aware of of the risk/benefits inherent in this decision they will be given the opportunity to voice understanding. Total critical care time today provided was at least 0 [minutes. This excludes separately billable procedures. Critical care time (if documented) is secondary to the patient having high probability of clinically significant/life threatening deterioration in the patient's condition which required my urgent intervention. Impression: 1. Dilated CBD 2. Elevated liver enzymes Dispo: Admit to [facility] This note was generated with Sojeans dictation software. It may contain incorrect words, spelling, and punctuation that were not noted in review of the chart prior to signing. Lab Data Labs: Laboratory Results - last 24 hr 09/23/24 09/23/24 18:47 19:00 WBC 7.1 RBC 4.33 Hgb 12.7 Hct 38.9 MCV 89.8 MCH 29.3 MCHC 32.6 RDW Std Deviation 44.0 H RDW Coeff of David 13.4 Plt Count 380 MPV 10.5 Immature Gran % (Auto) 0.700 Neut % (Auto) 59.4 Lymph % (Auto) 26.2 Angelina % (Auto) 7.6 Eos % (Auto) 5.1 H Baso % (Auto) 1.0 Absolute Neuts (auto) 4.2 Absolute Lymphs (auto) 1.86 Nucleated RBC % 0 Sodium 142 Potassium 3.6 Chloride 107 Carbon Dioxide 21.2 Anion Gap 14 BUN 10 Creatinine 0.80 Estim Creat Clear Calc 116.98 Est GFR (MDRD) Non-Af 93 BUN/Creatinine Ratio 12.0 Glucose 93 Hemoglobin A1c 5.7 Calcium 9.2 Magnesium 2.1 Total Bilirubin 2.78 H Direct Bilirubin 2.05 H AST 281 H ALT 361 H Alkaline Phosphatase 355 H Total Protein 7.5 Albumin 4.0 Globulin 3.5 Lipase 34 TSH 2.100 Urine Test Negative Radiography Diagnostic Testing: Clinical Impression(s) from Imaging Studies Gallbladder Ultrasound 09/23/24 19:24 IMPRESSION: Cholelithiasis without CT evidence for acute cholecystitis. Abnormally dilated common bile duct. A stone within the CBD/distal CBD obstruction is likely. Recommend GI consultation and MRCP/ERCP. Reading Location: [id number] Discharge Plan Disposition Disposition: Acute Care Hospital [facility] Discharge Date/Time: 09/23/24 22:00 What to do if you have Problems For any increased pain, shortness of breath, bleeding, nausea or vomiting, chest pain, or any unexpected problems, contact your Primary Care Provider. Call [facility] ([phone]) or report to the closest Emergency Room. Call 911 if necessary. 09/23/24 5863 <Electronically signed by Juan Jose Oseguera DO> Cosigner Signature (if applicable): CC: DONNIE Pierre ~ Signed [facility] Work Phone: 1(807) 361-595503-13-2025 Discharge summary [facility] Medical Records Department [address] [place] [address] Emergency Department Summary 09/23/24 MR#: [id number] Acct: [id number] Name: REYNA NULL Rep #:[id number] : 1980 44 From: Juan Jose Gandhi PCP: Cheryl Pierre PA-C Status:ADM I N Location: [address] History of Present Illness Chief Complaint: Abn Labs [facility] Medical History (Updated 09/23/24 @ 22:26 by Angeles Bhandari) Hypertension Medical History no medical history Home Medications ?Medication ?Instructions ?Recorded ?Last Taken ?Type losartan 25 mg tablet 25 mg PO DAILY 09/23/24 Unkn own History Allergy/AdvReac Type Severity Reaction Status Date / Time No Known Allergies Allergy Verified 09/23/24 18:14 Family History no significant family his Surgical History no surgical history Social History Smoking Status: Never smoker EXAM Physical Exam Const Vital Signs: 09/23/24 18:14 09/23/24 20:14 Temperature 97.5 F L Temperature Source Temporal Pulse Rate 90 79 Respiratory Rate 15 18 Blood Pressure 181/96 H Blood Pressure Mean 124 Pulse Ox 96 98 Oxygen Delivery Method Room Air Room Air [facility] Narrative Medical decision making narrative: HISTORY OF PRESENT ILLNESS: 44-year-old female presents with concern for elevated liver enzymes. Notes history of gallbladder sludge. No severe abdominal pain earlier today. No painwith food. No falls or trauma. No urinary complaints. REVIEW OF SYSTEMS: Pertinent positives: Elevated liver enzymes Pertinent negatives: Vomiting PHYSICAL EXAM: Nursing triage notes reviewed, Vital signs reviewed Constitutional: please see mdm HENT: MMM Eyes: Pupils equal round and reactive to light, Extraocular muscles intact, no scleral icterus Neck: No stridor, no JVD, full neck ROM Lungs: Clear to auscultation, No wheezing or rales. No increased work of breathing, no conversational dyspnea, no accessory muscle use, no nasal flaring. No respiratory distress noted Heart: Regular rate and rhythm, No murmurs, No rubs and No gallops, 2+ distal pulses (radial, femoral, posterior tibial) in all extremities Abdomen: Soft, right a quadrant TTP, positive Isabel sign but no rigidity, rebound or guarding, no obvious peritoneal signs, no palpable pulsatile abdominal masses, no auscultated abdominal bruit : No CVAT Extremities: No edema Neuro: No new focal neurological deficits, cranial nerves II through XII intact,5/5 strength in allpresent extremities. Intact sensation to light touch in all present extremities, 2+ reflexes bilateral patella tendons. Skin: No jaundice MEDICAL DECISION MAKING: Chief Complaint: Elevated liver enzymes External records reviewed: Reviewed prior imaging studies Factors affecting care: hypertension Social determinants of health: none History obtained from others: the patient's Consults: Gastroenterology (Dr. Cotrez), Internal Medicine (Burks) [facility] Narrative: The patient was initially hemodynamically stable, afebrile and nontoxic- appearing. Exam with RUQ TTP. No jaundice. I considered the following differential diagnosis: Hepatitis ALL IMAGES (IF OBTAINED) HAVE BEEN PERSONALLY REVIEWED AND INTERPRETED BY MYSELF. CBC without leukocytosis, severe anemia, no thrombocytopenia. BMP without evidence of significant electrolyte abnormalities, no anion gap, no acute kidney injury. Liver enzymes elevated with elevated total and direct bilirubin as well as elevated AST ALT and alkphos concerning for obstructive hepatobiliary pathology Right upper quadrant ultrasound is concerning for an abnormally dilated common bile duct consistentwith CBD obstruction. Spoke with Dr. Friend is correction officer tomorrow and can evaluate the patient. Recommended starting patient on antibiotics. I gave Zosyn. Discussed with hospitalist agreed to admit the patient to [facility]. The patient and/or family, caregivers express understanding. The patient and/orfamily, caregivers agrees with the plan. Shared decision making: I will have a discussion with the patient and or visitors regarding risk/benefits of further testing or admission. They will be made aware of of the risk/benefits inherent in this decision they will be given the opportunity to voice understanding. Total critical care time today provided was at least 0 [minutes. This excludes separately billable procedures. Critical care time (if documented) is secondary to the patient having high probability of clinically significant/life threatening deterioration in the patient's condition which required myurgent intervention. Impression: 1. Dilated CBD 2. Elevated liver enzymes Dispo: Admit to [facility] This note was generated with Sojeans dictation software. It may contain incorrect words, spelling, and punctuation that were not noted in review of the chart prior to signing. Lab Data Labs: Laboratory Results - last 24 hr 09/23/24 09/23/24 18:47 19:00 WBC 7.1 RBC 4.33 Hgb 12.7 Hct 38.9 MCV 89.8 MCH 29.3 MCHC 32.6 RDW Std Deviation 44.0 H RDW Coeff of David 13.4 Plt Count 380 MPV 10.5 Immature Gran % (Auto) 0.700 Neut % (Auto) 59.4 Lymph % (Auto) 26.2 Angelina % (Auto) 7.6 Eos % (Auto) 5.1 H Baso % (Auto) 1.0 Absolute Neuts (auto) 4.2 Absolute Lymphs (auto) 1.86 Nucleated RBC % 0 Sodium 142 Potassium 3.6 Chloride 107 Carbon Dioxide 21.2 Anion Gap 14 BUN 10 Creatinine 0.80 Estim Creat Clear Calc 116.98 Est GFR (MDRD) Non-Af 93 BUN/Creatinine Ratio 12.0 Glucose 93 Hemoglobin A1c 5.7 Calcium 9.2 Magnesium 2.1 Total Bilirubin 2.78 H Direct Bilirubin 2.05 H AST 281 H ALT 361 H Alkaline Phosphatase 355 H Total Protein 7.5 Albumin 4.0 Globulin 3.5 Lipase 34 TSH 2.100 Urine Test Negative Radiography Diagnostic Testing: Clinical Impression(s) from Imaging Studies Gallbladder Ultrasound 09/23/24 19:24 IMPRESSION: Cholelithiasis without CT evidence for acute cholecystitis. Abnormally dilated common bile duct. A stone within the CBD/distal CBD obstruction is likely. Recommend GI consultation and MRCP/ERCP. Reading Location: [id number] Discharge Plan Disposition Disposition: [facility] Discharge Date/Time: 09/23/24 22:00 What to do if you have Problems For any increased pain, shortness of breath, bleeding, nausea or vomiting, chest pain, or any unexpected problems, contact your Primary Care Provider. Call [facility] ([phone]) or report to the closest Emergency Room. Call 911 if necessary. 09/23/24 3057 Cosigner Signature (if applicable): CC: DONNIE Pierre ~ Signed [facility]03-13-2025 Evaluation note* Diagnosis Onset Date Resolution Status Admit Date Abdominal pain acute September 9:20pm Common bile duct (CBD) obstruction a cute September 23, 2024 9:20pm Essential hypertension acute [facility] 2024 9:20pm Hyperbilirubinemia acute September 23, 2024 9:20pm Morbid obesity with BMI of 45.0-49.9, adult acute September 23 9:20pm Nausea acute September 23 9:20pm Transaminitis acute September 23, 2024 9:20pm [facility] Work Phone: 1(321) 387-656203-13-2025 Evaluation note* Diagnosis Onset Date Resolution Status Admit Date Choledocholithiasis with obstruction acute September 23, 2024 9:20pm Essential hypertension acute [facility] 2024 9:20pm Morbid obesity with BMI of 45.0-49.9, adult acute September 23 9:20pm Abdominal pain resolved September 9:20pm Common bile duct (CBD) obstruction r esolved September 23, 2024 9:20pm Hyperbilirubinemia resolved September 23, 2024 9:20pm Nausea resolved September 23 9:20pm Transaminitis resolved September 23, 2024 9:20pm Choledocholithiasis with obstruction acute October 07, 2024 1:38pm Elevated transaminase measurement [place] October 07, 2024 1:38pm [facility] Work Phone: 1(153) 820-431903-13-2025 Evaluation note* Diagnosis Onset Date Resolution Status Admit Date Choledocholithiasis with obstruction acute September 23, 2024 9:20pm Essential hypertension acute [facility] 2024 9:20pm Morbid obesity with BMI of 45.0-49.9, adult acute September 23 9:20pm Abdominal pain resolved September 9:20pm Common bile duct (CBD) obstruction r esolved September 23, 2024 9:20pm Hyperbilirubinemia resolved September 23, 2024 9:20pm Nausea resolved September 23 9:20pm Transaminitis resolved September 23, 2024 9:20pm Choledocholithiasis with obstruction acute October 07, 2024 1:38pm Elevated transaminase measurement [place] October 07, 2024 1:38pm Choledocholithiasis with obstruction acute October 21, 2024 9:59am Elevated transaminase measurement [place] October 21, 2024 9:59am [facility] Work Phone: 1(112) 354-286603-13-2025 Radiology Diagnostic study note [facility] Imaging Services [address] [place] [address] Gallbladder MR#: [id number] Acct: [id number] Name: REYNA NULL Rep #: [id number] : 1980 F 44 From: Ryne Pemberton MD PCP: Cheryl Pierre PA-C Status: REG E R Study:Gallbladder Date of Exam: 09/23/24 Exam# [id number] Ordering Dr: Bunny Oseguera DO PROCEDURE: GALLBLADDER REASON FOR EXAM: RUQ TTP, ELEVATED LIVER ENZYMES COMPARISON: None FINDINGS: Liver: Diffusely echogenic. Gallbladder: 9 mm stone seen within the gallbladder. There is no gallbladder wall thickening or pericholecystic fluid. (Isabel sign was reportedly negative.). Common bile duct: Abnormally dilated measuring up to 1 cm. Pancreas: Echogenic. Visualized portions of the right kidney are unremarkable. No right upper quadrant ascites. US/Gallbladder IMPRESSION: Cholelithiasis without CT evidence for acute cholecystitis. Abnormally dilated common bile duct. A stone within the CBD/distal CBD obstruction is likely. Recommend GI consultation and MRCP/ERCP. Reading Location: [id number] CC: DONNIE Pierre; Dr. Juan Jose Oseguera DO ~ Reporter Anchor: [facility] Author Chandrakant Kasper [facility] Note Date/Time October 21, 2024 12: 41pm [facility] Medical Records Department [address] [place] [address] Anesthesia Postop Eval I 10/21/24 1240 MR#: [id number] Acct: [id number] Name: REYNA NULL Rep #:[id number] : 1980 44 From: Chandrakant Kasper PCP: Cheryl Pierre PA-C Status:REG S DC Y Race: C Location: [place] [address] Anesthesia: Postop Eval I Current Vital Signs Temperature: 98 F Pulse Rate: 86 Blood Pressure: 134/75 Respiratory Rate: 18 Pulse Ox: 94 Oxygen Delivery Method: Room Air Assessment Airway patent: Yes Spontaneous unlabored respirations: Yes Mental status: Asleep nausea: No Vomiting: No Anesthesia Complication: No Fluid Hydration Crystalloid volume administer (ml): 60 Total IV fluid infused: 60 Progress Note Anesthesia document: Postop Eval 1 completed: Yes 10/21/24 1241 <Electronically signed by Chandrakant Kasper > Date _ Chandrakant Reid Signature: Date CC: ~ Signed [facility] Work Phone: Consult note Author Phillip Gandara [facility] Note Date/Time October 21, 2024 1:0 2pm [facility] Medical Records Department [address] [place] [address] Anesthesia Postop Eval II 10/21/24 1300 MR#: [id number] Acct: [id number] Name: REYNA NULL Rep #:[id number] : 1980 44 From: Phillip Gandara MD PCP: Cheryl Pierre PA-C Status:REG S DC Y Race: C Location: [place] [address] Anesthesia Postop Eval I Sum Postop Eval Completion status Anesthesia document: Postop Eval 1 completed: Yes Anesthesia Postop Eval I Summary Anesthesia Postop Eval I Summary: Anesthesia Postop Eval I: Assessment Summary Airway patent Yes 10/21/24 12:41 [email or web address] Spontaneous unlabored Yes 10/21/24 12:41 [email or web address] respirations Mental status Asleep 10/21/24 12:41 [email or web address] nausea No 10/21/24 12:41 [email or web address] Vomiting No 10/21/24 12:41 [email or web address] Anesthesia Postop Eval I: Fluid Summary Crystalloid volume administer 60 10/21/24 12:41 [email or web address] (ml) Colloids volume administered ( ml) Blood Product volume administered (ml) Total IV fluid infused 60 10/21/24 12:41 [email or web address] Anesthesia Postop Eval I: Summary Notes Anesthesia Complication No 10/21/24 12:41 [email or web address] Anesthesia Complication Comment: Post-operative progress note Anesthesia: Postop Eval II Evaluation Mental status: Awake and Calm Pain Level: 0 nausea: No Vomiting: No Complications Anesthesia Complication: No 10/21/24 1302 <Electronically signed by Phillip paul MD> Date _ Phillip Reid Signature: Date CC: ~ Signed [facility] Work Phone: Discharge summary Author Loretta Meyer [facility] Note Date/Time September 25, 2024 10: 38am [facility] Medical Records Department [address] [place] [address] Instructions for Home/Discharge Instructions 09/25/24 1035 MR#: [id number] Acct: [id number] Name: REYNA NULL Rep #:[id number] : 1980 44 From: Loretta Meyer MD PCP: Cheryl Pierre PA-C Status:ADM I N Discharge Instructions Diet Discharge Diet: Light diet - advance as tolerated DC O2, CPAP, BIPAP needs Home O2 Discharge instructions: No Dressing / Incision Discharge Activity: - (Increase activity as tolerated) Follow Up Care Test Results: Test results from this visit will be discussed in further detail at your follow- up appointment, if applicable. Discharge Plan Admission Admit Date/Time: 09/23/24 21:20 Primary Reason for Your Visit: Abdominal pain Attending Provider: Loretta Meyer Primary Care Provider: Cheryl Pierre Consulting Providers: Benedicto Burks Instructions Patient Instructions: Biliary Stent Dc Additional Instructions / Restrictions: DISCHARGE INSTRUCTIONS PLEASE READ *Please take this with you to your next doctors appointment* -Start with a light diet and advance as tolerated -You will need to follow-up with Dr. Cortez with GI in his office upon discharge. Please call his office to schedule an appointment (ph. [phone]) -You will be discharged on additional 10 days of antibiotics, you will take ciprofloxacin 500 mg twice daily and metronidazole 500 mg 3 times a day -Strongly recommend against drinking alcohol while on metronidazole as the combination can cause nausea, vomiting, racing heart, and flushing of the face. Avoid alcohol for at least 3 days after last dose of metronidazole. -Please call your primary care provider's office upon discharge to schedule a hospital follow up within 1 week. -For any concerning signs or symptoms please call 911 or proceed to the nearest emergency department Discharge Orders/Prescriptions Prescriptions: New ciprofloxacin HCl 500 mg tablet 500 mg PO BID 10 Days Qty: 20 0RF metronidazole 500 mg tablet 500 mg PO TID 10 Days Qty: 30 0RF Continued losartan 25 mg tablet 25 mg PO DAILY Referrals / Follow Up: Khadar Cortez DO [Med Staff - Active Staff] - Within 2 Weeks ( -You will need to follow-up with Dr. Cortez with GI in his office upon discharge. Please call his office to schedule an appointment (ph. [phone])) Cheryl Pierre PA-C [Primary Care Provider] - In 1 Week Disposition Disposition (needs filled in before D/C Order can be placed): Home, Self Care 09/25/24 1038<Electronically signed by Loretta Meyer MD>Loretta Meyer MD CC: DONNIE Pierre; Dr. Benedicto Burks DO ~ Signed [facility] Work Phone: Evaluation note* Diagnosis Onset Date Resolution Status Admit Date Common bile duct (CBD) obstruction acute September 23, 2024 9:20pm Morbid obesity with BMI of 45.0-49.9, adult acute September 23 9:20pm Nausea & vomiting acute September 112024 9:20pm [facility] Work Phone: History and physical note Author Khadar Cortez [facility] Note Date/Time October 21, 2024 11: 26am [facility] Medical Records Department [address] [place] [address] History & Physical Exam 10/21/24 1124 MR#: [id number] Acct: [id number] Name: REYNA NULL Rep #:[id number] : 1980 44 From: Khadar Cortez DO PCP: Cheryl Pierre PA-C Status:REG S DC Location: [place] [address] HPI - General General Date of Admission: 10/21/24 Date of Service: 10/21/24 Chief Complaint: stent removal HPI Narrative REYNA NULL, is a 44 F who presents for spent removal Labs 09/25/2024 total bilirubin 1.22, AST 91, ALT 195, alkaline phosphatase 274 09/24/2024 total bili 2.10, AST 188, ALT 273, alkaline phosphatase 305 09/23/2024 total bilirubin 2.78, AST 281, ALT 361, alkaline phosphatase 355 ERCP 09/24/2024 One 10 Fr by 5 cm temporary stent with no internal flaps was placed 5 cm into the common bile duct. Bile flowed through the stent. The stent was in good position. MRCP 1. Distended gallbladder with cholelithiasis and a small stone in the gallbladder neck which could be a source of biliary colic. No convincing MR evidence of acute cholecystitis. 2. Mild biliary dilatation without visualized definite choledocholithiasis or other obstructing process evident by noncontrast MRCP. Findings could reflect a previously passed gallstone, ampullary stenosis,or perhaps less likely an occult ampullary lesion. Correlate with serum bilirubin and recommend clinical follow-up as indicated. 3. Mild splenomegaly with hepatic steatosis better depicted previously given nondedicated MRCP. Correlate for clinical and laboratory evidence of chronic liver disease. 4. 3 mm presumably cystic focus within the pancreatic head/uncinate process, possible tiny cystic neoplasm such as an IPMN. Recommend follow-up MRI abdomen with and without contrast and with MRCP in 2 years per ACR recommendations, to evaluate stability. 5. Additional description as above. - she does still get nauseated with PO intake at times - she reports a history of intermittent episodes of abdominal pain - mild nausea, denies any emesis -Occasional heartburn, takes OTC Pepcid - denies any ongoing pain -Denies any weight loss - was having diarrhea but stool are getting back to normal -Nausea in the morning but resolves PFSH Medical History Wears glasses Gastric reflux Non-smoker CPAP (continuous positive airway pressure) dependence Sleep apnea Hypertension Home Medications ?Medication ?Instructions ?Recorded ?Last Taken ?Type losartan 25 mg tablet 25 mg PO DAILY 09/23/24 Unkn own History pantoprazole 40 mg tablet,delayed 40 mg PO QDAY #90 ta bs 10/07/24 Unknown Rx release sodium sul 1.479 gram-potas ch See Rx Instructions PO PER PKG DIR 03/27/25 Unknown Rx 0.188 gram-magnes sul 0.225 gram #24 tabs tablet (Sutab) Allergy/AdvReac Type Severity Reaction Status Date / Time No Known Allergies Allergy Verified 10/21/24 10:36 Surgical History History of ERCP Social History Smoking Status: Never smoker ROS Constitutional Constitutional: Denies fatigue, fever(s), poor appetite, weight gain or weight loss Gastrointestinal Gastrointestinal: Denies belching, bloating, change in bowel habits, change in stool character, chewing difficulty, coffee ground emesis, constipation, cramping, diarrhea, dyspepsia, dysphagia, early satiety, excessive flatus, fecalincontinence, heartburn, hematemesis, hematochezia, hemorrhoids, loose stools, melena, nausea, odynophagia, rectal bleeding, tenesmus, vomiting or weight changes Vital Signs Vital Signs Vital Signs: 10/21/24 10:36 10/21/24 10:36 10/21/24 11:11 Temperature 98 F 98 F Temperature Source Temporal Pulse Rate 88 88 Respiratory Rate 16 16 Respiratory Pattern Normal Blood Pressure 150/94 H 150/94 H Blood Pressure Mean 112 Blood Pressure Source Monitor Blood Pressure Position Semi-Fowlers Blood Pressure Location Left Forearm Pulse Ox 99 99 Oxygen Delivery Method Room Air Room Air Weight Weight: 278 lb 14.156 oz Body Mass Index (BMI) 49.4 Physical Exam Const alert, oriented x3, no apparent distress and healthy appearing General Appearance: cooperative GI normal to inspection, nondistended, normoactive bowel sounds, soft to palpation,non-tender and non-distended Percussion: normal to percussion Rectal Exam: deferred Results Lab / Micro Data Labs: Laboratory Results - last 24 hr 10/21/24 10:25: Urine Test Negative Assessment & Plan Assessment/Plan (1) Elevated transaminase measurement: (2) Choledocholithiasis with obstruction: PLAN: Assessment and Plan Assessment and Plan (1) Choledocholithiasis with obstruction: Status: Acute (2) Elevated transaminase measurement: Status: Acute Orders: Orders Liver Profile Today K80.51 - Calculus of bile duct without cholangitis or cholecystitis with obstruction, R74.01 - Elevation of levels of liver transaminase levels Medications: New pantoprazole 40 mg PO QDAY 90 tabs 1RF sod sulf-pot chloride-mag sulf 1.479-0.188- 0.225 gram (Sutab) as directed for split dose bowel prep 24 tabs 0RF ondansetron HCl 4 mg orally; take two tablets PO two hours prior to start ofbowel prep and one every 4 hours as needed for N/V 5 tabs 0RF Discontinued ciprofloxacin HCl Discontinued Reason: Pt no longer taking 500 mg PO BID 10 days 20 tabs 0RF metronidazole Discontinued Reason: Pt no longer taking 500 mg PO TID 10 days 30 tabs 0RF Plan 44-year-old female presents for consultation with complaints of abdominal pain. She was admitted 09/23/2024 to 09/25/2024 for hyperbilirubinemia, abdominal pain and transaminitis secondary to choledocholithiasis. ERCP confirmed choledocholithiasis. Sphincterotomy with balloon extraction was performed, temporary stent was placed. She presents today for follow-up post admission with resolution of abdominal pain. She will complete labs today and schedule ERCP with stent removal in 4 weeks. We have discussed cholecystectomy and she declines at this time. She is due for an age-related screening colonoscopy and we will schedule this in the near future. Patient Instructions: ERCP with stent removal in 4 weeks Colonoscopy-Sutab bowel prep 10/21/24 1126 <Electronically signed by Khadar Cortez DO> Cosigner Signature (if applicable): CC: DONNIE Pierre; Khadar Cortez DO~ Signed [facility] Work Phone: Reason for referral (narrative)No reason for referral information [facility] Work Phone: Summary Purpose Family History No Family History Records FoundNo Family History Records FoundNo Family History Records FoundNo Family History Records FoundNo Family History Records Found Advance Directives No Advanced Directives Records Found Advance Directive Response Recorded Date/ Time Living Will No September 23, 2024 6:20pm Power of Production Line Manager No September 23 6:20pm Advance Directive Response Recorded Date/ Time Living Will No September 23, 2024 10:10pm Power of Production Line Manager No September 23 10:10pm Advance Directive Response Recorded Date/ Time Living Will No September 23, 2024 10:10pm Do you have a Healthcare Power of Production Line Manager? No September 23, 2024 10:10pm Advance Directive Response Recorded Date/ Time Living Will No September 23, 2024 10:10pm Do you have a Healthcare Power of Production Line Manager? No September 23, 2024 10:10pm Living Will No October 15, 2024 11:38am Do you have a Healthcare Power of Production Line Manager? No October 15, 2024 11:38am Chief Complaint and Reason for Visit Chief Complaint Admit Date CBD STONES WITH TRANSAMINITIS September 9:20pm Reason for Visit Admit Date Common bile duct (CBD) obstruction September 23, 2024 9:20pm Morbid obesity with BMI of 45.0-49.9, ad ult September 23, 2024 9:20pm Nausea & vomiting September 23, 2024 9:2 0pm Chief Complaint Admit Date CBD STONES WITH TRANSAMINITIS September 9:20pm CBD STONES WITH TRANSAMINITIS September 7:05am CBD STONES WITH TRANSAMINITIS September 3:26pm Reason for Visit Admit Date Abdominal pain September 23, 2024 9:2 0pm Common bile duct (CBD) obstruction September 23, 2024 9:20pm Essential hypertension September 23, 2024 9:20pm Hyperbilirubinemia September 23, 2024 9:2 0pm Morbid obesity with BMI of 45.0-49.9, ad ult September 23, 2024 9:20pm Nausea September 23, 2024 9:2 0pm Transaminitis September 23, 2024 9:2 0pm Chief Complaint Admit Date CBD STONES WITH TRANSAMINITIS September 9:20pm CBD STONES WITH TRANSAMINITIS September 7:05am CBD STONES WITH TRANSAMINITIS September 3:26pm PREOP September 24, 2024 3:2 7pm CBD STONES WITH TRANSAMINITIS September 10:38am ED follow up October 07, 2024 1:3 8pm Reason for Visit Admit Date Choledocholithiasis with obstruction [facility] 2024 9:20pm Essential hypertension September 23, 2024 9:20pm Morbid obesity with BMI of 45.0-49.9, ad ult September 23, 2024 9:20pm Abdominal pain September 23, 2024 9:2 0pm Common bile duct (CBD) obstruction September 23, 2024 9:20pm Hyperbilirubinemia September 23, 2024 9:2 0pm Nausea September 23, 2024 9:2 0pm Transaminitis September 23, 2024 9:2 0pm Choledocholithiasis with obstruction [facility] 2024 1:38pm Elevated transaminase measurement October 07, 2024 1:38pm Reason for Visit Admit Date Choledocholithiasis with obstruction [facility] 2024 9:20pm Essential hypertension September 23, 2024 9:20pm Morbid obesity with BMI of 45.0-49.9, ad ult September 23, 2024 9:20pm Abdominal pain September 23, 2024 9:2 0pm Common bile duct (CBD) obstruction September 23, 2024 9:20pm Hyperbilirubinemia September 23, 2024 9:2 0pm Nausea September 23, 2024 9:2 0pm Transaminitis September 23, 2024 9:2 0pm Choledocholithiasis with obstruction [facility] 2024 1:38pm Elevated transaminase measurement October 07, 2024 1:38pm Choledocholithiasis with obstruction Apr 2024 9:59am Elevated transaminase measurement October 21, 2024 9:59am Additional Source Comments INFORMATION SOURCE (unrecogn ized section and content) DATE CREATED AUTHOR 03/02/2020 [facility] DATE CREATED AUTHOR AUTHOR'S ORGANIZ ATION 03/11/2021 [facility] DATE CREATED AUTHOR AUTHOR'S ORGANIZ ATION 08/07/2022 [facility] ([place]) DATE CREATED AUTHOR AUTHOR'S ORGANIZ ATION 10/13/2024 [facility] DATE CREATED AUTHOR AUTHOR'S ORGANIZ ATION 12/15/2024 [facility] Care Teams (unrecognized sec tion and content) Team Status: Active Member Role Status Dates Cheryl THOMAS PA-C Primary Care Provider Active Team Status: Inactive Member Role Status Dates Dr. Juan Jose Oseguera DO Referring Provider Active Start: September 23, 2024 End: September 25, 2024 Dr. Juan Jose Oseguera DO Emergency Provider Active Start: September 23, 2024 End: September 25, 2024 [facility] PA, PA-C Primary Care Provider Active Start: September 23, 2024 End: September 25, 2024 Dr. Benedicto Burks DO Admit Provider Active Start: September 23, 2024 End: September 25, 2024 Dr. Benedicto Burks DO Other Provider Active Start: September 23, 2024 End: September 25, 2024 Dr. Loretta Meyer MD Attending Provider Active Start: September 23, 2024 End: September 25, 2024 Dr. Loretta Meyer MD Other Provider Active Star t: September 23, 2024 Team Status: Active Member Role Status Dates Dr. Juan Jose Oseguera DO Referring Provider Active Start: September 24, 2024 Dr. Juan Jose Oseguera DO Emergency Provider Active Start: September 24, 2024 [facility] PA, PA-C Primary Care Provider Active Start: September 24, 2024 Dr. Benedicto Burks DO Admit Provider Active Start: September 24, 2024 Dr. Benedicto Burks DO Other Provider Active Start: September 24, 2024 Dr. Loretta Meyer MD Attending Provider Active Start: September 24, 2024 Dr. Loretta Meyer MD Other Provider Active Star t: September 24, 2024 Team Status: Active Member Role Status Dates Dr. Juan Jose Oseguera DO Referring Provider Active Start: September 24, 2024 Dr. Juan Jose Oseguera DO Emergency Provider Active Start: September 24, 2024 [facility] PA, PA-C Primary Care Provider Active Start: September 24, 2024 Dr. Benedicto Burks DO Admit Provider Active Start: September 24, 2024 Dr. Benedicto Burks DO Other Provider Active Start: September 24, 2024 Dr. Loretta Meyer MD Other Provider Active Star t: September 24, 2024 Dr. Khadar Cortez DO Attending Provider Active Start: September 24, 2024 Team Status: Active Member Role Status Dates Dr. Juan Jose Oseguera DO Referring Provider Active Start: September 23, 2024 Dr. Juan Jose Oseguera DO Emergency Provider Active Start: September 23, 2024 [facility] PA, PA-C Primary Care Provider Active Start: September 23, 2024 Dr. Benedicto Burks DO Admit Provider Active Start: September 23, 2024 Dr. Benedicto Burks DO Attending Provider Active Start: September 23, 2024 Team Status: Inactive Member Role Status Dates Dr. Juan Jose Oseguera DO Referring Provider Active Start: September 23, 2024 End: September 25, 2024 Dr. Juan Jose Oseguera DO Emergency Provider Active Start: September 23, 2024 End: September 25, 2024 Cheryl [place] PA, PA-C Primary Care Provider Active Start: September 23, 2024 End: September 25, 2024 Dr. Benedicto Burks DO Admit Provider Active Start: September 23, 2024 End: September 25, 2024 Dr. Benedicto Burks DO Other Provider Active Start: September 23, 2024 End: September 25, 2024 Dr. Loretta Meyer MD Attending Provider Active Start: September 23, 2024 End: September 25, 2024 Team Status: Active Member Role Status Dates Dr. Juan Jose Oseguera DO Emergency Provider Active Start: September 24, 2024 Cheryl [place] PA, PA-C Primary Care Provider Active Start: September 24, 2024 Dr. Benedicto Burks DO Admit Provider Active Start: September 24, 2024 Dr. Benedicto Burks DO Other Provider Active Start: September 24, 2024 Dr. Loretta Meyer MD Attending Provider Active Start: September 24, 2024 Dr. Loretta Meyer MD Other Provider Active Star t: September 24, 2024 Team Status: Active Member Role Status Dates Cheryl [place] PA, PA-C Primary Care Provider Active Start: September 24, 2024 End: September 24, 2024 Dr. Moshe Mayo MD Attending Provider Active S tart: September 24, 2024 End: September 24, 2024 Dr. Loretta Meyer MD Referring Provider Active Start: September 24, 2024 End: September 24, 2024 Team Status: Active Member Role Status Dates Dr. Juan Jose Oseguera DO Emergency Provider Active Start: September 25, 2024 Cheryl [place] PA, PA-C Primary Care Provider Active Start: September 25, 2024 Dr. Benedicto Burks DO Admit Provider Active Start: September 25, 2024 Dr. Benedicto Burks DO Other Provider Active Start: September 25, 2024 Dr. Loretta Meyer MD Attending Provider Active Start: September 25, 2024 Dr. Loretta Meyer MD Other Provider Active Star t: September 25, 2024 Team Status: Inactive Member Role Status Dates Cheryl Pierre PA, PA-C Primary Care Provider Active Start: October 07, 2024 End: October 07, 2024 Cheryl [place] PA, PA-C Referring Provider Active Start: October 07, 2024 End: October 07, 2024 NEL Barnes Attending Provider Active Start: October 07, 2024 End: October 07, 2024 Team Status: Inactive Member Role Status Dates Cheryl Pierre PA, PA-C Primary Care Provider Active Start: October 07, 2024 End: October 07, 2024 ELAYNE BarnesC Attending Provider Active Start: October 07, 2024 End: October 07, 2024 NEL Barnes Referring Provider Active Start: October 07, 2024 End: October 07, 2024 Team Status: Inactive Member Role Status Dates Cheryl Pierre PA, PA-C Primary Care Provider Active Start: October 21, 2024 End: October 21, 2024 Cheryl [place] PA, PA-C Referring Provider Active Start: October 21, 2024 End: October 21, 2024 Dr. Khadar Cortez DO Attending Provider Active Start: October 21, 2024 End: October 21, 2024 Team Status: Active Member Role Status Dates Cheryl Pierre PA, PA-C Primary Care Provider Active Start: October 21, [facility] Referring Provider Active Start: October 21, 2024 Dr. Khadar Cortez DO Attending Provider Active Start: October 21, 2024 Dr. Khadar Cortez DO Other Provider Active St art: October 21, 2024 Goals (unrecognized section and content) Goals may be documented in a n alternate section FOR RECORDS PERTAINING TO PATIENTS WHO ARE OR HAVE BEEN ENROLLED IN A CHEMICAL DEPENDENCY/SUBSTANCEABUSE PROGRAM, SOME INFORMATION MAY BE OMITTED. This clinical summary was aggregated from multiple sources. Caution should be exercised in using it in the provision of clinical care. This summary normalizes information from multiple sources, and as a consequence, information in this document may materially change the coding, format and clinical context of patient data. In addition, data may be omitted in some cases. CLINICAL DECISIONS SHOULD BE BASED ON THE PRIMARY CLINICAL RECORDS. [facility] [employer] [facility]. provides no warranty or guarantee of the accuracy or completeness of information in this document.
[2024-12-16] MEDS: Lactated Ringers 1,000 ML 15 ML IV (06:00)
--- NOTE | 2024-12-16 06:24 | PCM.PRE.AN2 ---
ASA Classification* ASA Classification ASA Classification: 3 Assessment & Plan Anesthesia* Anesthesia Assessment Anesthesia Assessment: Discussed sedation and/or anesthesia options, risks, benefits, and alternatives with patient/parents/legal guardian/POA. Questions invited. The patient/parents/legal guardian/POA seems to understand and agrees to proceed with anesthesia plan. Reviewed the physical assessment, medical history, allergy history and patient home medications list prior to surgery/procedure/anesthetic and documented any changes. Performed airway and anesthesia risk assessments. Anesthesia Type Anesthesia Type: MAC History Source History Obtained from:: Patient and Chart Anesthesia Focused Assessment* Temperature: 97.9 F Pulse Rate: 80 Blood Pressure: 155/87 Respiratory Rate: 18 Pulse Ox: 98 Oxygen Delivery Method: Room Air Airway Assessment Mouth opens: 2 cm Mallampati Score: IV Teeth Condition: Intact Neck Range of motion (ROM): Limited ROM (Slight decrease in extension) Focused Labs Anesthesia Preop lab: CBC WBC 6.9 K/mm3 (4.4-11.0) 09/25/24 06:09/25/24 RBC 4.22 M/mm3 (4.2-5.4) 09/25/24 06:09/25/24 Hgb 12.3 g/dL (12.0-15.0) 09/25/24 06:09/25/24 Hct 39.1 % (37-47) 09/25/24 06:09/25/24 Plt Count 358 K/mm3 (150-450) 09/25/24 06:09/25/24 CHEMISTRY Potassium 3.5 mmol/L (3.3-5.1) 09/25/24 06:09/25/24 Sodium 139 mmol/L (133-145) 09/25/24 06:09/25/24 Magnesium 2.1 mg/dL (1.5-2.2) 09/23/24 18:47 09/23/24 Phosphorus 2.5 mg/dL (2.7-4.5) L 09/25/24 06:33 09/25/24 BUN 8 mg/dL (4-19) 09/25/24 06:09/25/24 Creatinine 0.76 mg/dL (0.70-1.20) 09/25/24 06:09/25/24 Glucose 115 mg/dL (70-99) H 09/25/24 06:33 09/25/24 TSH 2.100 uIU/mL (0.300-4.200) 09/23/24 18:47 09/23/24 COAG Urine Test Negative Negative 10/21/24 10:25 10/21/24 Pre-Assessment Diagnosis/Proposed Procedure Planned Operative Procedure(s): COLONOSCOPY Anesthesia History 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 When Was Last Pacemaker Check QUESTION #4 FULL TEXT: You/Your Family Experience fever (hyperthermia) with Anesthesia Last Oral Intake Last Oral intake: Last Oral Intake NPO since 04:45 12/16/24 06:01 Meds taken in AM with sips of Yes 12/16/24 06:01 water? Meds patient instructed to losartan 12/16/24 06:01 take am of surgery Any additional information?: Yes Meds taken in AM with sips of water?: Yes PONV PONV - early childhood associate teacher: PONV - early childhood associate teacher Female Yes 12/10/24 10:57 HX of Motion Sickness No 12/10/24 10:57 HX of N/V After Surgery No 12/10/24 10:57 Non-Smoker Yes 12/10/24 10:57 Duration of Surgery greater No 12/10/24 10:57 than 60 minutes Number of Risk Factors 2 12/10/24 10:57 PONV Score Moderate Risk 12/10/24 10:57 Height & Weight Height & Weight: Anesthesia: Height & Weight Height 5 ft 4 in 12/16/24 06:01 Weight: 127.6 kg 12/16/24 06:01 Body Mass Index (BMI) 48.2 12/16/24 06:01 Respiratory Assessment Respiratory Assessment - early childhood associate teacher: Respiratory Tract Infection Hx - early childhood associate teacher Hx Respiratory Tract Infection No 12/10/24 10:57 STOP Sleep Apnea STOP Sleep Apnea - early childhood associate teacher: STOP Sleep Apnea - early childhood associate teacher Hx Hypertension Yes: CONTROLLED ON MED 12/10/24 10:57 Hx Sleep Apnea Yes 12/10/24 10:57 CPAP Yes 12/10/24 10:57 BIPAP No 12/10/24 10:57 Do you snore loudly (louder than talking or can be heard Do you often feel tired/ fatigued/ sleepy during daytime? Has anyone observed you stop breathing during sleep? STOP Results Positive 12/10/24 10:57 QUESTION #5 FULL TEXT : Do you snore loudly (louder than talking or can be heard through closed doors)? 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 Specify any problems Hx of Preganancy in last 3 No 12/10/24 10:57 Months Nurse Filling Out Transfusion VCHRISTIN 12/10/24 10:57 & Questions: Date: 12/10/24 12/10/24 10:57 Time: 10:58 12/10/24 10:57 Patient unable to answer at this time (ie. confused, unrespo /Reproduction History /Reproductive History - early childhood associate teacher: /Reproductive Hx- early childhood associate teacher Hx Now No 12/10/24 10:57 Gestational Age (in weeks): EDC: Hx Hx Para Hx Section SAB No 12/10/24 10:57 Active Medications Active Medications: Current Medications Generic Name Dose Route Start Last Admin Trade Name Freq PRN Reason Stop Dose Admin Lactated Ringer's 1,000 mls @ 15 mls/hr 12/16/24 05:45 12/16/24 06:00 IV 15 mls/hr .Q48H REAGAN Administration Lactated Ringer's 1,000 mls @ 15 mls/hr 12/16/24 06:15 IV .Q48H REAGAN PFSH Medical History Wears glasses Gastric reflux Non-smoker CPAP (continuous positive airway pressure) dependence Sleep apnea Hypertension Home Medications ?Medication ?Instructions ?Recorded ?Last Taken ?Type losartan 25 mg tablet 25 mg PO DAILY 09/23/24 12/16/24 04:45 History pantoprazole 40 mg tablet,delayed 40 mg PO QDAY #90 tabs 10/07/24 Unknown Rx release sodium sul 1.479 gram-potas ch See Rx Instructions PO PER PKG DIR 10/07/24 Unknown Rx 0.188 gram-magnes sul 0.225 gram #24 tabs tablet (Sutab) Allergy/AdvReac Type Severity Reaction Status Date / Time No Known Allergies Allergy Verified 12/16/24 06:00 Surgical History History of ERCP Social History Smoking Status: Never smoker Review of Systems (Anesthesia) ROS Narrative System reviewed and no additional complaints, except as documented.
--- NOTE | 2024-12-16 06:30 | COLBX_PTH ---
PATIENT: REYNA LAW LOC: EN U#:[id number] AGE/SX: 44/F ROOM: RE12/16/[address]: Dr. Khadar Cortez DO : 1980 BED: DIS: 12/16/2024 SPEC #: [id number] RECD: 12/16/24 09:40 STATUS: CHIQUITA LUIS #: [id number] MARIA LUZ: 12/16/24 06:[address]: Khadar Cortez DEPT: SURGICAL PATHOLOGY RECD BY: Norman Stanton ENTERED: 12/16/24 10:14 SP TYPE: COLON BX OTHR DR: Cheryl Pierre PA-C Tissues: A - Transverse colon Procedures: Surgery Specimen Level IV HEADER OPERATION: Colonoscopy with polypectomy, tattoo and clip PRE-OP DIAGNOSIS: Encounter for screening colonoscopy TISSUE SUBMITTED: A- Transverse colon polyp MICROSCOPIC DIAGNOSIS A. Large intestine, transverse polyp, colonoscopic polypectomy: * Tubular adenoma MICROSCOPIC DESCRIPTION Slides are reviewed. GROSS DESCRIPTION A. Received in formalin in a container labeled with the patient's name, date of , and transverse colon polyp is a 1.5 x 1.2 x 0.8 cm whitt-pink and polypoid piece of mucosal tissue. The resection margin is inked black, and serial sections reveal whitt-pink and friable surfaces. Submitted entirely in A1-2. [facility] 12-16-2024 CPT:[id number]
[2024-12-16 06:37] LABS: Internal QC Validated? YES +Cl - CLEAR BKGD; Pregnancy, Urine Negative Negative
--- NOTE | 2024-12-16 07:06 | PCM.HP.STD ---
[facility] - General General Date of Admission: 12/16/24 Date of Service: 12/16/24 Chief Complaint: Screening colonoscopy HPI Narrative REYNA LAW, is a 44 F who presents today for screening colonoscopy. She never had a colonoscopy in the past. She has a past medical history of hypertension and mild gastroesophageal reflux disease. Overall she is doing fairly good health. [facility] Medical History Wears glasses Gastric reflux Non-smoker CPAP (continuous positive airway pressure) dependence Sleep apnea Hypertension Home Medications ?Medication ?Instructions ?Recorded ?Last Taken ?Type losartan 25 mg tablet 25 mg PO DAILY 09/23/24 12/16/24 04:45 History pantoprazole 40 mg tablet,delayed 40 mg PO QDAY #90 tabs 10/07/24 Unknown Rx release sodium sul 1.479 gram-potas ch See Rx Instructions PO PER PKG DIR 10/07/24 Unknown Rx 0.188 gram-magnes sul 0.225 gram #24 tabs tablet (Sutab) Allergy/AdvReac Type Severity Reaction Status Date / Time No Known Allergies Allergy Verified 12/16/24 06:00 Surgical History History of ERCP Social History Smoking Status: Never smoker ROS Constitutional Constitutional: Denies fatigue, fever(s), poor appetite, weight gain or weight loss Gastrointestinal Gastrointestinal: Denies belching, bloating, change in bowel habits, change in stool character, chewing difficulty, coffee ground emesis, constipation, cramping, diarrhea, dyspepsia, dysphagia, early satiety, excessive flatus, fecal incontinence, heartburn, hematemesis, hematochezia, hemorrhoids, loose stools, melena, nausea, odynophagia, rectal bleeding, tenesmus, vomiting or weight changes Vital Signs Vital Signs Vital Signs: 12/16/24 06:01 12/16/24 06:01 12/16/24 06:28 Temperature 97.9 F 97.9 F Temperature Source Temporal Pulse Rate 80 80 Respiratory Rate 18 18 Respiratory Pattern Normal Blood Pressure 155/87 H 155/87 H Blood Pressure Mean 109 Blood Pressure Source Monitor Blood Pressure Position Sitting Blood Pressure Location Left Arm Pulse Ox 98 98 Oxygen Delivery Method Room Air Room Air Weight Weight: 281 lb 4.957 oz Body Mass Index (BMI) 48.2 Physical Exam Const alert, oriented x3, no apparent distress and healthy appearing General Appearance: cooperative GI normal to inspection, nondistended, normoactive bowel sounds, soft to palpation, non-tender and non-distended Percussion: normal to percussion Rectal Exam: deferred Results Lab / Micro Data Labs: Laboratory Results - last 24 hr 12/16/24 05:45: Urine Test Negative Assessment & Plan Assessment/Plan (1) Encounter for screening colonoscopy: PLAN: She was explained alternatives, risk and benefits include not withstanding bleeding, infection, sepsis, perforation, need for heart surgery . She will have an ASA of 3.
--- NOTE | 2024-12-16 07:36 | OP.CCLET_ITS ---
12/16/2024 [facility] Re : Colonoscopy procedure for Pilar Pierre This procedure was performed on December. My impressions and recommendations are as follows: Impressions : - One 20 mm polyp in the transverse colon, removed with a hot snare. Resected and retrieved. Clip was placed. 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 Tattooed. - The examination was otherwise normal on direct and retroflexion views. Recommendations : - Discharge patient to home. - Resume previous diet. - Continue present medications. - Await pathology results. - Repeat colonoscopy in 1 year for surveillance based on pathology results. My findings are described in the full procedure note, which is enclosed. If I can be of further assistance, please feel free to contact me at . Sincerely, Khadar Friend, 12/16/2024 7:35:49 AM This report has been signed electronically.
--- NOTE | 2024-12-16 07:36 | OP.COLON_ITS ---
Patient Name: Pilar Null Procedure Date: 12/16/2024 6:11 AM Date of : 1980 Age: 44 Procedure: Colonoscopy Indications: Screening for colorectal malignant neoplasm Providers: DO Kai Ag MD: Cheryl Pierre Medicines: Monitored Anesthesia Care Patient Profile: This is a 44 year old female. Refer to note in patient chart for documentation of history and physical. Last Colonoscopy: none. The patient's first colonoscopy is today. Complications: No immediate complications. Procedure: Pre-Anesthesia Assessment: - Prior to the procedure, a History and Physical was performed, and patient medications and allergies were reviewed. The patient is competent. The risks and benefits of the procedure and the sedation options and risks were discussed with the patient. All questions were answered and informed consent was obtained. Patient identification and proposed procedure were verified by the physician in the pre-procedure area. Mental Status Examination: alert and oriented. Airway Examination: normal oropharyngeal airway and neck mobility. Respiratory Examination: clear to auscultation. CV Examination: normal. Prophylactic Antibiotics: The patient does not require prophylactic antibiotics. Prior Anticoagulants: The patient has taken no anticoagulant or antiplatelet agents except for NSAID medication. ASA Grade Assessment: II - A patient with mild systemic disease. After reviewing the risks and benefits, the patient was deemed in satisfactory condition to undergo the procedure. The anesthesia plan was to use monitored anesthesia care (MAC). Immediately prior to administration of medications, the patient was re-assessed for adequacy to receive sedatives. The heart rate, respiratory rate, oxygen saturations, blood pressure, adequacy of pulmonary ventilation, and response to care were monitored throughout the procedure. The physical status of the patient was re-assessed after the procedure. After I obtained informed consent, the scope was passed under direct vision. Throughout the procedure, the patient's blood pressure, pulse, and oxygen saturations were monitored continuously. The colonoscope was introduced through the anus and advanced to the cecum, identified by appendiceal orifice and ileocecal valve. The colonoscopy was performed without difficulty. The patient tolerated the procedure well. The quality of the bowel preparation was adequate. The ileocecal valve, appendiceal orifice, and rectum were photographed. Scope In: 7:19:18 AM Scope Withdrawal Time 0 hours 8 minutes 31 seconds Scope Out: 7:30:16 AM Total Procedure Duration Time 0 hours 10 minutes 58 seconds Findings: The perianal and digital rectal examinations were normal. A 20 mm polyp was found in the transverse colon. The polyp was sessile. The polyp was removed with a hot snare. Resection and retrieval were complete. Verification of patient identification for the specimen was done. To prevent bleeding after the polypectomy, one hemostatic clip was successfully placed. Clip program instructor: [employer]. There was no bleeding at the end of the procedure. Area was tattooed with an injection of 1 mL of Queenie ink. The exam was otherwise without abnormality on direct and retroflexion views. Impression: - One 20 mm polyp in the transverse colon, removed with a hot snare. Resected and retrieved. Clip was placed. Clip program instructor: [employer]. Tattooed. - The examination was otherwise normal on direct and retroflexion views. Recommendation: - Discharge patient to home. - Resume previous diet. - Continue present medications. - Await pathology results. - Repeat colonoscopy in 1 year for surveillance based on pathology results. Procedure Code(s): --- Professional --- 76220, Colonoscopy, flexible; with removal of tumor(s), polyp(s), or other lesion(s) by snare technique 61602, Colonoscopy, flexible; with directed submucosal injection(s), any substance CPT copyright 202 [employer]. All rights reserved. The codes documented in this report are preliminary and upon time study observer review may be revised to meet current compliance requirements. Khadar Cortez DO 12/16/2024 7:35:49 AM This report has been signed electronically. Number of Addenda: 0 Note Initiated On: 12/16/2024 6:11 AM
--- NOTE | 2024-12-16 07:37 | PCM.POST.ANE ---
Anesthesia: Postop Eval I Current Vital Signs Temperature: 97.8 F Pulse Rate: 82 Blood Pressure: 112/52 Respiratory Rate: 16 Pulse Ox: 99 Assessment Airway patent: Yes Spontaneous unlabored respirations: Yes nausea: No Vomiting: No Anesthesia Complication: No Fluid Hydration Crystalloid volume administer (ml): 300 Total IV fluid infused: 300 Progress Note Anesthesia document: Postop Eval 1 completed: Yes
--- NOTE | 2024-12-16 08:10 | POSTOPAN2_ITS ---
Anesthesia Postop Eval I Sum Postop Eval Completion status Anesthesia document: Postop Eval 1 completed: Yes Anesthesia Postop Eval I Summary Anesthesia Postop Eval I Summary: Anesthesia Postop Eval I: Assessment Summary Airway patent Yes 12/16/24 07:37 LABORATORY TECHNICAL SPECIALIST.[email or web address] Spontaneous unlabored Yes 12/16/24 07:37 LABORATORY TECHNICAL SPECIALIST.CSIR respirations Mental status nausea No 12/16/24 07:37 LABORATORY TECHNICAL SPECIALIST.CSIR Vomiting No 12/16/24 07:37 LABORATORY TECHNICAL SPECIALIST.CSIR Anesthesia Postop Eval I: Fluid Summary Crystalloid volume administer 300 12/16/24 07:37 LABORATORY TECHNICAL SPECIALIST.CSIR (ml) Colloids volume administered ( ml) Blood Product volume administered (ml) Total IV fluid infused 300 12/16/24 07:37 LABORATORY TECHNICAL SPECIALIST.CSIR Anesthesia Postop Eval I: Summary Notes Anesthesia Complication No 12/16/24 07:37 LABORATORY TECHNICAL SPECIALIST.CSIR Anesthesia Complication Comment: Post-operative progress note Anesthesia: Postop Eval II Evaluation Mental status: Awake Pain Level: 0 nausea: No Vomiting: No
--- NOTE | 2024-12-16 08:10 | PCM.POSTANE2 ---
Anesthesia Postop Eval I Sum Postop Eval Completion status Anesthesia document: Postop Eval 1 completed: Yes Anesthesia Postop Eval I Summary Anesthesia Postop Eval I Summary: Anesthesia Postop Eval I: Assessment Summary Airway patent Yes 12/16/24 07:37 [email or web address].[email or web address] Spontaneous unlabored Yes 12/16/24 07:37 RANGE AID.CSIR respirations Mental status nausea No 12/16/24 07:37 RANGE AID.CSIR Vomiting No 12/16/24 07:37 RANGE AID.[email or web address] Anesthesia Postop Eval I: Fluid Summary Crystalloid volume administer 300 12/16/24 07:37 RANGE AID.CSIR (ml) Colloids volume administered ( ml) Blood Product volume administered (ml) Total IV fluid infused 300 12/16/24 07:37 RANGE AID.CSIR Anesthesia Postop Eval I: Summary Notes Anesthesia Complication No 12/16/24 07:37 RANGE AID.CSIR Anesthesia Complication Comment: Post-operative progress note Anesthesia: Postop Eval II Evaluation Mental status: Awake Pain Level: 0 nausea: No Vomiting: No
== END 2024-12-16 08:05 | disposition home or self-care (01) ==
LOC: EN 05:23 → AC 05:24
PROVIDERS: Anesthesiology; PCP Family Medicine; Referring Provider Family Medicine; Visit Provider Internal Medicine Gastroenterology
PROC: 0DJD8ZZ Inspection of Lower Intestinal Tract, Via Natural or Artificial Opening Endoscopic (ICD-10-PCS; CPT 45378; principal; 2024-12-16 06:25)
DX: Z12.11 Encounter for screening for malignant neoplasm of colon (principal); K21.9 Gastro-esophageal reflux disease without esophagitis; I10 Essential (primary) hypertension; Z99.89 Dependence on other enabling machines and devices; D12.3 Benign neoplasm of transverse colon; G47.30 Sleep apnea, unspecified
CPT/HCPCS: 45385; 45381; 81025; 88305; A4648; J2405

== ENCOUNTER 2025-02-15 05:49 | Emergency (ER) | payer OTHER, SELFPAY ==
[2025-02-15 05:49] VITALS: BP 155/95; PULSE 88; RESP 16; TEMP 37.1; O2SAT 100; BMI 49.1
[2025-02-15 06:15] LABS: Hematocrit 39.2 % (37-47); Hemoglobin 12.9 g/dL (12.0-15.0); Immature Granulocytes Count 0.070 X10^3/uL (0.0-0.0); Mean Corp Hgb Conc 32.9 g/dL (32-36); Mean Corpuscular Volume 90.1 fL (81-99); Mean Platelet Vol. 10.6 fl (6.2-12.0); NRBC Flagged by Analyzer 0 % (0-5); Platelet Count 346 K/mm3 (150-450); RBC Distribution Width CV 12.4 % (11.6-14.6); RBC Distribution Width SD 41.0 fl (35.1-43.9); Red Blood Count 4.35 M/mm3 (4.2-5.4); White Blood Count 8.1 K/mm3 (4.4-11.0)
[2025-02-15] MEDS: 0.9% Normal Saline (1000mL) 1,000 ML 999 ML IV (06:15)
--- NOTE | 2025-02-15 06:20 | EDS_ITS ---
HPI History of Present Illness Chief Complaint: Abd Pain Informant: patient and family Narrative Narrative: Patient is a 44-year-old female with past medical history of hypertension and choledocholithiasis. She states that she recently began using Mounjaro. She states that this past February 11 was her third injection of it. The patient reports that Friday she felt very normal and ate and drink as she normally would. However she awoke around 4 in the morning with upper abdominal discomfort and bouts of nausea and vomiting. She states that there was no blood or discoloration to the emesis. She denies any fevers or chills or known sick contacts. She states that there has been no loose stool or diarrhea or dysuria. She denies any concern for . However as she is unsure if her symptoms are related to Mounjaro or potentially a repeat of her choledocholithiasis she presents for evaluation. [facility] Medical History Wears glasses Gastric reflux Non-smoker CPAP (continuous positive airway pressure) dependence Sleep apnea Hypertension Home Medications ?Medication ?Instructions ?Recorded ?Last Taken ?Type losartan 25 mg tablet 25 mg PO DAILY 09/23/24 06/0 12/05 04:45 History pantoprazole 40 mg tablet,delayed 40 mg PO QDAY #90 ta bs 10/07/24 Unknown Rx release hydrochlorothiazide 25 mg tablet 25 mg PO DAILY Unknown History ondansetron 4 mg disintegrating 4 mg PO TID PRN nausea and 02/15/25 Unknown Rx tablet vomiting #21 tabs oxycodone-acetaminophen 5 mg-325 1 tab PO Q6H PRN pain 3 days #12 02/15/25 Unknown Rx mg tablet (Percocet) tabs tirzepatide 5 mg/0.5 mL mg subcut 02/15/25 Unknown H istory subcutaneous pen injector (Mounjaro) Allergy/AdvReac Type Severity Reaction Status Date / Time No Known Allergies Allergy Verified 12/30/24 09:55 Surgical History History of ERCP Social History Smoking Status: Never smoker EXAM Physical Exam Const Vital Signs: 02/15/25 05:49 Temperature 98.7 F Temperature Source Oral Pulse Rate 88 Respiratory Rate 16 Blood Pressure 155/95 H Blood Pressure Mean 115 Pulse Ox 100 Oxygen Delivery Method Room Air Positive well nourished, well developed and obese General Appearance ED: well developed; Negative for pallor Nutritional Appearance: obese HEENT Reports moist mucous membranes HEENT Narrative: Normocephalic atraumatic No tongue or lip swelling no oral lesions no airway edema or compromise; no secondary findings in the posterior pharynx to suggest infection Eyes PERRL and EOMs intact bilaterally General Eye ED: Negative for scleral icterus Neck supple Neck Narrative: No nuchal rigidity or meningeal signs Resp normal respiratory effort and clear to auscultation bilaterally Cardio regular rate and regular rhythm Rate: other Other Details: Heart is regular rate and rhythm without murmurs rubs or gallops Radial and carotid pulses equal and symmetric GI non-distended and no masses GI Narrative: Abdomen is soft and nondistended with hypoactive bowel sounds. There is mild pain with palpation in the midepigastric region without voluntary guarding or rigidity. No pulsatile mass or fluid wave. Negative Isabel sign. Auscultation: hypoactive bowel sounds Palpation: soft Extremity normal to inspection Neuro oriented x3, CN's II-XII intact bilaterally and no sensory deficits noted Sensorium / Orientation: alert Motor Exam: strength 5/5 throughout Psych mental status grossly normal Skin no rashes or lesions noted, no wounds and skin turgor normal General Skin Exam: Negative for jaundice or pallor MDM MDM MDM Narrative Medical decision making narrative: Patient arrived to the ER hypertensive but has a past medical history of this otherwise stable vitals. She reported that she went to bed normally and then awoke around 4 AM with bouts of nausea vomiting upper abdominal pain. By the time she arrived to the ER patient is no longer vomiting but reports pain and nausea. History and exam is most consistent with symptoms from medication use/Mounjaro. However in order to ensure there are no obvious signs of ileus or obstruction or perforation I did elect to perform an acute abdominal series x- ray. This revealed no acute finding. In order to check for potential biliary colic vs acute cholecystitis vs acute pancreatitis as a cause basic labs were ordered as well. Patient's white count is normal there is no left shift going against secondary infection. Her total bilirubin is normal. She also has no clinically significant changes to her AST ALT and alk phos going against biliary obstruction. Lipase is normal going against pancreatitis. Therefore at this time as the patient does not have findings consistent with obstruction perforation or infection this is most likely adverse medication reaction from the Mounjaro and she can be given symptomatic care and is otherwise safe for discharge History & Record Review Discussion w/independent historian: Patient Lab Data Attestation: I reviewed the patient's lab results. Labs: Laboratory Results - last 24 hr 02/15/25 05:53 WBC 8.1 RBC 4.35 Hgb 12.9 Hct 39.2 MCV 90.1 MCH 29.7 MCHC 32.9 RDW Std Deviation 41.0 RDW Coeff of David 12.4 Plt Count 346 MPV 10.6 Immature Gran % (Auto) 0.900 Neut % (Auto) 59.9 Lymph % (Auto) 26.3 [place] % (Auto) 6.5 Eos % (Auto) 5.7 H Baso % (Auto) 0.7 Absolute Neuts (auto) 4.9 Absolute Lymphs (auto) 2.13 Nucleated RBC % 0 Sodium 139 Potassium 4.1 Chloride 104 Carbon Dioxide 23.8 Anion Gap 11 BUN 15 Creatinine 0.89 Estim Creat Clear Calc 106.83 Est GFR (MDRD) Non-Af 81 BUN/Creatinine Ratio 16.4 Glucose 130 H Calcium 9.4 Total Bilirubin 0.53 Direct Bilirubin 0.20 AST 33 H ALT 33 Alkaline Phosphatase 123 H Total Protein 7.1 Albumin 4.0 Globulin 3.1 Lipase 29 Serum , Qual NEGATIVE Radiography Diagnostic Testing: Clinical Impression(s) from Imaging Studies Acute Abdomen Series 02/15/25 06:35 IMPRESSION: No evidence of acute cardiopulmonary or acute abdominal pathology. Reading Location: [facility] Acute abdominal series as interpreted by the emergency medicine physician reveals nonspecific nonobstructed bowel gas pattern without perforation and chest x-ray component reveals no acute infiltrate or pneumothorax Discharge Plan Triage Chief Complaint: Abd Pain ED Provider: Aiden Evans Dx/Rx/DC Orders Clinical Impression: Nausea & vomiting, Adverse drug reaction, Essential hypertension, Nonspecific abdominal pain Instructions: ED ADVERSE DRUG REACTION Allergic, ED Vomiting (Adult) Prescriptions: New ondansetron 4 mg tablet,disintegrating 4 mg PO TID PRN (Reason: nausea and vomiting) Qty: 21 0RF oxycodone-acetaminophen [Percocet] 5-325 mg tablet 1 tab PO Q6H PRN (Reason: pain) 3 Days Qty: 12 0RF No Action pantoprazole 40 mg tablet,delayed release (DR/EC) 40 mg PO QDAY Qty: 90 1RF losartan 25 mg tablet 25 mg PO DAILY hydrochlorothiazide 25 mg tablet 25 mg PO DAILY Mounjaro 5 mg/0.5 mL pen injector SUBCUT Patient Comments: [NO ORIGINAL SIG] Primary Care Provider: Cheryl Pierre Referrals: Cheryl Pierre, [facility] [Primary Care Provider] - Activity Restrictions/Additional Instructions: Your workup history and exam indicate that your symptoms this morning are most likely side effects from the Mounjaro and not due to a bowel blockage or return of gallbladder dysfunction. Please take the prescribed medication as directed to help control your symptoms and return to the ER should you have any further concerns Print Language: St Helen[place] Disposition Disposition: Home, Self Care
[2025-02-15 06:23] LABS: Internal QC Validated? YES +Cl - CLEAR BKGD; Pregnancy, Serum, hCG Quali. NEGATIVE Negative; Record Kit Lot#, Serum Preg. 0000962302
--- NOTE | 2025-02-15 06:35 | RAD_ITS ---
PROCEDURE: ACUTE ABDOMEN INC CHEST 02/15/2025 REASON FOR EXAM: ABD PAIN TECHNIQUE: ACUTE ABDOMEN INC CHEST COMPARISON: None. FINDINGS: The lungs are clear. The heart borders mediastinum and pulmonary vascular pattern are normal. There are no bony abnormalities of the chest. Upright and supine images of the abdomen demonstrate a nonobstructive bowel gas pattern. There are no abnormal soft tissue calcifications or radiopaque foreign bodies. There are no significant bony abnormalities. RAD/Acute Abdomen Inc Chest IMPRESSION: No evidence of acute cardiopulmonary or acute abdominal pathology. Reading Location: [id number]
[2025-02-15 06:36] LABS: AST(SGOT) 33 U/L (<=31); Alanine Aminotransfer ALT/SGPT 33 U/L (<=34); Albumin, Serum 4.0 g/dL (3.5-5.0); Alkaline Phosphatase 123 U/L (35-104); Anion Gap 11 (5-15); BUN 15 mg/dL (4-19); BUN/Creat Ratio 16.4 RATIO (10-20); Bilirubin, Direct 0.20 mg/dL (0.00-0.30); Calcium,Total 9.4 mg/dL (7.6-11.0); Carbon Dioxide 23.8 mmol/L (21.0-32.0); Chloride 104 mmol/L (98-108); Estimated Creatinine Clearance 106.83 ml/min (50-250); Globulin 3.1 g/dL (2.2-4.2); Glucose 130 mg/dL (70-99); Lipase 29 U/L (13-75); Potassium 4.1 mmol/L (3.3-5.1)
--- OUTSIDE RECORDS SUMMARY | 2025-02-15 07:07 | XMS RPT_ITS | CCD ---
Author Organization [facility] Care Team Providers Care Machining Engineer Name Role Phone Dr. Juan Jose Oseguera DO Referring Provider Dr. Juan Jose Oseguera DO Emergency Provider [facility], [place] Primary Care Provider Burks DO, Dr. Diane Admit Provider Unavail able Burks DO, Dr. Diane Attending Provider Unav ailable Burks DO, Dr. Diane Other Provider Unavail able Mitch PAGE, Dr. Burgos Attending Provider Dr. Loretta Meyer MD Other Provider Dr. Khadar Cortez DO Attending Provider Maria Esther PAGE, Dr. Mesa Attending Provider Dr. Loretta Meyer MD Referring Provider [facility] Referring Provider [phone] Owen ROVING CHANGER-CHui Attending Provider Owen ROVING CHANGER-CHui Referring Provider Dr. Khadar Cortez DO Other Provider Nichol PAGE, Dr. Fisher Referring Provider Khadar Cortez Attending Unavailable [facility] Referring Unavailable [facility] Primary Care Unavailable Hui Weaver Referring Unavailable Hui Weaver Attending Unavailable [facility] Primary Care Unavailable Hui Weaver Referring Unavailable [facility] Primary Care Unavailable Hui Weaver Attending Unavailable Juan Jose Oseguera Referring Unavailable [place], Cheryl Primary Care Unavailable Loretta Meyer Attending Unavailable Benedicto Burks Consulting Unavailable Burks, Benedicto Admitting Unavailable Juan Jose Oseguera Referring Unavailable Loretta Meyer Attending Unavailable Benedicto Burks Admitting Unavailable de Benedicto Vasquez Consulting Unavailable [place], Cheryl Primary Care Unavailable Meyer, Loretta Consulting Unavailable Meyer, Loretta Referring Unavailable [place], Cheryl Primary Care Unavailable Maria Esther, Moshe Attending Unavailable Hui Weaver Attending Unavailable [place], Cheryl Primary Care Unavailable [place], Cheryl Referring Unavailable [place], Cheryl Referring Unavailable [place], Cheryl Primary Care Unavailable Hui Weaver Attending Unavailable Kanchertn, Phillip Referring Unavailable [place], Cheryl Primary Care Unavailable Moshe Mayo Attending Unavailable Friend, Khadar Attending Unavailable Friend, Khadar Consulting Unavailable [place], Cheryl Referring Unavailable [place], Cheryl Primary Care Unavailable Friend, Khadar Attending Unavailable Friend, Khadar Consulting Unavailable [place], Cheryl Referring Unavailable [place], Cheryl Primary Care Unavailable de Benedicto Vasquez Attending Unavailable Friend, Khadar Attending Unavailable Friend, Khadar Attending Unavailable [place], Cheryl Primary Care Unavailable [place], Cheryl Referring Unavailable SCHENECTADY, CHERYL Admitting Unavailable SCHENECTADY, CHERYL Attending Unavailable SCHENECTADY, CHERYL Primary Care Unavailable SCHENECTADY, CHERYL Consulting Unavailable PROVIDER, UNKNOWN Consulting Unavailable SCHENECTADY, CHERYL Admitting Unavailable SCHENECTADY, CHERYL Attending Unavailable SCHENECTADY, CHERYL Primary Care Unavailable SCHENECTADY, CHERYL Consulting Unavailable PROVIDER, UNKNOWN Consulting Unavailable SCHENECTADY, CHERYL Admitting Unavailable SCHENECTADY, CHERYL Attending Unavailable SCHENECTADY, CHERYL Primary Care Unavailable SCHENECTADY, CHERYL Consulting Unavailable PROVIDER, UNKNOWN Consulting Unavailable Medications Current Medications Medication Drug Class(es) Dates Sig (Normalized) Sig (Original) losartan potassium 25 mg oral tablet (6 sources) Angiotensin 2 Receptor Mervin Start: 09-23-2024 take 1 tablet by mouth once daily Losartan 25 mg tablet Active 25 mg PO DAILY September 23, 2024 12:00am pantoprazole 40 mg delayed release oral tablet (4 sources) Proton Pump Inhibitor Start: 10-07-2024 take 1 tablet by mouth once daily Pantoprazole 40 mg tablet,delayed release (DR/EC) Active 40 mg PO daily 90 October 07, 2024 12:00am Completed/Discontinued Medications Medication Drug Class(es) Dates Sig (Normalized) Sig (Original) ciprofloxacin 500 mg oral tablet (5 sources) Quinolone Antimicrobial Start: 09-25-2024 End: 10-07-2024 take 1 tablet by mouth twice daily Ciprofloxacin Hcl 500 mg tablet Discontinued 500 mg PO TWICE A DAY 20 September 25, 2024 12:00am October 07, 2024 1:54pm metroNIDAZOLE 500 mg oral tablet (5 sources) Nitroimidazole Antimicrobial Start: 09-25-2024 End: 10-07-2024 take 1 tablet by mouth three times daily Metronidazole 500 mg tablet Discontinued 500 mg PO THREE TIMES A DAY 30 September 25, 2024 12:00am October 07, 2024 1:54pm ondansetron 4 mg oral tablet (4 sources) Serotonin-3 Receptor Antagonist Start: 10-07-2024 End: [...] every 4 hours as needed for N/V Sod Sulf-Pot Chloride-Mag Sulf (4 sources) Start: 10-07-2024 End: 12-30-2024 Sod Sulf-Pot Chloride-Mag Sulf (Sutab) 1.479-0.188- 0.225 gram tablet Discontinued 0 PO per package directions October 07, 2024 12:00am December 30, 2024 9:56am as directed for split dose bowel prep Start: 10-07-2024 Sod Sulf-Pot C hloride-Mag Sulf (Sutab) 1.479-0.188- 0.225 gram tablet Active 0 PO per package directions October 07, 2024 12:00am as directed for split dose bowel prep Problems Active Problems Problem Classification Problem Date Documented Date Episodic/Chronic Biliary tract disease (13 sources) Obstruction of common bile duct; Translations: [Obstruction of bile duct] Onset: 09-29-2024 09-23-2024 Chronic Biliary tract disease (17 sources) Calculus of bile duct with obstruction; Translations: [Calculus of bile duct without cholangitis or cholecystitis with obstruction] Onset: 10-29-2024 09-25-2024 Episodic Essential hypertension (11 sources) Essential hypertension; Translations: [Essential (primary) hypertension] Onset: 09-29-2024 09-24-2024 Chronic Other aftercare (1 source) Other usp (current) drug therapy; Translations: [Other usp (current) drug therapy] Onset: 01-08-2025 Episodic Other and unspecified benign neoplasm (2 sources) Polyp of colon; Translations: [Polyp of colon] 12-30-2024 Episodic Other and unspecified benign neoplasm (1 source) Polyp of colon; Translations: [Polyp of colon] Onset: 12-30-2024 Episodic Other liver diseases (20 sources) Enzyme level - finding; Translations: [Elevated transaminase measurement] 09-24-2024 Episodic Other nutritional; endocrine; and metabolic disorders (12 sources) Body mass index 40+ - severely obese; Translations: [Morbid (severe) obesity due to excess calories] 09-23-2024 Chronic Other nutritional; endocrine; and metabolic disorders (10 sources) Hyperbilirubinemia; Translations: [Other disorders of bilirubin [...] conditions (not mental disorders or infectious disease) (7 sources) Patient encounter status; Translations: [Encounter for screening for malignant neoplasm of colon] Onset: 12-29-2024 12-16-2024 Episodic Unclassified (2 sources) Elevation of levels of liver transaminase levels; Translations: [Elevation of levels of liver transaminase levels] Onset: 10-29-2024 Past or Other Problems Problem Classification Problem Date Documented Da te Episodic/Chronic Abdominal pain (15 sources) Abdominal pain; Translations: [Unspecified abdominal pain] Onset: 09-23-2024 09-24-2024 Episodic Nausea and vomiting (18 sources) Nausea and vomiting; Translations: [Nausea with vomiting, unspecified] Onset: 09-29-2024 09-23-2024 Episodic Results Test Name Value Interpretation Reference Range Facility 3D MAMM BILAT SCREENon 01-19 3D MAMM BILAT SCREEN [place] [address] Patient: REYNA NULL Phone#: : 1980 Age: 44 Gender: F Pt. Type: Out Account: [id number] Location: [facility] Ordering: [facility] Exam Date: 01/19/2025/11:11 Family Phys: Charge Code: [id number] Physician: [place] Order #: [id number] Dose#: PROCEDURE: BILATERAL SCREENING BREAST TOMOSYNTHESIS MAMMOGRAM WITH CAD COMPARISON: [facility], , 3D BILAT SCREEN, 04/05/2021, 8:08. [facility], 3D BILAT SCREEN, 08/21/2022, 8:21. INDICATIONS: screening BREAST COMPOSITION: The breasts are heterogeneously dense, which may obscure small masses FINDINGS: DIAGNOSTIC CATEGORY 1--NEGATIVE NO CHANGE FROM COMPARISON ASSESSMENT. RIGHT BREAST: No significant suspicious finding. No significant change has occurred. LEFT BREAST: No significant suspicious finding. No significant change has occurred. RECOMMENDATIONS: ROUTINE MAMMOGRAM AND CLINICAL EVALUATION IN 12 MONTHS. PLEASE NOTE: A NORMAL MAMMOGRAM DOES NOT EXCLUDE THE POSSIBILITY OF BREAST CANCER. A CLINICALLY SUSPICIOUS PALPABLE LUMP SHOULD BE BIOPSIED. THIS FACILITY UTILIZES A REMINDER SYSTEM TO ENSURE THAT ALL PATIENTS RECEIVE REMINDER LETTERS FOR APPOINTMENTS. THIS INCLUDES REMINDERS FOR ROUTINE MAMMOGRAMS, DIAGNOSITC MAMMOGRAMS, OR OTHER BREAST IMAGING INTERVENTIONS WHEN APPROPRIATE. THIS PATIENT WILL BE PLACED IN THE APPROPRIATE REMINDER SYSTEM. Dictated by: Xena Massey MD on 01/19/2025 at 17:11 Approved by: Xena Massey MD on 01/19/2025 at 17:15 [facility] CMP with eGFRon 01-08-2025 AGE 44 years [facility] Comment on above: Performed By: #### 2 [id number] #### [facility],[address] [place] [address] 13529 Albumin [Mass/Vol] 3.1 g/dL Low 3.4 - 5.0 [facility] Comment on above: Performed By: #### 2 95349 #### [facility],[address] [place] [address] 06213 Albumin/Globulin [Mass ratio] 0.7 {ratio} Low 0.9 - 1.6 [facility] Comment on above: Performed By: #### 2 52967 #### [facility],[address] [place] [address] 36362 ALK PHOS 120 U/L High 46 - 116 [facility] Comment on above: Performed By: #### 2 47020 #### [facility],[address] [place] [address] 20549 ALT [Catalytic activity/Vol] 45 U/L Normal 16 - 63 [facility] Comment on above: Performed By: #### 2 09928 #### [facility],[address] [place] [address] 16884 Anion gap [Moles/Vol] 11 mmol/L Normal 10 - 20 [facility] Comment on above: Performed By: #### 2 61473 #### [facility],[address] [place] [address] 34378 AST [Catalytic activity/Vol] 32 U/L Normal 13 - 39 [facility] Comment on above: Performed By: #### 2 83676 #### [facility],[address] [place] [address] 70223 B/C RATIO 11 ratio Normal 0 - 30 [facility] Comment on above: Performed By: #### 2 48707 #### [facility],[address] [place] [address] 74225 Bilirubin [Mass/Vol] 0.8 mg/dL Normal 0.2 - 1.0 [facility] Comment on above: Performed By: #### 2 57047 #### [facility],[address] [place] [address] 12260 Calcium [Mass/Vol] 8.8 mg/dL Normal 8.5 - 10.1 [facility] Comment on above: Performed By: #### 2 89891 #### [facility],[address] [place], [place] [id number] Chloride [Moles/Vol] 104 mmol/L Normal 98 - 107 [facility] Comment on above: Performed By: #### 2 55636 #### [facility],[address] [place], [place] [id number] CMP with eGFR Normal [facility] Comment on above: Result Comment: COMP REHENSIVE METABOLIC PANEL Performed By: #### 2 31854 #### [place] [id number] CO2 [Moles/Vol] 26.7 mmol/L Normal 21.0 - 32.0 [facility] Comment on above: Performed By: #### 2 24796 #### [place] [id number] Creatinine [Mass/Vol] 0.89 mg/dL Normal 0.55 - 1.02 [facility] Comment on above: Performed By: #### 2 84134 #### [place] [id number] GFR/1.73 sq M.predicted among non-blacks MDRD (S/P/Bld) [Vol rate/Area] mL/min/{1.73_m2} Normal 60 - 999 [facility] Comment on above: Performed By: #### 2 12538 #### [facility],[address] [place] [address] Result Comment: ACCO RDING TO THE NATIONAL KIDNEY DISEASE EDUCATION PROGRAM(NKDE), A NORMAL eGFR IS A VALUE GREATER THAN OR EQUAL TO 60 ML/MIN/1.73 SQ METERS. CHRONIC KIDNEY DISEASE: <60mL/MIN/1.73 SQ METERS KIDNEY FAILURE: <15mL/MIN/1.73 SQ METERS THIS TEST SHOULD ONLY BE USED FOR PATIENTS 18 YEARS OF AGE AND OLDER. Globulin (S) [Mass/Vol] 4.2 g/dL High 1.5 - 3.8 [facility] Comment on above: Performed By: #### 2 63723 #### [address] [address] Glucose [Mass/Vol] 97 mg/dL Normal 74 - 106 [facility] Comment on above: Performed By: #### 2 95999 #### [place] [id number] Potassium [Moles/Vol] 4.1 mmol/L Normal 3.5 - 5.1 [facility] Comment on above: Performed By: #### 2 97144 #### [place] [id number] Protein [Mass/Vol] 7.3 g/dL Normal 6.4 - 8.2 [facility] Comment on above: Performed By: #### 2 36150 #### [place] [id number] Sodium [Moles/Vol] 138 mmol/L Normal 136 - 145 [facility] Comment on above: Performed By: #### 2 82838 #### [address] [address] Urea nitrogen [Mass/Vol] 10 mg/dL Normal 7 - 18 [facility] Comment on above: Performed By: #### 2 18085 #### [address] [address] LIPID PROFILEon 01-08-2025 Cholesterol [Mass/Vol] 181 mg/dL Normal 0 - 240 [facility] Comment on above: Performed By: #### 2 27565 #### [address] [address] Cholesterol in HDL [Mass/Vol] 39 mg/dL Low 40 - 60 [facility] Comment on above: Performed By: #### 2 81563 #### [facility],[address] [place] [address] Cholesterol in LDL [Mass/Vol] 122 mg/dL Normal 0 - 129 [facility] Comment on above: Performed By: #### 2 68283 #### [facility],[address] [place] [address]38 Cholesterol.total/Chol esterol in HDL [Mass ratio] 4.6 {ratio} Normal 0.0 - 5.0 [facility] Comment on above: Performed By: #### 2 17729 #### [facility],[address] [place] [address] 67197 Lipid 1996 panel Normal [facility] Comment on above: Result Comment: LIPI D PROFILE Performed By: #### 2 55058 #### [facility],[address] [place] [address]46 Triglyceride [Mass/Vol] 102 mg/dL Normal 0 - 150 [facility] Comment on above: Performed By: #### 2 99923 #### [facility],[address] [place] [address]366 Gastroenterology Visit Repor ton 12-30-2024 Gastroenterology Visit Report [facility]enter[facility] [address] [place] [address] OFFICE VISIT Date of Service: 12/30/24 MR#: [id number] Acct: [id number] Name: REYNA NULL Rep #: [id number] : 1980 Provider: NEL gonzalez Age/Sex: 44/F Location: [facility] Status: Signed Intake Vital Signs 10/07/24 14:04 12/16/24 06:01 12/30/24 09:59 Height 5 ft 4 in 5 ft 4 in 5 ft 4 in Weight: 282 lb 2 oz BMI 48.4 BP 152/84 H Respiration 16 Pulse 84 Temp 98.0 F Temp Source Temporal Pulse Oximetry (%) 96 Oxygen Delivery Method room air Intake Visit Reasons: COLONOSCOPY FOLLOW UP Radiosonde Operator Required: No Accompanied by: Self Is patient in pain?: No Allergies No Known Allergies Allergy (Verified 12/30/24 09:55) Medications ???Medication ???Instructions ???Recorded ???Confirmed ???Type losartan 25 mg tablet 25 mg PO DAILY 09/23/24 12/30/24 H istory pantoprazole 40 mg tablet,delayed 40 mg PO QDAY #90 tabs 10/07/24 0 12/30/24 Rx release PFSH Medical History Wears glasses Gastric reflux Non-smoker CPAP (continuous positive airway pressure) dependence Sleep apnea Hypertension Surgical History History of ERCP Social History Smoking Status: Never smoker HPI HPI Details: REYNA NULL, is a 44 F who presents to the office today for OV 10/07/2024 44-year-old female presents for consultation with complaints [...] this time. She is due for an age- related screening colonoscopy and we will schedule this in the near future. Patient Instructions: ERCP with stent removal in 4 weeks Colonoscopy-Sutab bowel prep COLON 12/16/2024 - TA - One 20 mm polyp in the transverse colon, removed with a hot snare. Resected and retrieved. Clip was placed. Clip clipping marker: HomeZada. Tattooed. - The examination was otherwise normal on direct and retroflexion views. - Repeat colonoscopy in 1 year for surveillance based on pathology results. ERCP w/Stent removal 10/21/2024 - The entire biliary tree was dilated, with a stone causing an obstruction. - Choledocholithiasis was found. Complete removal was accomplished by biliary sphincterotomy and balloon extraction. - A biliary sphincterotomy was performed. - The biliary tree was swept. - One stent was removed from the biliary tree - she is doing well - she denies any pain - denies any change in bowel habits - denies any bleeding - denies any family h/o colon CA - denies any recurrent pain like she experienced with choledocholithiasis ROS Const Constitutional: No fatigue, fever(s) or weight change ENT ENT: No difficulty swallowing Gastro GI: No abdominal pain, belching, bloating, change in bowel habits, change in stool character, coffee ground emesis, constipation, cramping, diarrhea, heartburn, difficulty swallowing, feeling full early, excessive flatus, incontinent of stools, Vomiting blood/hematemesis, Blood in stool, loose stools, Black,tarry stools, nausea/dyspepsia, pain with swallowing, vomiting or other Musc [...] and overweight Orientation: alert and oriented x3 [facility] Head: normocephalic Ears: hearing grossly normal bilaterally Mouth: moist mucous membranes Teeth and gingiva: dentition normal Eyes Conjunctivae: conjunctivae normal Sclera: sclerae normal Neck Neck: normal visual inspection, full ROM and trachea midline Resp Effort Inspection: normal respiratory effort, able to speak in complete sentences and symmetric chest movement Neuro General: patient alert and patient oriented x3 Cranial Nerves: other (CN's grossly intact, non-focal exam) Cognition: normal cognition Speech: speech normal Gait: normal gait Psych Appearance: grossly normal and well kempt (more content not included)... Normal [facility] Colonoscopy Reporton 025 Colonoscopy Report [facility] Medical Records Department [address] [place] [address] Colonoscopy Report MR#: [id number] Acct: [id number] Name: REYNA NULL Rep #: [id number] : 1980 44 From: Khadar Cortez DO PCP: Cheryl Pierre PA-C [place] Patient Name: Reyna Null Procedure Date: 12/16/2024 6:11 AM Date of : 1980 Age: 44 Procedure: Colonoscopy Indications: Screening for colorectal malignant neoplasm Providers: Khadar Cortez DO Referring MD: Cheryl Pierre Medicines: Monitored Anesthesia Care Patient Profile: This is a 44 year old female. Refer to note in patient chart for documentation of history and physical. Last Colonoscopy: none. The patient's first colonoscopy is today. Complications: No immediate complications. Procedure: Pre-Anesthesia Assessment: [...] patient was re-assessed after the procedure. After I obtained informed consent, the scope was passed under direct vision. Throughout the procedure, the patient's blood pressure, pulse, and oxygen saturations were monitored continuously. The colonoscope was introduced through the anus and advanced to the cecum, identified by appendiceal orifice and ileocecal valve. The colonoscopy was performed without difficulty. The patient tolerated the procedure well. The quality of the bowel preparation was adequate. The ileocecal valve, appendiceal orifice, and rectum were photographed. Scope In: 7:19:18 AM Scope Withdrawal Time 0 hours 8 minutes 31 seconds Scope Out: 7:30:16 AM Total Procedure Duration Time 0 hours 10 minutes 58 seconds Findings: The perianal and digital rectal examinations were normal. A 20 mm polyp was found in the transverse colon. The polyp was sessile. The polyp was removed with a hot snare. Resection and retrieval were complete. Verification of patient identification for the specimen was done. To prevent bleeding after the polypectomy, one hemostatic clip was successfully placed. Clip clipping marker: HomeZada. There was no bleeding at the end of the procedure. Area was tattooed with an injection of 1 mL of Queenie ink. The exam was otherwise without abnormality on direct and retroflexion views. Impression: - One 20 mm polyp in the transverse colon, removed with a hot snare. Resected and retrieved. Clip was placed. Clip clipping marker: HomeZada. Tattooed. - The examination was otherwise normal on direct and retroflexion views. Recommendation: - Discharge patient to home. - Resume previous diet. - Continue present medications. - Await pathology results. - Repeat colonoscopy in 1 year for surveillance based on pathology results. Procedure Code(s): --- Professional --- 04016, Colonoscopy, flexible; with removal of tumor(s), polyp(s), or other lesion(s) by snare technique 30875, Colonoscopy, flexible; with directed submucosal injection(s), any substance CPT copyright 2021 [employer]. All rights reserved. The codes documented in this report are preliminary and upon steel fitter review may be revised to meet current compliance requirements. Khadar Cortez DO 12/16/2024 7:35:49 AM This report has been signed electronically. Number of Addenda: 0 Note Initiated On: 12/16/2024 6:11 AM 12/16/24 0736 Date Khadar Casiano Signature: Date (if indicated) CC: DONNIE Bullock (more content not included)... [facility] MR/POSTOP.ANEon 12-16-2024 MR/POSTOP.[facility] Medical Records Department [address] [place] [address] Anesthesia Postop Eval I 12/16/24 0737 MR#: [id number] Acct: [id number] Name: REYNA NULL Bernie Rep #: [id number] : 1980 44 From: Brit Simental CRNA PCP: Cheryl Pierre PA-C Status:[facility] [place] Race: C Location: [place] [address] Anesthesia: Postop Eval I Current Vital Signs Temperature: 97.8 F Pulse Rate: 82 Blood Pressure: 112/52 Respiratory Rate: 16 Pulse Ox: 99 Assessment Airway patent: Yes Spontaneous unlabored respirations: Yes nausea: No Vomiting: No Anesthesia Complication: No Fluid Hydration Crystalloid volume administer (ml): 300 Total IV fluid infused: 300 Progress Note Anesthesia document: Postop Eval 1 completed: Yes 12/16/24 0738 Date Brit Simental CRNA Cosigner Signature: Date CC: Signed [facility] MR/[id number] 12-16-2024 MR/POSTOPAN2 [facility] Medical Records Department [address] [place] [address] Anesthesia Postop Eval II 12/16/24 0810 MR#: [id number] Acct: [id number] Name: REYNA NULL Bernie Rep #: [id number] : 1980 44 From: Brit Simental PSYCHOLOGIST PCP: Cheryl Pierre PA-C Status:DEP SDC Y Race: C Location: [place] Anesthesia Postop Eval I Sum Postop Eval Completion status Anesthesia document: Postop Eval 1 completed: Yes Anesthesia Postop Eval I Summary Anesthesia Postop Eval I Summary: Anesthesia Postop Eval I: Assessment Summary Airway patent Yes 12/16/24 07:37 [email or web address] Spontaneous unlabored Yes 12/16/24 07:37 [email or web address].CSIR respirations Mental status nausea No 12/16/24 07:37 [email or web address].CSIR Vomiting No 12/16/24 07:37 [email or web address].CSIR Anesthesia Postop Eval I: Fluid Summary Crystalloid volume administer 300 12/16/24 07:37 [email or web address].CSIR (ml) Colloids volume administered ( ml) Blood Product volume administered (ml) Total IV fluid infused 300 12/16/24 07:37 [email or web address].CSIR Anesthesia Postop Eval I: Summary Notes Anesthesia Complication No 12/16/24 07:37 [email or web address].CSIR Anesthesia Complication Comment: Post-operative progress note Anesthesia: Postop Eval II Evaluation Mental status: Awake Pain Level: 0 nausea: No Vomiting: No 12/16/24 0810 Date Britcharisse Simental PSYCHOLOGIST Cosigner Signature: Date CC: Signed Normal [facility] ,Urineon 12-16-2024 Beta HCG ( test) Ql (U) Negative Normal [facility] Comment on above: Result Comment: Very dilute urine specimens, as indicated by a low specific gravity, may not contain patient accounting representative levels of hCG. If is still suspected, a first morning urine specimen should be collected 48 hours later and tested. Performed By: #### L 3000.0375, L501.9985, L501.9520, L501.5200 #### [facility] [address] [place], [place], [address] Surgery Specimen Level Dev 12-16-2024 Surgery Specimen Level IV Patient Age/Sex Location Account Attending Physician REYNA NULL 44/F EN [id number] Khadar Cortez DO Specimen: [id number] Received: 12/16/24 Status: KALEBBunny Mary Num: [id number] Spec Type: COLON BX Subm Dr: Khadar Cortez DO HEADER OPERATION: Colonoscopy with polypectomy, tattoo and clip PRE-OP DIAGNOSIS: Encounter for screening colonoscopy TISSUE SUBMITTED: A- Transverse colon polyp MICROSCOPIC DIAGNOSIS A. Large intestine, transverse polyp, colonoscopic polypectomy: * Tubular adenoma MICROSCOPIC DESCRIPTION Slides are reviewed. GROSS DESCRIPTION A. Received in formalin in a container labeled with the patient's name, date of , and transverse colon polyp is a 1.5 x 1.2 x 0.8 cm whitt-pink and polypoid piece of mucosal tissue. The resection margin is inked black, and serial sections reveal whitt-pink and friable surfaces. Submitted entirely in A1-2. [facility] 12-16-2024 [facility]:[id number] Patient Age/Sex Location Account Attending Physician REYNA NULL 44/F EN [id number] Khadar Cortez DO Signed (signature on file) Dr. Ethan Smith MD 12/17/24 4655 Normal [facility] Comment on above: Performed By: #### L 400.7603 #### [facility] [address] [place], [place], [id number] Urine testOrdered By: Phillip Gandara on 12-16-2024 HCG ( test) Ql (U) Negative [facility] Comment on above: Very dilute urine sp ecimens, as indicated by a low specificgravity, may not contain patient accounting representative levels of hCG. If is still suspected, a first morning urinespecimen should be collected 48 hours later and tested. Bilirubin directOrdered By: Hui Weaver on 10-27-2024 Bilirubin.direct [Mass/Vol] 0.22 mg/dL 0.00-0.30 [facility] Bilirubin, totalOrdered By: Hui Weaver on 10-27-2024 Bilirubin [Mass/Vol] 0.59 mg/dL 0.00-1.30 [facility] - Chemistry and C hemistry - challengeOrdered By: Hui Weaver on 10-27-2024 AST [Catalytic activity/Vol] 32 U/L <32 [facility] Liver Profileon 10-27-2024 Albumin [Mass/Vol] 4.1 g/dL Normal 3.5-5.0 [facility] Comment on above: Performed By: #### L 500.3400 ####[facility] [address] [place], [place], [id number] ALK PHOS 128 U/L High 35-104 [facility] Comment on above: Performed By: #### L 500.3400 ####[facility] [address] [place], [place], [id number] ALT [Catalytic activity/Vol] 37 U/L High <=34 [facility] Comment on above: Performed By: #### L 500.3400 ####[facility] [address] [place], [place], [id number] AST [Catalytic activity/Vol] 32 U/L Normal <=31 [facility] Comment on above: Performed By: #### L 500.3400 ####[facility] [address] [place], [address] Bilirubin [Mass/Vol] 0.59 mg/dL Normal 0.00-1.30 [facility] Comment on above: Performed By: #### L 500.3400 ####[facility] [address] [place], [address] Bilirubin.direct [Mass/Vol] 0.22 mg/dL Normal 0.00-0.30 [facility] Comment on above: Performed By: #### L 500.3400 ####[facility] [address] [place], [address] Globulin (S) [Mass/Vol] 3.3 g/dL Normal 2.2-4.2 [facility] Comment on above: Performed By: #### L 500.3400 ####[facility] [address] [place], [address] T PROT 7.4 g/dL Normal 5.9-8.4 [facility] Comment on above: Performed By: #### L 500.3400 ####[facility] [address] [place], [address] Serum globulin measurementOr dered By: Hui Weaver on 10-27-2024 Globulin (S) [Mass/Vol] 3.3 g/dL 2.2-4.2 [facility] Serum or plasma alanine basurto otransferase (ALT) measurementOrdered By: Hui Weaver on 10-27-2024 ALT [Catalytic activity/Vol] 37 U/L High <35 [facility] Serum or plasma albumin edinson urement (mass/volume)Ordered By: Hui Weaver on 10-27-2024 Albumin [Mass/Vol] 4.1 g/dL 3.5-5.0 [facility] Serum or plasma alkaline tracy sphatase measurementOrdered By: Hui Weaver on 10-27-2024 ALP [Catalytic activity/Vol] 128 U/L High 35-104 [facility] Total proteinOrdered By: Joie sushma Weaver on 10-27-2024 Protein [Mass/Vol] 7.4 g/dL 5.9-8.4 [facility] 12 Lead EKGon 10-21-2024 12 Lead EKG [facility] Cardi[facility] [address] [place] [address] 12 Lead EKG 10/21/24 1034 MR#: [id number] Acct: [id number] Name: REYNA NULL Rep #: [id number] : 1980 44 From: Moshe Mayo MD Attending Dr: Khadar Cortez, Status: DEP SD C Ordering Dr: Phillip Gandara MD Date: 10/21/24 [...] found Confirmed by MOSHE MAYO MD ([id number]), editor & co founder NAJMA SAAVEDRA ([id number]) on 10/22/2024 2:00:07 PM Referred By: Cheryl Pierre Confirmed By: MOSHE MAYO MD 10/22/24 1400 Date Moshe Mayo MD CC: DONNIE Pierre; Dr. Phillip Gandara MD; Khadar Cortez DO Signed Normal [facility] ERCP Biliary/Pancreason 10-12 ERCP Biliary/Pancreas [facility] Imaging Services [address] [place] [address] ERCP Biliary/Pancreas MR#: [id number] Acct: [id number] Name: REYNA NULL Bernie Rep #: [id number] : 1980 F 44 From: Quentin Olvera i, MD PCP: Cheryl Pierre PA-C Status: [facility] Study: ERCP Biliary/Pancreas Date of Exam: 10/21/24 Exam# [id number] Ordering Dr: Khadar Cortez DO EXAM: ERCP [...] note by the GI service. Reading Location: [id number] CC: DONNIE Pierre; Khadar Cortez DO Chimney Repairer: Signed Normal [facility] ERCP Reporton 10-21-2024 ERCP Report [facility] Medical Records Department [address] [place] [address] ERCP Report MR#: [id number] Acct: [id number] Name: REYNA NULL Rep #: [id number] : 1980 44 From: Khadar Cortez DO PCP: Cheryl Pierre PA-C Status:[facility] Patient Name: Reyna Null Procedure Date: 10/21/2024 11:20 AM Date of : 1980 Age: 44 Procedure: ERCP Indications: Bile duct stone(s), Stent removal Providers: Kahdar Cortez DO Referring MD: Cheryl Pierre Medicines: [...] hours 9 minutes 22 seconds Findings: The certified nursing assistant instructor film was normal. The esophagus was successfully [...] tree. Procedure Code(s) (more content not included)... [facility] MR/POSTOP.[facility] 10-21-2024 MR/POSTOP.[facility] Medical Records Department [address] [place] [address] Anesthesia Postop Eval I 10/21/24 1240 MR#: [id number] Acct: [id number] Name: REYNA NULL Rep #: [id number] : 1980 44 From: Chandrakant Kasper PCP: Cheryl Pierre PA-C Status:REG SDC Y Race: C Location: [place] [address] Anesthesia: Postop Eval I Current Vital Signs [...] Postop Eval 1 completed: Yes 10/21/24 1241 Date Chandrakant Kasper Cosigner Signature: Date CC: Signed Normal [facility] MR/[id number] 10-21-2024 MR/POSTOPAN2 [facility] Medical Records Department [address] [place] [address] Anesthesia Postop Eval II 10/21/24 1300 MR#: [id number] Acct: [id number] Name: REYNA NULL Rep #: [id number] : 1980 44 From: Phillip Gandara MD PCP: Cheryl Pierre PA-C Status[place]REG [facility] [place] Race: C Location: [address] Anesthesia Postop Eval I Sum Postop [...] MD Cosigner Signature: Date CC: Signed Normal [facility] ,Urineon 10-21-2024 Beta HCG ( test) Ql (U) Negative Normal [facility] Comment on above: Result Comment: Very dilute urine specimens, as indicated by a low specific gravity, may not contain patient accounting representative levels of hCG. If is still suspected, a first morning urine specimen should be collected 48 hours later and tested. Performed By: #### L 400.7600 ####[facility] [address] [place], [place], [address] Special Stain Group IIon Special Stain Group II --------- Patient Age/Sex Location Account Attending Physician REYNA NULL 44/F EN [id number] Khadar Cortez DO Specimen: [id number] Received: 10/21/24-1323 Status: CHIQUITA Hernandez Num: [id number] Spec Type: Fluid Subm Dr: Khadar Cortez, [...] Submitted for cytology and cell block preparation. 10/21/2024 CPT: 31420 Signed (signature on file) Dr. Joseline Varma DO 10/22/24 1352 Normal [facility] Comment on above: Performed By: #### P SSII ####[facility] [address] [place], [place], [id number] Urine testOrdered By: Phillip Gandara on 10-21-2024 HCG ( test) Ql (U) Negative [facility] Comment on above: Very dilute urine sp ecimens, as indicated by a low specificgravity, may not contain patient accounting representative levels of hCG. If is still suspected, a first morning urinespecimen should be collected 48 hours later and tested. Bilirubin directOrdered By: Hui Weaver on 10-07-2024 Bilirubin.direct [Mass/Vol] 0.21 mg/dL 0.00-0.30 [facility] Comment on above: Hemolysis present, R esults could be affected. Bilirubin, totalOrdered By: Hui Weaver on 10-07-2024 Bilirubin [Mass/Vol] 0.51 mg/dL 0.00-1.30 [facility] Gastroenterology Visit Repor ton 10-07-2024 Gastroenterology Visit Report [facility] Gastroenterology [address] [place] [address] OFFICE VISIT Date of Service: 10/07/24 MR#: [id number] Acct: [id number] Name: REYNA NULL Rep #: [id number] : 1980 Provider: NEL gonzalez Age/Sex: 44/F Location: [facility] Status: Signed Intake Vital Signs 09/24/24 13:18 10/07/24 14:04 Height 5 ft 4 in 5 ft 4 in Weight: 281 lb 8 oz BMI 48.3 BP 137/90 H Respiration 18 Pulse 114 H Pulse Oximetry (%) 94 Oxygen Delivery Method room air Intake Visit Reasons: ED follow up Chief Complaint: follow-u ppost admission Radiosonde Operator Required: No Accompanied by: Daughter Is patient [...] better after the surgery. Nausea after eating. [facility] Medical History Hypertension Social History Smoking Status: [...] movement GI (more content not included)... Normal [facility] - Chemistry and C hemistry - challengeOrdered By: Hui Weaver on 10-07-2024 AST [Catalytic activity/Vol] 58 U/L High <32 [facility] Comment on above: Hemolysis present, R esults could be affected. Liver Profileon 10-07-2024 Albumin [Mass/Vol] 3.8 g/dL Normal 3.5-5.0 [facility] Comment on above: Performed By: #### L 3000.0375, L501.9985, L501.9520, L501.5200 #### [facility] [address] [place], [address] ALK PHOS 128 U/L High 35-104 [facility] Comment on above: Performed By: #### L 3000.0375, L501.9985, L501.9520, L501.5200 #### [facility] [address] [place], [address] ALT [Catalytic activity/Vol] 50 U/L High <=34 [facility] Comment on above: Performed By: #### L 3000.0375, L501.9985, L501.9520, L501.5200 #### [facility] [address] [place], [address] AST [Catalytic activity/Vol] 58 U/L High <=31 [facility] Comment on above: Result Comment: Hemo lysis present, Results??could be affected. ?? Performed By: #### L 3000.0375, L501.9985, L501.9520, L501.5200 #### [facility] [address] [place], [address] Bilirubin [Mass/Vol] 0.51 mg/dL Normal 0.00-1.30 [facility] Comment on above: Performed By: #### L 3000.0375, L501.9985, L501.9520, L501.5200 #### [facility] [address] [place], [address] Bilirubin.direct [Mass/Vol] 0.21 mg/dL Normal 0.00-0.30 [facility] Comment on above: Result Comment: Hemo lysis present, Results??could be affected. ?? Performed By: #### L 3000.0375, L501.9985, L501.9520, L501.5200 #### [facility] [address] [place], [address] Globulin (S) [Mass/Vol] 3.2 g/dL Normal 2.2-4.2 [facility] Comment on above: Performed By: #### L 3000.0375, L501.9985, L501.9520, L501.5200 #### [facility] [address] [place], [address] T PROT 6.9 g/dL Normal 5.9-8.4 [facility] Comment on above: Performed By: #### L 3000.0375, L501.9985, L501.9520, L501.5200 #### [facility] [address] [place], [address] Serum globulin measurementOr dered By: Hui Weaver on 10-07-2024 Globulin (S) [Mass/Vol] 3.2 g/dL 2.2-4.2 [facility] Serum or plasma alanine basurto otransferase (ALT) measurementOrdered By: Hui Weaver on 10-07-2024 ALT [Catalytic activity/Vol] 50 U/L High <35 [facility] Serum or plasma albumin edinson urement (mass/volume)Ordered By: Hui Weaver on 10-07-2024 Albumin [Mass/Vol] 3.8 g/dL 3.5-5.0 [facility] Serum or plasma alkaline tracy sphatase measurementOrdered By: Hui Weaver on 10-07-2024 ALP [Catalytic activity/Vol] 128 U/L High 35-104 [facility] Total proteinOrdered By: Joie Weaver on 10-07-2024 Protein [Mass/Vol] 6.9 g/dL 5.9-8.4 [facility] CBC W/Diff, Automatedon 09-12 Absolute Neut Normal 2.0-7.7 [facility] Comment on above: Result Comment: Canc elled via OM: Order cancelled - Patient discharged Performed By: #### L 3000.0375, L501.9985, L501.9520, L501.5200 #### [facility] [address] [place], [address] HCT Normal 37-47 [facility] Comment on above: Result Comment: Canc elled via OM: Order cancelled - Patient discharged Performed By: #### L 3000.0375, L501.9985, L501.9520, L501.5200 #### [facility] [address] [place], [address] HGB Normal 12.0-15.0 [facility] Comment on above: Result Comment: Canc elled via OM: Order cancelled - Patient discharged Performed By: #### L 3000.0375, L501.9985, L501.9520, L501.5200 #### [facility] [address] [place], [address] MCH Normal 27.0-32.0 [facility] Comment on above: Result Comment: Canc elled via OM: Order cancelled - Patient discharged Performed By: #### L 3000.0375, L501.9985, L501.9520, L501.5200 #### [facility] [address] [place], [address] MCHC Normal 32-36 [facility] Comment on above: Result Comment: Canc elled via OM: Order cancelled - Patient discharged Performed By: #### L 3000.0375, L501.9985, L501.9520, L501.5200 #### [facility] [address] [place], [address] MCV Normal 81-99 [facility] Comment on above: Result Comment: Canc elled via OM: Order cancelled - Patient discharged Performed By: #### L 3000.0375, L501.9985, L501.9520, L501.5200 #### [facility] [address] [place], [address] NEUT% Normal 47-70 [facility] Comment on above: Result Comment: Canc elled via OM: Order cancelled - Patient discharged Performed By: #### L 3000.0375, L501.9985, L501.9520, L501.5200 #### [facility] [address] [place], [address] PLT Normal 150-450 [facility] Comment on above: Result Comment: Canc elled via OM: Order cancelled - Patient discharged Performed By: #### L 3000.0375, L501.9985, L501.9520, L501.5200 #### [facility] [address] [place], [address] RBC Normal 4.2-5.4 [facility] Comment on above: Result Comment: Canc elled via OM: Order cancelled - Patient discharged Performed By: #### L 3000.0375, L501.9985, L501.9520, L501.5200 #### [facility] [address] [place], [address] RDW CV Normal 11.6-14.6 [facility] Comment on above: Result Comment: Canc elled via OM: Order cancelled - Patient discharged Performed By: #### L 3000.0375, L501.9985, L501.9520, L501.5200 #### [facility] [address] [place], [address] RDW SD Normal 35.1-43.9 [facility] Comment on above: Result Comment: Canc elled via OM: Order cancelled - Patient discharged Performed By: #### L 3000.0375, L501.9985, L501.9520, L501.5200 #### [facility] [address] [place], [address] WBC Normal 4.4-11.0 [facility] Comment on above: Result Comment: Canc elled via OM: Order cancelled - Patient discharged Performed By: #### L 3000.0375, L501.9985, L501.9520, L501.5200 #### [facility] [address] [place], [address] Comprehensive Metabolic Prof ilon 10-01-2024 ALB Normal 3.5-5.0 [facility] Comment on above: Result Comment: Canc elled via OM: Order cancelled - Patient discharged Performed By: #### L 3000.0375, L501.9985, L501.9520, L501.5200 #### [facility] [address] [place], [address] ALK PHOS Normal 35-104 [facility] Comment on above: Result Comment: Canc elled via OM: Order cancelled - Patient discharged Performed By: #### L 3000.0375, L501.9985, L501.9520, L501.5200 #### [facility] [address] [place], [address] ALT Normal <=34 [facility] Comment on above: Result Comment: Canc elled via OM: Order cancelled - Patient discharged Performed By: #### L 3000.0375, L501.9985, L501.9520, L501.5200 #### [facility] [address] [place], [address] AST Normal <=31 [facility] Comment on above: Result Comment: Canc elled via OM: Order cancelled - Patient discharged Performed By: #### L 3000.0375, L501.9985, L501.9520, L501.5200 #### [facility] [address] [place], [address] BUN Normal 4-19 [facility] Comment on above: Result Comment: Canc elled via OM: Order cancelled - Patient discharged Performed By: #### L 3000.0375, L501.9985, L501.9520, L501.5200 #### [facility] [address] [place], [address] BUN/CRE Normal 10-20 [facility] Comment on above: Result Comment: Canc elled via OM: Order cancelled - Patient discharged Performed By: #### L 3000.0375, L501.9985, L501.9520, L501.5200 #### [facility] [address] [place], [address] Calcium Normal 7.6-11.0 [facility] Comment on above: Result Comment: Canc elled via OM: Order cancelled - Patient discharged Performed By: #### L 3000.0375, L501.9985, L501.9520, L501.5200 #### [facility] [address] [place], [address] CL Normal 98-108 [facility] Comment on above: Result Comment: Canc elled via OM: Order cancelled - Patient discharged Performed By: #### L 3000.0375, L501.9985, L501.9520, L501.5200 #### [facility] [address] [place], [address] CO2 Normal 21.0-32.0 [facility] Comment on above: Result Comment: Canc elled via OM: Order cancelled - Patient discharged Performed By: #### L 3000.0375, L501.9985, L501.9520, L501.5200 #### [facility] [address] [place], [address] CREAT,SERUM Normal 0.70-1.20 [facility] Comment on above: Result Comment: Canc elled via OM: Order cancelled - Patient discharged Performed By: #### L 3000.0375, L501.9985, L501.9520, L501.5200 #### [facility] [address] [place], [address] eGFR Normal >60 [facility] Comment on above: Result Comment: Canc elled via OM: Order cancelled - Patient discharged Performed By: #### L 3000.0375, L501.9985, L501.9520, L501.5200 #### [facility] [address] [place], [address] GAP Normal 5-15 [facility] Comment on above: Result Comment: Canc elled via OM: Order cancelled - Patient discharged Performed By: #### L 3000.0375, L501.9985, L501.9520, L501.5200 #### [facility] [address] [place], [address] GLU Normal 70-99 [facility] Comment on above: Result Comment: Canc elled via OM: Order cancelled - Patient discharged Performed By: #### L 3000.0375, L501.9985, L501.9520, L501.5200 #### [facility] [address] [place], [address] Potassium Normal 3.3-5.1 [facility] Comment on above: Result Comment: Canc elled via OM: Order cancelled - Patient discharged Performed By: #### L 3000.0375, L501.9985, L501.9520, L501.5200 #### [facility] [address] [place], [address] T BILI Normal 0.00-1.30 [facility] Comment on above: Result Comment: Canc elled via OM: Order cancelled - Patient discharged Performed By: #### L 3000.0375, L501.9985, L501.9520, L501.5200 #### [facility] [address] [place], [address] T PROT Normal 5.9-8.4 [facility] Comment on above: Result Comment: Canc elled via OM: Order cancelled - Patient discharged Performed By: #### L 3000.0375, L501.9985, L501.9520, L501.5200 #### [facility] [address] [place], [address] Comprehensive Metabolic Profil Normal 133-145 [facility] Comment on above: Result Comment: Canc elled via OM: Order cancelled - Patient discharged Performed By: #### L 3000.0375, L501.9985, L501.9520, L501.5200 #### [facility] [address] [place], [address] CBC W/Diff, Automatedon 03-2 Absolute Neut Normal 2.0-7.7 [facility] Comment on above: Result Comment: Canc elled via OM: Order cancelled - Patient discharged Performed By: #### L 3000.0375, L501.9985, L501.9520, L501.5200 #### [facility] [address] [place], [address] HCT Normal 37-47 [facility] Comment on above: Result Comment: Canc elled via OM: Order cancelled - Patient discharged Performed By: #### L 3000.0375, L501.9985, L501.9520, L501.5200 #### [facility] [address] [place], [address] HGB Normal 12.0-15.0 [facility] Comment on above: Result Comment: Canc elled via OM: Order cancelled - Patient discharged Performed By: #### L 3000.0375, L501.9985, L501.9520, L501.5200 #### [facility] [address] [place], [address] MCH Normal 27.0-32.0 [facility] Comment on above: Result Comment: Canc elled via OM: Order cancelled - Patient discharged Performed By: #### L 3000.0375, L501.9985, L501.9520, L501.5200 #### [facility] [address] [place], [address] MCHC Normal 32-36 [facility] Comment on above: Result Comment: Canc elled via OM: Order cancelled - Patient discharged Performed By: #### L 3000.0375, L501.9985, L501.9520, L501.5200 #### [facility] [address] [place], [address] MCV Normal 81-99 [facility] Comment on above: Result Comment: Canc elled via OM: Order cancelled - Patient discharged Performed By: #### L 3000.0375, L501.9985, L501.9520, L501.5200 #### [facility] [address] [place], [address] NEUT% Normal 47-70 [facility] Comment on above: Result Comment: Canc elled via OM: Order cancelled - Patient discharged Performed By: #### L 3000.0375, L501.9985, L501.9520, L501.5200 #### [facility] [address] [place], [address] PLT Normal 150-450 [facility] Comment on above: Result Comment: Canc elled via OM: Order cancelled - Patient discharged Performed By: #### L 3000.0375, L501.9985, L501.9520, L501.5200 #### [facility] [address] [place], [address] RBC Normal 4.2-5.4 [facility] Comment on above: Result Comment: Canc elled via OM: Order cancelled - Patient discharged Performed By: #### L 3000.0375, L501.9985, L501.9520, L501.5200 #### [facility] [address] [place], [address] RDW CV Normal 11.6-14.6 [facility] Comment on above: Result Comment: Canc elled via OM: Order cancelled - Patient discharged Performed By: #### L 3000.0375, L501.9985, L501.9520, L501.5200 #### [facility] [address] [place], [address] RDW SD Normal 35.1-43.9 [facility] Comment on above: Result Comment: Canc elled via OM: Order cancelled - Patient discharged Performed By: #### L 3000.0375, L501.9985, L501.9520, L501.5200 #### [facility] [address] [place], [address] WBC Normal 4.4-11.0 [facility] Comment on above: Result Comment: Canc elled via OM: Order cancelled - Patient discharged Performed By: #### L 3000.0375, L501.9985, L501.9520, L501.5200 #### [facility] [address] [place], [address] Comprehensive Metabolic Prof ilon 09-30-2024 ALB Normal 3.5-5.0 [facility] Comment on above: Result Comment: Canc elled via OM: Order cancelled - Patient discharged Performed By: #### L 3000.0375, L501.9985, L501.9520, L501.5200 #### [facility] [address] [place], [address] ALK PHOS Normal 35-104 [facility] Comment on above: Result Comment: Canc elled via OM: Order cancelled - Patient discharged Performed By: #### L 3000.0375, L501.9985, L501.9520, L501.5200 #### [facility] [address] [place], [address] ALT Normal <=34 [facility] Comment on above: Result Comment: Canc elled via OM: Order cancelled - Patient discharged Performed By: #### L 3000.0375, L501.9985, L501.9520, L501.5200 #### [facility] [address] [place] [place], [address] AST Normal <=31 [facility] Comment on above: Result Comment: Canc elled via OM: Order cancelled - Patient discharged Performed By: #### L 3000.0375, L501.9985, L501.9520, L501.5200 #### [facility] [address] [place] [place], [address] BUN Normal 4-19 [facility] Comment on above: Result Comment: Canc elled via OM: Order cancelled - Patient discharged Performed By: #### L 3000.0375, L501.9985, L501.9520, L501.5200 #### [facility] [address] [place], [address] BUN/CRE Normal 10-20 [facility] Comment on above: Result Comment: Canc elled via OM: Order cancelled - Patient discharged Performed By: #### L 3000.0375, L501.9985, L501.9520, L501.5200 #### [facility] [address] [place], [address] Calcium Normal 7.6-11.0 [facility] Comment on above: Result Comment: Canc elled via OM: Order cancelled - Patient discharged Performed By: #### L 3000.0375, L501.9985, L501.9520, L501.5200 #### [facility] [address] [place], [address] CL Normal 98-108 [facility] Comment on above: Result Comment: Canc elled via OM: Order cancelled - Patient discharged Performed By: #### L 3000.0375, L501.9985, L501.9520, L501.5200 #### [facility] [address] [place], [address] CO2 Normal 21.0-32.0 [facility] Comment on above: Result Comment: Canc elled via OM: Order cancelled - Patient discharged Performed By: #### L 3000.0375, L501.9985, L501.9520, L501.5200 #### [facility] [address] [place], [address] CREAT,SERUM Normal 0.70-1.20 [facility] Comment on above: Result Comment: Canc elled via OM: Order cancelled - Patient discharged Performed By: #### L 3000.0375, L501.9985, L501.9520, L501.5200 #### [facility] [address] [place], [address] eGFR Normal >60 [facility] Comment on above: Result Comment: Canc elled via OM: Order cancelled - Patient discharged Performed By: #### L 3000.0375, L501.9985, L501.9520, L501.5200 #### [facility] [address] [place], [address] GAP Normal 5-15 [facility] Comment on above: Result Comment: Canc elled via OM: Order cancelled - Patient discharged Performed By: #### L 3000.0375, L501.9985, L501.9520, L501.5200 #### [facility] [address] [place], [address] GLU Normal 70-99 [facility] Comment on above: Result Comment: Canc elled via OM: Order cancelled - Patient discharged Performed By: #### L 3000.0375, L501.9985, L501.9520, L501.5200 #### [facility] [address] [place], [address] Potassium Normal 3.3-5.1 [facility] Comment on above: Result Comment: Canc elled via OM: Order cancelled - Patient discharged Performed By: #### L 3000.0375, L501.9985, L501.9520, L501.5200 #### [facility] [address] [place], [address] T BILI Normal 0.00-1.30 [facility] Comment on above: Result Comment: Canc elled via OM: Order cancelled - Patient discharged Performed By: #### L 3000.0375, L501.9985, L501.9520, L501.5200 #### [facility] [address] [place], [address] T PROT Normal 5.9-8.4 [facility] Comment on above: Result Comment: Canc elled via OM: Order cancelled - Patient discharged Performed By: #### L 3000.0375, L501.9985, L501.9520, L501.5200 #### [facility] [address] [place], [address] Comprehensive Metabolic Profil Normal 133-145 [facility] Comment on above: Result Comment: Canc elled via OM: Order cancelled - Patient discharged Performed By: #### L 3000.0375, L501.9985, L501.9520, L501.5200 #### [facility] [address] [place], [address] CBC W/Diff, Automatedon - Absolute Neut Normal 2.0-7.7 [facility] Comment on above: Result Comment: Canc elled via OM: Order cancelled - Patient discharged Performed By: #### L 100.0100, L500.4050 ####[facility] [address] [place], [address] HCT Normal 37-47 [facility] Comment on above: Result Comment: Canc elled via OM: Order cancelled - Patient discharged Performed By: #### L 100.0100, L500.4050 ####[facility] [address] [place], [address] HGB Normal 12.0-15.0 [facility] Comment on above: Result Comment: Canc elled via OM: Order cancelled - Patient discharged Performed By: #### L 100.0100, L500.4050 ####[facility] [address] [place], [address] MCH Normal 27.0-32.0 [facility] Comment on above: Result Comment: Canc elled via OM: Order cancelled - Patient discharged Performed By: #### L 100.0100, L500.4050 ####[facility] [address] [place], [address] MCHC Normal 32-36 [facility] Comment on above: Result Comment: Canc elled via OM: Order cancelled - Patient discharged Performed By: #### L 100.0100, L500.4050 ####[facility] [address] [place], [address] MCV Normal 81-99 [facility] Comment on above: Result Comment: Canc elled via OM: Order cancelled - Patient discharged Performed By: #### L 100.0100, L500.4050 ####[facility] [address] [place], [address] NEUT% Normal 47-70 [facility] Comment on above: Result Comment: Canc elled via OM: Order cancelled - Patient discharged Performed By: #### L 100.0100, L500.4050 ####[facility] [address] [place], [address] PLT Normal 150-450 [facility] Comment on above: Result Comment: Canc elled via OM: Order cancelled - Patient discharged Performed By: #### L 100.0100, L500.4050 ####[facility] [address] [place], [address] RBC Normal 4.2-5.4 [facility] Comment on above: Result Comment: Canc elled via OM: Order cancelled - Patient discharged Performed By: #### L 100.0100, L500.4050 ####[facility] [address] [place], [address] RDW CV Normal 11.6-14.6 [facility] Comment on above: Result Comment: Canc elled via OM: Order cancelled - Patient discharged Performed By: #### L 100.0100, L500.4050 ####[facility] [address] [place], [address] RDW SD Normal 35.1-43.9 [facility] Comment on above: Result Comment: Canc elled via OM: Order cancelled - Patient discharged Performed By: #### L 100.0100, L500.4050 ####[facility] [address] [place], [address] WBC Normal 4.4-11.0 [facility] Comment on above: Result Comment: Canc elled via OM: Order cancelled - Patient discharged Performed By: #### L 100.0100, L500.4050 ####[facility] [address] [place], [address] Comprehensive Metabolic Prof ilon 09-29-2024 ALB Normal 3.5-5.0 [facility] Comment on above: Result Comment: Canc elled via OM: Order cancelled - Patient discharged Performed By: #### L 100.0100, L500.4050 ####[facility] [address] [place], [address] ALK PHOS Normal 35-104 [facility] Comment on above: Result Comment: Canc elled via OM: Order cancelled - Patient discharged Performed By: #### L 100.0100, L500.4050 ####[facility] [address] [place], [address] ALT Normal <=34 [facility] Comment on above: Result Comment: Canc elled via OM: Order cancelled - Patient discharged Performed By: #### L 100.0100, L500.4050 ####[facility] [address] [place], [address] AST Normal <=31 [facility] Comment on above: Result Comment: Canc elled via OM: Order cancelled - Patient discharged Performed By: #### L 100.0100, L500.4050 ####[facility] [address] [place], [address] BUN Normal 4-19 [facility] Comment on above: Result Comment: Canc elled via OM: Order cancelled - Patient discharged Performed By: #### L 100.0100, L500.4050 ####[facility] [address] [place], [address] BUN/CRE Normal 10-20 [facility] Comment on above: Result Comment: Canc elled via OM: Order cancelled - Patient discharged Performed By: #### L 100.0100, L500.4050 ####[facility] [address] [place], [address] Calcium Normal 7.6-11.0 [facility] Comment on above: Result Comment: Canc elled via OM: Order cancelled - Patient discharged Performed By: #### L 100.0100, L500.4050 ####[facility] [address] [place], [address] CL Normal 98-108 [facility] Comment on above: Result Comment: Canc elled via OM: Order cancelled - Patient discharged Performed By: #### L 100.0100, L500.4050 ####[facility] [address] [place], [address] CO2 Normal 21.0-32.0 [facility] Comment on above: Result Comment: Canc elled via OM: Order cancelled - Patient discharged Performed By: #### L 100.0100, L500.4050 ####[facility] [address] [place], [address] CREAT,SERUM Normal 0.70-1.20 [facility] Comment on above: Result Comment: Canc elled via OM: Order cancelled - Patient discharged Performed By: #### L 100.0100, L500.4050 ####[facility] [address] [place], [address] eGFR Normal >60 [facility] Comment on above: Result Comment: Canc elled via OM: Order cancelled - Patient discharged Performed By: #### L 100.0100, L500.4050 ####[facility] [address] [place], [address] GAP Normal 5-15 [facility] Comment on above: Result Comment: Canc elled via OM: Order cancelled - Patient discharged Performed By: #### L 100.0100, L500.4050 ####[facility] [address] [place], [address] GLU Normal 70-99 [facility] Comment on above: Result Comment: Canc elled via OM: Order cancelled - Patient discharged Performed By: #### L 100.0100, L500.4050 ####[facility] [address] [place], [address] Potassium Normal 3.3-5.1 [facility] Comment on above: Result Comment: Canc elled via OM: Order cancelled - Patient discharged Performed By: #### L 100.0100, L500.4050 ####[facility] [address] [place], [address] T BILI Normal 0.00-1.30 [facility] Comment on above: Result Comment: Canc elled via OM: Order cancelled - Patient discharged Performed By: #### L 100.0100, L500.4050 ####[facility] [address] [place], [address] T PROT Normal 5.9-8.4 [facility] Comment on above: Result Comment: Canc elled via OM: Order cancelled - Patient discharged Performed By: #### L 100.0100, L500.4050 ####[facility] [address] [place], [address] Comprehensive Metabolic Profil Normal 133-145 [facility] Comment on above: Result Comment: Canc elled via OM: Order cancelled - Patient discharged Performed By: #### L 100.0100, L500.4050 ####[facility] [address] [place], [address] CBC W/Diff, Automatedon - Absolute Neut Normal 2.0-7.7 [facility] Comment on above: Result Comment: Canc elled via OM: Order cancelled - Patient discharged Performed By: #### L 3000.0375, L501.9985, L501.9520, L501.5200 #### [facility] [address] [place], [address] HCT Normal 37-47 [facility] Comment on above: Result Comment: Canc elled via OM: Order cancelled - Patient discharged Performed By: #### L 3000.0375, L501.9985, L501.9520, L501.5200 #### [facility] [address] [place], [address] HGB Normal 12.0-15.0 [facility] Comment on above: Result Comment: Canc elled via OM: Order cancelled - Patient discharged Performed By: #### L 3000.0375, L501.9985, L501.9520, L501.5200 #### [facility] [address] [place], [address] MCH Normal 27.0-32.0 [facility] Comment on above: Result Comment: Canc elled via OM: Order cancelled - Patient discharged Performed By: #### L 3000.0375, L501.9985, L501.9520, L501.5200 #### [facility] [address] [place], [address] MCHC Normal 32-36 [facility] Comment on above: Result Comment: Canc elled via OM: Order cancelled - Patient discharged Performed By: #### L 3000.0375, L501.9985, L501.9520, L501.5200 #### [facility] [address] [place], [address] MCV Normal 81-99 [facility] Comment on above: Result Comment: Canc elled via OM: Order cancelled - Patient discharged Performed By: #### L 3000.0375, L501.9985, L501.9520, L501.5200 #### [facility] [address] [place], [address] NEUT% Normal 47-70 [facility] Comment on above: Result Comment: Canc elled via OM: Order cancelled - Patient discharged Performed By: #### L 3000.0375, L501.9985, L501.9520, L501.5200 #### [facility] [address] [place], [address] PLT Normal 150-450 [facility] Comment on above: Result Comment: Canc elled via OM: Order cancelled - Patient discharged Performed By: #### L 3000.0375, L501.9985, L501.9520, L501.5200 #### [facility] [address] [place], [address] RBC Normal 4.2-5.4 [facility] Comment on above: Result Comment: Canc elled via OM: Order cancelled - Patient discharged Performed By: #### L 3000.0375, L501.9985, L501.9520, L501.5200 #### [facility] [address] [place], [address] RDW CV Normal 11.6-14.6 [facility] Comment on above: Result Comment: Canc elled via OM: Order cancelled - Patient discharged Performed By: #### L 3000.0375, L501.9985, L501.9520, L501.5200 #### [facility] [address] [place], [address] RDW SD Normal 35.1-43.9 [facility] Comment on above: Result Comment: Canc elled via OM: Order cancelled - Patient discharged Performed By: #### L 3000.0375, L501.9985, L501.9520, L501.5200 #### [facility] [address] [place], [address] WBC Normal 4.4-11.0 [facility] Comment on above: Result Comment: Canc elled via OM: Order cancelled - Patient discharged Performed By: #### L 3000.0375, L501.9985, L501.9520, L501.5200 #### [facility] [address] [place], [address] Comprehensive Metabolic Prof ilon 09-28-2024 ALB Normal 3.5-5.0 [facility] Comment on above: Result Comment: Canc elled via OM: Order cancelled - Patient discharged Performed By: #### L 3000.0375, L501.9985, L501.9520, L501.5200 #### [facility] [address] [place], [address] ALK PHOS Normal 35-104 [facility] Comment on above: Result Comment: Canc elled via OM: Order cancelled - Patient discharged Performed By: #### L 3000.0375, L501.9985, L501.9520, L501.5200 #### [facility] [address] [place], [address] ALT Normal <=34 [facility] Comment on above: Result Comment: Canc elled via OM: Order cancelled - Patient discharged Performed By: #### L 3000.0375, L501.9985, L501.9520, L501.5200 #### [facility] [address] [place], [address] AST Normal <=31 [facility] Comment on above: Result Comment: Canc elled via OM: Order cancelled - Patient discharged Performed By: #### L 3000.0375, L501.9985, L501.9520, L501.5200 #### [facility] [address] [place], [address] BUN Normal 4-19 [facility] Comment on above: Result Comment: Canc elled via OM: Order cancelled - Patient discharged Performed By: #### L 3000.0375, L501.9985, L501.9520, L501.5200 #### [facility] [address] [place], [address] BUN/CRE Normal 10-20 [facility] Comment on above: Result Comment: Canc elled via OM: Order cancelled - Patient discharged Performed By: #### L 3000.0375, L501.9985, L501.9520, L501.5200 #### [facility] [address] [place], [address] Calcium Normal 7.6-11.0 [facility] Comment on above: Result Comment: Canc elled via OM: Order cancelled - Patient discharged Performed By: #### L 3000.0375, L501.9985, L501.9520, L501.5200 #### [facility] [address] [place], [address] CL Normal 98-108 [facility] Comment on above: Result Comment: Canc elled via OM: Order cancelled - Patient discharged Performed By: #### L 3000.0375, L501.9985, L501.9520, L501.5200 #### [facility] [address] [place], [address] CO2 Normal 21.0-32.0 [facility] Comment on above: Result Comment: Canc elled via OM: Order cancelled - Patient discharged Performed By: #### L 3000.0375, L501.9985, L501.9520, L501.5200 #### [facility] [address] [place], [address] CREAT,SERUM Normal 0.70-1.20 [facility] Comment on above: Result Comment: Canc elled via OM: Order cancelled - Patient discharged Performed By: #### L 3000.0375, L501.9985, L501.9520, L501.5200 #### [facility] [address] [place], [address] eGFR Normal >60 [facility] Comment on above: Result Comment: Canc elled via OM: Order cancelled - Patient discharged Performed By: #### L 3000.0375, L501.9985, L501.9520, L501.5200 #### [facility] [address] [place], [address] GAP Normal 5-15 [facility] Comment on above: Result Comment: Canc elled via OM: Order cancelled - Patient discharged Performed By: #### L 3000.0375, L501.9985, L501.9520, L501.5200 #### [facility] [address] [place], [address] GLU Normal 70-99 [facility] Comment on above: Result Comment: Canc elled via OM: Order cancelled - Patient discharged Performed By: #### L 3000.0375, L501.9985, L501.9520, L501.5200 #### [facility] [address] [place], [address] Potassium Normal 3.3-5.1 [facility] Comment on above: Result Comment: Canc elled via OM: Order cancelled - Patient discharged Performed By: #### L 3000.0375, L501.9985, L501.9520, L501.5200 #### [facility] [address] [place], [address] T BILI Normal 0.00-1.30 [facility] Comment on above: Result Comment: Canc elled via OM: Order cancelled - Patient discharged Performed By: #### L 3000.0375, L501.9985, L501.9520, L501.5200 #### [facility] [address] [place], [address] T PROT Normal 5.9-8.4 [facility] Comment on above: Result Comment: Canc elled via OM: Order cancelled - Patient discharged Performed By: #### L 3000.0375, L501.9985, L501.9520, L501.5200 #### [facility] [address] [place], [address] Comprehensive Metabolic Profil Normal 133-145 [facility] Comment on above: Result Comment: Canc elled via OM: Order cancelled - Patient discharged Performed By: #### L 3000.0375, L501.9985, L501.9520, L501.5200 #### [facility] [address] [place], [address] CA 19-9 Serial Monitoron CA 19-9 < 2 Normal 0-35 [facility] Comment on above: Result Comment: Ve rified by repeat analysis [facility] Electrochemiluminescence Immunoassay (ECLIA) Values obtained with different assay methods or kits cannot be used interchangeably. Results cannot be interpreted as absolute evidence of the presence or absence of malignant disease. Performed at: [address] [id number] Data Governance Consultant: Ashvin Dumont PhD, Phone: [phone] Performed By: #### L 3000.0375, L501.9985, L501.9520, L501.5200 #### [facility] [address] [place], [address] CBC W/Diff, Automatedon - Absolute Neut Normal 2.0-7.7 [facility] Comment on above: Result Comment: Canc elled via OM: Order cancelled - Patient discharged Performed By: #### L 100.0100, L500.4050 ####[facility] [address] [place], [address] HCT Normal 37-47 [facility] Comment on above: Result Comment: Canc elled via OM: Order cancelled - Patient discharged Performed By: #### L 100.0100, L500.4050 ####[facility] [address] [place], [address] HGB Normal 12.0-15.0 [facility] Comment on above: Result Comment: Canc elled via OM: Order cancelled - Patient discharged Performed By: #### L 100.0100, L500.4050 ####[facility] [address] [place], [address] MCH Normal 27.0-32.0 [facility] Comment on above: Result Comment: Canc elled via OM: Order cancelled - Patient discharged Performed By: #### L 100.0100, L500.4050 ####[facility] [address] [place], [address] MCHC Normal 32-36 [facility] Comment on above: Result Comment: Canc elled via OM: Order cancelled - Patient discharged Performed By: #### L 100.0100, L500.4050 ####[facility] [address] [place], [address] MCV Normal 81-99 [facility] Comment on above: Result Comment: Canc elled via OM: Order cancelled - Patient discharged Performed By: #### L 100.0100, L500.4050 ####[facility] [address] [place], [address] NEUT% Normal 47-70 [facility] Comment on above: Result Comment: Canc elled via OM: Order cancelled - Patient discharged Performed By: #### L 100.0100, L500.4050 ####[facility] [address] [place], [address] PLT Normal 150-450 [facility] Comment on above: Result Comment: Canc elled via OM: Order cancelled - Patient discharged Performed By: #### L 100.0100, L500.4050 ####[facility] [address] [place], [address] RBC Normal 4.2-5.4 [facility] Comment on above: Result Comment: Canc elled via OM: Order cancelled - Patient discharged Performed By: #### L 100.0100, L500.4050 ####[facility] [address] [place], [address] RDW CV Normal 11.6-14.6 [facility] Comment on above: Result Comment: Canc elled via OM: Order cancelled - Patient discharged Performed By: #### L 100.0100, L500.4050 ####[facility] [address] [place], [address] RDW SD Normal 35.1-43.9 [facility] Comment on above: Result Comment: Canc elled via OM: Order cancelled - Patient discharged Performed By: #### L 100.0100, L500.4050 ####[facility] [address] [place], [address] WBC Normal 4.4-11.0 [facility] Comment on above: Result Comment: Canc elled via OM: Order cancelled - Patient discharged Performed By: #### L 100.0100, L500.4050 ####[facility] [address] [place], [address] Comprehensive Metabolic Prof ilon 09-27-2024 ALB Normal 3.5-5.0 [facility] Comment on above: Result Comment: Canc elled via OM: Order cancelled - Patient discharged Performed By: #### L 100.0100, L500.4050 ####[facility] [address] [place], [address] ALK PHOS Normal 35-104 [facility] Comment on above: Result Comment: Canc elled via OM: Order cancelled - Patient discharged Performed By: #### L 100.0100, L500.4050 ####[facility] [address] [place], [address] ALT Normal <=34 [facility] Comment on above: Result Comment: Canc elled via OM: Order cancelled - Patient discharged Performed By: #### L 100.0100, L500.4050 ####[facility] [address] [place], [address] AST Normal <=31 [facility] Comment on above: Result Comment: Canc elled via OM: Order cancelled - Patient discharged Performed By: #### L 100.0100, L500.4050 ####[facility] [address] [place], [address] BUN Normal 4-19 [facility] Comment on above: Result Comment: Canc elled via OM: Order cancelled - Patient discharged Performed By: #### L 100.0100, L500.4050 ####[facility] [address] [place], [address] BUN/CRE Normal 10-20 [facility] Comment on above: Result Comment: Canc elled via OM: Order cancelled - Patient discharged Performed By: #### L 100.0100, L500.4050 ####[facility] [address] [place], [address] Calcium Normal 7.6-11.0 [facility] Comment on above: Result Comment: Canc elled via OM: Order cancelled - Patient discharged Performed By: #### L 100.0100, L500.4050 ####[facility] [address] [place], [address] CL Normal 98-108 [facility] Comment on above: Result Comment: Canc elled via OM: Order cancelled - Patient discharged Performed By: #### L 100.0100, L500.4050 ####[facility] [address] [place], [address] CO2 Normal 21.0-32.0 [facility] Comment on above: Result Comment: Canc elled via OM: Order cancelled - Patient discharged Performed By: #### L 100.0100, L500.4050 ####[facility] [address] [place], [address] CREAT,SERUM Normal 0.70-1.20 [facility] Comment on above: Result Comment: Canc elled via OM: Order cancelled - Patient discharged Performed By: #### L 100.0100, L500.4050 ####[facility] [address] [place], [address] eGFR Normal >60 [facility] Comment on above: Result Comment: Canc elled via OM: Order cancelled - Patient discharged Performed By: #### L 100.0100, L500.4050 ####[facility] [address] [place], [address] GAP Normal 5-15 [facility] Comment on above: Result Comment: Canc elled via OM: Order cancelled - Patient discharged Performed By: #### L 100.0100, L500.4050 ####[facility] [address] [place], [address] GLU Normal 70-99 [facility] Comment on above: Result Comment: Canc elled via OM: Order cancelled - Patient discharged Performed By: #### L 100.0100, L500.4050 ####[facility] [address] [place], [address] Potassium Normal 3.3-5.1 [facility] Comment on above: Result Comment: Canc elled via OM: Order cancelled - Patient discharged Performed By: #### L 100.0100, L500.4050 ####[facility] [address] [place], [address] T BILI Normal 0.00-1.30 [facility] Comment on above: Result Comment: Canc elled via OM: Order cancelled - Patient discharged Performed By: #### L 100.0100, L500.4050 ####[facility] [address] [place], [address] T PROT Normal 5.9-8.4 [facility] Comment on above: Result Comment: Canc elled via OM: Order cancelled - Patient discharged Performed By: #### L 100.0100, L500.4050 ####[facility] [address] [place], [address] Comprehensive Metabolic Profil Normal 133-145 [facility] Comment on above: Result Comment: Canc elled via OM: Order cancelled - Patient discharged Performed By: #### L 100.0100, L500.4050 ####[facility] [address] [place], [address] CBC W/Diff, Automatedon 03-1 Absolute Neut Normal 2.0-7.7 [facility] Comment on above: Result Comment: Canc elled via OM: Order cancelled - Patient discharged Performed By: #### L 400.7600 #### [facility] [address] [place], [address] HCT Normal 37-47 [facility] Comment on above: Result Comment: Canc elled via OM: Order cancelled - Patient discharged Performed By: #### L 400.7600 #### [facility] [address] [place], [address] HGB Normal 12.0-15.0 [facility] Comment on above: Result Comment: Canc elled via OM: Order cancelled - Patient discharged Performed By: #### L 400.7600 #### [facility] [address] [place], [address] MCH Normal 27.0-32.0 [facility] Comment on above: Result Comment: Canc elled via OM: Order cancelled - Patient discharged Performed By: #### L 400.7600 #### [facility] [address] [place], [address] MCHC Normal 32-36 [facility] Comment on above: Result Comment: Canc elled via OM: Order cancelled - Patient discharged Performed By: #### L 400.7600 #### [facility] [address] [place], [address] MCV Normal 81-99 [facility] Comment on above: Result Comment: Canc elled via OM: Order cancelled - Patient discharged Performed By: #### L 400.7600 #### [facility] [address] [place], [address] NEUT% Normal 47-70 [facility] Comment on above: Result Comment: Canc elled via OM: Order cancelled - Patient discharged Performed By: #### L 400.7600 #### [facility] [address] [place], [address] PLT Normal 150-450 [facility] Comment on above: Result Comment: Canc elled via OM: Order cancelled - Patient discharged Performed By: #### L 400.7600 #### [facility] [address] [place], [address] RBC Normal 4.2-5.4 [facility] Comment on above: Result Comment: Canc elled via OM: Order cancelled - Patient discharged Performed By: #### L 400.7600 #### [facility] [address] [place], [address] RDW CV Normal 11.6-14.6 [facility] Comment on above: Result Comment: Canc elled via OM: Order cancelled - Patient discharged Performed By: #### L 400.7600 #### [facility] [address] [place], [address] RDW SD Normal 35.1-43.9 [facility] Comment on above: Result Comment: Canc elled via OM: Order cancelled - Patient discharged Performed By: #### L 400.7600 #### [facility] [address] [place], [address] WBC Normal 4.4-11.0 [facility] Comment on above: Result Comment: Canc elled via OM: Order cancelled - Patient discharged Performed By: #### L 400.7600 #### [facility] [address] [place], [address] Comprehensive Metabolic Prof ilon 09-26-2024 ALB Normal 3.5-5.0 [facility] Comment on above: Result Comment: Canc elled via OM: Order cancelled - Patient discharged Performed By: #### L 400.7600 #### [facility] [address] [place], [address] ALK PHOS Normal 35-104 [facility] Comment on above: Result Comment: Canc elled via OM: Order cancelled - Patient discharged Performed By: #### L 400.7600 #### [facility] [address] [place], [address] ALT Normal <=34 [facility] Comment on above: Result Comment: Canc elled via OM: Order cancelled - Patient discharged Performed By: #### L 400.7600 #### [facility] [address] [place], [address] AST Normal <=31 [facility] Comment on above: Result Comment: Canc elled via OM: Order cancelled - Patient discharged Performed By: #### L 400.7600 #### [facility] [address] [place], [address] BUN Normal 4-19 [facility] Comment on above: Result Comment: Canc elled via OM: Order cancelled - Patient discharged Performed By: #### L 400.7600 #### [facility] [address] [place], [address] BUN/CRE Normal 10-20 [facility] Comment on above: Result Comment: Canc elled via OM: Order cancelled - Patient discharged Performed By: #### L 400.7600 #### [facility] [address] [place], [address] Calcium Normal 7.6-11.0 [facility] Comment on above: Result Comment: Canc elled via OM: Order cancelled - Patient discharged Performed By: #### L 400.7600 #### [facility] [address] [place], [address] CL Normal 98-108 [facility] Comment on above: Result Comment: Canc elled via OM: Order cancelled - Patient discharged Performed By: #### L 400.7600 #### [facility] [address] [place], [address] CO2 Normal 21.0-32.0 [facility] Comment on above: Result Comment: Canc elled via OM: Order cancelled - Patient discharged Performed By: #### L 400.7600 #### [facility] [address] [place], [address] CREAT,SERUM Normal 0.70-1.20 [facility] Comment on above: Result Comment: Canc elled via OM: Order cancelled - Patient discharged Performed By: #### L 400.7600 #### [facility] [address] [place], [address] eGFR Normal >60 [facility] Comment on above: Result Comment: Canc elled via OM: Order cancelled - Patient discharged Performed By: #### L 400.7600 #### [facility] [address] [place], [address] GAP Normal 5-15 [facility] Comment on above: Result Comment: Canc elled via OM: Order cancelled - Patient discharged Performed By: #### L 400.7600 #### [facility] [address] [place], [address] GLU Normal 70-99 [facility] Comment on above: Result Comment: Canc elled via OM: Order cancelled - Patient discharged Performed By: #### L 400.7600 #### [facility] [address] [place], [address] Potassium Normal 3.3-5.1 [facility] Comment on above: Result Comment: Canc elled via OM: Order cancelled - Patient discharged Performed By: #### L 400.7600 #### [facility] [address] [place], [address] T BILI Normal 0.00-1.30 [facility] Comment on above: Result Comment: Canc elled via OM: Order cancelled - Patient discharged Performed By: #### L 400.7600 #### [facility] [address] [place], [address] T PROT Normal 5.9-8.4 [facility] Comment on above: Result Comment: Canc elled via OM: Order cancelled - Patient discharged Performed By: #### L 400.7600 #### [facility] [address] [place], [address] Comprehensive Metabolic Profil Normal 133-145 [facility] Comment on above: Result Comment: Canc elled via OM: Order cancelled - Patient discharged Performed By: #### L 400.7600 #### [facility] [address] [place], [address] Absolute lymphocyte countOrd ered By: Loretta Meyer on 09-25-2024 Lymphocytes Auto (Unsp spec) [#/Vol] 1.44 10*3/uL 0.83-4.51 [facility] Absolute neutrophil countOrd ered By: Loretta Meyer on 09-25-2024 Neutrophils (Bld) [#/Vol] 4.6 10*3/uL 2.0-7.7 [facility] Anion gap in Serum or Plasma Ordered By: Loretta Meyer on 09-25-2024 Anion gap [Moles/Vol] 12 mmol/L 11-25 [facility] Automated lymphocyte count a s percentage of total leukocytesOrdered By: Loretta Meyer on 09-25-2024 Lymphocytes/100 WBC Auto (Unsp spec) 20.9 % [facility] BUN/creatinine ratioOrdered By: Loretta Meyer on 09-25-2024 Urea nitrogen/Creatinine [Mass ratio] 10.0 mg/mg 10- [facility] Basophil percentageOrdered B y: Loretta Meyer on 09-25-2024 Basophils/100 WBC (Bld) 0.9 % 0-1 [facility] Bilirubin, totalOrdered By: Loretta Meyer on 09-25-2024 Bilirubin [Mass/Vol] 1.22 mg/dL 0.00-1.30 [facility] CBC W/Diff, Automatedon 09-11 Absolute Lymph 1.44 X10 3/uL Normal 0.83-4.51 [facility] Comment on above: Performed By: #### L 400.0830 #### [facility] [address] [place], [place], [id number] Absolute Neut 4.6 X10 3/uL Normal 2.0-7.7 [facility] Comment on above: Performed By: #### L 400.7600 #### [facility] [address] [place], [place], [id number] ([address]) Basophils/100 WBC (Bld) 0.9 % Normal 0-1 [facility] Comment on above: Performed By: #### L 400.7600 #### [facility] [address] [place], [address] Eosinophils/100 WBC (Bld) 3.9 % Normal 0-5 [facility] Comment on above: Performed By: #### L 400.7600 #### [facility] [address] [place], [address] Erythrocyte distribution width (RBC) [Ratio] 13.5 % Normal 11.6-14.6 [facility] Comment on above: Performed By: #### L 400.7600 #### [facility] [address] [place], [address] Hematocrit (Bld) [Volume fraction] 39.1 % Normal 37-47 [facility] Comment on above: Performed By: #### L 400.7600 #### [facility] [address] [place], [address] Hemoglobin (Bld) [Mass/Vol] 12.3 g/dL Normal 12.0-15.0 [facility] Comment on above: Performed By: #### L 400.7600 #### [facility] [address] [place], [address] IG% 1.000 High 0.0-0.9 [facility] Comment on above: Result Comment: IG% - Immature Granulocytes (promyelocytes, myelocytes and metamyelocytes) > 1% indicates that a LEFT SHIFT is Present. Performed By: #### L 400.7600 #### [facility] [address] [place], [address] Lymphocytes/100 WBC (Bld) 20.9 % Normal 19-41 [facility] Comment on above: Performed By: #### L 400.7600 #### [facility] [address] [place], [address] MCH (RBC) [Entitic mass] 29.1 pg Normal 27.0-32.0 [facility] Comment on above: Performed By: #### L 400.7600 #### [facility] [address] [place], [address] MCHC (RBC) [Mass/Vol] 31.5 g/dL Low 32-36 [facility] Comment on above: Performed By: #### L 400.7600 #### [facility] [address] [place], [address] MCV (RBC) [Entitic vol] 92.7 fL Normal 81-99 [facility] Comment on above: Performed By: #### L 400.7600 #### [facility] [address] [place], [address] Monocytes/100 WBC (Bld) 7.0 % Normal 0-10 [facility] Comment on above: Performed By: #### L 400.7600 #### [facility] [place], [address] Neutrophils/100 WBC (Bld) 66.3 % Normal 47-70 [facility] Comment on above: Performed By: #### L 400.7600 #### [facility] [address] [place], [address] Nucleated RBC (Bld) [#/Vol] 0 10*3/uL Normal 0-5 [facility] Comment on above: Performed By: #### L 400.7600 #### [facility] [address] [place], [address] Platelet mean volume (Bld) [Entitic vol] 10.8 fL Normal 6.2-12.0 [facility] Comment on above: Performed By: #### L 400.7600 #### [facility] [address] [place], [address] Platelets (Bld) [#/Vol] 358 10*3/uL Normal 150-450 [facility] Comment on above: Performed By: #### L 400.7600 #### [facility] [address] [place], [address] RBC (Bld) [#/Vol] 4.22 10*6/uL Normal 4.2-5.4 [facility] Comment on above: Performed By: #### L 400.7600 #### [facility] [address] [place], [address] RDW SD 45.5 fl High 35.1-43.9 [facility] Comment on above: Performed By: #### L 400.7600 #### [facility] [address] [place], [address] WBC (Bld) [#/Vol] 6.9 10*3/uL Normal 4.4-11.0 [facility] Comment on above: Performed By: #### L 400.7600 #### [facility] [address] [place], [address] Carbon dioxide, total [Moles /volume] in Central venous bloodOrdered By: Loretta Meyer on 09-25-2024 CO2 [Moles/Vol] 21.4 mmol/L 21.0-32.0 [facility] Chloride assayOrdered By: Brooks Meyer on 09-25-2024 Chloride [Moles/Vol] 107 mmol/L 98-108 [facility] Comprehensive Metabolic Prof ilon 09-25-2024 Albumin [Mass/Vol] 3.6 g/dL Normal 3.5-5.0 [facility] Comment on above: Performed By: #### L 3000.0375, L501.9985, L501.9520, L501.5200 #### [facility] [address] [place], [address] Albumin/Globulin [Mass ratio] 1.2 {ratio} Normal 0.9-2.4 [facility] Comment on above: Performed By: #### L 3000.0375, L501.9985, L501.9520, L501.5200 #### [facility] [address] [place], [address] ALK PHOS 274 U/L High 35-104 [facility] Comment on above: Performed By: #### L 3000.0375, L501.9985, L501.9520, L501.5200 #### [facility] [address] [place], [address] ALT [Catalytic activity/Vol] 195 U/L High <=34 [facility] Comment on above: Performed By: #### L 3000.0375, L501.9985, L501.9520, L501.5200 #### [facility] [address] [place], [address] AST [Catalytic activity/Vol] 91 U/L High <=31 [facility] Comment on above: Performed By: #### L 3000.0375, L501.9985, L501.9520, L501.5200 #### [facility] [address] [place], [address] Bilirubin [Mass/Vol] 1.22 mg/dL Normal 0.00-1.30 [facility] Comment on above: Performed By: #### L 3000.0375, L501.9985, L501.9520, L501.5200 #### [facility] [address] [place], [address] BUN/CRE 10.0 RATIO Normal 10-20 [facility] Comment on above: Performed By: #### L 3000.0375, L501.9985, L501.9520, L501.5200 #### [facility] [address] [place], [address] Calcium [Mass/Vol] 8.5 mg/dL Normal 7.6-11.0 [facility] Comment on above: Performed By: #### L 3000.0375, L501.9985, L501.9520, L501.5200 #### [facility] [address] [place], [address] Chloride [Moles/Vol] 107 mmol/L Normal 98-108 [facility] Comment on above: Performed By: #### L 3000.0375, L501.9985, L501.9520, L501.5200 #### [facility] [address] [place], [address] CO2 [Moles/Vol] 21.4 mmol/L Normal 21.0-32.0 [facility] Comment on above: Performed By: #### L 3000.0375, L501.9985, L501.9520, L501.5200 #### [facility] [address] [place], [address] Creatinine [Mass/Vol] 0.76 mg/dL Normal 0.70-1.20 [facility] Comment on above: Performed By: #### L 3000.0375, L501.9985, L501.9520, L501.5200 #### [facility] [address] [place], [address] ECRCL 123.63 ml/min Normal 50-250 [facility] Comment on above: Performed By: #### L 3000.0375, L501.9985, L501.9520, L501.5200 #### [facility] [address] [place], [address] GAP 12 Normal 5-15 [facility] Comment on above: Performed By: #### L 3000.0375, L501.9985, L501.9520, L501.5200 #### [facility] [address] [place], [address] GFR/1.73 sq M.predicted among non-blacks MDRD (S/P/Bld) [Vol rate/Area] 99 mL/min/{1.73_m2} Normal >60 [facility] Comment on above: Result Comment: mL/m in/1.73m2 CKD-EPI Creatinine Equation (2020) Performed By: #### L 3000.0375, L501.9985, L501.9520, L501.5200 #### [facility] [address] [place], [address] Globulin (S) [Mass/Vol] 3.1 g/dL Normal 2.2-4.2 [facility] Comment on above: Performed By: #### L 3000.0375, L501.9985, L501.9520, L501.5200 #### [facility] [address] [place], [address] Glucose [Mass/Vol] 115 mg/dL High 70-99 [facility] Comment on above: Performed By: #### L 3000.0375, L501.9985, L501.9520, L501.5200 #### [facility] [address] [place], [address] Potassium [Moles/Vol] 3.5 mmol/L Normal 3.3-5.1 [facility] Comment on above: Performed By: #### L 3000.0375, L501.9985, L501.9520, L501.5200 #### [facility] [address] [place], [address] Sodium [Moles/Vol] 139 mmol/L Normal 133-145 [facility] Comment on above: Performed By: #### L 3000.0375, L501.9985, L501.9520, L501.5200 #### [facility] [address] [place], [address] T PROT 6.6 g/dL Normal 5.9-8.4 [facility] Comment on above: Performed By: #### L 3000.0375, L501.9985, L501.9520, L501.5200 #### [facility] [address] [place], [address] Urea nitrogen [Mass/Vol] 8 mg/dL Normal 4-19 [facility] Comment on above: Performed By: #### L 3000.0375, L501.9985, L501.9520, L501.5200 #### [facility] [address] [place], [address] Discharge Instructionon 09-11 Discharge Instruction [facility] Medical Records Department [address] [place] [address] Instructions for Home/Discharge Instructions 09/25/24 1035 MR#: [id number] Acct: [id number] Name: REYNA NULL Rep #: [id number] : 1980 44 From: Loretta Meyer MD [...] his office to schedule an appointment (ph. [phone]) -You will be discharged on additional 10 [...] his office to schedule an appointment (ph. [phone])) Cheryl Pierre PA-C [Primary Care Provider] - In 1 Week Disposition Disposition (needs filled in before D/C Order can be placed): Home, Self Care 09/25/24 1038 Loretta Meyer MD CC: DONNIE Pierre; Dr. Benedicto Burks DO Signed Normal [facility] Eosinophil percentageOrdered By: Loretta Meyer on 09-25-2024 Eosinophils/100 WBC (Bld) 3.9 % 0-5 [facility] Erythrocyte distribution wid th ratioOrdered By: Loretta Meyer on 09-25-2024 Erythrocyte distribution width (RBC) [Ratio] 13.5 % 11.6-14.6 [facility] Erythrocyte distribution wid th standard deviationOrdered By: Loretta Meyer on 09-25-2024 Erythrocyte distribution width (RBC) [Entitic vol] 45.5 fL High 35.1-43.9 [facility] Erythrocyte distribution width (RBC) [Ratio] 45.5 fl High 35.1-43.9 [facility] Estimation of creatinine fransisco aranceOrdered By: Loretta Meyer on 09-25-2024 Estimated Creatinine Clearance Calc 123.63 ml/min 50-250 [facility] GFR/1.73 sq M.predicted donnie g non-blacks MDRD (S/P/Bld) [Vol rate/Area]Ordered By: Loretta Meyer on 09-25-2024 Estimated GFR (MDRD) Non-Af Amer 99 >60 [facility] Comment on above: mL/min/1.73m2 CKD-EP I Creatinine Equation (2020) Glomerular filtration rate ( GFR) estimation/1.73 sq m using serum, plasma, or whole bOrdered By: Loretta Meyer on 09-25-2024 GFR/1.73 sq M.predicted among non-blacks MDRD (S/P/Bld) [Vol rate/Area] 99 mL/min/{1.73_m2} >60 [facility] Comment on above: mL/min/1.73m2 CKD-EP I Creatinine Equation (2020) Hematocrit Auto (Bld) [Volum e fraction]Ordered By: Loretta Meyer on 09-25-2024 Hematocrit (Bld) [Volume fraction] 39.1 % 37-47 [facility] Hemoglobin measurementOrdere d By: Loretta Meyer on 09-25-2024 Hemoglobin (Bld) [Mass/Vol] 12.3 g/dL 12.0-15.0 [facility] Hepatitis Panel Acuteon 09-11 COMMENT Comment Normal . [facility] Comment on above: Result Comment: Not infected with HCV unless early or acute infection is suspected (which may be delayed in an immunocompromised individual), or other evidence exists to indicate HCV infection. Performed at: - [facility] [id number] Data Governance Consultant: Ashvin Dumont PhD, Phone: [phone] Performed By: #### L 3000.0375, L501.9985, L501.9520, L501.5200 #### [facility] [address] [place], [place], [address] HEP B CORE,IgM Negative Normal Negative [facility] Comment on above: Performed By: #### L 3000.0375, L501.9985, L501.9520, L501.5200 #### [facility] [address] [place], [place], [address] HEP B SURF AG Negative Normal Negative [facility] Comment on above: Performed By: #### L 3000.0375, L501.9985, L501.9520, L501.5200 #### [facility] [address] [place], [place], [address] HEP C VIRUS AB Non-Reactive Normal Non Reactive [facility] Comment on above: Performed By: #### L 3000.0375, L501.9985, L501.9520, L501.5200 #### [facility] [address] [place], [place], [address] HEPATITIS A-IgM Negative Normal Negative [facility] Comment on above: Result Comment: A ne gative anti-HAV IgM result suggests no recent or current HAV infection. Performed By: #### L 3000.0375, L501.9985, L501.9520, L501.5200 #### [facility] [address] [place], [place], [address] Immature granulocytes/100 WB C Auto (Bld)Ordered By: Loretta Meyer on 09-25-2024 Immature granulocytes/100 WBC (Bld) 1.000 % High 0.0-0.9 [facility] Comment on above: IG% - Immature Granu locytes (promyelocytes, myelocytes and metamyelocytes) > 1% indicates that a LEFT SHIFT is Present. Laboratory - Chemistry and C hemistry - challengeOrdered By: Loretta Meyer on 09-25-2024 AST [Catalytic activity/Vol] 91 U/L High <32 [facility] Lymphocytes Auto (Unsp spec) [#/Vol]Ordered By: Loretta Meyer on 09-25-2024 Lymphocytes (Bld) [#/Vol] 1.44 10*3/uL 0.83-4.51 [facility] Lymphocytes/100 WBC Auto (Un sp spec)Ordered By: Loretta Meyer on 09-25-2024 Lymphocytes/100 WBC (Bld) 20.9 % 19-41 [facility] MCV (mean corpuscular volume ) determinationOrdered By: Loretta Meyer on 09-25-2024 MCV (RBC) [Entitic vol] 92.7 fL 81-99 [facility] Mean corpuscular hemoglobin (MCH) determinationOrdered By: Loretta Meyer on 09-25-2024 MCH (RBC) [Entitic mass] 29.1 pg 27.0-32.0 [facility] Mean corpuscular hemoglobin concentration (MCHC) determinationOrdered By: Loretta Meyer on 09-25-2024 MCHC (RBC) [Mass/Vol] 31.5 g/dL Low 32-36 [facility] Mean platelet volume determi nationOrdered By: Loretta Meyer on 09-25-2024 Platelet mean volume (Bld) [Entitic vol] 10.8 fL 6.2-12.0 [facility] Monocyte percentageOrdered B y: Loretta Meyer on 09-25-2024 Monocytes/100 WBC (Bld) 7.0 % 0-10 [facility] Neutrophil percentageOrdered By: Loretta Meyer on 09-25-2024 Neutrophils/100 WBC (Bld) 66.3 % 47-70 [facility] Nucleated red blood cell per centageOrdered By: Loretta Meyer on 09-25-2024 Nucleated RBC/100 WBC (Bld) [Ratio] 0 % 0-5 [facility] Phosphoruson 09-25-2024 Phosphate [Mass/Vol] 2.5 mg/dL Low 2.7-4.5 [facility] Comment on above: Performed By: #### L 3000.0375, L501.9985, L501.9520, L501.5200 #### [facility] [address] [place], [address] Platelet countOrdered By: Brooks Meyer on 09-25-2024 Platelets (Bld) [#/Vol] 358 10*3/uL 150-450 [facility] Potassium (Unsp spec) [Mass/ Vol]Ordered By: Loretta Meyer on 09-25-2024 Potassium [Moles/Vol] 3.5 mmol/L 3.3-5.1 [facility] Potassium measurement (mass/ volume)Ordered By: Loretta Meyer on 09-25-2024 Potassium (Unsp spec) [Mass/Vol] 3.5 mmol/L 3.3-5.1 [facility] RBC Auto (Bld) [#/Vol]Ordere d By: Loretta Meyer on 09-25-2024 RBC (Bld) [#/Vol] 4.22 10*6/uL 4.2-5.4 [facility] Serum creatinine measurement (mass/volume)Ordered By: Loretta Meyer on 09-25-2024 Creatinine [Mass/Vol] 0.76 mg/dL 0.70-1.20 [facility] Serum globulin measurementOr dered By: Loretta Meyer on 09-25-2024 Globulin (S) [Mass/Vol] 3.1 g/dL 2.2-4.2 [facility] Serum glucose measurement (m ass/volume)Ordered By: Loretta Meyer on 09-25-2024 Glucose [Mass/Vol] 115 mg/dL High 70-99 [facility] Serum or plasma alanine basurto otransferase (ALT) measurementOrdered By: Loretta Meyer on 09-25-2024 ALT [Catalytic activity/Vol] 195 U/L High <35 [facility] Serum or plasma albumin edinson urement (mass/volume)Ordered By: Loretta Meyer on 09-25-2024 Albumin [Mass/Vol] 3.6 g/dL 3.5-5.0 [facility] Serum or plasma albumin/glob ulin mass ratioOrdered By: Loretta Meyer on 09-25-2024 Albumin/Globulin [Mass ratio] 1.2 {ratio} 0.9-2.4 [facility] Serum or plasma alkaline tracy sphatase measurementOrdered By: Loretta Meyer on 09-25-2024 ALP [Catalytic activity/Vol] 274 U/L High 35-104 [facility] Serum or plasma calcium edinson urement (mass/volume)Ordered By: Loretta Meyer on 09-25-2024 Calcium [Mass/Vol] 8.5 mg/dL 7.6-11.0 [facility] Serum or plasma urea nitroge n measurement (mass/volume)Ordered By: Loretta Meyer on 09-25-2024 Urea nitrogen [Mass/Vol] 8 mg/dL 4-19 [facility] Serum phosphorus measurement Ordered By: Benedicto Vasquez on 09-25-2024 Phosphorus Level 2.5 mg/dL Low 2.7-4.5 [facility] Sodium levelOrdered By: Estela Meyer on 09-25-2024 Sodium [Moles/Vol] 139 mmol/L 133-145 [facility] Total proteinOrdered By: Chris Meyer on 09-25-2024 Protein [Mass/Vol] 6.6 g/dL 5.9-8.4 [facility] White blood cell (WBC) count Ordered By: Loretta Meyer on 09-25-2024 WBC (Bld) [#/Vol] 6.9 10*3/uL 4.4-11.0 [facility] 12 Lead EKGon 09-24-2024 12 Lead EKG [facility] Cardiovascular Services [address] [place] [address] 12 Lead EKG 09/24/24 1527 MR#: [id number] Acct: [id number] Name: REYNA NULL Rep #: [id number] : 1980 44 From: Moshe Mayo MD Attending Dr: Dr. Loretta Meyer MD Status: DIS IN Ordering Dr: Dallin Rizzo MD Date: 09/24/24 Location: [facility] Sex: F C Admitted: 09/23/24 Test Reason : PRE OP Blood Pressure : */* mmHG Vent. Rate : 83 BPM Atrial Rate : 83 BPM P-R Int : 144 ms QRS Dur : 76 ms QT Int : 392 ms P-R-T Axes : 16 41 24 degrees QTcB Int : 460 ms Normal sinus rhythm Normal ECG No previous ECGs available Confirmed by MOSHE MAYO MD ([id number]), editor & co founder NAJMA SAAVEDRA ([id number]) on 09/27/2024 1:43:21 PM Referred By: Juan Jose Oseguera Confirmed By: MOSHE MAYO MD 09/27/24 1343 Date Moshe Mayo MD CC: DONNIE Pierre; Dr. Dallin Rizzo MD; Dr. Loretta Meeyr MD; Dr. Juan Jose Oseguera, DO Signed Normal [facility] CBC W/Diff, Automatedon 09-11 Absolute Lymph 1.39 X10 3/uL Normal 0.83-4.51 [facility] Comment on above: Performed By: #### L 686.4708 #### [facility] [address] [place], [address] Absolute Neut 2.7 X10 3/uL Normal 2.0-7.7 [facility] Comment on above: Performed By: #### L 400.7600 #### [facility] [address] [place], [address] Basophils/100 WBC (Bld) 1.2 % High 0-1 [facility] Comment on above: Performed By: #### L 400.7600 #### [facility] [address] [place], [address] Eosinophils/100 WBC (Bld) 7.9 % High 0-5 [facility] Comment on above: Performed By: #### L 400.7600 #### [facility] [address] [place], [address] Erythrocyte distribution width (RBC) [Ratio] 13.3 % Normal 11.6-14.6 [facility] Comment on above: Performed By: #### L 400.7600 #### [facility] [address] [place], [address] Hematocrit (Bld) [Volume fraction] 37.9 % Normal 37-47 [facility] Comment on above: Performed By: #### L 400.7600 #### [facility] [address] [place], [address] Hemoglobin (Bld) [Mass/Vol] 12.0 g/dL Normal 12.0-15.0 [facility] Comment on above: Performed By: #### L 400.7600 #### [facility] [address] [place], [address] IG% 0.600 Normal 0.0-0.9 [facility] Comment on above: Result Comment: IG% - Immature Granulocytes (promyelocytes, myelocytes and metamyelocytes) > 1% indicates that a LEFT SHIFT is Present. Performed By: #### L 400.7600 #### [facility] [address] [place], [address] Lymphocytes/100 WBC (Bld) 28.0 % Normal 19-41 [facility] Comment on above: Performed By: #### L 400.7600 #### [facility] [address] [place], [address] MCH (RBC) [Entitic mass] 29.3 pg Normal 27.0-32.0 [facility] Comment on above: Performed By: #### L 400.7600 #### [facility] [address] [place], [address] MCHC (RBC) [Mass/Vol] 31.7 g/dL Low 32-36 [facility] Comment on above: Performed By: #### L 400.7600 #### [facility] [address] [place], [address] MCV (RBC) [Entitic vol] 92.4 fL Normal 81-99 [facility] Comment on above: Performed By: #### L 400.7600 #### [facility] [address] [place], [address] Monocytes/100 WBC (Bld) 7.7 % Normal 0-10 [facility] Comment on above: Performed By: #### L 400.7600 #### [facility] [address] [place], [address] Neutrophils/100 WBC (Bld) 54.6 % Normal 47-70 [facility] Comment on above: Performed By: #### L 400.7600 #### [facility] [address] [place], [address] Nucleated RBC (Bld) [#/Vol] 0 10*3/uL Normal 0-5 [facility] Comment on above: Performed By: #### L 400.7600 #### [facility] [address] [place], [address] Platelet mean volume (Bld) [Entitic vol] 10.9 fL Normal 6.2-12.0 [facility] Comment on above: Performed By: #### L 400.7600 #### [facility] [address] [place], [address] Platelets (Bld) [#/Vol] 334 10*3/uL Normal 150-450 [facility] Comment on above: Performed By: #### L 400.7600 #### [facility] [address] [place], [address] RBC (Bld) [#/Vol] 4.10 10*6/uL Low 4.2-5.4 [facility] Comment on above: Performed By: #### L 400.7600 #### [facility] [address] [place], [address] RDW SD 45.5 fl High 35.1-43.9 [facility] Comment on above: Performed By: #### L 400.7600 #### [facility] [address] [place], [address] WBC (Bld) [#/Vol] 5.0 10*3/uL Normal 4.4-11.0 [facility] Comment on above: Performed By: #### L 400.7600 #### [facility] [address] [place], [address] Comprehensive Metabolic Prof ilon 09-24-2024 Albumin [Mass/Vol] 3.5 g/dL Normal 3.5-5.0 [facility] Comment on above: Performed By: #### L 400.7600 #### [facility] [address] [place], [address] Albumin/Globulin [Mass ratio] 1.1 {ratio} Normal 0.9-2.4 [facility] Comment on above: Performed By: #### L 400.7600 #### [facility] [address] [place], [address] ALK PHOS 305 U/L High 35-104 [facility] Comment on above: Performed By: #### L 400.7600 #### [facility] [address] [place], [address] ALT [Catalytic activity/Vol] 273 U/L High <=34 [facility] Comment on above: Performed By: #### L 400.7600 #### [facility] [address] [place], [address] AST [Catalytic activity/Vol] 188 U/L High <=31 [facility] Comment on above: Performed By: #### L 400.7600 #### [facility] [address] [place], [address] Bilirubin [Mass/Vol] 2.10 mg/dL High 0.00-1.30 [facility] Comment on above: Performed By: #### L 400.7600 #### [facility] [address] [place], [address] BUN/CRE 9.8 RATIO Low 10-20 [facility] Comment on above: Performed By: #### L 400.7600 #### [facility] [address] [place], [address] Calcium [Mass/Vol] 8.4 mg/dL Normal 7.6-11.0 [facility] Comment on above: Performed By: #### L 400.7600 #### [facility] [address] [place], [address] Chloride [Moles/Vol] 110 mmol/L High 98-108 [facility] Comment on above: Performed By: #### L 400.7600 #### [facility] [address] [place], [address] CO2 [Moles/Vol] 18.5 mmol/L Low 21.0-32.0 [facility] Comment on above: Performed By: #### L 400.7600 #### [facility] [address] [place], [address] Creatinine [Mass/Vol] 0.79 mg/dL Normal 0.70-1.20 [facility] Comment on above: Performed By: #### L 400.7600 #### [facility] [address] [place], [address] ECRCL 118.48 ml/min Normal 50-250 [facility] Comment on above: Performed By: #### L 400.7600 #### [facility] [address] [place], [address] GAP 13 Normal 5-15 [facility] Comment on above: Performed By: #### L 400.7600 #### [facility] [address] [place], [address] GFR/1.73 sq M.predicted among non-blacks MDRD (S/P/Bld) [Vol rate/Area] 94 mL/min/{1.73_m2} Normal >60 [facility] Comment on above: Result Comment: mL/m in/1.73m2 CKD-EPI Creatinine Equation (2020) Performed By: #### L 400.7600 #### [facility] [address] [place], [address] Globulin (S) [Mass/Vol] 3.1 g/dL Normal 2.2-4.2 [facility] Comment on above: Performed By: #### L 400.7600 #### [facility] [address] [place], [address] Glucose [Mass/Vol] 105 mg/dL High 70-99 [facility] Comment on above: Performed By: #### L 400.7600 #### [facility] [address] [place], [address] Potassium [Moles/Vol] 3.5 mmol/L Normal 3.3-5.1 [facility] Comment on above: Performed By: #### L 400.7600 #### [facility] [address] [place], [address] Sodium [Moles/Vol] 141 mmol/L Normal 133-145 [facility] Comment on above: Performed By: #### L 400.7600 #### [facility] [address] [place], [address] T PROT 6.6 g/dL Normal 5.9-8.4 [facility] Comment on above: Performed By: #### L 400.7600 #### [facility] [address] [place], [address] Urea nitrogen [Mass/Vol] 8 mg/dL Normal 4-19 [facility] Comment on above: Performed By: #### L 400.7600 #### [facility] [address] [place], [address] ERCP Biliary/Pancreason 09-11 ERCP Biliary/Pancreas [facility] Imaging Services [address] [place] [address] ERCP Biliary/Pancreas MR#: [id number] Acct: [id number] Name: THANHREYNA L Rep #: [id number] : 1980 F 44 From: Norris Fernandez PCP: Cheryl Pierre PA-C Status: ADM IN Study: ERCP Biliary/Pancreas Date of Exam: 09/24/24 Exam# [id number] Ordering Dr: Khadar Cortez DO PROCEDURE: ERCP BILIARY/PANCREAS REASON FOR EXAM: ERCP TECHNIQUE: ERCP imaging using fluoroscopic technique COMPARISON: None FINDINGS: Eight images performed demonstrating cannulization of the bile duct with balloon sweeping. Eight images performed with 10.8 seconds of fluoroscopy time using 3.88 mGy of dose RAD/ERCP Biliary/Pancreas IMPRESSION: ERCP imaging. Please see procedure note Reading Location: [id number] CC: DONNIE Pierre; Khadar Cortez DO Chimney Repairer: Signed Normal [facility] ERCP Reporton 09-24-2024 ERCP Report [facility] Medical Records Department [address] [place] [address] ERCP Report MR#: [id number] Acct: [id number] Name: REYNA NULL Rep #: [id number] : 1980 44 From: Khadar Cortez DO [...] hours 17 minutes 56 seconds Findings: The certified nursing assistant instructor film was normal. The esophagus was successfully [...] All stone (more content not included)... Normal [facility] HBV surface Ag IA QlOrdered By: Benedicto Vasquez on 09-24-2024 Hepatitis B Surface Antigen Negative Negative [facility] Hepatitis A virus IgM antibo dy assayOrdered By: Benedicto Vasquez on 09-24-2024 Hepatitis A IgM Antibody Negative Negative [facility] Comment on above: A negative anti-HAV IgM result suggests no recent orcurrent HAV infection. Hepatitis B virus core IgM a ntibody assayOrdered By: Benedicto Vasquez on 09-24-2024 Hepatitis B Core IgM Antibody Negative Negative [facility] Hepatitis C virus antibody a ssayOrdered By: Benedicto Vasquez on 09-24-2024 Hepatitis C Antibody (EIA) Non-Reactive Non Reactive [facility] MR/POSTOP.ANEon 09-24-2024 MR/POSTOP.ANE [facility] Medical Records Department [address] [place] [address] Anesthesia Postop Eval I 09/24/24 1642 MR#: [id number] Acct: [id number] Name: REYNA NULL Rep #: [id number] : 1980 44 From: Eliseo Patino CRNA PCP: Cheryl Pierre PA-C Status:ADM IN Y Race: C Location: [place] [address] Anesthesia: Postop Eval I Current Vital Signs [...] document: Postop Eval 1 completed: Yes 09/24/24 164 Date Eliseo Patino PSYCHOLOGIST Cosigner Signature: Date CC: Signed Normal [facility] MR/YOUEJNTO0xi 09-24-2024 MR/POSTOPAN2 [facility] Medical Records Department [address] [facility] [place] [address] Anesthesia Postop Eval II 09/24/241702 MR#: [id number] Acct: [id number] Name: REYNA NULL Rep #: [id number] : 1980 44 From: Dallin Rizzo MD PCP: Cheryl Pierre PA-C Status:ADM IN Y Race: C Location: [id number] Anesthesia Postop Eval I Sum Postop Eval Completion status Anesthesia document: Postop Eval 1 completed: Yes Anesthesia Postop Eval I Summary Anesthesia Postop Eval I Summary: Anesthesia Postop Eval I: Assessment Summary Airway patent Yes 09/24/24 16:43 [email or web address] Spontaneous unlabored Yes 09/24/24 16:43 [email or web address] respirations Mental status Awake 09/24/24 16:43 [email or web address] nausea No 09/24/24 16:43 [email or web address] Vomiting No 09/24/24 16:43 [email or web address] Anesthesia Postop Eval I: Fluid Summary Crystalloid volume administer 500 09/24/24 16:43 [email or web address] (ml) Colloids volume administered ( ml) Blood Product volume administered (ml) Total IV fluid infused 500 09/24/24 16:43 [email or web address] Anesthesia Postop Eval I: Summary Notes Anesthesia Complication No 09/24/24 16:43 [email or web address] Anesthesia Complication Comment: Post-operative progress note Anesthesia: Postop Eval II Evaluation Mental status: Awake Pain Level: 0 nausea: No Vomiting: No 09/24/241702 Date Dallin Rizzo MD Cosigner Signature: Date CC: Signed Normal [facility] MRCP Abdomen without Contras ton 09-24-2024 MRCP Abdomen without Contrast [facility] Imaging Services [address] [place] [address] MRCP Abdomen without Contrast MR#: [id number] Acct: [id number] Name: REYNA NULL Rep #: [id number] : 1980 F 44 From: Sandeep Champion MD PCP: Cheryl Pierre PA-C Status: ADM IN Study: MRCP Abdomen without Contrast Date of Exam: Exam# [id number] Ordering Dr: Benedicto Burks DO PROCEDURE: MRCP [...] 5. Additional description as above. Reading Location: [id number] CC: DONNIE Pierre; Dr. Benedicto Burks DO Chimney Repairer: Signed Normal [facility] Magnetic resonance imaging r eportOrdered By: Sandeep Champion on 09-24-2024 Study report [facility] Imaging Services [address] [place] [address] MRCP Abdomen without Contrast MR#: [id number] Acct: [id number] Name: REYNA NULL Rep #: [id number] : 1980 F 44 From: Mandy Champion MD PCP: Cheryl Pierre PA-C Status: ADM I N Study:MRCP Abdomen without Contrast Date of E xam: 09/24/24 Exam# [id number] Ordering Dr: Benedicto Ron DO PROCEDURE: MRCP [...] 5. Additional description as above. Reading Location: [id number] CC: DONNIE Pierre; Dr. Benedicto Burks, DO ~ Chimney Repairer: Signed [facility] No Panel InformationOrdered By: Benedicto Vasquez on 09-24-2024 Hepatitis C Antibody Comment Comment . [facility] Comment on above: Not infected with HC V unless early or acute infection issuspected (which may be delayed in an immunocompromisedindividual), or other evidence exists to indicate HCVinfection.Performed at: [employer] [id number] Director: Ashvin Dumont PhD, Phone: [phone] Phosphoruson 09-24-2024 Phosphate [Mass/Vol] 2.7 mg/dL Normal 2.7-4.5 [facility] Comment on above: Performed By: #### L 581.2370 #### [facility] [place], [address] Serum or plasma hepatitis B virus surface antigen detection by immunoassayOrdered By: Benedicto Vasquez on 09-24-2024 HBV surface Ag IA Ql Negative Negative [facility] Urinalysis, Completeon 09-24 BACTERIA 1+ /hpf Normal None Seen [facility] Comment on above: Order Comment: COLOR OF URINE MAY AFFECT DIPSTICK RESULTS.TRAVELING ACCOUNTANT TO SPECIFY Performed By: #### L 3000.0375, L501.9985, L501.9520, L501.5200 #### [facility] [address] [place], [address] EPI,SQUAMOUS 5-10 SEEN Normal 5-10 [facility] Comment on above: Order Comment: COLOR OF URINE MAY AFFECT DIPSTICK RESULTS.TRAVELING ACCOUNTANT TO SPECIFY Performed By: #### L 3000.0375, L501.9985, L501.9520, L501.5200 #### [facility] [address] [place], [address] RBC 0-5 SEEN Normal 0-5 [facility] Comment on above: Order Comment: COLOR OF URINE MAY AFFECT DIPSTICK RESULTS.TRAVELING ACCOUNTANT TO SPECIFY Performed By: #### L 3000.0375, L501.9985, L501.9520, L501.5200 #### [facility] [address] [place], [address] WBC 5-10 SEEN Normal 0-5 [facility] Comment on above: Order Comment: COLOR OF URINE MAY AFFECT DIPSTICK RESULTS.TRAVELING ACCOUNTANT TO SPECIFY Performed By: #### L 3000.0375, L501.9985, L501.9520, L501.5200 #### [facility] [address] [place], [address] AMORPHOUS 4+ URATE Normal [facility] Comment on above: Order Comment: COLOR OF URINE MAY AFFECT DIPSTICK RESULTS.TRAVELING ACCOUNTANT TO SPECIFY Performed By: #### L 3000.0375, L501.9985, L501.9520, L501.5200 #### [facility] [address] [place], [address] Mucus Ql (Urine sed) 0 SEEN Normal [facility] Comment on above: Order Comment: COLOR OF URINE MAY AFFECT DIPSTICK RESULTS.TRAVELING ACCOUNTANT TO SPECIFY Performed By: #### L 3000.0375, L501.9985, L501.9520, L501.5200 #### [facility] [address] [place], [place], [address] AMYLASEon 09-23-2024 Amylase [Catalytic activity/Vol] 59 U/L Normal 25 - 115 [facility] Comment on above: Performed By: #### 2 91310 #### [facility],[address] [facility] [address] Absolute neutrophil countOrd ered By: Juan Jose Oseguera on 09-23-2024 Neutrophils (Bld) [#/Vol] 4.2 10*3/uL 2.0-7.7 [facility] Amorphous sediment detection in urine sediment by light microscopyOrdered By: Benedicto Vasquez on 09-23-2024 Amorphous sediment LM Ql (Urine sed) 4+ URATE [facility] Anion gap in Serum or Plasma Ordered By: Juan Jose Oseguera on 09-23-2024 Anion gap [Moles/Vol] 14 mmol/L 5-15 [facility] BUN/creatinine ratioOrdered By: Juan Jose Oseguera on 09-23-2024 Urea nitrogen/Creatinine [Mass ratio] 12.0 mg/mg 10-20 [facility] Basic Metabolic Profile (BMP )on 09-23-2024 BUN/CRE 12.0 RATIO Normal -20 [facility] Comment on above: Performed By: #### L 400.7600 #### [facility] [address] [place], [address] Calcium [Mass/Vol] 9.2 mg/dL Normal 7.6-11.0 [facility] Comment on above: Performed By: #### L 400.7600 #### [facility] [address] [place], [address] Chloride [Moles/Vol] 107 mmol/L Normal 98-108 [facility] Comment on above: Performed By: #### L 400.7600 #### [facility] [address] [place], [address] CO2 [Moles/Vol] 21.2 mmol/L Normal 21.0-32.0 [facility] Comment on above: Performed By: #### L 400.7600 #### [facility] [address] [place], [address] Creatinine [Mass/Vol] 0.80 mg/dL Normal 0.70-1.20 [facility] Comment on above: Performed By: #### L 400.7600 #### [facility] [address] [place], [address] ECRCL 116.98 ml/min Normal 50-250 [facility] Comment on above: Performed By: #### L 400.7600 #### [facility] [address] [place], [address] GAP 14 Normal 5-15 [facility] Comment on above: Performed By: #### L 400.7600 #### [facility] [address] [place], [address] GFR/1.73 sq M.predicted among non-blacks MDRD (S/P/Bld) [Vol rate/Area] 93 mL/min/{1.73_m2} Normal >60 [facility] Comment on above: Result Comment: mL/m in/1.73m2 CKD-EPI Creatinine Equation (2020) Performed By: #### L 400.7600 #### [facility] [address] [place], [address] Glucose [Mass/Vol] 93 mg/dL Normal 70-99 [facility] Comment on above: Performed By: #### L 400.7600 #### [facility] [address] [place], [address] Potassium [Moles/Vol] 3.6 mmol/L Normal 3.3-5.1 [facility] Comment on above: Performed By: #### L 400.7600 #### [facility] [address] [place], [place], [address] Sodium [Moles/Vol] 142 mmol/L Normal 133-145 [facility] Comment on above: Performed By: #### L 400.7600 #### [facility] [address] [place], [place], [address] Urea nitrogen [Mass/Vol] 10 mg/dL Normal 4-19 [facility] Comment on above: Performed By: #### L 400.7600 #### [facility] [address] [place], [place], [address] Basophil percentageOrdered B y: Juan Jose Oseguera on 09-23-2024 Basophils/100 WBC (Bld) 1.0 % 0-1 [facility] Bilirubin Test strip Ql (U)O rdered By: Benedicto Vasquez on 09-23-2024 Bilirubin Ql (U) 3 mg/dL High Negative [facility] Comment on above: COLOR OF URINE MAY A FFECT DIPSTICK RESULTS. Bilirubin directOrdered By: Juan Jose Oseguera on 09-23-2024 Bilirubin.direct [Mass/Vol] 2.05 mg/dL High 0.00-0.30 [facility] Bilirubin, totalOrdered By: Juan Jose Oseguera on 09-23-2024 Bilirubin [Mass/Vol] 2.78 mg/dL High 0.00-1.30 [facility] CBC + DIFFon 09-23-2024 Baso # 0.01 x10EE3/UL Normal 0.00 - 0.10 [facility] Comment on above: Performed By: #### 2 65428 #### [facility],[address] [place] [address] Basophils/100 WBC (Bld) 0.2 % Normal 0.0 - 2.0 [facility] Comment on above: Performed By: #### 2 58523 #### [facility],[address] [place], [place] [address] CBC + DIFF Normal [facility] Comment on above: Result Comment: CBC- COMPLETE BLOOD COUNT Performed By: #### 2 25005 #### [facility],[address] [place] [address] EO # 0.40 x10EE3/UL Normal 0.00 - 0.50 [facility] Comment on above: Performed By: #### 2 71526 #### [facility],[address] [place] [address] Eosinophils/100 WBC (Bld) 6.3 % Normal 0.0 - 7.0 [facility] Comment on above: Performed By: #### 2 50042 #### [facility],[address] [place] [address] Erythrocyte distribution width (RBC) [Ratio] 13.5 % Normal 12.0 - 15.6 [facility] Comment on above: Performed By: #### 2 76487 #### [facility],[address] [place] [address] Hematocrit (Bld) [Volume fraction] 38.4 % Normal 34.0 - 46.0 [facility] Comment on above: Performed By: #### 2 87792 #### [facility],[address] [place], [place] [address] Hemoglobin (Bld) [Mass/Vol] 13.3 g/dL Normal 12.0 - 16.0 [facility] Comment on above: Performed By: #### 2 00647 #### [facility],[address] [place] [address] Lymph # 1.64 x10EE3/UL Normal 0.80 - 2.80 [facility] Comment on above: Performed By: #### 2 38944 #### [facility],[address] [place], [place] [address] Lymphocytes/100 WBC (Bld) 25.9 % Normal 20.0 - 45.0 [facility] Comment on above: Performed By: #### 2 45399 #### [facility],[address] [place] [address] MANUAL DIFF N/A Normal [facility] Comment on above: Performed By: #### 2 53200 #### [facility],[address] [place] [address] MCH (RBC) [Entitic mass] 31 pg Normal 27 - 33 [facility] Comment on above: Performed By: #### 2 77869 #### [facility],[address] [place] [address] MCHC 35 X10 3 Normal 32 - 36 [facility] Comment on above: Performed By: #### 2 85344 #### [facility],[address] [place] [address] MCV (RBC) [Entitic vol] 89 fL Normal 80 - 99 [facility] Comment on above: Performed By: #### 2 41405 #### [facility],[address] [place] [address] [place] # 0.54 x10EE3/UL Normal 0.20 - 1.00 [facility] Comment on above: Performed By: #### 2 25629 #### [facility],[address] [place] [address] MONOS % 8.5 % Normal 0.0 - 10.0 [facility] Comment on above: Performed By: #### 2 47295 #### [facility],[address] [place] [address] Morphology Riley (Bld) [Interp] N/A Normal [facility] Comment on above: Performed By: #### 2 93037 #### [facility],[address] [place] [address] Neut # 3.75 x10EE3/UL Normal 1.50 - 7.10 [facility] Comment on above: Performed By: #### 2 44366 #### [facility],[address] [place] [address] Neutrophils/100 WBC (Bld) 59.1 % Normal 46.0 - 76.0 [facility] Comment on above: Performed By: #### 2 54654 #### [facility],[address] [place] [address] PLATELET 398 x10EE3/UL Normal 150 - 450 [facility] Comment on above: Performed By: #### 2 98789 #### [facility],[address] [place] [address] Platelet mean volume (Bld) [Entitic vol] 8.5 fL Normal 6.6 - 10.5 [facility] Comment on above: Result Comment: AUTO MATED DIFFERENTIAL Performed By: #### 2 02380 #### [address] [address] RBC 4.30 x 10EE6/UL Normal 4.10 - 5.30 [facility] Comment on above: Performed By: #### 2 29352 #### [facility],[address] [place] [address] WBC 6.3 x 10EE3/UL Normal 4.5 - 10.8 [facility] Comment on above: Performed By: #### 2 93936 #### [facility],[address] [place] [address] CBC W/Diff, Automatedon 09-11 Absolute Lymph 1.86 X10 3/uL Normal 0.83-4.51 [facility] Comment on above: Performed By: #### L 100.0100 #### [facility] [address] [place], [address] (016) Absolute Neut 4.2 X10 3/uL Normal 2.0-7.7 [facility] Comment on above: Performed By: #### L 100.0100 #### [facility] [address] [place], [place], [address] Basophils/100 WBC (Bld) 1.0 % Normal 0-1 [facility] Comment on above: Performed By: #### L 100.0100 #### [facility] [address] [place], [address] Eosinophils/100 WBC (Bld) 5.1 % High 0-5 [facility] Comment on above: Performed By: #### L 100.0100 #### [facility] [address] [place], [address] Erythrocyte distribution width (RBC) [Ratio] 13.4 % Normal 11.6-14.6 [facility] Comment on above: Performed By: #### L 100.0100 #### [facility] [address] [place], [address] Hematocrit (Bld) [Volume fraction] 38.9 % Normal 37-47 [facility] Comment on above: Performed By: #### L 100.0100 #### [facility] [address] [place], [address] Hemoglobin (Bld) [Mass/Vol] 12.7 g/dL Normal 12.0-15.0 [facility] Comment on above: Performed By: #### L 100.0100 #### [facility] [address] [place], [address] IG% 0.700 Normal 0.0-0.9 [facility] Comment on above: Result Comment: IG% - Immature Granulocytes (promyelocytes, myelocytes and metamyelocytes) > 1% indicates that a LEFT SHIFT is Present. Performed By: #### L 100.0100 #### [facility] [address] [place], [address] Lymphocytes/100 WBC (Bld) 26.2 % Normal 19-41 [facility] Comment on above: Performed By: #### L 100.0100 #### [facility] [address] [place], [address] MCH (RBC) [Entitic mass] 29.3 pg Normal 27.0-32.0 [facility] Comment on above: Performed By: #### L 100.0100 #### [facility] [address] [place], [address] MCHC (RBC) [Mass/Vol] 32.6 g/dL Normal 32-36 [facility] Comment on above: Performed By: #### L 100.0100 #### [facility] [address] [place], [address] MCV (RBC) [Entitic vol] 89.8 fL Normal 81-99 [facility] Comment on above: Performed By: #### L 100.0100 #### [facility] [address] [place], [address] Monocytes/100 WBC (Bld) 7.6 % Normal 0-10 [facility] Comment on above: Performed By: #### L 100.0100 #### [facility] [address] [place], [address] Neutrophils/100 WBC (Bld) 59.4 % Normal 47-70 [facility] Comment on above: Performed By: #### L 100.0100 #### [facility] [address] [place], [address] Nucleated RBC (Bld) [#/Vol] 0 10*3/uL Normal 0-5 [facility] Comment on above: Performed By: #### L 100.0100 #### [facility] [address] [place], [address] Platelet mean volume (Bld) [Entitic vol] 10.5 fL Normal 6.2-12.0 [facility] Comment on above: Performed By: #### L 100.0100 #### [facility] [address] [place], [address] Platelets (Bld) [#/Vol] 380 10*3/uL Normal 150-450 [facility] Comment on above: Performed By: #### L 100.0100 #### [facility] [address] [place], [address] RBC (Bld) [#/Vol] 4.33 10*6/uL Normal 4.2-5.4 [facility] Comment on above: Performed By: #### L 100.0100 #### [facility] [address] [place], [address] RDW SD 44.0 fl High 35.1-43.9 [facility] Comment on above: Performed By: #### L 100.0100 #### [facility] [address] [place], [address] WBC (Bld) [#/Vol] 7.1 10*3/uL Normal 4.4-11.0 [facility] Comment on above: Performed By: #### L 100.0100 #### [facility] [address] [place], [address] CMP with eGFRon 09-23-2024 AGE 44 years Normal [facility] Comment on above: Performed By: #### 2 36426 #### [facility],[address] [place] [address] Albumin [Mass/Vol] 3.4 g/dL Normal 3.4 - 5.0 [facility] Comment on above: Performed By: #### 2 36564 #### [facility],[address] [place] [address] Albumin/Globulin [Mass ratio] 0.8 {ratio} Low 0.9 - 1.6 [facility] Comment on above: Performed By: #### 2 51601 #### [facility],[address] [place] [address] ALK PHOS 359 U/L High 46 - 116 [facility] Comment on above: Performed By: #### 2 44721 #### [facility],[address] [place] [address] ALT [Catalytic activity/Vol] 392 U/L High 16 - 63 [facility] Comment on above: Performed By: #### 2 08196 #### [facility],[address] [place] [address] Anion gap [Moles/Vol] 7 mmol/L Low 10 - 20 [facility] Comment on above: Performed By: #### 2 11275 #### [facility],[address] [place] [address] AST [Catalytic activity/Vol] 310 U/L High 13 - 39 [facility] Comment on above: Performed By: #### 2 85517 #### [facility],[address] [place] [address] B/C RATIO 7 ratio Normal 0 - 30 [facility] Comment on above: Performed By: #### 2 03782 #### [facility],[address] [place] [address] Bilirubin [Mass/Vol] 2.3 mg/dL High 0.2 - 1.0 [facility] Comment on above: Performed By: #### 2 50935 #### [facility],[address] [place] [address] Calcium [Mass/Vol] 8.8 mg/dL Normal 8.5 - 10.1 [facility] Comment on above: Performed By: #### 2 02069 #### [facility],[address] [place] [address] Chloride [Moles/Vol] 107 mmol/L Normal 98 - 107 [facility] Comment on above: Performed By: #### 2 83599 #### [facility],[address] [place] [address] CMP with eGFR Normal [facility] Comment on above: Result Comment: COMP REHENSIVE METABOLIC PANEL Performed By: #### 2 05573 #### [facility],[address] [place] [address] CO2 [Moles/Vol] 28.2 mmol/L Normal 21.0 - 32.0 [facility] Comment on above: Performed By: #### 2 26046 #### [facility],[address] [place] [address] Creatinine [Mass/Vol] 0.83 mg/dL Normal 0.55 - 1.02 [facility] Comment on above: Performed By: #### 2 59606 #### [facility],[address] [place] [address] GFR/1.73 sq M.predicted among non-blacks MDRD (S/P/Bld) [Vol rate/Area] mL/min/{1.73_m2} Normal 60 - 999 [facility] Comment on above: Performed By: #### 2 51463 #### [facility],[address] [place] [address] Result Comment: ACCO RDING TO THE NATIONAL KIDNEY DISEASE EDUCATION PROGRAM(NKDE), A NORMAL eGFR IS A VALUE GREATER THAN OR EQUAL TO 60 ML/MIN/1.73 SQ METERS. CHRONIC KIDNEY DISEASE: <60mL/MIN/1.73 SQ METERS KIDNEY FAILURE: <15mL/MIN/1.73 SQ METERS THIS TEST SHOULD ONLY BE USED FOR PATIENTS 18 YEARS OF AGE AND OLDER. Globulin (S) [Mass/Vol] 4.2 g/dL High 1.5 - 3.8 [facility] Comment on above: Performed By: #### 2 61489 #### [facility],[address] [place] [address] Glucose [Mass/Vol] 108 mg/dL High 74 - 106 [facility] Comment on above: Performed By: #### 2 61841 #### [facility],[address] [place] [address] Potassium [Moles/Vol] 3.8 mmol/L Normal 3.5 - 5.1 [facility] Comment on above: Performed By: #### 2 93735 #### [facility],[address] [place] [address] Protein [Mass/Vol] 7.6 g/dL Normal 6.4 - 8.2 [facility] Comment on above: Performed By: #### 2 43251 #### [facility],[address] [place] [address] Sodium [Moles/Vol] 138 mmol/L Normal 136 - 145 [facility] Comment on above: Performed By: #### 2 26636 #### [facility],[address] [place] [address] Urea nitrogen [Mass/Vol] 6 mg/dL Low 7 - 18 [facility] Comment on above: Performed By: #### 2 12440 #### [facility],[address] [place] [address] Cancer antigen 19-9 measurem entOrdered By: Benedicto Vaqsuez on 09-23-2024 CA 19-9 Antigen < 2 U/mL 0-35 [facility] Comment on above: Verified by repeat analysisBrendon Diagnostics Electrochemiluminescence Immunoassay(ECLIA)Values obtained with different assay methods or kits cannotbe used interchangeably. Results cannot be interpreted asabsolute evidence of the presence or absence of malignantdisease.Performed at: - [address] [id number] Director: Ashvin Dumont PhD, Phone: [phone] Carbon dioxide, total [Moles /volume] in Central venous bloodOrdered By: Juan Jose Oseguera on 09-23-2024 CO2 [Moles/Vol] 21.2 mmol/L 21.0-32.0 [facility] Chloride assayOrdered By: Janki Oseguera on 09-23-2024 Chloride [Moles/Vol] 107 mmol/L 98-108 [facility] Emergency Department Summary on 09-23-2024 Emergency Department Summary [facility] Medical Records Department [address] [place] [address] Emergency Department Summary 09/23/24 MR#: [id number] Acct: [id number] Name: REYNA NULL Rep #: [id number] : 1980 44 From: Juan Jose Oseguera DO PCP: Cheryl Pierre PA-C Status:ADM IN Location: [place] [address] HPI History of Present Illness Chief Complaint: Abn Labs PFSH PFS Medical History (Updated 09/23/24 @ 22:26 by [...] Consults: Gastroenterology (Dr. Cortez), Internal Medicine (Burks) MDM Narrative: The patient was initially hemodynamically stable, [...] CBD obstruction. Spoke with Dr. Cortez is vault person tomorrow and can evaluate the patient. Recommended starting patient on antibiotics. I gave Zosyn. Discussed with hospitalist [facility] The patient and/or family, caregivers express [...] 2. Elevated liver enzymes Dispo: Admit to [facility] (more content not included)... Normal [facility] Eosinophil percentageOrdered By: Juan Jose Oseguera on 09-23-2024 Eosinophils/100 WBC (Bld) 5.1 % High 0-5 [facility] Epithelial cells.squamous LM Ql (Urine sed)Ordered By: Benedicto Vasquez on 09-23-2024 Epithelial cells.squamous LM.HPF (Urine sed) [#/Area] 5 /[HPF] 5-10 [facility] Erythrocyte distribution wid th ratioOrdered By: Juan Jose Oseguera on 09-23-2024 Erythrocyte distribution width (RBC) [Ratio] 13.4 % 11.6-14.6 [facility] Erythrocyte distribution wid th standard deviationOrdered By: Juan Jose Oseguera on 09-23-2024 Erythrocyte distribution width (RBC) [Entitic vol] 44.0 fL High 35.1-43.9 [facility] Estimation of creatinine fransisco aranceOrdered By: Juan Jose Oseguera on 09-23-2024 Estimated Creatinine Clearance Calc 116.98 ml/min 50-250 [facility] GFR/1.73 sq M.predicted donnie g non-blacks MDRD (S/P/Bld) [Vol rate/Area]Ordered By: Juan Jose Oseguera on 09-23-2024 Estimated GFR (MDRD) Non-Af Amer 93 >60 [facility] Comment on above: mL/min/1.73m2 CKD-EP I Creatinine Equation (2020) Gallbladderon 09-23-2024 Gallbladder [facility] [address] [place] [address] Gallbladder MR#: [id number] Acct: [id number] Name: REYNA NULL Rep #: [id number] : 1980 F 44 From: Quentin Olvera i, MD PCP: Cheryl Pierre PA-C Status: REG ER Study: Gallbladder Date of Exam: 09/23/24 Exam# [id number] Ordering Dr: Juan Jose Oseguera DO PROCEDURE: [...] Recommend GI consultation and MRCP/ERCP. Reading Location: [facility] CC: DONNIE Pierre; Dr. Juan Jose Oseguera DO Chimney Repairer: Signed Normal [facility] Glucose Ql (U)Ordered By: Tanner Vasquez on 09-23-2024 Urine Glucose (UA) Normal mg/dl Normal [facility] H AND P Exam - [facility] 09-23-2024 H&P Exam - Hospitalist [facility] Medical Records Department [address] [place] [address] H P Exam - Hospitalist 09/23/248 MR#: [id number] Acct: [id number] Name: REYNA NULL Rep #: [id number] : 1980 44 From: Benedicto Burks DO PCP: Cheryl Pierre PA-C Status:ADM IN Location: [facility] [id number] HPI - General General Date of Admission: 09/23/24 Date of Service: 09/23/24 Chief Complaint: Nausea and Elevated LFT's. HPI Narrative REYNA NULL, is a 44 F with a past medical history of essential hypertension; on losartan, morbid obesity; with BMI of 47.9 this admission and known history of intermittent Gallbladder Colic for years with known microlithiasis/sludge who presents to [facility] ER complaining of nausea and elevated LFT's. [...] is expected to extend beyond 2 midnights. [facility] Medical History (Updated 09/24/24 @ 02:13 by [...] ROM an (more content not included)... Normal [facility] Hematocrit Auto (Bld) [Volum e fraction]Ordered By: Juan Jose Oseguera on 09-23-2024 Hematocrit (Bld) [Volume fraction] 38.9 % 37-47 [facility] Hemoglobin A1con 09-23-2024 HbA1c (Bld) [Mass fraction] 5.7 % Normal <=5.6 [facility] Comment on above: Performed By: #### L 3000.0375, L501.9985, L501.9520, L501.5200 #### [facility] [address] [place] [address]. [place], [place], [address] Hemoglobin A1c percentageOrd ered By: Benedicto Vasquez on 09-23-2024 HbA1c (Bld) [Mass fraction] 5.7 % >5.7 [facility] Hemoglobin measurementOrdere d By: Juan Jose Oseguera on 09-23-2024 Hemoglobin (Bld) [Mass/Vol] 12.7 g/dL 12.0-15.0 [facility] Immature granulocytes/100 WB C Auto (Bld)Ordered By: Juan Jose Oseguera on 09-23-2024 Immature granulocytes/100 WBC (Bld) 0.700 % 0.0-0.9 [facility] Comment on above: IG% - Immature Granu locytes (promyelocytes, myelocytes and metamyelocytes) > 1% indicates that a LEFT SHIFT is Present. Ketones Test strip Ql (U)Ord ered By: Benedicto Vasquez on 09-23-2024 Ketones Ql (U) 5 mg/dl High Negative [facility] LIPASEon 09-23-2024 Lipase [Catalytic activity/Vol] 30.0 U/L Normal 15.0 - 78.0 [facility] Comment on above: Result Comment: *PLE ASE NOTE THAT RANGES FOR LIPASE HAVE CHANGED OF 07/11/23 DUE TO AN ASSAY UPDATE BY THE ROLL FORGER.THE NEW ASSAY RANGE IS 6-250 U/L, WITH A REFERENCE RANGE OF 16-77 U/L. Performed By: #### 2 [id number] #### [facility],[address] [place] [address] Laboratory - Chemistry and C hemistry - challengeOrdered By: Juan Jose Oseguera on 09-23-2024 AST [Catalytic activity/Vol] 281 U/L High <32 [facility] Lipaseon 09-23-2024 Lipase [Catalytic activity/Vol] 34 U/L Normal 13-75 [facility] Comment on above: Result Comment: Plea se note: LIPASE revised reference range effective 22. New Lipase methodology. Expected to produce lower values than the previous assay method. NEW Reference Range: 13 - 75 U/L Performed By: #### L 363.9873 #### [facility] [address] [place], [address] Lipase measurementOrdered By : Juan Jose Oseguera on 09-23-2024 Lipase [Catalytic activity/Vol] 34 U/L 13-75 [facility] Comment on above: Please note:LIPASE r evised reference range effective 22. New Lipase methodology. Expected to produce lower values than the previous assay method. NEW Reference Range: 13 - 75 U/L Liver Profileon 09-23-2024 Albumin [Mass/Vol] 4.0 g/dL Normal 3.5-5.0 [facility] Comment on above: Performed By: #### L 400.1746 #### [facility] [address] [place], [address] ALK PHOS 355 U/L High 35-104 [facility] Comment on above: Performed By: #### L 400.7600 #### [facility] [address] [place], [address] ALT [Catalytic activity/Vol] 361 U/L High <=34 [facility] Comment on above: Performed By: #### L 400.7600 #### [facility] [address] [place], [address] AST [Catalytic activity/Vol] 281 U/L High <=31 [facility] Comment on above: Performed By: #### L 400.7600 #### [facility] [address] [place], [address] Bilirubin [Mass/Vol] 2.78 mg/dL High 0.00-1.30 [facility] Comment on above: Performed By: #### L 400.7600 #### [facility] [address] [place], [address] Bilirubin.direct [Mass/Vol] 2.05 mg/dL High 0.00-0.30 [facility] Comment on above: Performed By: #### L 400.7600 #### [facility] [address] [place], [address] Globulin (S) [Mass/Vol] 3.5 g/dL Normal 2.2-4.2 [facility] Comment on above: Performed By: #### L 400.7600 #### [facility] [address] [place], [address] T PROT 7.5 g/dL Normal 5.9-8.4 [facility] Comment on above: Performed By: #### L 400.7600 #### [facility] [address] [place], [address] Lymphocytes Auto (Unsp spec) [#/Vol]Ordered By: Juan Jose Oseguera on 09-23-2024 Lymphocytes (Bld) [#/Vol] 1.86 10*3/uL 0.83-4.51 [facility] Lymphocytes/100 WBC Auto (Un sp spec)Ordered By: Juan Jose Oseguera on 09-23-2024 Lymphocytes/100 WBC (Bld) 26.2 % 19-41 [facility] MCV (mean corpuscular volume ) determinationOrdered By: Juan Jose Oseguera on 09-23-2024 MCV (RBC) [Entitic vol] 89.8 fL 81-99 [facility] Magnesiumon 09-23-2024 Magnesium [Mass/Vol] 2.1 mg/dL Normal 1.5-2.2 [facility] Comment on above: Order Comment: *ADD ON, THG6/5/O THY2/4/G* Performed By: #### L 3000.0375, L501.9985, L501.9520, L501.5200 #### [facility] [address] [place], [place], [id number] Magnesium (Unsp spec) [Mass/ Vol]Ordered By: Benedicto Vasquez on 09-23-2024 Magnesium [Mass/Vol] 2.1 mg/dL 1.5-2.2 [facility] Magnesium measurement (mass/ volume)Ordered By: Benedicto Vasquez on 09-23-2024 Magnesium (Unsp spec) [Mass/Vol] 2.1 mg/dL 1.5-2.2 [facility] Mean corpuscular hemoglobin (MCH) determinationOrdered By: Juan Jose Oseguera on 09-23-2024 MCH (RBC) [Entitic mass] 29.3 pg 27.0-32.0 [facility] Mean corpuscular hemoglobin concentration (MCHC) determinationOrdered By: Juan Jose Oseguera on 09-23-2024 MCHC (RBC) [Mass/Vol] 32.6 g/dL 32-36 [facility] Mean platelet volume determi nationOrdered By: Juan Jose Oseguera on 09-23-2024 Platelet mean volume (Bld) [Entitic vol] 10.5 fL 6.2-12.0 [facility] Microscopic analysis of urin e for red blood cells (RBC)Ordered By: Benedicto Vasquez on 09-23-2024 Microscopic analysis of urine for red blood cells (RBC) 0-5 SEEN /hpf 0-5 [facility] Urine RBC 0-5 SEEN /hpf 0-5 [facility] Monocyte percentageOrdered B y: Juan Jose Oseguera on 09-23-2024 Monocytes/100 WBC (Bld) 7.6 % 0-10 [facility] Mucus LM Ql (Urine sed)Order ed By: Benedicto Vasquez on 09-23-2024 Mucus Ql (Urine sed) 0 SEEN /hpf [facility] Neutrophil percentageOrdered By: Juan Jose Oseguera on 09-23-2024 Neutrophils/100 WBC (Bld) 59.4 % 47-70 [facility] Nitrite Test strip Ql (U)Ord ered By: Benedicto Vasquez on 09-23-2024 Nitrite Ql (U) Negative Negative [facility] No Panel InformationOrdered By: Benedicto Vasquez on 09-23-2024 CA 19-9 Antigen Serial Monitoring Not Reportable [facility] Nucleated red blood cell per centageOrdered By: Juan Jose Oseguera on 09-23-2024 Nucleated RBC/100 WBC (Bld) [Ratio] 0 % 0-5 [facility] Platelet countOrdered By: Janki Oseguera on 09-23-2024 Platelets (Bld) [#/Vol] 380 10*3/uL 150-450 [facility] Potassium (Unsp spec) [Mass/ Vol]Ordered By: Juan Jose Oseguera on 09-23-2024 Potassium [Moles/Vol] 3.6 mmol/L 3.3-5.1 [facility] ,Urineon 09-23-2024 Beta HCG ( test) Ql (U) Negative Normal [facility] Comment on above: Order Comment: Result Comment: Very dilute urine specimens, as indicated by a low specific gravity, may not contain patient accounting representative levels of hCG. If is still suspected, a first morning urine specimen should be collected 48 hours later and tested. Performed By: #### L 400.7600 #### [facility] [address] [place], [address] Protein Test strip Ql (U)Ord ered By: Benedicto Vasquez on 09-23-2024 Protein Ql (U) 30 mg/dl High Negative [facility] RBC Auto (Bld) [#/Vol]Ordere d By: Juan Jose Oseguera on 09-23-2024 RBC (Bld) [#/Vol] 4.33 10*6/uL 4.2-5.4 [facility] Serum creatinine measurement (mass/volume)Ordered By: Juan Jose Oseguera on 09-23-2024 Creatinine [Mass/Vol] 0.80 mg/dL 0.70-1.20 [facility] Serum globulin measurementOr dered By: Juan Jose Oseguera on 09-23-2024 Globulin (S) [Mass/Vol] 3.5 g/dL 2.2-4.2 [facility] Serum glucose measurement (m ass/volume)Ordered By: Juan Jose Oseguera on 09-23-2024 Glucose [Mass/Vol] 93 mg/dL 70-99 [facility] Serum or plasma alanine basurto otransferase (ALT) measurementOrdered By: Juan Jose Oseguera on 09-23-2024 ALT [Catalytic activity/Vol] 361 U/L High <35 [facility] Serum or plasma albumin edinson urement (mass/volume)Ordered By: Juan Jose Oseguera on 09-23-2024 Albumin [Mass/Vol] 4.0 g/dL 3.5-5.0 [facility] Serum or plasma alkaline tracy sphatase measurementOrdered By: Juan Jose Oseguera on 09-23-2024 ALP [Catalytic activity/Vol] 355 U/L High 35-104 [facility] Serum or plasma calcium edinson urement (mass/volume)Ordered By: Juan Jose Oseguera on 09-23-2024 Calcium [Mass/Vol] 9.2 mg/dL 7.6-11.0 [facility] Serum or plasma urea nitroge n measurement (mass/volume)Ordered By: Juan Jose Oseguera on 09-23-2024 Urea nitrogen [Mass/Vol] 10 mg/dL 4-19 [facility] Sodium levelOrdered By: Marko Oseguera on 09-23-2024 Sodium [Moles/Vol] 142 mmol/L 133-145 [facility] Squamous epithelial cells de tection in urine sediment by light microscopyOrdered By: Benedicto Vasquez on 09-23-2024 Epithelial cells.squamous LM Ql (Urine sed) 5-10 SEEN /hpf 5-10 [facility] TSH DL <= 0.005 mIU/L QnOrde red By: Benedicto Vasquez on 09-23-2024 Thyroid Stimulating Hormone (TSH) 2.100 uIU/mL 0.300-4.20 0 [facility] TSH Qn 2.100 uIU/mL 0.300-4.20 0 [facility] Thyroid Stim Hormone (TSH)on 09-23-2024 TSH 2.100 uIU/mL Normal 0.300-4.20 0 [facility] Comment on above: Order Comment: *ADD ON, THG6/5/O THY2/4/G* Performed By: #### L 3000.0375, L501.9985, L501.9520, L501.5200 #### [facility] [place], [address] Total proteinOrdered By: Cameron Oseguera on 09-23-2024 Protein [Mass/Vol] 7.5 g/dL 5.9-8.4 [facility] Urine blood detectionOrdered By: Benedicto Vasquez on 09-23-2024 Urine Occult Blood 10 /ul High Negative [facility] Urine clarityOrdered By: Omega Vasquez on 09-23-2024 Clarity (U) Turbid Clear [facility] Urine color determinationOrd ered By: Benedicto Vasquez on 09-23-2024 Color (U) Rica Yellow [facility] Urine glucose detectionOrder ed By: Benedicto Vasquez on 09-23-2024 Glucose Ql (U) Normal mg/dl Normal [facility] Urine leukocyte esterase det ection by dipstickOrdered By: Benedicto Vasquez on 09-23-2024 Leukocyte esterase Test strip Ql (U) 25 /ul High Negative [facility] Urine pHOrdered By: Benedicto su on 09-23-2024 pH (U) 6.0 [pH] 5.0 - 8.0 [facility] Urine testOrdered By: Juan Jose Oseguera on 09-23-2024 HCG ( test) Ql (U) Negative [facility] Comment on above: Very dilute urine sp ecimens, as indicated by a low specificgravity, may not contain patient accounting representative levels of hCG. If is still suspected, a first morning urinespecimen should be collected 48 hours later and tested. Urine sediment bacteria coun t by microscopy (number/high power field)Ordered By: Benedicto Vasquez on 09-23-2024 Bacteria LM.HPF (Urine sed) [#/Area] 1 /[HPF] None Seen [facility] Urine specific gravity measu rementOrdered By: Benedicto Vasquez on 09-23-2024 Specific gravity (U) [Rel density] 1.015 1.002-1.03 0 [facility] Urine urobilinogen measureme ntOrdered By: Benedicto Vasquez on 09-23-2024 Urobilinogen Ql (U) 8 mg/dl High Normal [facility] Urobilinogen Ql (U)Ordered B y: Benedicto Vasquez on 09-23-2024 Urobilinogen (U) [Mass/Vol] 8 mg/dL High Normal [facility] White blood cell (WBC) count Ordered By: Juan Jose Oseguera on 09-23-2024 WBC (Bld) [#/Vol] 7.1 10*3/uL 4.4-11.0 [facility] White blood cell countOrdere d By: Benedicto Vasquez on 09-23-2024 Urine WBC 5-10 SEEN /hpf 0-5 [facility] White blood cell count 5-10 SEEN /hpf 0-5 [facility] [employer] Cytology Reporton 2022 [employer] Cytology Report . Pathology Reports Accession: Collected Date/Time: Received Date/Time: Pathologist: [id number] 07/25/2022 08:50 EST 07/25/2022 18:00 EST [employer] Cytology Report SPECIMEN: Specimen Description: Liquid Prep w/ HPV Specimen: Cervical Screening or Diagnostic: Screening RELEVANT HISTORY: LMP: 07/10/22 [id number] SPECIMEN ADEQUACY: SATISFACTORY FOR EVALUATION Endocervical/Transformatio nal [...] and evaluated with the assistance of the [employer] Test Imaging System. Pathology Reports Accession: Collected Date/Time: Received Date/Time: Pathologist: [id number] 07/25/2022 08:50 EST 07/25/2022 18:00 EST Electronically Signed by Pathology report verified by [facility] Screened by: KK Electronically signed by Stefania PEGUERO (ASCP) Sign-Out Date: 08/07/2022 15:53 Performing Lab: [facility], [address] [place] [address] Pathology Dept Disclaimer The Pap test is a screening test for cervical cancer. As evidenced by published data, it is subject to both inherent false negative and false positive results. Your patient's results should be interpreted in context with pertinent clinical history including gynecological examination. Normal [facility] ([place]) HPVon 08-07-2022 HPV Interp Normal See Interp HPVN [facility] [place] Comment on above: Order Comment: Order placed by AP_HPV_ORDER rule from [id number] Result Comment: High Risk HPV Typing: NEGATIVE [...] HPVN Performed By: #### H PV #### [address] [address] HPV Source Cervix Normal [facility] ([place]) Comment on above: Order Comment: Order placed by AP_HPV_ORDER rule from [id number] Performed By: #### H PV #### [address] [address] Free T3on 03-10-2021 Free T3 [Mass/Vol] 3.7 pg/mL Normal 2.3-4.1 [facility] Comment on above: Performed By: #### F REET3 #### [facility] Routine Lab [address] [place], [place] [address] COMPREHENSIVE METABOLIC PANE [facility] 03-02-2020 Albumin [Mass/Vol] 4.2 g/dL Normal 3.6-5.1 [facility] Comment on above: Performed By: #### 7 600, [address]902 #### [facility]-[address] [address] Probation Manager: Tamir Lane MD Albumin/Globulin [Mass ratio] 1.4 (calc) Normal 1.0-2.5 [facility] Comment on above: Performed By: #### 7 600, 75897 #### [facility]-[address] [address] Probation Manager: Tamir Lane MD ALP [Catalytic activity/Vol] 106 U/L Normal 31-125 [facility] Comment on above: Performed By: #### 7 600, 07576 #### [facility]-[address], [address] [place] [address] Probation Manager: Tamir Lane MD ALT [Catalytic activity/Vol] 17 U/L Normal 6-29 [facility] Comment on above: Performed By: #### 7 600, 58218 #### [facility]-[address], [address] [place] [address] Probation Manager: Tamir Lane MD AST [Catalytic activity/Vol] 17 U/L Normal 10-30 [facility] Comment on above: Performed By: #### 7 600, 25347 #### [facility]-[address], [address] [place] [address] Probation Manager: Tamir Lane MD Bilirubin [Mass/Vol] 0.4 mg/dL Normal 0.2-1.2 [facility] Comment on above: Performed By: #### 7 600, 71926 #### [facility]-[address], [address] [place] [address] Probation Manager: Tamir Lane MD Calcium [Mass/Vol] 9.7 mg/dL Normal 8.6-10.2 [facility] Comment on above: Performed By: #### 7 600, 73930 #### [facility]-[place] [address] Probation Manager: Tamir Lane MD Chloride [Moles/Vol] 105 mmol/L Normal 98-110 [facility] Comment on above: Performed By: #### 7 600, 04632 #### [facility]-[address], [address] [place] [address] Probation Manager: Tamir Lane MD CO2 [Moles/Vol] 28 mmol/L Normal 20-32 [facility] Comment on above: Performed By: #### 7 600, 81607 #### [facility] [address] Probation Manager: Tamir Lane MD Creatinine [Mass/Vol] 0.81 mg/dL Normal 0.50-1.10 [facility] Comment on above: Performed By: #### 7 600, 39449 #### [facility] [address] [place] , [address] [place] [address] Probation Manager: Tamir Lane MD eGFR NON-AFR. NAURUAN 90 mL/min/1.73m2 Normal > OR = 60 [facility] Comment on above: Performed By: #### 7 600, 46451 #### [facility]-[address], [address] [place] [address] Probation Manager: Tamir Lane MD GFR/1.73 sq M predicted among blacks MDRD (S/P/Bld) [Vol rate/Area] 105 mL/min/{1.73_m2} Normal > OR = 60 [facility] Comment on above: Performed By: #### 7 600, 89848 #### [facility]-[address], [address] [place] [address] Probation Manager: Tamir Lane MD Globulin (S) [Mass/Vol] 3.1 g/dL (calc) Normal 1.9-3.7 [facility] Comment on above: Performed By: #### 7 600, 67505 #### [facility] [address] [place] , [address] [place] [address] Probation Manager: Tamir Lane MD Glucose [Mass/Vol] 93 mg/dL Normal 65-99 [facility] Comment on above: Result Comment: Fasting reference interval Performed By: #### 7 600, 85752 #### [facility] [address], [address] [place] [address] Probation Manager: Tamir Lane MD Potassium [Moles/Vol] 4.5 mmol/L Normal 3.5-5.3 [facility] Comment on above: Performed By: #### 7 600, 05763 #### [facility] , [address] [place] [address] Probation Manager: Tamir Lane MD Protein [Mass/Vol] 7.3 g/dL Normal 6.1-8.1 [facility] Comment on above: Performed By: #### 7 600, 88021 #### [facility] [address], [address] [place] [address] Probation Manager: Tamir Lane MD Sodium [Moles/Vol] 139 mmol/L Normal 135-146 [facility] Comment on above: Performed By: #### 7 600, 80842 #### [facility]-[address], [address] [place] [address] Probation Manager: Tamir Lane MD Urea nitrogen [Mass/Vol] 20 mg/dL Normal 7-25 [facility] Comment on above: Performed By: #### 7 600, 08832 #### [facility]-[address], [address] [place] [address] Probation Manager: Tamir Lane MD Urea nitrogen/Creatinine [Mass ratio] NOT APPLICABLE Normal 6-22 [facility] Comment on above: Performed By: #### 7 600, 22220 #### [facility]-[address], [address] [place] [address] Probation Manager: Tamir Lane MD LIPID PANEL, [facility] - Cholesterol [Mass/Vol] 195 mg/dL Normal <200 [facility] Comment on above: Performed By: #### 7 600, 42147 #### [facility]-[address], [address] [place] [address] Probation Manager: Tamir Lane MD Cholesterol in HDL [Mass/Vol] 58 mg/dL Normal > OR = 50 [facility] Comment on above: Performed By: #### 7 600, 48235 #### [facility]-[place] [address] Probation Manager: Tamir Lane MD Cholesterol in LDL [Mass/Vol] [...] equation in the estimation of LDL-C. Aly SS et al. JACKIE. 2013;310(19): 5319-9957 (http://education.[facility].Simmr/faq/OJB960) Performed By: #### 7 600, 14591 #### [facility]-[address], [address] [place] [address] Probation Manager: Tamir Lane MD Cholesterol.total/Chol esterol in HDL [Mass ratio] 3.4 (calc) Normal <5.0 [facility] Comment on above: Performed By: #### 7 600, 51454 #### [facility]-[address], [address] [place] [address] Probation Manager: Tamir Lane MD NON HDL CHOLESTEROL 137 mg/dL (calc) High <130 [facility] Comment on above: Result Comment: For patients with diabetes plus 1 major ASCVD risk factor, treating to a non-HDL-C goal of <100 mg/dL (LDL-C of <70 mg/dL) is considered a therapeutic option. Performed By: #### 7 600, 07379 #### [facility]-[address], [address] [place] [address] Probation Manager: Tamir Lane MD Triglyceride [Mass/Vol] 76 mg/dL Normal <150 [facility] Comment on above: Performed By: #### 7 600, 81218 #### [facility]-[address], [address] [place] [address] Probation Manager: Tamir Lane MD Vital Signs Date Time Vital Sign Value Performing Clinician Jamee che 12-30-2024 09:59-0400 Body height 162.[address] Juan Jose Oseguera DO Work Phone: [facility] 12-30-2024 09:59-0400 Body mass index (BMI) [Ratio] 48.4 kg/m2 Dr. Juan Jose Oseguera DO Work Phone: [facility] 12-30-2024 09:59-0400 Body temperature 98 [degF] Dr. Juan Jose Oseguera DO Work Phone: [facility] 12-30-2024 09:59-0400 Body weight 127.[address] Juan Jose Oseguera DO Work Phone: 8(078)302-558657 [place] [address] 12-30-2024 09:59-0400 Diastolic blood pressure 84 mm[Hg] Dr. Juan Jose Oseguera DO Work Phone: 1(210)063-033957 [place] [address] 12-30-2024 09:59-0400 Heart rate 84 /min Dr. Juan Jose Oseguera DO Work Phone: 9(906)518-454757 [place] [address] 12-30-2024 09:59-0400 Respiratory rate 16 /min Dr. Juan Jose Oseguera DO Work Phone: 8(448)508-026157 [place] [address] 12-30-2024 09:59-0400 SaO2% (BldA) [Mass fraction] 96 % Dr. Juan Jose Oseguera DO Work Phone: 1(217)907-398757 [place] [address] 12-30-2024 09:59-0400 Systolic blood pressure 152 mm[Hg] Dr. Juan Jose Oseguera DO Work Phone: 6(293)470-351857 [place] [address] 12-16-2024 07:45-0400 Body temperature 98 [degF] Dr. Juan Jose Oseguera DO Work Phone: 4(989)983-693457 [place] [address] 12-16-2024 07:45-0400 Diastolic blood pressure 77 mm[Hg] Dr. Juan Jose Oseguera DO Work Phone: 0(762)502-326257 [place] [address] 12-16-2024 07:45-0400 Heart rate 84 /min Dr. Juan Jose Oseguera DO Work Phone: 4(974)406-399257 [place] [address] 12-16-2024 07:45-0400 Respiratory rate 18 /min Dr. Juan Jose Oseguera DO Work Phone: 1(357)120-776957 [place] [address] 12-16-2024 07:45-0400 SaO2% (BldA) [Mass fraction] 100 % Dr. Juan Jose Oseguera DO Work Phone: 4(928)111-018257 [place] [address] 12-16-2024 07:45-0400 Systolic blood pressure 138 mm[Hg] Dr. Juan Jose Oseguera DO Work Phone: 0(553)149-536157 [place] [address] 12-16-2024 06:01-0400 Body height 162.[address] Juan Jose Oseguera DO Work Phone: 7(544)742-564257 [place] [address] 12-16-2024 06:01-0400 Body mass index (BMI) [Ratio] 48.2 kg/m2 Dr. Juan Jose Oseguera DO Work Phone: 9(001)350-316357 [place] [address] 12-16-2024 06:01-0400 Body weight 127.[address] Juan Jose Oseguera DO Work Phone: 7(366)157-842157 [place] [address] 10-21-2024 12:50-0400 Body temperature 98.1 [degF] Dr. Juan Jose Oseguera DO Work Phone: 2(712)477-490157 [place] [address] 10-21-2024 12:50-0400 Diastolic blood pressure 81 mm[Hg] Dr. Juan Jose Oseguera DO Work Phone: 8(880)548-991157 [place] [address] 10-21-2024 12:50-0400 Heart rate 77 /min Dr. Juan Jose Oseguera DO Work Phone: 3(330)733-328757 [place] [address] 10-21-2024 12:50-0400 Respiratory rate 16 /min Dr. Juan Jose Oseguera DO Work Phone: 0(525)615-210457 [place] [address] 10-21-2024 12:50-0400 SaO2% (BldA) [Mass fraction] 94 % Dr. Juan Jose Oseguera DO Work Phone: 1(841)163-492057 [place] [address] 10-21-2024 12:50-0400 Systolic blood pressure 128 mm[Hg] Dr. Juan Jose Oseguera DO Work Phone: 4(268)835-666257 [place] [address] 10-21-2024 10:36-0400 Body height 160.[address] Juan Jose Oseguera DO Work Phone: 8(079)778-052857 [place] [address] 10-21-2024 10:36-0400 Body mass index (BMI) [Ratio] 49.4 kg/m2 Dr. Juan Jose Oseguera DO Work Phone: 5(675)791-607257 [place] [address] 10-21-2024 10:36-0400 Body weight 126.[address] Juan Jose Oseguera DO Work Phone: 0(459)617-218357 [place] [address] 10-07-2024 14:04-0400 Body height 162.[address] Juan Jose Oseguera DO Work Phone: 1(720)602-586957 [place] [address] 10-07-2024 14:04-0400 Body mass index (BMI) [Ratio] 48.3 kg/m2 Dr. Juan Jose Oseguera DO Work Phone: 4(020)681-296557 [place] [address] 10-07-2024 14:04-0400 Body weight 127.[address] Juan Jose Oseguera DO Work Phone: 7(114)957-975757 [place] [address] 10-07-2024 14:04-0400 Diastolic blood pressure 90 mm[Hg] Dr. Juan Jose Oseguera DO Work Phone: 1(926)085-087957 [place] [address] 10-07-2024 14:04-0400 Heart rate 114 /min Dr. Juan Jose Oseguera DO Work Phone: 0(589)992-438957 [place] [address] 10-07-2024 14:04-0400 Respiratory rate 18 /min Dr. Juan Jose Oseguera DO Work Phone: 5(328)256-406957 [place] [address] 10-07-2024 14:04-0400 SaO2% (BldA) [Mass fraction] 94 % Dr. Juan Jose Oseguera DO Work Phone: 4(429)117-111157 [place] [address] 10-07-2024 14:04-0400 Systolic blood pressure 137 mm[Hg] Dr. Juan Jose Oseguera DO Work Phone: 5(791)024-613557 [place] [address] 09-25-2024 07:40-0400 Body temperature 98.3 [degF] Dr. Juan Jose Oseguera DO Work Phone: 3(656)581-210657 [place] [address] 09-25-2024 07:40-0400 Diastolic blood pressure 97 mm[Hg] Dr. Juan Jose Oseguera DO Work Phone: 8(700)201-742557 [place] [address] 09-25-2024 07:40-0400 Heart rate 83 /min Dr. Juan Jose Oseguera DO Work Phone: 4(634)933-755857 [place] [address] 09-25-2024 07:40-0400 Respiratory rate 14 /min Dr. Juan Jose Oseguera DO Work Phone: 7(166)804-750557 [place] [address] 09-25-2024 07:40-0400 SaO2% (BldA) [Mass fraction] 96 % Dr. Juan Jose Oseguera DO Work Phone: 9(549)706-772957 [place] [address] 09-25-2024 07:40-0400 Systolic blood pressure 151 mm[Hg] Dr. Juan Jose Oseguera DO Work Phone: 4(607)427-924857 [place] [address] 09-25-2024 05:26-0400 Body mass index (BMI) [Ratio] 47.9 kg/m2 Dr. Juan Jose Oseguera DO Work Phone: 8(461)691-414857 [place] [address] 09-25-2024 05:26-0400 Body weight 127.[address] Juan Jose Oseguera DO Work Phone: 2(419)176-250652 [place] [address] 09-25-2024 02:36-0400 Inhaled oxygen flow rate 2 L/min Dr. Juan Jose Oseguera DO Work Phone: 4(304)684-012252 [place] [address] 09-24-2024 13:18-0400 Body height 162.[address] Juan Jose Oseguera DO Work Phone: 3(188)428-455657 [place] [address] 09-23-2024 21:48-0400 Body temperature 98.2 [degF] Dr. Juan Jose Oseguera DO Work Phone: 1(572)450-836557 [place] [address] 09-23-2024 21:48-0400 Diastolic blood pressure 88 mm[Hg] Dr. Juan Jose Oseguera DO Work Phone: 0(612)811-640857 [place] [address] 09-23-2024 21:48-0400 Heart rate 78 /min Dr. Juan Jose Oseguera DO Work Phone: 7(316)411-493857 [place] [address] 09-23-2024 21:48-0400 Respiratory rate 18 /min Dr. Juan Jose Oseguera DO Work Phone: 0(614)950-913457 [place] [address] 09-23-2024 21:48-0400 SaO2% (BldA) [Mass fraction] 98 % Dr. Juan Jose Oseguera DO Work Phone: 8(083)069-179557 [place] [address] 09-23-2024 21:48-0400 Systolic blood pressure 159 mm[Hg] Dr. Juan Jose Oseguera DO Work Phone: [facility] 09-23-2024 18:14-0400 Body height 162.[address] Juan Jose Osgeuera DO Work Phone: [facility] 09-23-2024 18:14-0400 Body mass index (BMI) [Ratio] 47.9 kg/m2 Dr. Juan Jose Oseguera DO Work Phone: [facility] 09-23-2024 18:14-0400 Body weight 126.[address] Juan Jose Oseguera DO Work Phone: [facility] Encounters Encounter Date Encounter Type Care Provider Facility Start: 01-19-2025 End: 01-19-2025 ambulatory [facility] Start: 01-08-2025 End: 01-08-2025 ambulatory [facility] Start: 12-30-2024 End: 12-30-2024 Patient encounter procedure Hui NEUMANN -[facility] Work Phone: Start: 12-30-2024 End: 12-30-[address] Juan Jose Oseguera DO Work Phone: [facility] Work Phone: Start: 12-29-2024 Encounter for other preprocedural examination Khadar Cortez [facility] Start: 12-16-2024 ambulatory Khadar Cortez Facility :[facility] Start: 12-16-2024 Non-patient / Non-visit Khadar Samuel nd DO -[facility] Start: 12-16-2024 End: 12-16-2024 Admission to same day surgery center Khadar Cortez DO -Endoscopy Work Phone: Start: 12-16-2024 End: 12-16-[address] Juan Jose Oseguera DO Work Phone: [facility] Work Phone: Start: 10-27-2024 End: 10-27-2024 Patient encounter procedure Hui Weaver ROVING CHANGER-C -Laboratory Work Phone: Start: 10-27-2024 End: 10-27-2024 ambulatory Hui Weaver Facility:[facility] Start: 10-21-2024 ambulatory Khadar Dana Facility :[facility] Start: 10-21-2024 End: 10-21-2024 Non-patient / Non-visit Khadar Cortez DO -[facility] Start: 10-21-2024 End: 10-21-2024 Admission to same day surgery center Khadar Cortez DO -Endoscopy Work Phone: Start: 10-21-2024 End: 10-21-[address] Juan Jose Oseguera DO Work Phone: [facility] Work Phone: Start: 10-07-2024 End: 10-07-[address] Juan Jose Oseguera DO Work Phone: [facility] Work Phone: Start: 10-07-2024 End: 10-07-2024 Patient encounter procedure Hui HOLLYC -Laboratory Work Phone: Start: 10-07-2024 End: 10-07-2024 Patient encounter procedure Hui Weaver NP-C -[facility] Work Phone: Start: 10-07-2024 End: 10-07-2024 ambulatory Hui Weaver Facility:[facility] Start: 10-07-2024 End: 10-07-2024 ambulatory Hui Weaver Facility:[facility] Start: 09-25-2024 Non-patient / Non-visit Dr. Brooks Meyer MD -[facility] Work Phone: Start: 09-24-2024 End: 09-24-2024 ambulatory Loretta Meyer Facility:[facility] Start: 09-24-2024 End: 09-24-2024 Non-patient / Non-visit Khadar Cortez DO -[facility] Start: 09-24-2024 Non-patient / Non-visit Dr. Brooks Meyer MD -[facility] Work Phone: Start: 09-23-2024 ambulatory Juan Jose Oseguera Facility: [facility] Start: 09-23-2024 End: 09-25-2024 Evaluation and management of inpatient Dr. Benedicto Burks DO -Medical Surgical 3 Work Phone: Start: 09-23-2024 End: 09-23-2024 ambulatory [facility] Procedures Date Procedure Procedure Detail Performing Clinician Start: 12-16-[address] Juan Jose Oseguera DO Work Phone: Start: 10-21-[address] Juan Jose Oseguera DO Work Phone: Start: 10-21-2024 End: 10-21-[address] Juan Jose Oseguera DO Work Phone: Start: 09-25-[address] Daniel Oseguera DO Work Phone: Start: 09-25-2024 Serum inorganic phosphate measurement Dr. Juan Jose Oseguera DO Work Phone: Start: 09-24-[address] Juan Jose Oseguera DO Work Phone: Start: 09-24-[address] Juan Jose Oseguera DO Work Phone: Start: 09-24-[address] Juan Jose Oseguera DO Work Phone: Start: 09-24-[address] Juan Jose Oseguera DO Work Phone: Start: 09-24-2024 Hepatitis A virus antibody, IgM type Dr. Juan Jose Oseguera DO Work Phone: Comment on above: A negative anti-HAV IgM result suggests no recent orcurrent HAV infection. Start: 09-24-2024 Hepatitis B core antibody measurement, IgM type Dr. Juan Jose Oseguera DO Work Phone: Start: 09-24-2024 Hepatitis C antibody measurement Dr. The ron Oseguear DO Work Phone: Start: 09-23-2024 US scan of gallbladder Dr. Juan Jose Oseguera DO Work Phone: Start: 09-23-2024 Urnls dip stick/tablet reagent auto microscopy Dr. Juan Jose Oseguera DO Work Phone: Start: 09-23-2024 Cancer antigen 19-[address] Marko Oseguera DO Work Phone: Comment on above: Verified by repeat analysisElectric Cloud Electrochemiluminescence Immunoassay(ECLIA)Values obtained with different assay methods or kits cannotbe used interchangeably. Results cannot be interpreted asabsolute evidence of the presence or absence of malignantdisease.Performed at: [address] [id number] Director: Ashvin Dumont PhD, Phone: [phone] Plan of Treatment Date Care Activity Detail Author Start: 12-16-2024 Colsc flx w/rmvl of tumor polyp lesion snare tq COLONOSCOPY W/LESION REMOVAL [facility] Start: 12-16-2024 Colsc flx with directed submucosal njx any sbst COLONOSCOPY SUBMUCOUS NJX [facility] Start: 12-16-2024 Patient discharge [facility] Start: 10-21-2024 Ercp remove calculi/debris biliary/pancreas duct ERCP REMOVE DUCT CALCULI [facility] Start: 10-21-2024 Ercp remove foreign body/stent biliary/panc duct ERCP REMOVE FORGN BODY DUCT [facility] Start: 10-21-2024 Ercp w/sphincterotomy/papillotomy ENDO CHOLANGIOPANCREATOGRAPH [facility] Start: 10-21-2024 Endoscopic retrograde cholangiopancreatography ERCP Biliary/Pancreas [facility] Start: 10-21-2024 RF Guidance for endoscopy of Biliary ducts and Pancreatic duct-- W contrast retrograde [facility] Start: 10-21-2024 Patient discharge [facility] Start: 09-25-2024 Patient discharge [facility] Start: 09-23-2024 Aspiration precautions [facility] Start: 09-23-2024 Assessment of risk of venous thromboembolism [facility] Start: 09-23-2024 Documentation procedure [facility] Start: 09-23-2024 Incentive spirometry [facility] Start: 09-23-2024 Insertion of catheter into peripheral vein [facility] Start: 09-23-2024 Measuring intake and output [facility] Start: 09-23-2024 Oxygen therapy [facility] Start: 09-23-2024 Providing care according to standard [facility] Start: 09-23-2024 Provision of activity privileges [facility] Start: 09-23-2024 Referral to gastroenterology service [facility] Start: 09-23-2024 Referral to service [facility] Start: 09-23-2024 [facility] Start: 09-23-2024 Following clinical pathway protocol [facility] Start: 09-23-2024 Hospital admission, emergency, from emergency room, medical nature [facility] Start: 09-23-2024 Magnetic resonance cholangiopancreatography MRCP Abdomen without Contrast [facility] Start: 09-23-2024 Verification routine [facility] Start: 09-23-2024 Admission procedure [facility] Start: 09-23-2024 Cancer antigen 19-9 measurement [facility] Start: 09-23-2024 Thyroid stimulating hormone measurement [facility] Bilirubin measurement, urine [facility] Hemoglobin [Presence] in Urine [facility] Hepatitis A virus Ig M Ab [Presence] in Serum [facility] Hepatitis B core ant ibody measurement, IgM type [facility] Hepatitis B surface antigen measurement [facility] Hepatitis C antibody measurement [facility] Magnesium measurement [facility] Measurement of keton es in urine using dipstick [facility] Microscopic urinalysis [facility] Patient Education Biliary Stent Dc [facility] Work Phone: Patient referral [facility] Work Phone: pH of Urine [facility] Specific gravity of Urine [facility] Urine blood test [facility] Urine dipstick for glucose [facility] Urine dipstick for l eukocyte esterase [facility] Urine dipstick for nitrite [facility] Urine dipstick for protein [facility] Urine examination [facility] Urine microscopy: ep ithelial cells [facility] Urine Microscopy: white cells [facility] Urine test [facility] Urobilinogen [Presen ce] in Urine [facility] Payers Date Payer Category Payer Self-pay 2022 Unknown [id number] 1980 Unknown [id number] 2.16.8 [id number] 1980 Unknown [id number] 2.16.8 40.1.085777.3.579.2.651 1980 Unknown [id number] 2.16.8 40.1.331550.3.579.2.651 Unknown [id number] 2.16.8 40.1.834760.3.579.2.462 Unknown [id number] 2.16.8 40.1.921468.3.579.2.462 Unknown [id number] 2.16.8 40.1.570525.3.579.2.462 Unknown [id number] 2.16.8 40.1.331554.3.579.2.462 Unknown [id number] 2.16.8 40.1.654459.3.579.2.462 Unknown [id number] 2.16.8 40.1.203249.3.579.2.462 Unknown [id number] 2.16.8 40.1.710786.3.579.2.462 Unknown [id number] 2.16.8 40.1.006234.3.579.2.462 Unknown [id number] 2.16.8 40.1.674476.3.579.2.462 Unknown [id number] 2.16.8 40.1.209216.3.579.2.462 Unknown [id number] 2.16.8 40.1.845577.3.579.2.462 Unknown [id number] 2.16.8 40.1.412883.3.579.2.462 Unknown [id number] 2.16.8 40.1.664900.3.579.2.462 Unknown [id number] 2.16.8 40.1.303305.3.579.2.462 Unknown [id number] 2.16.8 40.1.224943.3.579.2.462 Social History Date Type Detail Facility Start: 09-23-2024 End: 12-30-2024 Tobacco smoking status NHIS Never smoked tobacco (finding) [facility] Start: 09-23-2024 End: 10-21-2024 Sex Female (finding) [facility] Start: 1980 Sex Assigned At Female [facility] NEGATED: Highlighted row Not [facility] Medical Equipment Procedure Code Equipment Code Equipment Original Text Equipment Identifier Dates ERCP (endoscopic retrograde cholangiopancreato graphy) ([id number]) Polymeric biliary stent, non-bioabsorbable ()[id number] FDA Start: 09-24-2024 Colonoscopy Gastrointestinal endoscopic clip, long-term, non-bioabsorbable ()[id number] FDA Start: 12-16-2024 Colonoscopy Tissue marking ink [id number] FDA Start: 12-16-2024 Goals Date Patient Goal Desired Activity /State Functional Status Date Assessment Result Facility 09-25-2024 Functional status Ambulates [facility] Work Phone: Mental Status Date Assessment Result Facility 12-16-2024 Cognitive function Level Of Consciousness Sedated [facility] Work Phone: 12-16-2024 Cognitive function Voice/Name [facility] Work Phone: 10-21-2024 Cognitive function Voice/Name [facility] Work Phone: 09-25-2024 Cognitive function Level Of Cons ciousness Awake;Alert;Appropriate;Follow s Commands [facility] Work Phone: 09-24-2024 Cognitive function Touch/Shaking [facility] Work Phone: 09-23-2024 Cognitive function Level Of Cons ciousness Awake;Alert;Appropriate;Follow s Commands [facility] Work Phone: Clinical Notes 09-23-2024 to 12-30-2024 Note Date & Type Note Facility 12-30-2024 Progress note [facility] 12-16-2024 Consult note [facility] 12-16-2024 Procedure note [facility] 12-16-2024 Procedure note [facility] 12-16-2024 History and physi matteo note [facility] 12-16-2024 Note [facility] Medical Records Department [address] [place] [address] History Physical Exam 12/16/24 0706 MR#: [id number] Acct: [id number] Name: REYNA NULL Rep #: [id number] : 1980 44 From: Khadar Cortez DO PCP: Cheryl Pierre PA-C Status:[facility] Location: [place] [address] HPI - General General Date of Admission: 12/16/24 Date of Service: 12/16/24 Chief Complaint: Screening colonoscopy HPI Narrative REYNA NULL, is a 44 F who presents today for screening colonoscopy. She never had a colonoscopy in the past. She has a past medical history of hypertension and mild gastroesophageal reflux disease. Overall she is doing fairly good health. [facility] Medical History Wears glasses Gastric reflux Non-smoker CPAP (continuous positive airway pressure) dependence Sleep apnea Hypertension Home Medications ???Medication ???Instructions ???Recorded ???Last Taken ???Type losartan 25 mg tablet 25 mg PO DAILY 09/23/24 12/16/24 0 4:45 History pantoprazole 40 mg tablet,delayed 40 mg PO QDAY #90 tabs 10/07/24 U nknown Rx release sodium sul 1.479 gram-potas ch See Rx Instructions PO PER PKG DIR 10/07/24 Unknown Rx 0.188 gram-magnes sul 0.225 gram #24 tabs tablet (Sutab) Allergy/AdvReac Type Severity Reaction Status Date / Time No Known Allergies Allergy Verified 12/16/24 06:00 Surgical History History of ERCP Social History [...] changes Vital Signs Vital Signs Vital Signs: 12/16/24 06:01 12/16/24 06:01 12/16/24 06:28 Temperature 97.9 F 97.9 F Temperature Source Temporal Pulse Rate 80 80 Respiratory Rate 18 18 Respiratory Pattern Normal Blood Pressure 155/87 H 155/87 H Blood Pressure Mean 109 Blood Pressure Source Monitor Blood Pressure Position Sitting Blood Pressure Location Left Arm Pulse Ox 98 98 Oxygen Delivery Method Room Air Room Air Weight Weight: 281 lb 4.957 oz Body Mass Index (BMI) 48.2 Physical Exam Const alert, oriented x3, no apparent distress and healthy appearing General Appearance: cooperative GI normal to inspection, nondistended, normoactive bowel sounds, soft to palpation, non-tender and non- distended Percussion: normal to percussion Rectal Exam: deferred Results Lab / Micro Data Labs: Laboratory Results - last 24 hr 12/16/24 05:45: Urine Test Negative Assessment Plan Assessment/Plan (1) Encounter for screening colonoscopy: PLAN: She was explained alternatives, risk and benefits include not withstanding bleeding, infection, sepsis, perforation, need for heart surgery . She will have an ASA of 3. 12/16/24 0708 Cosigner Signature (if applicable): CC: DONNIE Pierre; Khadar Cortez DO Signed [facility] 12-16-2024 Consult note [facility] 10-21-2024 Consult note Note Date/Time October 21, 2024 11:11am [facility] Medical Records Department [address] [place] [address] Pre-Anesthesia Evaluation 10/21/24 1104 MR#: [id number] Acct: [id number] Name: REYNA NULL Rep #:[id number] : 1980 44 From: Phillip Gandara MD PCP: Cheryl Pierre PA-C Status:REG S DC Y Race: C Location: [place] [address] ASA Classification* ASA Classification ASA Classification: 3 [...] 06:33 09/25/24 Hct 39.1 % (37-47) 09/25/24 06:33 09/25/24 Plt Count 358 K/mm3 (150-450) 09/25/24 06:33 09/25/24 CHEMISTRY Potassium 3.5 mmol/L (3.3-5.1) 09/25/24 06:33 09/25/24 Sodium 139 mmol/L (133-145) 09/25/24 06:33 09/25/24 Magnesium 2.1 mg/dL (1.5-2.2) 09/23/24 18:47 09/23/24 Phosphorus 2.5 mg/dL (2.7-4.5) L 09/25/24 06:33 09/25/24 BUN 8 mg/dL (4-19) 09/25/24 06:09/25/24 Creatinine 0.76 mg/dL (0.70-1.20) 09/25/24 06:33 09/25/24 Glucose 115 mg/dL (70-99) H 09/25/24 06:09/25/24 TSH 2.100 uIU/mL (0.300-4.200) 09/23/24 18:47 09/11 10/05 COAG Urine Test Negative Negative 10/21/24 10:25 10/21/24 Pre-Assessment Diagnosis/Proposed Procedure Planned Operative Procedure(s): ERCP Anesthesia History 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 Hx Hospitalization Yes: 09/202410/15/24 11:38 Any Problems [...] take am of surgery PONV 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: 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 Female Yes 10/15/24 11:38 HX of Motion [...] 10/21/24 10:36 Respiratory Assessment Respiratory Assessment - 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: Respiratory Tract Infection Hx - 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 Hx Respiratory Tract Infection No 10/15/24 11:38 STOP Sleep Apnea STOP Sleep Apnea - 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: STOP Sleep Apnea - 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 Hx Hypertension Yes: CONTROLLED ON MED 10/15/24 [...] 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: 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 Tobacco Use Smoking Status Never smoker 10/15/24 11:38 Hx Tobacco Use No 10/15/24 11:38 Years Smoking Packs Smoked per Day Smoking Cessation Date was within the last 15 years Hx Smoking Cessation Date Hx Smoking Cessation Counseling Hematologic Medial History Hematologic Hx - 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: Hematologic 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 Hx of Blood Transfusion No 10/15/24 11:38 [...] 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: /Reproductive Hx- 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 Hx Now No 10/15/24 11:38 Gestational Age (in weeks): EDC: Hx Hx Para Hx Section SAB No 10/15/24 11:38 [facility] Medical History Wears glasses Gastric reflux Non-smoker [...] MD Cosigner Signature: Date CC: ~ Signed [facility] Work Phone: 1(833) 643-400704-10-2025 Consult note [facility] Medical Records Department [facility] [place] [address] [place] [address] Anesthesia Postop Eval II 10/21/24 1300 MR#: [id number] Acct: [id number] Name: REYNA NULL Rep #:[id number] : 1980 44 From: Phillip Gandara MD PCP: Cheryl Pierre PA-C Status:REG S DC Y Race: C Location: [place] [address] Anesthesia Postop Eval I Sum Postop Eval [...] MD Cosigner Signature: Date CC: ~ Signed [facility]04-10-2025 Consult note [facility] Medical Records Department [address] [place] [address] [place] [address] Anesthesia Postop Eval I 10/21/24 1240 MR#: [id number] Acct: [id number] Name: REYNA NULL Rep #:[id number] : 1980 44 From: Chandrakant Kasper PCP: Cheryl Pierre PA-C Status:REG S DC Y Race: C Location: [place] [address] Anesthesia: Postop Eval I Current Vital Signs [...] Yes 10/21/24 1241 > Date _ Chandrakant Prabhakarignreny Signature: Date CC: ~ Signed [facility]04-10-2025 Procedure note [facility] Medical Records Department [address] [place] [address] Operative Report - CC Letter MR#: [id number] Acct: [id number] Name: REYNA NULL Rep #:[id number] : 1980 44 From: Khadar Cortez DO [...] ~ Date Dictated: 10/21/24 1120 Date Transcribed: Chimney Repairer: RF Signed [facility]04-10-2025 Procedure note [facility] Medical Records Department [address] [place] [address] ERCP Report MR#: [id number] Acct: [id number] Name: REYNA NULL Rep #:[id number] : 1980 44 From: Khadar Cortez DO [...] hours 9 minutes 22 seconds Findings: The certified nursing assistant instructor film was normal. The esophagus was successfully [...] biliary tree. Procedure Code(s): --- Professional --- 11904, Endoscopic retrograde cholangiopancreatography (ERCP); with removal of foreign body(s) or stent(s) from biliary/pancreatic duct(s) 14048, Endoscopic retrograde cholangiopancreatography (ERCP); with removal of calculi/debris from biliary/pancreatic duct(s) 40448, Endoscopic retrograde cholangiopancreatography (ERCP); with sphincterotomy/papillotomy 15969, 26, Endoscopic catheterization of the biliary ductal system, radiological supervision and interpretation CPT copyright 2021 [employer]. All rights reserved. The codes documented in this report are preliminary and upon steel fitter review may be revised to meet current compliance requirements. Khadar Cortez DO 10/21/2024 12:38:39 PM This report has been signed electronically. Number of Addenda: 0 Note Initiated On: 10/21/2024 11:20 AM 10/21/24 1238 Date _ Khadar Cortez DO Cosignreny Signature: Date (if indicated) CC: DONNIE Cortez DO ~ Date Dictated: 10/21/24 1120 Date Transcribed: Chimney Repairer: RF Signed [facility]04-10-2025 History and physical note [facility] Medical Records Department [address] [place] [address] History & Physical Exam 10/21/24 1124 MR#: [id number] Acct: [id number] Name: REYNA NULL Rep #:[id number] : 1980 44 From: Khadar Cortez DO PCP: Cheryl Pierre PA-C Status:REG S DC Location: [place] [address] HPI - General General Date of Admission: [...] normal -Nausea in the morning but resolves [facility] Medical History Wears glasses Gastric reflux Non-smoker [...] Signature (if applicable): CC: DONNIE Pierre; Khadar Cortez, ~ Signed [facility]04-10-2025 [facility] Medical Records Department [address] [place] [address] History Physical Exam 10/21/24 1124 MR#: [id number] Acct: [id number] Name: REYNA NULL Rep #: [id number] : 1980 44 From: Khadar Cortez DO PCP: Cheryl Pierre PA-C Status[place] [facility] [address] HPI - General General Date of Admission: [...] normal -Nausea in the morning but resolves [facility] Medical History Wears glasses Gastric reflux Non-smoker [...] Assessment and Plan As (more content not included)...[facility]04-10-2025 Consult note [facility] Medical Records Department [address] [place] [address] Pre-Anesthesia Evaluation 10/21/24 1104 MR#: [id number] Acct: [id number] Name: REYNA NULL Rep #:[id number] : 1980 44 From: Phillip Gandara MD PCP: Cheryl Pierre PA-C Status:REG S DC Y Race: C Location: [place] [address] ASA Classification* ASA Classification ASA Classification: 3 [...] 06:33 09/25/24 RBC 4.22 M/mm3 (4.2-5.4) 09/25/24 06:09/25/24 Hgb 12.3 g/dL (12.0-15.0) 09/25/24 06:09/25/24 Hct [...] 09/25/24 Glucose 115 mg/dL (70-99) H 09/25/24 06:09/25/24 TSH 2.100 uIU/mL (0.300-4.200) 09/23/24 18:47 09/11 10/05 COAG Urine Test Negative Negative 10/21/24 10:25 10/21/24 Pre-Assessment Diagnosis/Proposed Procedure Planned Operative Procedure(s): ERCP Anesthesia History 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 Hx Hospitalization Yes: 09/202410/15/24 11:38 Any Problems [...] take am of surgery PONV 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: 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 Female Yes 10/15/24 11:38 HX of Motion [...] 10/21/24 10:36 Respiratory Assessment Respiratory Assessment - 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: Respiratory Tract Infection Hx - 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 Hx Respiratory Tract Infection No 10/15/24 11:38 STOP Sleep Apnea STOP Sleep Apnea - 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: STOP Sleep Apnea - 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 Hx Hypertension Yes: CONTROLLED ON MED 10/15/24 [...] 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: 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 Tobacco Use Smoking Status Never smoker 10/15/24 11:38 Hx Tobacco Use No 10/15/24 11:38 Years Smoking Packs Smoked per Day Smoking Cessation Date was within the last 15 years Hx Smoking Cessation Date Hx Smoking Cessation Counseling Hematologic Medial History Hematologic 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 10/21/24 1111 humberto PAGE> Date _ Phillip Gandara MD Cosigner Signature: Date CC: ~ Signed [facility]03-15-2025 Discharge summary [facility] Medical Records Department [address] [place] [address] Instructions for Home/Discharge Instructions 09/25/24 1035 MR#: [id number] Acct: [id number] Name: REYNA NULL Rep #:[id number] : 1980 44 From: Loretta Meyer MD [...] his office to schedule an appointment (ph. [phone]) -You will be discharged on additional 10 [...] his office to schedule an appointment (ph. [phone])) Cheryl Pierre PA-C [Primary Care Provider] - In 1 Week Disposition Disposition (needs filled in before D/C Order can be placed): Home, Self Care 09/25/24 1038Loretta Meyer MD CC: DONNIE Pierre; Dr. Benedicto Burks DO ~ Signed [facility]03-15-2025 [facility] Medical Records Department [address] [place] [address] Discharge Summary 09/25/24 1038 MR#: [id number] Acct: [id number] Name: REYNA NULL Rep #: [id number] : 1980 44 From: Loretta Meyer MD PCP: Cheryl Pierre PA-C Status:DIS IN [facility] Providers Date of Admission: 09/23/24 Date of Discharge: 09/25/24 Primary Care Physician: Cheryl Pierre PA-C Consultations 09/23/24 22:18 Consult: Gastroenterology Routine Consulting Provider: [facility] Reason for Consult: CBD obstruction with [...] 44-year-old female with history of hypertension presented [facility] ED 09/23/2024 after an episode of right [...] his office to schedule an appointment (ph. [phone]) -You will be discharged on additional 10 [...] - last 24 hr (more content not included)...[facility]03-14-2025 Consult note Author Dallin Rizzo [facility] Note Date/Time September 24, 2024 5:0 3pm [facility] Medical Records Department [address] [place] [address] Anesthesia Postop Eval II 09/24/24 1703 MR#: [id number] Acct: [id number] Name: REYNA NULL Rep #:[id number] : 1980 44 From: Dallin Rizzo MD PCP: Cheryl Pierre PA-C Status:ADM I N Y Race: C Location: [place] [address] Anesthesia Postop Eval I Sum Postop Eval Completion status Anesthesia document: Postop Eval 1 completed: Yes Anesthesia Postop Eval I Summary Anesthesia Postop Eval I Summary: Anesthesia Postop Eval I: Assessment Summary Airway patent Yes 09/24/24 16:43 [email or web address] Spontaneous unlabored Yes 09/24/24 16:43 [email or web address] respirations Mental status Awake 09/24/24 16:43 [email or web address] nausea No 09/24/24 16:43 [email or web address] Vomiting No 09/24/24 16:43 [email or web address] Anesthesia Postop Eval I: Fluid Summary Crystalloid volume administer 500 09/24/24 16:43 [email or web address] (ml) Colloids volume administered ( ml) Blood Product volume administered (ml) Total IV fluid infused 500 09/24/24 16:43 [email or web address] Anesthesia Postop Eval I: Summary Notes Anesthesia Complication No 09/24/24 16:43 [email or web address] Anesthesia Complication Comment: Post-operative progress note Anesthesia: Postop Eval II Evaluation Mental status: Awake Pain Level: 0 nausea: No Vomiting: No 09/24/24 1703 <Electronically signed by Dallin Rizzo MD > Date _ Dallin Rizzo MD Cosigner Signature: Date CC: ~ Signed [facility] Work Phone: 1(248) 838-723503-14-2025 Consult note Author Eliseo Patino [facility] Note Date/Time September 24, 2024 4:4 3pm [facility] Medical Records Department [address] [place] [address] Anesthesia Postop Eval I 09/24/241641 MR#: [id number] Acct: [id number] Name: REYNA NULL Rep #:[id number] : 1980 44 From: Eliseo Patino CRNA PCP: Cheryl Pierre PA-C Status:ADM I N Y Race: C Location: [facility] MS304 -1 Anesthesia: Postop Eval I Current [...] document: Postop Eval 1 completed: Yes 09/24/241642 <Electronically signed by Eliseo Radha y PSYCHOLOGIST> Date _ Eliseo Patino PSYCHOLOGIST Cosigner Signature: Date CC: ~ Signed [facility] Work Phone: 1(809) 286-528103-14-2025 Progress note Author Khadar Friend [facility] Note Date/Time September 24, 2024 3:2 8pm [facility] Medical Records Department [address] [place] [address] Progress Note 09/24/24 1526 MR#: [id number] Acct: [id number] Name: REYNA NULL Rep #:[id number] : 1980 44 From: Khadar Cortez DO PCP: Cheryl Pierre PA-C Status:ADM I N Location: SD3 [id number] Progress Note Patient has been n.p.o. for [...] ASA of 3. Visit Charges Inpatient E&M: 48839 Subs Hosp L3 09/24/24 1528 <Electronically signed by Khadar Cortez DO> Khadar Cortez DO Cosigner Signature (if applicable): CC: ~ Signed [facility] Work Phone: 1(438) 375-174703-14-2025 Consult note Author Dallin Rizzo [facility] Note Date/Time September 24, 2024 3:1 5pm [facility] Medical Records Department [address] [place] [address] Pre-Anesthesia Evaluation 09/24/24 1514 MR#: [id number] Acct: [id number] Name: REYNA NULL Rep #:[id number] : 1980 44 From: Dallin Rizzo MD PCP: Cheryl Pierre PA-C Status:ADM I N Y Race: C Location: [place] [address] ASA Classification* ASA Classification ASA Classification: 3 [...] Procedure(s): ERCP Anesthesia History 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 Hx Hospitalization Any Problems With Anesthesia No: [...] take am of surgery PONV 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: 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 Female HX of Motion Sickness HX of N/V After Surgery Non-Smoker Duration of Surgery greater than 60 minutes Number of Risk Factors PONV Score Height & Weight Height & Weight: Anesthesia: Height & Weight Height 5 ft 4 in 09/24/24 13:18 Weight: 126.6 kg 09/24/24 13:18 Body Mass Index (BMI) 47.9 09/24/24 13:00 Respiratory Assessment Respiratory Assessment - 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: Respiratory Tract Infection Hx - 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 Hx Respiratory Tract Infection Yes: beginning of this week 09/24/24 09:40 - cold STOP Sleep Apnea STOP Sleep Apnea - 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: STOP Sleep Apnea - 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 Hx Hypertension Yes 09/23/24 22:10 Hx Sleep [...] 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: 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.] 09/24/24 09:49 Sodium Chloride IV Infused DAILY REAAGN Infusion Morphine Sulfate 2 mg 09/23/24 22:18 [...] MD Cosigner Signature: Date CC: ~ Signed [facility] Work Phone: 1(921) 828-765403-14-2025 Consult note [facility] Medical Records Department [address] [place] [address] Anesthesia Postop Eval II 09/24/24 1703 MR#: [id number] Acct: [id number] Name: REYNA NULL Rep #:[id number] : 1980 44 From: Dallin Rizzo MD PCP: Cheryl Pierre PA-C Status:ADM I N Y Race: C Location: [place] [address] Anesthesia Postop Eval I Sum Postop Eval Completion status Anesthesia document: Postop Eval 1 completed: Yes Anesthesia Postop Eval I Summary Anesthesia Postop Eval I Summary: Anesthesia Postop Eval I: Assessment Summary Airway patent Yes 09/24/24 16:43 [email or web address] Spontaneous unlabored Yes 09/24/24 16:43 [email or web address] respirations Mental status Awake 09/24/24 16:43 [email or web address] nausea No 09/24/24 16:43 [email or web address] Vomiting No 09/24/24 16:43 [email or web address] Anesthesia Postop Eval I: Fluid Summary Crystalloid volume administer 500 09/24/24 16:43 [email or web address] (ml) Colloids volume administered ( ml) Blood Product volume administered (ml) Total IV fluid infused 500 09/24/24 16:43 [email or web address] Anesthesia Postop Eval I: Summary Notes Anesthesia Complication No 09/24/24 16:43 [email or web address] Anesthesia Complication Comment: Post-operative progress note Anesthesia: Postop Eval II Evaluation Mental status: Awake Pain Level: 0 nausea: No Vomiting: No 09/24/24 1703 > Date _ Dallin Prabhakarignreny Signature: Date CC: ~ Signed [facility]03-14-2025 Radiology Diagnostic study note [facility] Imaging Services [address] [place] [address] ERCP Biliary/Pancreas MR#: [id number] Acct: [id number] Name: REYNA NULL Rep #: [id number] : 1980 F 44 From: Crow Rocha MD PCP: Cheryl Pierre PA-C Status: ADM I N Study:ERCP Biliary/Pancreas Date of Exam: 09/24/24 Exam# [id number] Ordering Dr: Jamel Cortez DO PROCEDURE: ERCP BILIARY/PANCREAS REASON FOR EXAM: ERCP TECHNIQUE: ERCP imaging using fluoroscopic technique COMPARISON: None FINDINGS: Eight images performed demonstrating cannulization of the bile duct with balloonsweeping. Eight images performed with 10.8 seconds of fluoroscopy time using 3.88 mGy of dose RAD/ERCP Biliary/Pancreas IMPRESSION: ERCP imaging. Please see procedure note Reading Location: [facility] CC: DO Peter Heredia Chimney Repairer: Signed [facility]03-14-2025 Consult note [facility] Medical Records Department [address] [place] [address] Anesthesia Postop Eval I 09/24/24 1642 MR#: [id number] Acct: [id number] Name: REYNA NULL Rep #:[id number] : 1980 44 From: Eliseo Patino CRNA PCP: Cheryl Pierre PA-C Status:ADM I N Y Race: C Location: [place] [address] Anesthesia: Postop Eval I Current Vital Signs [...] Eval 1 completed: Yes 09/24/24 1643 y PSYCHOLOGIST> Date _ Eliseo Patino PSYCHOLOGIST Cosigner Signature: Date CC: ~ Signed [facility]03-14-2025 Procedure note [facility] Medical Records Department [address] [place] [address] Operative Report - CC Letter MR#: [id number] Acct: [id number] Name: REYNA NULL Rep #:[id number] : 1980 44 From: Khadar Cortez DO [...] ~ Date Dictated: 09/24/24 1528 Date Transcribed: Chimney Repairer: RF Signed [facility]03-14-2025 Procedure note [facility] Medical Records Department [address] [place] [address] ERCP Report MR#: [id number] Acct: [id number] Name: REYNA NULL Rep #:[id number] : 1980 44 From: Khadar Cortez DO PCP: Cheryl Pierre PA-C Status:ADM I N Patient Name: Ryena Null Procedure Date: 09/24/2024 3:28 PM Date [...] hours 17 minutes 56 seconds Findings: The certified nursing assistant instructor film was normal. The esophagus was successfully [...] bile duct. Procedure Code(s): --- Professional --- 64231, Endoscopic retrograde cholangiopancreatography (ERCP); with placement of endoscopic stent into biliary or pancreatic duct, including pre- and post-dilation and guide wire passage, when performed, including sphincterotomy, when performed, each stent 05203, Endoscopic retrograde cholangiopancreatography (ERCP); with removal of calculi/debris from biliary/pancreatic duct(s) 37210, 26, Endoscopic catheterization of the biliary ductal system, radiological supervision and interpretation CPT copyright 2021 [employer]. All rights reserved. The codes documented in this report are preliminary and upon steel fitter review may be revised to meet current compliance requirements. Khadar Cortez DO 09/24/2024 4:31:15 PM This report has been signed electronically. Number of Addenda: 0 Note Initiated On: 09/24/2024 3:28 PM 09/24/24 1631 Date _ Khadar Cortez DO Cosigner Signature: Date (if indicated) CC: DONNIE Pierre; Khadar Cortez DO ~ Date Dictated: 09/24/24 1528 Date Transcribed: Chimney Repairer: RF Signed [facility]03-14-2025 Progress note [facility] Medical Records Department [address] [place] [address] Progress Note 09/24/24 1526 MR#: [id number] Acct: [id number] Name: REYNA NULL Rep #:[id number] : 1980 44 From: Khadar Cortez DO PCP: Cheryl Pierre PA-C Status:ADM I N Location: [place] [address] Progress Note Patient has been n.p.o. for [...] ASA of 3. Visit Charges Inpatient E&M: 91081 [facility] Hosp L3 09/24/24 1528 [facility] Friend DO Cosigner Signature (if applicable): CC: ~ Signed [facility]03-14-2025 Consult note [facility] Medical Records Department [address] [place] [address] Pre-Anesthesia Evaluation 09/24/24 1514 MR#: [id number] Acct: [id number] Name: REYNA NULL Rep #:[id number] : 1980 44 From: Dallin Rizzo MD PCP: Cheryl Pierre PA-C Status:ADM I N Y Race: C Location: [place] [address]1 ASA Classification* ASA Classification ASA Classification: [...] Procedure(s): ERCP Anesthesia History 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 Hx Hospitalization Any Problems With Anesthesia No: [...] take am of surgery PONV 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: 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 Female HX of Motion Sickness HX of N/V After Surgery Non-Smoker Duration of Surgery greater than 60 minutes Number of Risk Factors PONV Score Height & Weight Height & Weight: Anesthesia: Height & Weight Height 5 ft 4 in 09/24/24 13:18 Weight: 126.6 kg 09/24/24 13:18 Body Mass Index (BMI) 47.9 09/24/24 13:00 Respiratory Assessment Respiratory Assessment - 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: Respiratory Tract Infection Hx - 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 Hx Respiratory Tract Infection Yes: beginning of this week 09/24/24 09:40 - cold STOP Sleep Apnea STOP Sleep Apnea - 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: STOP Sleep Apnea - 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 Hx Hypertension Yes 09/23/24 22:10 Hx Sleep [...] 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: 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 09/24/24 1515 > Date _ Dallin Reid Signature: Date CC: ~ Signed [facility]03-14-2025 Progress note Author Loretta Meyer [facility] Note Date/Time September 24, 2024 12: 38pm [facility] Medical Records Department [address] [place] [address] Progress Note - Hospitalist 09/24/24 0705 MR#: [id number] Acct: [id number] Name: REYNA NULL Rep #:[id number] : 1980 44 From: Loretta Meyer MD PCP: Cheryl Pierre PA-C Status:ADM I N Location: [place] [address] Reason for Visit Reason for Visit: Diagnoses [...] % (Auto) 59.4, Lymph % (Auto) 26.2, [place] % (Auto) 7.6, Eos % (Auto) 5.1 [...] % (Auto) 54.6, Lymph % (Auto) 28.0, [place] % (Auto) 7.7, Eos % (Auto) 7.9 H, Baso % (Auto) 1.2 H, Absolute Neuts (auto) 2.7, Absolute Lymphs (auto) 1.39, Nucleated RBC % 0 Radiography Diagnostic Testing: Radiology Impression Gallbladder Ultrasound 09/23/24 19:24 IMPRESSION: Cholelithiasis without CT evidence for acute cholecystitis. Abnormally dilated common bile duct. A stone within the CBD/distal CBD obstruction is likely. Recommend GI consultation and MRCP/ERCP. Reading Location: [facility] Physical Exam Narrative General: Alert, oriented, no [...] 35 Minutes Charges/Coding Visit Charges Inpatient E&M: 65387 Subs Hosp L2 09/24/24 1238 <Electronically signed by Loretta Meyer MD> Cosigner Signature (if applicable): CC: ~ Signed [facility] Work Phone: 1(260) 764-226003-14-2025 Progress note [facility] Medical Records Department [address] [place] [address] Progress Note - Hospitalist 09/24/24 0705 MR#: [id number] Acct: [id number] Name: REYNA NULL Rep #:[id number] : 1980 44 From: Loretta Meyer MD PCP: Cheryl Pierre PA-C Status:ADM I N Location: [place] [address] Reason for Visit Reason for Visit: Diagnoses [...] % (Auto) 59.4, Lymph % (Auto) 26.2, [place] % (Auto) 7.6, Eos % (Auto) 5.1 H, Baso % (Auto) 1.0, Absolute Neuts (auto) 4.2, Absolute Lymphs (auto) 1.86, Nucleated RBC % 0, Sodium 142, Potassium 3.6, [id number], Carbon Dioxide 21.2, Anion Gap 14, BUN [...] % (Auto) 54.6, Lymph % (Auto) 28.0, [place] % (Auto) 7.7, Eos % (Auto) 7.9 H, Baso % (Auto) 1.2 H, Absolute Neuts (auto) 2.7, Absolute Lymphs (auto) 1.39, Nucleated RBC % 0 Radiography Diagnostic Testing: Radiology Impression Gallbladder Ultrasound 09/23/24 19:24 IMPRESSION: Cholelithiasis without CT evidence for acute cholecystitis. Abnormally dilated common bile duct. A stone within the CBD/distal CBD obstruction is likely. Recommend GI consultation and MRCP/ERCP. Reading Location: [facility] Physical Exam Narrative General: Alert, oriented, no [...] 35 Minutes Charges/Coding Visit Charges Inpatient E&M: 07500 Subs Hosp L2 09/24/24 1238 Cosigner Signature (if applicable): CC: ~ Signed [facility]03-14-2025 History and physical note Author Benedicto Vasquez [facility] Note Date/Time September 24, 2024 6:5 7am [facility] Medical Records Department [address] [place] [address] H&P Exam - Hospitalist 09/23/242117 MR#: [id number] Acct: [id number] Name: REYNA NULL Rep #:[id number] : 1980 44 From: Benedicto Campos DO PCP: Cheryl Pierre PA-C Status:ADM I N Location: [place] [address] HPI - General General Date of Admission: 09/23/24 Date of Service: 09/23/24 Chief Complaint: Nausea and Elevated LFT's. HPI Narrative REYNA NULL, is a 44 F with a past medical history of essential hypertension; onlosartan, morbid obesity; with BMI of 47.9 this admission and known history of intermittent Gallbladder Colic for years with known microlithiasis/sludge who presents to [facility] ER complaining of nausea and elevated LFT's. [...] is expected to extend beyond 2 midnights. [facility] Medical History (Updated 09/24/24 @ 02:13 by [...] % (Auto) 59.4, Lymph % (Auto) 26.2, [place] % (Auto) 7.6, Eos % (Auto) 5.1 [...] Recommend GI consultation and MRCP/ERCP. Reading Location: [facility] Assessment & Plan Assessment/Plan (1) Common bile [...] 55 minutes. Charges/Coding Visit Charges Inpatient E&M: 69373 Init Hosp L2 09/24/24 0657 <Electronically signed by Benedicto Burks DO> Cosigner Signature (if applicable): CC: DONNIE Pierre; Dr. Benedicto Burks DO~ Signed [facility] Work Phone: 1(808) 386-201303-14-2025 History and physical note [facility] Medical Records Department [address] [place] [address] H&P Exam - Hospitalist 09/23/242117 MR#: [id number] Acct: [id number] Name: REYNA NULL Rep #:[id number] : 1980 44 From: Benedicto Campos DO PCP: Cheryl Pierre PA-C Status:ADM I N [facility] HPI - General General Date of Admission: 09/23/24 Date of Service: 09/23/24 Chief Complaint: Nausea and Elevated LFT's. HPI Narrative REYNA NULL, is a 44 F with a past medical history of essential hypertension; onlosartan, morbid obesity; with BMI of 47.9 this admission and known history of intermittent Gallbladder Colic for yearswith known microlithiasis/sludge who presents to [facility] ER complaining of nausea and elevated LFT's. [...] is expected to extend beyond 2 midnights. [facility] Medical History (Updated 09/24/24 @ 02:13 by [...] % (Auto) 59.4, Lymph % (Auto) 26.2, [place] % (Auto) 7.6, Eos % (Auto) 5.1 H, Baso % (Auto) 1.0, Absolute Neuts (auto) 4.2, Absolute Lymphs (auto) 1.86, Nucleated RBC % 0, Sodium 142, Potassium 3.6, [id number], Carbon Dioxide 21.2, Anion Gap 14, BUN [...] Recommend GI consultation and MRCP/ERCP. Reading Location: [id number] Assessment & Plan Assessment/Plan (1) Common bile [...] recommended along with MRCP/ERCP - Admit to [facility] medical floor. Keep strict n.p.o. and start [...] 55 minutes. Charges/Coding Visit Charges Inpatient E&M: 43842 Init Hosp L2 09/24/24 0657 Cosigner Signature (if applicable): CC: DONNIE Pierre; Dr. Benedicto Burks, DO~ Signed [facility]03-14-2025 Discharge summary Author Juan Jose Oseguera [facility] Note Date/Time September 23, 2024 11: 55pm [facility] Medical Records Department [address] [place] [address] Emergency Department Summary 09/23/24 MR#: [id number] Acct: [id number] Name: REYNA NULL Rep #:[id number] : 1980 44 From: Juan Jose Gandhi PCP: Cheryl Pierre PA-C Status:ADM I N Location: [place] [address] HPI History of Present Illness Chief Complaint: Abn Labs PFSH [facility] Medical History (Updated 09/23/24 @ 22:26 by [...] Oxygen Delivery Method Room Air Room Air [facility] Narrative Medical decision making narrative: HISTORY OF PRESENT ILLNESS: 44-year-old female presents with concern for elevated liver enzymes. Notes history of gallbladder sludge. No severe abdominal pain earlier today. No painwith food. No falls or trauma. No urinary complaints. REVIEW OF SYSTEMS: Pertinent positives: Elevated liver enzymes Pertinent negatives: Vomiting PHYSICAL EXAM: Nursing triage notes reviewed, Vital signs reviewed Constitutional: please see [facility] HENT: MMM Eyes: Pupils equal round and [...] Consults: Gastroenterology (Dr. Cortez), Internal Medicine (Burks) [facility] Narrative: The patient was initially hemodynamically [...] duct consistent with CBD obstruction. Spoke with . Friend is vault person tomorrow and can evaluate the patient. Recommended starting patient on antibiotics. I gave Zosyn. Discussed with hospitalist agreed to admit the patient to [facility]. The patient and/or family, caregivers express [...] 2. Elevated liver enzymes Dispo: Admit to [facility] This note was generated with [employer] dictation software. It may contain incorrect words, [...] % (Auto) 59.4 Lymph % (Auto) 26.2 [place] % (Auto) 7.6 Eos % (Auto) 5.1 [...] Recommend GI consultation and MRCP/ERCP. Reading Location: [id number] Discharge Plan Disposition Disposition: Acute Care Hospital [facility] Discharge Date/Time: 09/23/24 22:00 What to do if you have Problems For any increased pain, shortness of breath, bleeding, nausea or vomiting, chest pain, or any unexpected problems, contact your Primary Care Provider. Call [facility] ([phone]) or report to the closest Emergency Room. Call 911 if necessary. 09/23/24 2692 <Electronically signed by Juan Jose Oseguera DO> Cosigner Signature (if applicable): CC: DONNIE Pierre ~ Signed [facility] Work Phone: 1(482) 260-200103-13-2025 Discharge summary [facility] Medical Records Department [address] [place] [address] Emergency Department Summary 09/23/24 MR#: [id number] Acct: [id number] Name: REYNA NULL Rep #:[id number] : 1980 44 From: Juan Jose Gandhi PCP: Cheryl Pierre PA-C Status:ADM I N Location: [place] [address] HPI History of Present Illness Chief Complaint: [facility]n [facility] Medical History (Updated 09/23/24 @ 22:26 by [...] Oxygen Delivery Method Room Air Room Air [facility] Narrative Medical decision making narrative: HISTORY OF PRESENT ILLNESS: 44-year-old female presents with concern for elevated liver enzymes. Notes history of gallbladder sludge. No severe abdominal pain earlier today. No painwith food. No falls or trauma. No urinary complaints. REVIEW OF SYSTEMS: Pertinent positives: Elevated liver enzymes Pertinent negatives: Vomiting PHYSICAL EXAM: Nursing triage notes reviewed, Vital signs reviewed Constitutional: please see [facility] HENT: MMM Eyes: Pupils equal round and [...] Consults: Gastroenterology (Dr. Cortez), Internal Medicine (Burks) [facility] Narrative: The patient was initially hemodynamically [...] bile duct consistentwith CBD obstruction. Spoke with . Friend is vault person tomorrow and can evaluate the patient. Recommended starting patient on antibiotics. I gave Zosyn. Discussed with hospitalist agreed to admit the patient to [facility]. The patient and/or family, caregivers express [...] 2. Elevated liver enzymes Dispo: Admit to [facility] This note was generated with [employer] dictation software. It may contain incorrect words, [...] % (Auto) 59.4 Lymph % (Auto) 26.2 [place] % (Auto) 7.6 Eos % (Auto) 5.1 [...] Recommend GI consultation and MRCP/ERCP. Reading Location: [id number] Discharge Plan Disposition Disposition: [facility] Discharge Date/Time: 09/23/24 22:00 What to do if you have Problems For any increased pain, shortness of breath, bleeding, nausea or vomiting, chest pain, or any unexpected problems, contact your Primary Care Provider. Call [facility] ([phone]) or report to the closest Emergency Room. Call 911 if necessary. 09/23/24 9915 Cosigner Signature (if applicable): CC: DONNIE Pierre ~ Signed [facility]03-13-2025 Evaluation note* Diagnosis Onset Date Resolution Status Admit Date Abdominal pain acute September 9:20pm Common bile duct (CBD) obstruction a cute September 23, 2024 9:20pm Essential hypertension acute [facility] 2024 9:20pm Hyperbilirubinemia acute September 23, 2024 9:20pm Morbid obesity with BMI of 45.0-49.9, adult acute September 23 9:20pm Nausea acute September 23 9:20pm Transaminitis acute September 23, 2024 9:20pm [facility] Work Phone: 1(283) 257-505703-13-2025 Evaluation note* Diagnosis Onset Date Resolution Status Admit Date Choledocholithiasis with obstruction acute September 23, 2024 9:20pm Essential hypertension acute [facility] 2024 9:20pm Morbid obesity with BMI of 45.0-49.9, adult acute September 23 9:20pm Abdominal pain resolved September 9:20pm Common bile duct (CBD) obstruction r esolved September 23, 2024 9:20pm Hyperbilirubinemia resolved September 23, 2024 9:20pm Nausea resolved September 23 9:20pm Transaminitis resolved September 23, 2024 9:20pm Choledocholithiasis with obstruction acute October 07, 2024 1:38pm Elevated transaminase measurement ac pala October 07, 2024 1:38pm [facility] Work Phone: 1(256) 582-952103-13-2025 Evaluation note* Diagnosis Onset Date Resolution Status Admit Date Choledocholithiasis with obstruction acute September 23, 2024 9:20pm Essential hypertension acute [facility] 2024 9:20pm Morbid obesity with BMI of 45.0-49.9, adult acute September 23 9:20pm Abdominal pain resolved September 9:20pm Common bile duct (CBD) obstruction r esolved September 23, 2024 9:20pm Hyperbilirubinemia resolved September 23, 2024 9:20pm Nausea resolved September 23 9:20pm Transaminitis resolved September 23, 2024 9:20pm Choledocholithiasis with obstruction acute October 07, 2024 1:38pm Elevated transaminase measurement ac pala October 07, 2024 1:38pm Choledocholithiasis with obstruction acute October 21, 2024 9:59am Elevated transaminase measurement ac pala October 21, 2024 9:59am [facility] Work Phone: 1(538) 111-144303-13-2025 Evaluation note* Diagnosis Onset Date Resolution Status Admit Date Choledocholithiasis with obstruction acute September 23, 2024 9:20pm Essential hypertension acute [facility] 2024 9:20pm Morbid obesity with BMI of 45.0-49.9, adult acute September 23 9:20pm Abdominal pain resolved September 9:20pm Common bile duct (CBD) obstruction r esolved September 23, 2024 9:20pm Hyperbilirubinemia resolved September 23, 2024 9:20pm Nausea resolved September 23 9:20pm Transaminitis resolved September 23, 2024 9:20pm Choledocholithiasis with obstruction acute October 07, 2024 1:38pm Elevated transaminase measurement ac pala October 07, 2024 1:38pm Choledocholithiasis with obstruction acute October 21, 2024 9:59am Elevated transaminase measurement ac pala October 21, 2024 9:59am Encounter for screening colonoscopy acute December 16, 2024 5:23am [facility] Work Phone: 1(127) 249-467303-13-2025 Evaluation note* Diagnosis Onset Date Resolution Status Admit Date Choledocholithiasis with obstruction acute September 23, 2024 9:20pm Essential hypertension acute [facility] 2024 9:20pm Morbid obesity with BMI of 45.0-49.9, adult acute September 23 9:20pm Abdominal pain resolved September 9:20pm Common bile duct (CBD) obstruction r esolved September 23, 2024 9:20pm Hyperbilirubinemia resolved September 23, 2024 9:20pm Nausea resolved September 23 9:20pm Transaminitis resolved September 23, 2024 9:20pm Choledocholithiasis with obstruction acute October 07, 2024 1:38pm Elevated transaminase measurement ac pala October 07, 2024 1:38pm Choledocholithiasis with obstruction acute October 21, 2024 9:59am Elevated transaminase measurement ac pala October 21, 2024 9:59am Encounter for screening colonoscopy acute December 16, 2024 5:23am Colonic polyp acute December 30, 2024 9:51am [facility] Work Phone: 1(765) 364-285703-13-2025 Radiology Diagnostic study note [facility] Imaging Services [address] [place] [address] Gallbladder MR#: [id number] Acct: [id number] Name: REYNA NULL Rep #: [id number] : 1980 F 44 From: Ryne Pemberton MD PCP: Cheryl Pierre PA-C Status: REG E R Study:Gallbladder Date of Exam: 09/23/24 Exam# [id number] Ordering Dr: Bunny Oseguera DO PROCEDURE: GALLBLADDER [...] Recommend GI consultation and MRCP/ERCP. Reading Location: [id number] CC: DONNIE Pierre; Dr. Juan Jose Oseguera, DO ~ Chimney Repairer: [facility] Author Chandrakant Kasper [facility] Note Date/Time October 21, 2024 12: 41pm [facility] Medical Records Department [address] [place] [address] Anesthesia Postop Eval I 10/21/24 1240 MR#: [id number] Acct: [id number] Name: REYNA NULL Rep #:[id number] : 1980 44 From: Chandrakant Kasper PCP: Cheryl Pierre PA-C Status:REG S DC Y Race: C Location: [place] [address] Anesthesia: Postop Eval I Current Vital Signs [...] Chandrakant Reid Signature: Date CC: ~ Signed [facility] Work Phone: Consult note Author Phillip Gandara [facility] Note Date/Time October 21, 2024 1:0 2pm [facility] Medical Records Department [address] [place] [address] Anesthesia Postop Eval II 10/21/24 1300 MR#: [id number] Acct: [id number] Name: REYNA NULL Rep #:[id number] : 1980 44 From: Phillip Gandara MD PCP: Cheryl Pierre PA-C Status:REG S DC Y Race: C Location: [place] [address] Anesthesia Postop Eval I Sum Postop Eval [...] MD Cosigner Signature: Date CC: ~ Signed [facility] Work Phone: Consult note Author Phillip Gandara [facility] Note Date/Time December 16, 2024 6:28a m [facility] Medical Records Department [address] [place] [address] Pre-Anesthesia Evaluation 12/16/24 0624 MR#: [id number] Acct: [id number] Name: REYNA NULL Rep #:[id number] : 1980 44 From: Phillip Gandara MD PCP: Cheryl Pierre PA-C Status:REG S DC Y Race: C Location: [place] [address] ASA Classification* ASA Classification ASA Classification: 3 [...] Patient and Chart Anesthesia Focused Assessment* Temperature: 97.9 F Pulse Rate: 80 Blood Pressure: 155/87 Respiratory Rate: 18 Pulse Ox: 98 Oxygen Delivery Method: Room Air Airway Assessment Mouth opens: 2 cm Mallampati Score: IV Teeth Condition: Intact Neck Range of motion (ROM): Limited ROM (Slight decrease in extension) Focused Labs Anesthesia Preop lab: CBC WBC 6.9 K/mm3 (4.4-11.0) 09/25/24 06:09/25/24 RBC 4.22 M/mm3 (4.2-5.4) 09/25/24 06:09/25/24 Hgb 12.3 g/dL (12.0-15.0) 09/25/24 06:09/25/24 Hct 39.1 % (37-47) 09/25/24 06:33 09/25/24 Plt Count 358 K/mm3 (150-450) 09/25/24 06:33 09/25/24 CHEMISTRY Potassium 3.5 mmol/L (3.3-5.1) 09/25/24 06:09/25/24 Sodium 139 mmol/L (133-145) 09/25/24 06:33 09/25/24 Magnesium 2.1 mg/dL (1.5-2.2) 09/23/24 18:47 09/23/24 Phosphorus 2.5 mg/dL (2.7-4.5) L 09/25/24 06:09/25/24 BUN 8 mg/dL (4-19) 09/25/24 06:09/25/24 Creatinine 0.76 mg/dL (0.70-1.20) 09/25/24 06:09/25/24 Glucose 115 mg/dL (70-99) H 09/25/24 06:09/25/24 TSH 2.100 uIU/mL (0.300-4.200) 09/23/24 18:47 09/11 10/05 COAG Urine Test Negative Negative 10/21/24 10:25 10/21/24 Pre-Assessment Diagnosis/Proposed Procedure Planned Operative Procedure(s): COLONOSCOPY Anesthesia History 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 When Was Last Pacemaker Check QUESTION #4 FULL TEXT: You/Your Family Experience fever (hyperthermia) with Anesthesia Last Oral Intake Last Oral intake: Last Oral Intake NPO since 04:45 12/16/24 06:01 Meds taken in AM with sips of Yes 12/16/24 06:01 water? 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 Female Yes 12/10/24 10:57 HX of Motion Sickness No 12/10/24 10:57 HX of N/V After Surgery No 12/10/24 10:57 Non-Smoker Yes 12/10/24 10:57 Duration of Surgery greater No 12/10/24 10:57 than 60 minutes Number of Risk Factors 2 12/10/24 10:57 PONV Score Moderate Risk 12/10/24 10:57 Height & Weight Height & Weight: Anesthesia: Height & Weight Height 5 ft 4 in 12/16/24 06:01 Weight: 127.6 kg 12/16/24 06:01 Body Mass Index (BMI) 48.2 12/16/24 06:01 Respiratory Assessment Respiratory Assessment - 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: Respiratory Tract Infection Hx - 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 Hx Respiratory Tract Infection No 12/10/24 10:57 STOP Sleep Apnea STOP Sleep Apnea - 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: STOP Sleep Apnea - 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 Has anyone observed you stop breathing during sleep? STOP Results Positive 12/10/24 10:57 QUESTION #5 FULL TEXT : Do you snore loudly (louder than talking or can be heard through closed doors)? 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 Specify any problems Hx of Preganancy in last 3 No 12/10/24 10:57 Months Nurse Filling Out Transfusion VCHRISTIN 12/10/24 10:57 & Questions: Date: 12/10/24 12/10/24 10:57 Time: 10:58 12/10/24 10:57 Patient unable to answer at this time (ie. 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: /Reproductive Hx- 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 Hx Now No 12/10/24 10:57 Gestational Age (in weeks): EDC: Hx Hx Para Hx Section SAB No 12/10/24 10:57 Active Medications Active Medications: Current Medications Generic Name Dose Route Start Last Admin Trade Name Freq PRN Reason Stop Dose Admin Lactated Ringer's 1,000 mls @ 15 mls/hr 12/16/24 05:45 12/16/24 06:00 IV 15 mls/hr .Q48H REAGAN Administration Lactated Ringer's 1,000 mls @ 15 mls/hr 12/16/24 06:15 IV .Q48H REAGAN PFSH Medical History Wears glasses Gastric reflux Non-smoker CPAP (continuous positive airway pressure) dependence Sleep apnea Hypertension Home Medications ?Medication ?Instructions ?Recorded ?Last Taken ?Type losartan 25 mg tablet 25 mg PO DAILY 09/23/24 06/0 12/05 04:45 History pantoprazole 40 mg tablet,delayed 40 mg PO QDAY #90 ta bs 10/07/24 Unknown Rx release sodium sul 1.479 gram-potas ch See Rx Instructions PO PER PKG DIR 10/07/24 Unknown Rx 0.188 gram-magnes sul 0.225 gram #24 tabs tablet (Sutab) Allergy/AdvReac Type Severity Reaction Status Date / Time No Known Allergies Allergy Verified 12/16/24 06:00 Surgical History History of ERCP Social History Smoking Status: Never smoker Review of Systems (Anesthesia) ROS Narrative System reviewed and no additional complaints, except as documented. 12/16/24627 <Electronically signed by Phillip paul MD> Date _ Phillip Prabhakarignreny Signature: Date CC: ~ Signed [facility] Work Phone: Consult note Author Brit Simental [facility] Note Date/Time December 16, 2024 7:38a [facility] Medical Records Department [address] [place], [place] [address] [address] Anesthesia Postop Eval I 12/16/24736 MR#: [id number] Acct: [id number] Name: REYNA NULL Rep #:[id number] : 1980 44 From: Brit Simental CRNA PCP: Cheryl Pierre PA-C Status:REG S DC Y Race: C Location: [place] [address] Anesthesia: Postop Eval I Current Vital Signs Temperature: 97.8 F Pulse Rate: 82 Blood Pressure: 112/52 Respiratory Rate: 16 Pulse Ox: 99 Assessment Airway patent: Yes Spontaneous unlabored respirations: Yes nausea: No Vomiting: No Anesthesia Complication: No Fluid Hydration Crystalloid volume administer (ml): 300 Total IV fluid infused: 300 Progress Note Anesthesia document: Postop Eval 1 completed: Yes 12/16/24737 <Electronically signed by Brit cm CRNA> Date _ Brit Simental CRNA Cosigner Signature: Date CC: ~ Signed [facility] Work Phone: Discharge summary Author Loretta Meyer [facility] Note Date/Time September 25, 2024 10: 38am [facility] Medical Records Department [address] [place] [address] Instructions for Home/Discharge Instructions 09/25/24 1035 MR#: [id number] Acct: [id number] Name: REYNA NULL Rep #:[id number] : 1980 44 From: Loretta Meyer MD [...] his office to schedule an appointment (ph. [phone]) -You will be discharged on additional 10 [...] call his office to schedule an appointment (. [phone])) Cheryl Pierre PA-C [Primary Care Provider] - In 1 Week Disposition Disposition (needs filled in before D/C Order can be placed): Home, Self Care 09/25/24 1038<Electronically signed by Loretta Meyer MD>Loretta Meyer MD CC: DONNIE Pierre; Dr. Benedicto Burks DO ~ Signed [facility] Work Phone: Evaluation note* Diagnosis Onset Date Resolution Status Admit Date Common bile duct (CBD) obstruction acute September 23, 2024 9:20pm Morbid obesity with BMI of 45.0-49.9, adult acute September 23 9:20pm Nausea & vomiting acute September 112024 9:20pm [facility] Work Phone: History and physical note Author Khadar Cortez [facility] Note Date/Time October 21, 2024 11: 26am [facility] Medical Records Department [address] [place] [address] History & Physical Exam 10/21/24 1124 MR#: [id number] Acct: [id number] Name: REYNA NULL Rep #:[id number] : 1980 44 From: Khadar Cortez DO PCP: Cheryl Pierre PA-C Status:REG S DC Location: [place] [address] HPI - General General Date of Admission: [...] CC: DONNIE Pierre; Khadar Cortez DO~ Signed [facility] Work Phone: History and physical note Author Khadar Cortez [facility] Note Date/Time December 16, 2024 7:08a m [facility] Medical Records Department [address] [place] [address] History & Physical Exam 12/16/24 0706 MR#: [id number] Acct: [id number] Name: REYNA NULL Rep #:[id number] : 1980 44 From: Khadar Cortez DO PCP: Cheryl Pierre PA-C Status:REG S DC Location: [place] [address] HPI - General General Date of Admission: 12/16/24 Date of Service: 12/16/24 Chief Complaint: Screening colonoscopy HPI Narrative REYNA NULL, is a 44 F who presents today for screening colonoscopy. She never had a colonoscopy in the past. She has a past medical history of hypertension and mild gastroesophageal reflux disease. Overall she is doing fairly good health. [facility] Medical History Wears glasses Gastric reflux Non-smoker CPAP (continuous positive airway pressure) dependence Sleep apnea Hypertension Home Medications ?Medication ?Instructions ?Recorded ?Last Taken ?Type losartan 25 mg tablet 25 mg PO DAILY 09/23/24 06/0 12/05 04:45 History pantoprazole 40 mg tablet,delayed 40 mg PO QDAY #90 ta bs 10/07/24 Unknown Rx release sodium sul 1.479 gram-potas ch See Rx Instructions PO PER PKG DIR 10/07/24 Unknown Rx 0.188 gram-magnes sul 0.225 gram #24 tabs tablet (Sutab) Allergy/AdvReac Type Severity Reaction Status Date / Time No Known Allergies Allergy Verified 12/16/24 06:00 Surgical History History of ERCP Social History [...] changes Vital Signs Vital Signs Vital Signs: 12/16/24 06:01 12/16/24 06:01 12/16/24 06:28 Temperature 97.9 F 97.9 F Temperature Source Temporal Pulse Rate 80 80 Respiratory Rate 18 18 Respiratory Pattern Normal Blood Pressure 155/87 H 155/87 H Blood Pressure Mean 109 Blood Pressure Source Monitor Blood Pressure Position Sitting Blood Pressure Location Left Arm Pulse Ox 98 98 Oxygen Delivery Method Room Air Room Air Weight Weight: 281 lb 4.957 oz Body Mass Index (BMI) 48.2 Physical Exam Const alert, oriented x3, no apparent distress and healthy appearing General Appearance: cooperative GI normal to inspection, nondistended, normoactive bowel sounds, soft to palpation,non-tender and non-distended Percussion: normal to percussion Rectal Exam: deferred Results Lab / Micro Data Labs: Laboratory Results - last 24 hr 12/16/24 05:45: Urine Test Negative Assessment & Plan Assessment/Plan (1) Encounter for screening colonoscopy: PLAN: She was explained alternatives, risk and benefits include not withstandingbleeding, infection, sepsis, perforation, need for heart surgery . She will have an ASA of 3. 12/16/24 0708 <Electronically signed by Khadar Cortez DO> Cosigner Signature (if applicable): CC: DONNIE Pierre; Khadar Cortez DO~ Signed [facility] Work Phone: Progress note Author Hui Weaver [facility] Note Date/Time December 30, 2024 10:1 6am [facility] [address] [place] [address] OFFICE VISIT Date of Service: 12/30/24 MR#: [id number] Acct: [id number] Name: REYNA NULL Rep #: [id number] : 1980 Provider: NEL Weaver Age/Sex: 44/F Location: [email or web address] Status: Signed Intake Vital Signs 10/07/24 14:04 12/16/24 06:01 12/30/24 09:59 Height 5 ft 4 in 5 ft 4 in 5 ft 4 in Weight: 282 lb 2 oz BMI 48.4 BP 152/84 H Respiration 16 Pulse 84 Temp 98.0 F Temp Source Temporal Pulse Oximetry (%) 96 Oxygen Delivery Method room air Intake Visit Reasons: COLONOSCOPY FOLLOW UP Radiosonde Operator Required: No Accompanied by: Self Is patient in pain?: No Allergies No Known Allergies Allergy (Verified 12/30/24 09:55) Medications ?Medication ?Instructions ?Recorded ?Confirmed ?Type losartan 25 mg tablet 25 mg PO DAILY 09/23/2412/12 History pantoprazole 40 mg tablet,delayed 40 mg PO QDAY #90 ta bs 10/07/24 12/30/24 Rx release [facility] Medical History Wears glasses Gastric reflux Non-smoker CPAP (continuous positive airway pressure) dependence Sleep apnea Hypertension Surgical History History of ERCP Social History Smoking Status: Never smoker HPI HPI Details: REYNA NULL, is a 44 F who presents to the office today for OV 10/07/2024 44-year-old female presents for consultation with complaints [...] removal in 4 weeks Colonoscopy-Sutab bowel prep COLON 12/16/2024 - TA - One 20 mm polyp in the transverse colon, removed with a hot snare. Resected and retrieved. Clip was placed. Clip clipping marker: [employer]. Tattooed. - The examination was otherwise normal on direct and retroflexion views. - Repeat colonoscopy in 1 year for surveillance based on pathology results. ERCP w/Stent removal 10/21/2024 - The entire biliary tree was dilated, with a stone causing an obstruction. - Choledocholithiasis was found. Complete removal was accomplished by biliary sphincterotomy and balloon extraction. - A biliary sphincterotomy was performed. - The biliary tree was swept. - One stent was removed from the biliary tree - she is doing well - she denies any pain - denies any change in bowel habits - denies any bleeding - denies any family h/o colon CA - denies any recurrent pain like she experienced with choledocholithiasis ROS Const Constitutional: No fatigue, fever(s) or weight change ENT ENT: No difficulty swallowing Gastro GI: No abdominal pain, belching, bloating, change in bowel habits, change in stool character, coffee ground emesis, constipation, cramping, diarrhea, heartburn, difficulty swallowing, feeling full early, excessive flatus, incontinent of stools, Vomiting blood/hematemesis, Blood in stool, loose stools,Black,tarry stools, nausea/dyspepsia, pain with swallowing, vomiting or other Musc [...] full ROM and trachea midline Resp Effort & Inspection: normal respiratory effort, able to speak in complete sentences and symmetric chest movement Neuro General: patient alert and patient oriented x3 Cranial Nerves: other (CN's grossly intact, non-focal exam) Cognition: normal cognition Speech: speech normal Gait: normal gait Psych Appearance: grossly normal and well kempt Affect: normal affect Attitude: cooperative Thought Process: normal Assessment and Plan Assessment and Plan (1) Colonic polyp: Status: Acute Plan 44y/o female presents for follow-up. Screening colonoscopy was performed 10/21/2024 and revealed a 20mm TA, it is recommended she repeat the colonoscopy in one year. In terms of choledocholithiasis, she is s/p stent removal without any recurrent pain. She keep us apprised of any changes in her symptoms. I do recommend if she has recurrent episode of choledocholithiasis she discuss surgical options for CCX. Note: [employer] speech recognition semiconductor technician software was used to create portions of this document. Sound-alike and misspelled words, as well as other semiconductor technician errors may be contained in the documentation. Patient Instructions: Repeat colonoscopy in 1 year Coding Level of Care Code Off vis,est,level 3 Diagnoses Colonic polyp K63.5 Clinical Quality Measures Smoking Screening Smoking Status: Never smoker 12/30/24 1016 <Electronically signed by Hui NEUMANN> Date _ Hui NEUMANN Cosigner Signature: Date (if applicable) CC: ~ [facility] Work Phone: Reason for referral (narrative)No reason for referral information [facility] Work Phone: Summary Purpose Family History No Family History Records FoundNo Family History Records FoundNo Family History Records FoundNo Family History Records FoundNo Family History Records Found Advance Directives No Advanced Directives Records Found Advance Directive Response Recorded Date/ Time Living Will No September 23, 2024 6:20pm Power of Tyre Fitter No September 23 6:20pm Advance Directive Response Recorded Date/ Time Living Will No September 23, 2024 10:10pm Power of Tyre Fitter No September 23 10:10pm Advance Directive Response Recorded Date/ Time Living Will No September 23, 2024 10:10pm Do you have a Healthcare Power of Tyre Fitter? No September 23, 2024 10:10pm Advance Directive Response Recorded Date/ Time Living Will No September 23, 2024 10:10pm Do you have a Healthcare Power of Tyre Fitter? No September 23, 2024 10:10pm Living Will No October 15, 2024 11:38am Do you have a Healthcare Power of Tyre Fitter? No October 15, 2024 11:38am Advance Directive Response Recorded Date/ Time Living Will No September 23, 2024 10:10pm Do you have a Healthcare Power of Tyre Fitter? No September 23, 2024 10:10pm Living Will No October 15, 2024 11:38am Do you have a Healthcare Power of Tyre Fitter? No October 15, 2024 11:38am Do you have a Healthcare Power of Tyre Fitter? No December 10, 2024 10:57am Chief Complaint and Reason for Visit Chief [...] for Visit Admit Date Choledocholithiasis with obstruction [facility] 2024 9:20pm Essential hypertension September 23, 2024 9:20pm Morbid obesity with BMI of 45.0-49.9, ad ult September 23, 2024 9:20pm Abdominal pain September 23, 2024 9:2 0pm Common bile duct (CBD) obstruction September 23, 2024 9:20pm Hyperbilirubinemia September 23, 2024 9:2 0pm Nausea September 23, 2024 9:2 0pm Transaminitis September 23, 2024 9:2 0pm Choledocholithiasis with obstruction [facility] 2024 1:38pm Elevated transaminase measurement October 07, 2024 1:38pm Reason for Visit Admit Date Choledocholithiasis with obstruction [facility] 2024 9:20pm Essential hypertension September 23, 2024 9:20pm Morbid obesity with BMI of 45.0-49.9, ad ult September 23, 2024 9:20pm Abdominal pain September 23, 2024 9:2 0pm Common bile duct (CBD) obstruction September 23, 2024 9:20pm Hyperbilirubinemia September 23, 2024 9:2 0pm Nausea September 23, 2024 9:2 0pm Transaminitis September 23, 2024 9:2 0pm Choledocholithiasis with obstruction Mar 2024 1:38pm Elevated transaminase measurement October 07, 2024 1:38pm Choledocholithiasis with obstruction Apr 2024 9:59am Elevated transaminase measurement October 21, 2024 9:59am Chief Complaint Admit Date CBD STONES WITH TRANSAMINITIS September 9:20pm CBD STONES WITH TRANSAMINITIS September 7:05am CBD STONES WITH TRANSAMINITIS September 3:26pm PREOP September 24, 2024 3:2 7pm CBD STONES WITH TRANSAMINITIS September 10:38am ED follow up October 07, 2024 1:3 8pm PREOP October 21, 2024 10: 34am INT LAB ORDER October 27, 2024 4:4 9pm Reason for Visit Admit Date Choledocholithiasis with obstruction Mar 2024 9:20pm Essential hypertension September 23, 2024 9:20pm Morbid obesity with BMI of 45.0-49.9, ad ult September 23, 2024 9:20pm Abdominal pain September 23, 2024 9:2 0pm Common bile duct (CBD) obstruction September 23, 2024 9:20pm Hyperbilirubinemia September 23, 2024 9:2 0pm Nausea September 23, 2024 9:2 0pm Transaminitis September 23, 2024 9:2 0pm Choledocholithiasis with obstruction Mar 2024 1:38pm Elevated transaminase measurement October 07, 2024 1:38pm Choledocholithiasis with obstruction Apr [place] 2024 9:59am Elevated transaminase measurement October 21, 2024 9:59am Encounter for screening colonoscopy December 16, 2024 5:23am Chief Complaint Admit Date CBD STONES WITH TRANSAMINITIS September 9:20pm CBD STONES WITH TRANSAMINITIS September 7:05am CBD STONES WITH TRANSAMINITIS September 3:26pm PREOP September 24, 2024 3:2 7pm CBD STONES WITH TRANSAMINITIS September 10:38am ED follow up October 07, 2024 1:3 8pm PREOP October 21, 2024 10: 34am INT LAB ORDER October 27, 2024 4:4 9pm COLONOSCOPY FOLLOW UP December 30, 2024 9: 51am Reason for Visit Admit Date Choledocholithiasis with obstruction [facility] 2024 9:20pm Essential hypertension September 23, 2024 9:20pm Morbid obesity with BMI of 45.0-49.9, ad ult September 23, 2024 9:20pm Abdominal pain September 23, 2024 9:2 0pm Common bile duct (CBD) obstruction September 23, 2024 9:20pm Hyperbilirubinemia September 23, 2024 9:2 0pm Nausea September 23, 2024 9:2 0pm Transaminitis September 23, 2024 9:2 0pm Choledocholithiasis with obstruction [facility] 2024 1:38pm Elevated transaminase measurement October 07, 2024 1:38pm Choledocholithiasis with obstruction Apr 2024 9:59am Elevated transaminase measurement October 21, 2024 9:59am Encounter for screening colonoscopy December 16, 2024 5:23am Colonic polyp December 30, 2024 9:51 am Additional Source Comments INFORMATION SOURCE (unrecogn ized section and content) DATE CREATED AUTHOR 03/02/2020 [facility] DATE CREATED AUTHOR AUTHOR'S ORGANIZ ATION 03/11/2021 [facility] DATE CREATED AUTHOR AUTHOR'S ORGANIZ ATION 08/07/2022 [facility] ([place] DATE CREATED AUTHOR AUTHOR'S ORGANIZ ATION 01/01/2025 [facility] DATE CREATED AUTHOR AUTHOR'S ORGANIZ ATION 01/23/2025 [facility] Care Teams (unrecognized sec tion and content) Team Status: Active Member Role Status Dates Cheryl THOMAS PA-C Primary Care Provider Active Team Status: Inactive Member Role Status Dates Dr. Juan Jose Oseguera DO Referring Provider Active Start: September 23, 2024 End: September 25, 2024 Dr. Juan Jose Oseguera DO Emergency Provider Active Start: September 23, 2024 End: September 25, 2024 [facility] PA, PA-C Primary Care Provider [...] Emergency Provider Active Start: September 24, 2024 [facility] PA, PA-C Primary Care Provider [...] Emergency Provider Active Start: September 24, 2024 [facility] PA, PA-C Primary Care Provider [...] Emergency Provider Active Start: September 23, 2024 [facility] PA, PA-C Primary Care Provider [...] 23, 2024 End: September 25, 2024 Cheryl Hills PA, PA-C [...] Emergency Provider Active Start: September 24, 2024 [facility] PA, PA-C Primary Care Provider [...] Team Status: Active Member Role Status Dates [facility] PA, PA-C Primary Care Provider [...] Provider Active Start: September 25, 2024 Dr. Loertta Meyer MD Other Provider Active Star t: September 25, 2024 Team Status: Inactive Member Role Status Dates Cheryl Pierre PA, PA-C Primary Care Provider Active Start: October 07, 2024 End: October 07, 2024 Cheryl Pierre PA, PA-C Referring Provider Active Start: October 07, 2024 End: October 07, 2024 Hui Weaver NP-C Attending Provider Active Start: October 07, 2024 End: October 07, 2024 Team Status: Inactive Member Role Status Dates Cheryl Pierre PA, PA-C Primary Care Provider Active Start: October 07, 2024 End: October 07, 2024 Hui Weaver NP-C Attending Provider Active Start: October 07, 2024 End: October 07, 2024 Hui Weaver NP-C Referring Provider Active Start: October 07, 2024 End: October 07, 2024 Team Status: Inactive Member Role Status Dates Cheryl Pierre PA, PA-C Primary Care Provider Active Start: October 21, 2024 End: October 21, 2024 Cheryl Pierre PA, PA-C Referring Provider Active Start: October 21, 2024 End: October 21, 2024 Dr. Khadar Cortez DO Attending Provider Active Start: October 21, 2024 End: October 21, 2024 Team Status: Active Member Role Status Dates Cheryl Pierre PA, PA-C Primary Care Provider Active Start: October 21, 2024 Cheryl Pierre PA, PA-C Referring Provider Active Start: October 21, 2024 Dr. Khadar Cortez DO Attending Provider Active Start: October 21, 2024 Dr. Khadar Cortez DO Other Provider Active St art: October 21, 2024 Team Status: Active Member Role Status Dates Cheryl Pierre PA, PA-C Primary Care Provider Active Start: October 21, 2024 End: October 21, 2024 Dr. Moshe Mayo MD Attending Provider Active S tart: October 21, 2024 End: October 21, 2024 Dr. Phillip Gandara MD Referring Provider Active Start: October 21, 2024 End: October 21, 2024 Team Status: Inactive Member Role Status Dates Cheryl Gabby PA, PA-C Primary Care Provider Active Start: October 27, 2024 End: October 27, 2024 NEL Barnes Attending Provider Active Start: October 27, 2024 End: October 27, 2024 NEL Barnes Referring Provider Active Start: October 27, 2024 End: October 27, 2024 Team Status: Inactive Member Role Status Dates Cheryl [place] PA, PA-C Primary Care Provider Active Start: December 16, 2024 End: December 16, 2024 Cheryl [place] PA, PA-C Referring Provider Active Start: December 16, 2024 End: December 16, 2024 Dr. Khadar Cortez DO Attending Provider Active Start: December 16, 2024 End: December 16, 2024 Team Status: Active Member Role Status Dates Cheryl [place] PA, PA-C Primary Care Provider Active Start: December 16, 2024 Cheryl Hills PA, PA-C Referring Provider Active Start: December 16, 2024 Dr. Khadar Cortez DO Attending Provider Active Start: December 16, 2024 Dr. Khadar Cortez DO Other Provider Active St art: December 16, 2024 Team Status: Inactive Member Role Status Dates Cheryl Pierre PA, PA-C Primary Care Provider Active Start: December 30, 2024 End: December 30, 2024 Cheryl [place] PA, PA-C Referring Provider Active Start: December 30, 2024 End: December 30, 2024 NEL Barnes Attending Provider Active Start: December 30, 2024 End: December 30, 2024 Goals (unrecognized section and content) Goals [...] BE BASED ON THE PRIMARY CLINICAL RECORDS. [facility]. provides no warranty or guarantee of the accuracy or completeness of information in this document.
[2025-02-15 07:41] VITALS: BP 141/66; PULSE 82; RESP 16; TEMP 36.4; O2SAT 100
== END 2025-02-15 07:42 | disposition home or self-care (01) ==
PROVIDERS: Emergency Provider Emergency Medicine; PCP Family Medicine; Visit Provider Emergency Medicine
DX: R11.2 Nausea with vomiting, unspecified (principal); R10.10 Upper abdominal pain, unspecified; T38.3X5A Adverse effect of insulin and oral hypoglycemic [antidiabetic] drugs, initial encounter; I10 Essential (primary) hypertension; K21.9 Gastro-esophageal reflux disease without esophagitis; E66.9 Obesity, unspecified
CPT/HCPCS: 74022; 80048; 80076; 83690; 84703; 85025; 96361; 96374; 96375; 99283; A4216; J2405